=== PATIENT | male | born 1960 | race Caucasian/White ===

== ENCOUNTER 2020-05-12 14:57 | Outpatient (REF) | payer OTHER, SELFPAY ==
[2020-05-12 16:20] LABS: Alanine Aminotransferase 31 U/L (0-40); Albumin Level 4.4 g/dL (3.5-5.0); Alkaline Phosphatase 40 U/L (39-117); Aspartate Amino Transferase 26 U/L (5-37); Bilirubin Direct 0.3 mg/dL (0.0-0.5); Bilirubin Total 0.6 mg/dL (0.0-1.0); Total Protein 7.2 g/dL (6.5-8.0)
[2020-09-03 11:37] LABS: HCV Log PCR <1.18 NOT DETECTED; HepC Viral Load <15 NOT DETECTED
== END 2020-05-12 14:58 | disposition home or self-care (01) ==
LOC: HO.LAB 14:57
PROVIDERS: Absent Provider Internal Medicine; PCP Internal Medicine; Visit Provider Family Medicine
DX: B19.20 Unspecified viral hepatitis C without hepatic coma (principal); K74.00 Hepatic fibrosis, unspecified
CPT/HCPCS: 36415; 80076; 87522

== ENCOUNTER 2020-07-01 14:48 | Outpatient (REF) | payer OTHER, SELFPAY ==
--- NOTE | 2020-07-01 14:52 | US_ITS ---
EXAMINATION: US ABDOMEN COMPLETE CLINICAL INFORMATION: Hepatitis C. COMPARISON: Ultrasound abdomen complete 09/13/2019. TECHNIQUE: Real-time imaging of the abdominal viscera. FINDINGS: PANCREAS: Normal. ABDOMINAL AORTA: The proximal, mid, and distal segments are normal in caliber. INFERIOR VENA CAVA: Visualized portions are normal. LIVER: The liver is normal in size. The liver contour is normal. The liver is normal in echogenicity. No focal hepatic lesion. There is no intrahepatic biliary duct dilatation seen. GALLBLADDER: Normal. The gallbladder is physiologically distended without evidence of stones, sludge, polyps, wall thickening or pericholecystic fluid. COMMON BILE DUCT: Normal in caliber measuring 0.4 cm in diameter. RIGHT KIDNEY: There are multiple small stones, largest measuring 3 and 4 mm in the lower pole. No hydronephrosis or focal parenchymal lesions. The kidney measures 10.3 cm in maximum dimension. LEFT KIDNEY: There are multiple small stones, largest measuring 3 mm in the lower pole. No hydronephrosis or focal parenchymal lesions. The kidney measures 11.1 cm in maximum dimension. SPLEEN: Normal. The spleen measures 9.0 cm in maximum dimension. FREE FLUID: None. US/US abdomen complete IMPRESSION: Normal-appearing liver. Bilateral renal stones.
== END 2020-07-01 14:49 | disposition home or self-care (01) ==
LOC: HO.HMGCX 14:48
PROVIDERS: Visit Provider Family Medicine
DX: K74.00 Hepatic fibrosis, unspecified (principal); B19.20 Unspecified viral hepatitis C without hepatic coma
CPT/HCPCS: 76700

== ENCOUNTER → 2020-09-04 12:30 | Outpatient (BNVA) | payer OTHER, SELFPAY | PROVIDERS: PCP Internal Medicine; Visit Provider Physician Assistant | DX: Z12.11 Encounter for screening for malignant neoplasm of colon (principal) | CPT/HCPCS: Q3014 ==

== ENCOUNTER 2020-11-24 09:31 | Day surgery (SDC) | payer OTHER, SELFPAY ==
[2020-11-10 09:45] VITALS: BMI 23.2
--- NOTE | 2020-11-20 12:25 | P.CONAN_ITS ---
Documented by User: Carla Goodrich 11/20/20 12:25 HPI - Anesthesia Eval Consult details Narrative: 60yo M for Colonoscopy PMFSH Active Problems Active Problems: All Active Problems (Updated 11/10/20 @ 09:57 by Angelica Guajardo) Encounter for screening colonoscopy (Acute) COPD (chronic obstructive pulmonary disease) (Acute) Past Medical History Medical History (Updated 11/10/20 @ 09:57 by Angelica Guajardo) COPD (chronic obstructive pulmonary disease) Difficult intravenous access Hepatitis C History of chronic pain Peptic ulcer Family History Family History Mother Emphysema lung Cancer Surgical History Surgical History (Updated 11/07/20 @ 08:24 by Angelica Guajardo) History of esophagogastroduodenoscopy (EGD) Hx of colonoscopy Hx of hand surgery Social History Social History (Updated 11/10/20 @ 09:51 by Angelica Guajardo) Household Members Other:: room mate Are you a primary neonatal intensive care unit nurse to a significant other at home: No Do you presently have visiting nurse or other home services: No Alcohol intake: former Smoking Status: Current every day smoker Tobacco Type: Cigarette Cigarettes Per Day: 6 Years Smoked: 45 Use of substances other than those prescribed or required for medical reasons: No Substance Use Type Other:: clean since 2005 Have you been hit, kicked, punched, or otherwise hurt by someone within the past year? If so, by whom?: No Are you DNR?: No Advance Directives Information Provided: No Recently lost weight without trying: No Eating poorly because of decreased appetite: No Nutrition Risks: No Nutritional Risk Poor oral hygiene: No (upper full & lower partial denture) Meds Allergies Allergy/AdvReac Type Severity Reaction Status Date / Time No Known Allergies Allergy Verified 09/04/20 12:30 Home Medications Medication Instructions Recorded Confirmed Last Taken Type albuterol sulfate 90 mcg/actuation 2 puff PO Q4-6H PRN 09/04/20 11/10/20 Unknown History aerosol inhaler buprenorphine 4 mg-naloxone 1 mg 1 film SUBLINGUAL BID ea 09/04/20 11/10/20 Unknown History sublingual film tiotropium bromide 18 mcg capsule 1 cap INHALATION DAILY 09/04/20 11/10/20 Unknown History with inhalation device Exam Exam Date and Time: November 20, 2020 1225 Height,Weight and Vital Signs: Height 5 ft 10 in Weight 73.482 kg Assessment and Plan Assessment Anesthesia Assessment: Chart Reviewed Documented by User: Sarah Bose 11/24/20 09:57 [facility] Past Medical History Medical History (Updated 11/10/20 @ 09:57 by Angelica Guajardo) COPD (chronic obstructive pulmonary disease) Difficult intravenous access Hepatitis C History of chronic pain Peptic ulcer Family History Family History Mother Emphysema lung Cancer Surgical History Surgical History (Updated 11/07/20 @ 08:24 by Angelica Guajardo) History of esophagogastroduodenoscopy (EGD) Hx of colonoscopy Hx of hand surgery Social History Social History (Updated 11/10/20 @ 09:51 by Angelica Guajardo) Household Members Other:: room mate Are you a primary neonatal intensive care unit nurse to a significant other at home: No Do you presently have visiting nurse or other home services: No Alcohol intake: former Smoking Status: Current every day smoker Tobacco Type: Cigarette Cigarettes Per Day: 6 Years Smoked: 45 Use of substances other than those prescribed or required for medical reasons: No Substance Use Type Other:: clean since 2005 Have you been hit, kicked, punched, or otherwise hurt by someone within the past year? If so, by whom?: No Are you DNR?: No Advance Directives Information Provided: No Recently lost weight without trying: No Eating poorly because of decreased appetite: No Nutrition Risks: No Nutritional Risk Poor oral hygiene: No (upper full & lower partial denture) Meds Allergies Allergy/AdvReac Type Severity Reaction Status Date / Time No Known Allergies Allergy Verified 09/04/20 12:30 Home Medications Medication Instructions Recorded Confirmed Last Taken Type albuterol sulfate 90 mcg/actuation 2 puff PO Q4-6H PRN 09/04/20 11/10/20 Unknown History aerosol inhaler buprenorphine 4 mg-naloxone 1 mg 1 film SUBLINGUAL BID ea 09/04/20 11/10/20 Unknown History sublingual film tiotropium bromide 18 mcg capsule 1 cap INHALATION DAILY 09/04/20 11/10/20 Unknown History with inhalation device Exam Airway Mallampati Class: I (Only 3 teeth in mouth on the bottom nit loose) TM Dist: >3cm Neck ROM: Full Heart: RRr Lungs: CTA Assessment and Plan Assessment Anesthesia Assessment: Anesthesia Plan Discussed and Chart Reviewed Final Anesthetic Review NPO: Yes (Sip water with med) ASA Class: III Final Preanesthetic Review: No Changes in Pt Med Stat and Consent Obtained/Reviewed Patient Risk: Intermediate Procedure Risk: Intermediate Anesthetic Plan Anesthetic Plan: MAC: Disposition: Standard PACU
[2020-11-24 10:00] VITALS: BP 134/76; PULSE 58; RESP 18; TEMP 36.7; O2SAT 97
[2020-11-24] MEDS: Lactated Ringers 1,000 ML 100 ML IVCONT (10:23)
--- NOTE | 2020-11-24 10:30 | P.HPSUR_ITS ---
Pre-Procedural Eval Section B Chief Complaint: Screening Relevant Family History (Specify if Yes): No Relevant Social History: Tobacco Use Present Medications: see Short Stay Collaborative assessment Medical History: Significant History (COPD (chronic obstructive pulmonary disease) Difficult intravenous access Hepatitis C History of chronic pain Peptic ulcer) History of Previous Operations: Relevant previous surgery/procedure and date(s) (hand surgery, hx of EGD,colonoscopy ) Allergies: Allergies Allergy/AdvReac Type Severity Reaction Status Date / Time No Known Allergies Allergy Verified 09/04/20 12:30 Review of Systems Sugical H&P ROS: Negative: Constitution, Cardiovascular, Respiratory, Neurological, Psychiatric, Hem-Onc, Allergic/Immunologic, Gastrointestinal, Genitourinary, Musculoskeletal, Integumentary, Endocrine and Eyes/Ears/Nose/Throat Exam Surgical H&P Exam: Normal: HEENT, Normal: Heart, Normal: Lungs, Normal: Extre mities, Normal: Abdomen, Normal: Skin and Normal: Neurological Plan Diagnosis/Plan: Unchanged I have reviewed the history and physical and performed a pertinent physical examination on my patient. No changes have occurred unless specified.
--- NOTE | 2020-11-24 10:31 | P.OP_ITS ---
Operative Note Operative Note Date of Service: 11/24/20 Narrative: Operative Information Procedure Description: Colonoscopy COLONOSCOPY Instrument: Olympus variable stiffness pediatric scope 190L Colonoscopy Monitoring: Vital signs and clinical assessment, continuous EKG monitoring, Pulse oximetry, Carbon Dioxide monitoring and blood pressure monitoring were done throughout the procedure. Colon withdrawal time was 12 minutes. Procedure: The patient was placed in the left lateral decubitis position and pre-procedure medications were administered. After a digital rectal examination of the ano-rectum, the video colonoscope was inserted into the rectum and advanced through the colon to the cecum/TI. The colonoscope was slowly withdrawn in a retrograde panoramic fashion and the colon mucosa was carefully examined including a retroflexed view of the rectum. Findings and interventions are described below. Procedure Difficulty: easy Findings: Terminal Ileum-normal Cecum:normal Ascending Colon: normal Transverse Colon -normal Descending Colon:normal Sigmoid Colon: normal, tattoo from prior colonoscopy noted but no lesions seen Rectum: Retroflexion with small internal hemorrhoids, grade I, 11-12 mm sessile polyp removed with cold snare Anorectum - normal Colon preparation: [place] Bowel Preparation Scale Right colon; 1 Transverse colon: 1 Left colon; 2 (0 = Unprepared colon segment with mucosa not seen due to solid stool that cannot be cleared. 1 = Portion of mucosa of the colon segment seen, but other areas of the colon segment not well seen due to staining, residual stool and/or opaque liquid. 2 = Minor amount of residual staining, small fragments of stool and/or opaque liquid, but mucosa of colon segment seen well. 3 = Entire mucosa of colon segment seen well with no residual staining, small fragments of stool or opaque liquid) Impression and Post Procedure Diagnosis: polyp internal hemorrhoids Plan: High fiber diet leaflet Avoid straining at stool, epsom salts and sitz bath, anusol supps or cream as needed Repeat Colonoscopy in 2-3 years or earlier if clinically indicated Above findings were reviewed with the patient and relevant handouts were provided if indicated.
--- NOTE | 2020-11-24 10:31 | PM.OP ---
Brief Operative Note Date of Service: 11/24/20 Pre-op diagnosis: colon screen Post-op diagnosis: same Procedure: see op note Surgeon: Yelena Montalvo MD Anesthesia: MAC Was an Transitional Studies Instructor used for this Procedure?: No Estimated blood loss (mL): 0 Condition: stable Disposition: PACU
[2020-11-24 11:05] VITALS: BP 84/43; PULSE 50; RESP 16; TEMP 36.3; O2SAT 98
[2020-11-24 11:20] VITALS: BP 95/51; PULSE 53; RESP 16; TEMP 36.3; O2SAT 97
== END 2020-11-24 11:47 | disposition home or self-care (01) ==
PROVIDERS: PCP Internal Medicine; Visit Provider Internal Medicine Gastroenterology
PROC: 0DJD8ZZ Inspection of Lower Intestinal Tract, Via Natural or Artificial Opening Endoscopic (ICD-10-PCS; CPT 45378; principal; 2020-11-24 10:50)
DX: Z12.11 Encounter for screening for malignant neoplasm of colon (principal); D12.8 Benign neoplasm of rectum; K64.0 First degree hemorrhoids; Z87.11 Personal history of peptic ulcer disease; J44.9 Chronic obstructive pulmonary disease, unspecified; Z79.51 Long term (current) use of inhaled steroids; Z79.899 Other long term (current) drug therapy; Z86.19 Personal history of other infectious and parasitic diseases; Z87.898 Personal history of other specified conditions; F17.210 Nicotine dependence, cigarettes, uncomplicated
CPT/HCPCS: 45385; 88305

== ENCOUNTER → 2021-02-03 13:11 | Outpatient (BNVA) | payer OTHER, SELFPAY | PROVIDERS: PCP Internal Medicine; Visit Provider Surgery | DX: L72.0 Epidermal cyst (principal); D17.9 Benign lipomatous neoplasm, unspecified | CPT/HCPCS: 99202 ==

== ENCOUNTER 2021-07-13 15:02 | Outpatient (REF) | payer OTHER, SELFPAY ==
--- NOTE | ~2021-07-13 | XR_ITS ---
EXAMINATION: XR CERVICAL SPINE CLINICAL INFORMATION: Cervical radiculopathy COMPARISON: Previous cervical spine x-ray July 2019 TECHNIQUE: 5 views of the cervical spine were obtained. FINDINGS: There is mild 2 mm retrolisthesis of C5 with respect to C4 and C6. Bone alignment is otherwise normal. No fracture or dislocation is seen. There is degenerative spondylosis and degenerative disc disease at C3-C4, C5-C6 and C6-C7. There is degenerative spondylosis at C7-T1. There is right-sided neural foraminal narrowing from bony osteophyte at C3-C4, C5-C6 and C6-C7. There is multilevel left-sided neural foraminal narrowing from bony osteophyte, greatest at C3-C4 and C6-C7. Prevertebral soft tissues are normal. There is bilateral carotid calcification. XR/XR cervical spine 4V IMPRESSION: Multilevel degenerative changes.
== END 2021-07-13 15:03 | disposition home or self-care (01) ==
LOC: HO.XRAY 15:02
PROVIDERS: PCP Internal Medicine; Visit Provider Internal Medicine
DX: M54.12 Radiculopathy, cervical region (principal)
CPT/HCPCS: 72050

== ENCOUNTER 2021-09-04 15:16 | Outpatient (REF) | payer OTHER, SELFPAY ==
--- NOTE | ~2021-09-04 | CT_ITS ---
EXAMINATION: CT CHEST SCREENING CLINICAL INFORMATION: Smoking history COMPARISON: None. TECHNIQUE: Multidetector volumetric CT imaging of the chest is performed without contrast using low dose technique. Additional 2D coronal and sagittal reformatted images and axial 3D maximum intensity projection (MIP) images are generated on the CT workstation. This CT examination was performed using dose optimization techniques as appropriate, variously including the following: *Automated exposure control *Adjustment of mA and/or kV according to patient size (this includes techniques or standardized protocols for targeted exams where dose is matched to indication/reason for exam; i.e. extremities or head) *Use of iterative reconstruction technique DLP: 53 mGy-cm FINDINGS: LUNGS: There are several calcified pulmonary nodules. The largest measures 5 mm in the left lower lobe axial image 239 series 5. There is a 5 x 10 mm noncalcified right upper lobe peripheral or subpleural nodule adjacent to the minor fissure probably representing a subpleural lymph node axial image 279 series 5. There is evidence of paraseptal emphysema. No evidence of bronchiectasis or interstitial lung disease is seen. No endobronchial or endotracheal lesion is seen. MEDIASTINUM: There is coronary artery calcification. The mediastinum is otherwise normal. PLEURA: There is no pleural effusion. No pleural mass or thickening. AXILLA: There is slightly more prominent breast tissue seen on the right compared to the left. This is probably unchanged from previous breast ultrasound July 2019 There are no enlarged axillary lymph nodes. UPPER ABDOMEN: Unremarkable OSSEOUS STRUCTURES: There are degenerative changes of the spine. CT/CT lung screening IMPRESSION: Small calcified pulmonary nodules probably representing calcified granulomas. 5 x 10 mm noncalcified right upper lobe nodule probably representing a subpleural lymph node. Coronary artery calcification. ASSESSMENT: Lung-RADS category 2: Benign RECOMMENDATION: Annual low-dose chest CT follow-up recommended.
== END 2021-09-04 15:17 | disposition home or self-care (01) ==
LOC: HO.CT 15:16
PROVIDERS: PCP Internal Medicine; Visit Provider Physician Assistant Medical
DX: Z12.2 Encounter for screening for malignant neoplasm of respiratory organs (principal); F17.210 Nicotine dependence, cigarettes, uncomplicated
CPT/HCPCS: 71271; G0296

== ENCOUNTER → 2021-12-17 14:32 | Outpatient (BNVA) | payer OTHER, SELFPAY | PROVIDERS: PCP Internal Medicine; Referring Provider Internal Medicine; Visit Provider Surgery | DX: L72.0 Epidermal cyst (principal) | CPT/HCPCS: 99202 ==

== ENCOUNTER 2022-06-25 14:37 | Outpatient (REF) | payer OTHER, SELFPAY ==
--- NOTE | ~2022-06-25 | XR_ITS ---
EXAMINATION: XR CHEST CLINICAL INFORMATION: Pulmonary disease. Smoking history. COMPARISON: CT lung screening 09/04/2021 TECHNIQUE: 2 views of the chest were obtained. FINDINGS: There is no airspace consolidation or groundglass opacity or effusion. Heart size normal. The hilar and mediastinal contours are normal. The costophrenic sulci are clear. No acute bony abnormality. Mild loss of height midthoracic vertebral body stable. XR/XR chest 2V IMPRESSION: No acute intrathoracic disease.
== END 2022-06-25 14:38 | disposition home or self-care (01) ==
LOC: HO.XRAY 14:37
PROVIDERS: PCP Family Medicine; Visit Provider Family Medicine
DX: J44.9 Chronic obstructive pulmonary disease, unspecified (principal); R05.9 Cough, unspecified; R06.02 Shortness of breath
CPT/HCPCS: 71046

== ENCOUNTER 2022-10-01 15:19 | Outpatient (REF) | payer OTHER, SELFPAY ==
--- NOTE | ~2022-10-01 | CT_ITS ---
EXAMINATION: CT CHEST SCREENING CLINICAL INFORMATION: Current smoker. 43 pack-year history. COMPARISON: Previous chest CT September 2021 TECHNIQUE: Multidetector volumetric CT imaging of the chest is performed without contrast using low dose technique. Additional 2D coronal and sagittal reformatted images and axial 3D maximum intensity projection (MIP) images are generated on the CT workstation. This CT examination was performed using dose optimization techniques as appropriate, variously including the following: *Automated exposure control *Adjustment of mA and/or kV according to patient size (this includes techniques or standardized protocols for targeted exams where dose is matched to indication/reason for exam; i.e. extremities or head) *Use of iterative reconstruction technique DLP: 51 mGy-cm FINDINGS: LUNGS: Mild emphysema. Stable bilateral calcified pulmonary nodules representing calcified granulomas. Stable peripheral or subpleural 4 x 8 mm right upper lobe nodule adjacent to the minor fissure axial image 283 series 5 probably representing a subpleural lymph node. MEDIASTINUM: The mediastinum is normal. CORONARY ARTERY CALCIFICATION: Moderate. PLEURA: There is no pleural effusion. No pleural mass or thickening. AXILLA: No lymphadenopathy. UPPER ABDOMEN: Unremarkable OSSEOUS STRUCTURES: Degenerative changes of the spine. CT/CT lung screening IMPRESSION: Emphysema. Stable calcified and noncalcified pulmonary nodules. ASSESSMENT: Lung-RADS category 2: Benign RECOMMENDATION: Annual low-dose chest CT follow-up recommended.
== END 2022-10-01 15:20 | disposition home or self-care (01) ==
LOC: HO.CT 15:19
PROVIDERS: PCP Internal Medicine; Visit Provider Physician Assistant Medical
DX: Z12.2 Encounter for screening for malignant neoplasm of respiratory organs (principal); F17.210 Nicotine dependence, cigarettes, uncomplicated
CPT/HCPCS: 71271

== ENCOUNTER 2022-11-04 07:38 | Outpatient (REF) | payer OTHER, SELFPAY ==
--- NOTE | ~2022-11-04 | US_ITS ---
EXAMINATION: US ABDOMEN LIMITED CLINICAL INFORMATION: Chronic viral hepatitis C, treated. Screening for HCC. COMPARISON: Ultrasound abdomen complete 07/01/2020 and 09/13/2019. TECHNIQUE: Real-time imaging of the right upper quadrant abdominal viscera. FINDINGS: PANCREAS: The pancreas is homogeneous in echotexture without focal lesion. There is a small lymph node superior and medial to the head of the pancreas measuring 1.6 x 0.8 x 1.9 cm. LIVER: The liver is normal in size. The liver contour is normal. The liver is heterogeneous with increased echogenicity. No focal hepatic lesion. There is no intrahepatic biliary duct dilatation seen. GALLBLADDER: Normal. The gallbladder is physiologically distended without evidence of stones, sludge, polyps, wall thickening or pericholecystic fluid. COMMON BILE DUCT: Normal in caliber measuring 0.5 cm in diameter. RIGHT KIDNEY: Normal. No hydronephrosis. No renal calculi or focal parenchymal lesions. The kidney measures 10.3 cm in maximum dimension. FREE FLUID: None. US/US abdomen limited IMPRESSION: 1. Heterogeneous echogenic liver without focal lesion. 2. Small lymph node adjacent to the head of the pancreas. 3. Previous ultrasound visualized right kidney stones are not seen at this time.
== END 2022-11-04 07:39 | disposition home or self-care (01) ==
LOC: HO.US 07:38
PROVIDERS: PCP Internal Medicine; Visit Provider Internal Medicine
DX: B18.2 Chronic viral hepatitis C (principal)
CPT/HCPCS: 76705

== ENCOUNTER → 2022-12-21 10:18 | Outpatient (BNVA) | payer OTHER, SELFPAY | PROVIDERS: Visit Provider Physician Assistant | DX: E80.20 Unspecified porphyria (principal); R93.5 Abnormal findings on diagnostic imaging of other abdominal regions, including retroperitoneum; Z86.010 Personal history of colon polyps | CPT/HCPCS: 99202 ==

== ENCOUNTER 2022-12-29 15:17 | Outpatient (REF) | payer OTHER, SELFPAY ==
[2022-12-29 15:31] LABS: MANUAL DIFF FLAG NO
[2022-12-29 16:10] LABS: Basophils Percent Auto 0.4 % (0-2); Eosinophils Absolute Auto 0.4 X10*3/uL (0.0-0.4); Hematocrit 38.7 % (42.0-52.0); Hemoglobin 12.6 g/dl (14.0-18.0); Imm Gran Abs Auto 0.01 X10*3/uL (0.00-0.03); Imm Gran Pct Auto 0.1 % (0.0-0.4); Lymphocytes Absolute Auto 2.3 X10*3/uL (1.2-4.9); Lymphocytes Percent Auto 25.3 % (20-40); Mean Corpuscular HGB Conc 32.6 g/dl (31.0-36.0); Mean Corpuscular Hemoglobin 31.5 pg (27.0-33.0); Mean Corpuscular Volume 96.8 fL (80.0-98.0); Mean Platelet Volume 9.8 fL (9.4-12.4); Monocytes Absolute Auto 0.8 X10*3/uL (0.1-1.2); Monocytes Percent Auto 9.3 % (2-11); Neutrophils Absolute Auto 5.5 x10*3/uL (2.0-8.3); Neutrophils Percent Auto 60.9 % (45-73); Platelet Count 275 X10*3/uL (160-400); Red Cell Distribution Width 12.6 % (11.0-16.0); White Blood Count 9.1 X10*3/uL (4.8-10.8)
[2022-12-29 17:10] LABS: Alanine Aminotransferase 23 U/L (0-40); Albumin Level 4.2 g/dL (3.5-5.0); Alkaline Phosphatase 40 U/L (39-117); Anion Gap 14 (12-20); Aspartate Amino Transferase 18 U/L (5-37); Bilirubin Total 0.5 mg/dL (0.0-1.0); Blood Urea Nitrogen 19 mg/dL (9-16); Calcium 9.9 mg/dL (8.4-10.2); Carbon Dioxide 24 mmol/L (22-29); Chloride 107 mmol/L (96-108); Estimated Glomerular Filt Rate > 60; Glucose Random 90 mg/dL (60-115); Potassium 4.7 mmol/L (3.3-5.1); Sodium 140 mmol/L (135-145)
[2022-12-29 17:26] LABS: Thyroid Stimulating Hormone 1.26 uIU/mL (0.32-4.0)
[2023-01-05 14:29] LABS: Porphyrins, Total Plasma 2.9 mcg/L (1.0-5.6)
== END 2022-12-29 15:18 | disposition home or self-care (01) ==
LOC: HO.LAB 15:17
PROVIDERS: PCP Internal Medicine; Visit Provider Physician Assistant
DX: R19.8 Other specified symptoms and signs involving the digestive system and abdomen (principal); K52.9 Noninfective gastroenteritis and colitis, unspecified; E80.20 Unspecified porphyria; R93.5 Abnormal findings on diagnostic imaging of other abdominal regions, including retroperitoneum
CPT/HCPCS: 36415; 80053; 82542; 84443; 85025

== ENCOUNTER 2023-04-11 09:24 | Outpatient (REF) | payer OTHER, SELFPAY | END 2023-04-11 09:25 | disposition home or self-care (01) | LOC: HO.MRI 09:24 | PROVIDERS: PCP Internal Medicine; Visit Provider Physician Assistant | DX: R93.5 Abnormal findings on diagnostic imaging of other abdominal regions, including retroperitoneum (principal); E80.20 Unspecified porphyria | CPT/HCPCS: 74183; 84106; A9585 ==

== ENCOUNTER 2023-04-19 14:14 | Outpatient (AMB) | payer OTHER, SELFPAY ==
--- NOTE | 2023-04-19 14:18 | MHC.OFFVIS ---
Intake Vital Signs 04/19/23 14:21 Height 5 ft 10 in Weight 163 lb BMI 23.4 BP 136/79 Blood Pressure Location Lt brachial Position Sitting Pulse 61 Intake Visit Reasons: Follow up MRI results Intake Note: Patient follow up for lab and MRI results. Patient denies any GI issues. Manager Action Required: No Accompanied by: Self / Same As Patient Allergies No Known Allergies Allergy (Verified 04/19/23 14:17) Medication List - Last Reconciled 04/25/23 by Doris Quan PA-C albuterol sulfate 90 mcg/actuation 2 puffs PO Q4-6H PRN [Aleve ] bupropion HCl 150 mg PO QAM celecoxib 200 mg PO Q12H clonidine HCl 0.1 mg PO BID gabapentin 300 mg PO TID losartan 25 mg PO DAILY tiotropium bromide 1 cap inhalation DAILY HPI HPI Comments History of Present Illness Details A 63 y/o male initially referred for abnormal U/S- COPD smoker-a follows up after for further evaluation of the pancreas/lymph node We had reviewed previous labs back from 2019 noted urine porphorins- We had referred him for genetic testing as well as had a repeat random urine that is within normal range He tells me today he now recalls back when he was having issues in 2019 he had been drinking a timi water unknown take him for quite some time he had had many other symptoms he cannot quite recall however he does recall having very dark urine, not feeling well nausea as well as skin eruptions. Symptoms are completely resolved. He did get a call to schedule for genetic testing however prefers to hold off given his recall of his previous history His is present supports his a accounts. Appetite is good- he has discontinued Suboxone completely he is beginning to gain weight-he is doing very well he is happy about that He has however taking gabapentin Had some epigastric pain seems to have improved. 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-, complains of low back pain he will address with his PCP Reviewed MRI- Colonoscopy 2020 tubular adenoma, recommend 2-3 year repeat he wants to await until spring 2023 He has no nausea, vomiting, hematemesis, hematochezia, fever or chill PFSH Medical History COPD (chronic obstructive pulmonary disease) Difficult intravenous access Hepatitis C History of chronic pain History of peptic ulcer (~2001) Personal history of nicotine dependence Porphyrin disorder Tubular adenoma of colon (~2020) Surgical History History of hand surgery (~2020) History of colonoscopy (~2020) History of esophagogastroduodenoscopy (EGD) (~2001) Family History Mother Emphysema lung Cancer Social History Household Members Other:: room mate Are you a primary spiritual care coordinator to a significant other at home: No Do you presently have visiting nurse or other home services: No Alcohol intake: former Year quit: 2019 Patient Tobacco Use Status: Current everyday Tobacco user Tobacco use type: Cigarette Cigarettes Per Day: 10 Years Smoked: onset 20, 1/2ppd x 41yrs, 20pyh Substance Use Type: Amphetamines, Crack/Cocaine, Former Substance User, Hallucinogens, IV Drugs, Marijuana and Opiates Review of Systems Const All systems reviewed & are unremarkable except as noted in HPI and below Card Denies chest pain and Denies dyspnea Resp Denies dyspnea GI Denies abdominal pain, Denies hematochezia, Denies heartburn, Denies diarrhea, Denies nausea and Denies vomiting Reports no additional complaints Musc Reports back pain and Reports arthralgias Physical Exam Vital Signs: Last Vital Signs Pulse 61 04/19/23 14:21 BP 136/79 04/19/23 14:21 BMI result Body Mass Index 23.4 Results Reviewed Results Reviewed: MR/MR abdomen wo/w con IMPRESSION: No significant imaging findings within the abdomen. No evidence of abdominal mass or lymphadenopathy. US/US abdomen limited IMPRESSION: 1. Heterogeneous echogenic liver without focal lesion. 2. Small lymph node adjacent to the head of the pancreas. 3. Previous ultrasound visualized right kidney stones are not seen at this time. Assessment & Plan Assessment & Plan (1) Tubular adenoma of colon: Onset Date: ~2020 Comment: (TA rectal polyp - colonoscopy 11/24/20)- repeat 2-3 years-will discuss follow-up visit Code(s): D12.6 - Benign neoplasm of colon, unspecified (2) Porphyrin disorder: Comment: 2019-symptoms completely resolved Declined genetic test Reviewing labs normocytic anemia, history of HCV Code(s): E80.20 - Unspecified porphyria Plan: Reviewed recent random urine within normal range EGD and colonoscopy Plan EGD and Repeat colonoscopy with -spring 2023 MiraLax Gatorade split Orders: Orders Colonoscopy - GI Use Only 04/19/23 D12.6 - Benign neoplasm of colon, unspecified Patient Instructions: Very pleasant 63-year-old Gent history of HCV, porpyryn disorder follows up after recent MRI to follow-up on abnormal ultrasound- is present Repeat polyp surveillance colonoscopy-as well EGD- MiraLax Gatorade split prep literature given Encouraged to call with questions or concerns Appreciate the opportunity assist in the care this pleasant Coding Level of Care Code Est Pt Level 3 (81519) Diagnoses Tubular adenoma of colon D12.6 Porphyrin disorder E80.20 Time Spent (min) 30
[2023-04-19 14:21] VITALS: BP 136/79; PULSE 61; BMI 23.4
== END 2023-04-19 15:58 | disposition home or self-care (01) ==
PROVIDERS: PCP Internal Medicine; Visit Provider Physician Assistant
DX: D12.6 Benign neoplasm of colon, unspecified (principal); E80.20 Unspecified porphyria
CPT/HCPCS: 99213

== ENCOUNTER → 2023-04-19 14:14 | Outpatient (BNVA) | payer OTHER, SELFPAY | PROVIDERS: PCP Internal Medicine; Visit Provider Physician Assistant | DX: D12.6 Benign neoplasm of colon, unspecified (principal); E80.20 Unspecified porphyria; B19.20 Unspecified viral hepatitis C without hepatic coma | CPT/HCPCS: 99212 ==

== ENCOUNTER 2023-06-01 14:02 | Outpatient (AMB) | payer OTHER, SELFPAY ==
--- NOTE | 2023-06-01 14:09 | MHC.OFFVIS ---
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 Hx of right thumb O.A surgery. States he has CTS for the last 2 years and has worsen since. States he is currently taking Gabapentin which only helps for 4 hrs. States he doesnt have normal sensation in his finger. States his Right is worse. No EMG done. 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 He complains of numbness in the thumb, index, and middle fingers of his hands bilaterally. He describes this as constant. He says this has been present for 2 years now. He takes Gabapentin and denies any other treatment, as well as a NCS. He says Gabapentin gives him ~4 hours of relief from his numbness and pain, but then it returns. He says he tried to complete a NCS in the past but was not able to tolerate the study. He is willing to try again. 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 He says This happened several years ago at [facility]. He has a hx of thumb injections as well. 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 He also has a hx of Hep-C. He says this has all resolved. 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 [facility] Medical History COPD (chronic obstructive pulmonary disease) Difficult intravenous access Hepatitis C History of chronic pain History of peptic ulcer (~2001) Personal history of nicotine dependence Porphyrin disorder Tubular adenoma of colon (~2020) Surgical History History of hand surgery (~2020) History of colonoscopy (~2020) History of esophagogastroduodenoscopy (EGD) (~2001) Family History Mother Emphysema lung Cancer Social History (Updated 06/01/23 @ 14:18 by Nicolette Shore [facility]) Household Members Other:: room mate Are you a primary lawn care worker to a significant other at home: No Do you presently have visiting nurse or other home services: No Alcohol intake: former Year quit: 2019 Patient Tobacco Use Status: Current everyday Tobacco user Tobacco use type: Cigarette Cigarettes Per Day: 10 Years Smoked: onset 20, 1/2ppd x 41yrs, 20pyh Substance Use Type: Amphetamines, Crack/Cocaine, Former Substance User, Hallucinogens, IV Drugs, Marijuana and Opiates Current occupational status: employed 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 Review of Systems Const All systems reviewed & are unremarkable except as noted in HPI and below Physical Exam Vital Signs: BMI result Body Mass Index 23.4 Const General: cooperative, healthy appearing and no acute distress Orientation/consciousness: patient oriented x3 HEENT Head: Yes normocephalic and Yes atraumatic Eyes EOM: EOMs intact bilaterally Resp Effort & Inspection: normal respiratory effort and able to speak in complete sentences Cardio Jugular venous distension: no JVD Skin General skin exam: turgor normal Rashes: no rashes Neuro General: patient oriented x3 Extrem Other: Evaluation of Bilateral Upper Extremity: The patient is alert, oriented, and in no acute distress Neuro: Dense numbness in the median nerve distribution bilaterally. Normal sensation to the ulnar nerve distribution bilaterally No thenar or intrinsic wasting Good APB muscle belly firing and good finger cross Vascular: Cap refill brisk ROM: He can make a fist and extend all his digits No locking or catching Skin: No lacerations or abrasions. General: No Ecchymosis. No Erythema or evidence of infection. Dupuytrens nodules in the mid-palm bilaterally, in line with the ring & small fingers bilaterally Psych Appearance: grossly normal Affect: normal affect Attitude: cooperative Assessment & Plan Assessment & Plan (1) Bilateral hand numbness: Code(s): R20.0 - Anesthesia of skin (2) Dupuytren's disease of palm with nodules without contracture: Code(s): M72.0 - Palmar fascial fibromatosis [Dupuytren] Plan Assessment & Plan: 1. Bilateral hand numbness Dense numbness in the median nerve distribution I educated him about carpal & cubital tunnel syndrome I ordered a NCS to assess for peripheral nerve compression. He was not able to tolerate his previous NCS attempt at [facility] He will follow up when completed for review 2. Bilateral hand Dupuytren's nodules In the mid-palm, in line with the ring & small fingers Early contractures I educated him about this condition I directed him to the [email or web address] website for more information I recommend he work on maintaining his ROM He can follow up to discuss treatment options if this worsens Scribed for Daisha Littlejohn MD by Lico Restrepo, medical office administrator, on 06/01/23 at 2:25 PM, EST. Coding Level of Care Code Est Pt Level 3 (86537) Diagnoses Bilateral hand numbness R20.0 Dupuytren's disease of palm with nodules without contracture M72.0
[2023-06-01 14:10] VITALS: BMI 23.4
== END 2023-06-01 14:35 | disposition home or self-care (01) ==
PROVIDERS: PCP Internal Medicine; Visit Provider Orthopaedic Surgery
DX: R20.0 Anesthesia of skin (principal); M72.0 Palmar fascial fibromatosis [Dupuytren]
CPT/HCPCS: 99213

== ENCOUNTER → 2023-06-01 14:02 | Outpatient (BNVA) | payer OTHER, SELFPAY | PROVIDERS: PCP Internal Medicine; Visit Provider Orthopaedic Surgery | DX: R20.0 Anesthesia of skin (principal); M72.0 Palmar fascial fibromatosis [Dupuytren] | CPT/HCPCS: 99212 ==

== ENCOUNTER 2023-07-14 13:51 | Outpatient (REF) | payer OTHER, SELFPAY ==
--- NOTE | 2023-07-14 13:54 | EMG_ITS ---
Chief complaint: Chronic bilateral hand pain and numbness, right worse than left. Chronic neck pain. 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 Denies history of diabetes or thyroid. Per medical records, he has history of hepatitis C. Reason for referral: Evaluate for Carpal Tunnel Syndrome Referred by: Dr. Littlejohn Procedure done: Bilateral upper extremities NCS/EMG Precautions and/or limitations: None The limb temperature was monitored continuously and remained between 32-36 degrees C during the performance of the NCS. Ulnar motor NCS was performed with moderate elbow flexion between 70-90 degrees, with across-elbow distance of 10 cm. Nerve Conduction Studies Anti Sensory Summary Table ?Stim Site NR Onset (ms) Norm Onset (ms) Peak (ms) Norm Peak (ms) O-P Amp (?V) Norm O-P Amp Site1 Site2 Delta-0 (ms) Dist (cm) Osbaldo (m/s) Norm Osbaldo (m/s) Left Median Anti Sensory (2nd Digit) Wrist ? 2.8 3.5 <3.6 8.0 >10 Wrist 2nd Digit 2.8 14.0 50 Right Median Anti Sensory (2nd Digit) Wrist ? 2.8 3.9 <3.6 5.0 >10 Wrist 2nd Digit 2.8 14.0 50 Left Radial Anti Sensory (Thumb) Forearm ? 1.8 2.5 <3.1 17.4 Forearm Thumb 1.8 0.0 Left Ulnar Anti Sensory (5th Digit) Wrist ? 2.8 3.7 <3.7 8.0 >15.0 Wrist 5th Digit 2.8 14.0 50 2nd stim ? 2.9 3.5 7.3 Right Ulnar Anti Sensory (5th Digit) Wrist ? 3.0 3.8 <3.7 5.6 >15.0 Wrist 5th Digit 3.0 14.0 47 Motor Summary Table ?Stim Site NR Onset (ms) Norm Onset (ms) O-P Amp (mV) Norm O-P Amp iAmp (mV) Amp (1st) (%) Site1 Site2 Delta-0 (ms) Dist (cm) Osbaldo (m/s) Norm Osbaldo (m/s) Left Median Motor (Abd Poll Brev) Wrist ? 3.5 <3.9 6.1 >4.5 7.0 100.0 Elbow Wrist 4.5 25.0 56 >45 Elbow ? 8.0 5.8 6.8 95.1 Right Median Motor (Abd Poll Brev) Wrist ? 3.3 <3.9 6.9 >4.5 8.3 100.0 Elbow Wrist 4.4 24.0 55 >45 Elbow ? 7.7 5.8 6.9 84.1 Left Ulnar Motor (Abd Dig Minimi) Wrist ? 3.0 <3.0 6.5 >5 7.7 100.0 B Elbow Wrist 3.8 21.0 55 >45 B Elbow ? 6.8 6.6 8.1 101.5 A Elbow B Elbow 1.7 10.0 59 >45 A Elbow ? 8.5 5.8 7.1 89.2 Right Ulnar Motor (Abd Dig Minimi) Wrist ? 4.0 <3.0 6.9 >5 7.9 100.0 B Elbow Wrist 4.2 20.0 48 >45 B Elbow ? 8.2 7.3 8.4 105.8 A Elbow B Elbow 1.6 10.0 62 >45 A Elbow ? 9.8 6.7 7.8 97.1 Comparison Summary Table ?Stim Site NR Peak (ms) Norm Peak (ms) P-T Amp (?V) Site1 Site2 Delta-P (ms) Norm Delta (ms) Right Median/Radial Dig I Comparison (Digit 1 - 10cm) Median ? 3.3 <2.9 9.3 Median Radial 0.4 Radial ? 2.9 <2.8 3.6 EMG ?Side Muscle Nerve Root Ins Act Fibs Psw Amp Dur Poly Recrt Int Pat Comment Right 1stDorInt Ulnar C8-T1 Nml Nml Nml Nml Nml 0 Nml Complete Right Biceps Musculocut C5-6 Nml Nml Nml Nml Nml 0 Nml Complete Right Triceps Radial C6-7-8 Nml Nml Nml Incr Incr 0 Nml Complete Right Deltoid Axillary C5-6 Nml Nml Nml Incr Incr 1+ Nml Complete Right FlexCarpiUln Ulnar C8,T1 Nml Nml Nml Incr Incr 0 Nml Complete Left 1stDorInt Ulnar C8-T1 Nml Nml Nml Incr Incr 0 Nml Complete Left Biceps Musculocut C5-6 Incr 1+ 1+ Nml Nml 0 Nml Complete small PSWs Left Triceps Radial C6-7-8 Nml Nml Nml Incr Incr 0 Nml Complete Left Deltoid Axillary C5-6 Nml Nml Nml Nml Nml 0 Nml Complete Left FlexCarpiUln Ulnar C8,T1 Nml Nml Nml Nml Nml 0 Nml Complete Paraspinal EMG ?Side Muscle Nerve Root Ins Act Fibs Psw Comment Right Cervical Upper Rami Nml Nml Nml Right Cervical Mid Rami Nml Nml Nml Right Cervical Lower Rami Nml Nml Nml Left Cervical Upper Rami Nml Nml Nml Left Cervical Mid Rami Nml Nml Nml Left Cervical Lower Rami Nml Nml Nml FINDINGS: Right ulnar motor nerve showed prolonged distal latency, normal amplitude and normal conduction velocity. Right ulnar sensory nerve showed prolonged peak latency and small amplitude. Right median sensory nerve showed prolonged peak latency and small amplitude. Comparison study on right median versus radial sensory nerves, digit 1, showed interlatency difference of 0.4. Left ulnar sensory nerve showed normal peak latency but small amplitude. Left median sensory nerve showed normal peak latency but small amplitude. All other nerves tested including bilateral median motor nerves, bilateral radial sensory nerves, left ulnar motor nerve, were within normal. Concentric needle EMG was performed in selected muscles of the bilateral upper extremities and cervical paraspinals. Study revealed signs of electric abnormalities as shown in the table below. Right deltoid showed increased insertional amplitude and duration, and increased polyphasia. Right triceps showed increased amplitude and duration. Right FCU and FDI showed increased amplitude and duration. Left triceps showed increased amplitude and duration. Left biceps showed small PSWs, increased insertional activity. IMPRESSION: 1. This is an abnormal study. 2. There is electrodiagnostic evidence for bilateral mild median neuropathy at the wrist. 3. There is electrodiagnostic evidence for chronic right ulnar neuropathy at the elbow. 4. To a lesser degree, there are electrodiagnostic findings suggestive of a left ulnar neuropathy, chronic. 5. Chronic reinnervation changes seen on muscles innervated by cervical nerve roots C5, C6, C7, bilateral. These findings sometimes suggest chronic radiculopathy. CLINICAL COMMENT: Further clinical correlation recommended. Thank you for your kind referral. Eliane Gomez MD, LILLY Board Certified, [place] Board of Physical Medicine and Rehabilitation (ABPMR) Board Certified, [place] Board of Electrodiagnostic Medicine (ABEM) CODIN [id number] x 2 MTDD
== END 2023-07-14 13:52 | disposition home or self-care (01) ==
LOC: HO.NEURO 13:51
PROVIDERS: PCP Internal Medicine; Visit Provider Orthopaedic Surgery
DX: R20.2 Paresthesia of skin (principal); R20.0 Anesthesia of skin
CPT/HCPCS: 95886; 95911

== ENCOUNTER → 2023-07-14 13:54 | Outpatient (BNV) | payer OTHER, SELFPAY | PROVIDERS: PCP Internal Medicine; Visit Provider Physical Medicine & Rehabilitation | DX: G56.13 Other lesions of median nerve, bilateral upper limbs (principal); G56.21 Lesion of ulnar nerve, right upper limb; M54.12 Radiculopathy, cervical region | CPT/HCPCS: 95886; 95911 ==

== ENCOUNTER 2023-07-28 19:59 | Outpatient (REF) | payer OTHER, SELFPAY ==
--- NOTE | ~2023-07-28 | MR_ITS ---
EXAMINATION: MR LUMBAR SPINE WITHOUT CONTRAST CLINICAL INFORMATION: Low back pain. Right lower extremity pain, numbness, and weakness. COMPARISON: No relevant prior imaging. TECHNIQUE: MRI of the lumbar spine was obtained using routine sequences without contrast. FINDINGS: There is slight grade 1 retrolisthesis of L1 on L2, L2 on L3, and L3 on L4. Vertebral body heights are grossly maintained. There mixed degenerative endplate changes at multiple levels within the lumbar spine. There is loss of intervertebral disc height and T2 signal intensity at multiple levels related to disc degeneration. The tip of the conus medullaris is located at L1. No mass effect on the conus. Visualized distal cord signal intensity is normal. At L1-L2 there is a bulging disc. No canal stenosis. No mass effect on the traversing or foraminal nerve roots. At L2-L3 there is a bulging disc. Bilateral facet degenerative change. No canal stenosis. No mass effect mild mass effect on the extraforaminal segment of the left L2 nerve root. At L3-L4 there is a diffusely bulging disc. Advanced bilateral facet degenerative change.. Moderate to severe canal stenosis. Subarticular zone narrowing causes displacement and possible compression of the right traversing L4 nerve roots. Moderate compression of the right L3 foraminal nerve root. At L4-L5 there is a broad central extrusion with 0.8 cm caudal subligamentous extension of extruded disc material. Bilateral facet degenerative change. Severe canal stenosis. Moderate compression of both L4 foraminal nerve roots. At L5-S1 there is a bulging disc. Advanced bilateral facet degenerative change. No canal stenosis. Severe compression of the left L5 foraminal nerve root and mild mass effect on the right L5 foraminal nerve root. Limited visualization of the retroperitoneal anatomy reveals no abnormal finding. Psoas and paraspinal muscle groups are symmetric. MR/MR lumbar spine wo con IMPRESSION: There is multilevel degenerative spondylosis of the lumbar spine. Severe canal stenosis at L4-L5. Moderate to severe canal stenosis at L3-L4. There are varying degrees of mass effect on the traversing and foraminal segments of the nerve roots as described above. For instance there is severe compression of the left L5 foraminal nerve root related to degenerative changes at L5-S1.
== END 2023-07-28 20:00 | disposition home or self-care (01) ==
LOC: HO.MRI 19:59
PROVIDERS: PCP Internal Medicine; Visit Provider Student in an Organized Health Care Education/Training Program
DX: M54.16 Radiculopathy, lumbar region (principal)
CPT/HCPCS: 72148

== ENCOUNTER 2023-09-21 09:49 | Outpatient (AMB) | payer OTHER, SELFPAY ==
--- NOTE | 2023-09-21 09:53 | MHC.OFFVIS ---
Intake Vital Signs 09/21/23 10:01 Height 5 ft 10 in Weight 163 lb BMI 23.4 Intake Visit Reasons: New Prob- Lower back pain Intake Note: Nehal is a 63 year old male who presents today for a evaluation for his lower back/ right leg pain. Patient reports off and on. Hx of injection in his lower back at [facility]. He states that the injections is helping him, however his right leg gets numbness when he is driving. His pain sometimes start at his groin area and moves down his right leg. Allergies No Known Allergies Allergy (Verified 09/21/23 10:00) Medication List - Last Reconciled 09/21/23 by Eliane Gomez MD albuterol sulfate 90 mcg/actuation 2 puffs PO Q4-6H PRN [Aleve ] celecoxib 200 mg PO Q12H gabapentin 300 mg PO TID losartan 25 mg PO DAILY tiotropium bromide 1 cap inhalation DAILY HPI HPI Comments History of Present Illness Details New onset right-sided back pain, radiating to right leg, starting after significant fall 9 months ago. Landed on concrete floor. Has been going to [facility], had lumbar injections bilateral L3-4 and L4-5, 1 month ago at the office. Just starting to help, 1-2 weeks. Does not have the night time pain anymore. At least 50%. However the more he moves around or walk or drive, the right leg goes numb, medial thigh, groin, right foot. Worst with stairs. Right knee feels might give out. No falls. Has noted a few episodes of bowel incontinence related to bending/squatting and back pain. Treatment done so far: gabapentin lumbar injection [facility] Medical History (Updated 09/21/23 @ 13:38 by Eliane Gomez MD) Lumbar spinal stenosis Right lumbar radiculopathy Porphyrin disorder Tubular adenoma of colon (~2020) History of peptic ulcer (~2001) Personal history of nicotine dependence Difficult intravenous access History of chronic pain COPD (chronic obstructive pulmonary disease) Hepatitis C Surgical History History of hand surgery (~2020) History of colonoscopy (~2020) History of esophagogastroduodenoscopy (EGD) (~2001) Family History Mother Emphysema lung Cancer Social History Household Members Other:: room mate Are you a primary healthcare corporate account director to a significant other at home: No Do you presently have visiting nurse or other home services: No Alcohol intake: former Year quit: 2019 Patient Tobacco Use Status: Current everyday Tobacco user Tobacco use type: Cigarette Cigarettes Per Day: 10 Years Smoked: onset 20, 1/2ppd x 41yrs, 20pyh Substance Use Type: Amphetamines, Crack/Cocaine, Former Substance User, Hallucinogens, IV Drugs, Marijuana and Opiates Current occupational status: employed 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 Patient was appropriately conversant and oriented. Good historian. MSK: No specific abnormalities found on inspection of the spine and all extremities. No pain with palpation over the lumbar area. No SI or GT tenderness. Lumbar ROM was full. Bilateral hip, knee and ankle ROM WNL. No ligamentous laxity or crepitance. No increased effusion. Straight-leg raising test positive right. FABERE test positive groin and hip pain on right. Strength is 5/5 in all muscle groups tested. No increased tone noted. Neurological: Right hip flexion weakness 4/5. Rest of strength testing 5/5. Slightly depressed right patellar reflex as compared to left. Groves?s negative bilaterally. Babinski was down going bilaterally. Clonus was negative. Gait is antalgic without loss of balance. Results Reviewed Results Reviewed: I independently reviewed the results of the following: Lumbar MRI shows moderate spinal stenosis L3-4 and L4-5. I reviewed records from the following: Obtaining injection notes/records from [facility] Assessment & Plan Assessment & Plan (1) Right lumbar radiculopathy: Code(s): M54.16 - Radiculopathy, lumbar region (2) Lumbar spinal stenosis: Code(s): M48.061 - Spinal stenosis, lumbar region without neurogenic claudication Qualifiers: Neurogenic claudication status: with neurogenic claudication Qualified Code(s): M48.062 - Spinal stenosis, lumbar region with neurogenic claudication (3) Right knee pain: Code(s): M25.561 - Pain in right knee Qualifiers: Chronicity: acute Qualified Code(s): M25.561 - Pain in right knee (4) Right hip pain: Code(s): M25.551 - Pain in right hip Plan We reviewed MRI images. He understands he has lumbar spinal stenosis. Concern is for signs of lumbar radiculopathy, with episodes of mild bowel incontinence and slightly depressed right patellar reflex. We discussed options including continued lumbar injections (either returning to [facility] or going to our Pain Management department) vs getting referred to our Neurospine Dr. Berry. We opted for the latter to see what his surgical options are. For completion, since he has hip and knee pain, with history of OA, would send him for knee and hip xray today. If there is DJD, we could consider local injections to hip and/or knee. Assessment and plan discussed with patient, and patient was agreeable. All questions were answered thoroughly. Eliane Gomez MD, LILLY Board Certified, [place] Board of Physical Medicine and Rehabilitation (ABPMR) Board Certified, [place] Board of Electrodiagnostic Medicine (ABEM) Orders: Orders XR hip RT min 2V Today M25.551 - Pain in right hip, M25.561 - Pain in right knee, M48.061 - Spinal stenosis, lumbar region without neurogenic claudication, M54.16 - Radiculopathy, lumbar region XR knee RT 3V Today M25.551 - Pain in right hip, M25.561 - Pain in right knee, M48.061 - Spinal stenosis, lumbar region without neurogenic claudication, M54.16 - Radiculopathy, lumbar region Referrals Neurosurgery Referral M48.061 - Spinal stenosis, lumbar region without neurogenic claudication, M54.16 - Radiculopathy, lumbar region Coding Level of Care Code Est Pt Level 4 (46497) Diagnoses Right lumbar radiculopathy M54.16 Spinal stenosis of lumbar region with neurogenic claudication M48.062 Neurogenic claudication status: with neurogenic claudication Acute pain of right knee M25.561 Chronicity: acute Right hip pain M25.551
[2023-09-21 10:01] VITALS: BMI 23.4
== END 2023-09-21 11:43 | disposition home or self-care (01) ==
PROVIDERS: PCP Internal Medicine; Visit Provider Physical Medicine & Rehabilitation
DX: M54.16 Radiculopathy, lumbar region (principal); M48.062 Spinal stenosis, lumbar region with neurogenic claudication; M25.561 Pain in right knee; M25.551 Pain in right hip
CPT/HCPCS: 99214

== ENCOUNTER 2023-09-21 09:49 | Outpatient (REF) | payer OTHER, SELFPAY ==
--- NOTE | ~2023-09-21 | XR_ITS ---
EXAMINATION: XR KNEE, RIGHT CLINICAL INFORMATION: Pain in right knee. Evaluate DJD. COMPARISON: None available. TECHNIQUE: Three views of the right knee. FINDINGS: Moderate suprapatellar effusion. Mild narrowing of the medial compartment. A few calcifications in the posterior soft tissues are indeterminate, possibly vascular. XR/XR knee RT 3V IMPRESSION: Moderate suprapatellar effusion. Mild narrowing of the medial compartment.
--- NOTE | ~2023-09-21 | XR_ITS ---
EXAMINATION: XR HIP, RIGHT CLINICAL INFORMATION: Pain in right hip. COMPARISON: None available. TECHNIQUE: Two views of the right hip. FINDINGS: Advanced degenerative changes in the imaged lower lumbar spine. Degenerative changes on limited views of the right sacroiliac joint. Mild degenerative changes in the right hip with joint space narrowing and hypertrophic change. Alignment preserved. XR/XR hip RT min 2V IMPRESSION: 1. Mild degenerative changes in the right hip. 2. Advanced degenerative changes in the lower lumbar spine. 3. Degenerative changes on limited views of the right sacroiliac joint.
== END 2023-09-21 09:50 | disposition home or self-care (01) ==
LOC: HO.HOSX 09:49
PROVIDERS: PCP Internal Medicine; Visit Provider Physical Medicine & Rehabilitation
DX: M25.561 Pain in right knee (principal); M25.551 Pain in right hip; M54.16 Radiculopathy, lumbar region; M48.062 Spinal stenosis, lumbar region with neurogenic claudication
CPT/HCPCS: 73502; 73562; 99212

== ENCOUNTER 2023-09-30 13:26 | Outpatient (REF) | payer OTHER, SELFPAY ==
[2023-09-30 15:10] LABS: Influenza A PCR NEGATIVE (Negative); Influenza B PCR NEGATIVE (Negative); Resp Syncy Virus RNA Qual PCR NEGATIVE (Negative); SARS COV2 PCR INHOUSE NEGATIVE (Negative)
== END 2023-09-30 13:27 | disposition home or self-care (01) ==
LOC: HO.CHCLNP 13:26
PROVIDERS: Visit Provider Family Medicine
DX: J06.9 Acute upper respiratory infection, unspecified (principal); M48.062 Spinal stenosis, lumbar region with neurogenic claudication; G95.9 Disease of spinal cord, unspecified
CPT/HCPCS: 0241U; 99202

== ENCOUNTER 2023-09-30 13:54 | Outpatient (AMB) | payer OTHER, SELFPAY ==
--- NOTE | 2023-09-30 14:03 | A.SPINEOV_ITS ---
Intake Intake Visit Reasons: Lumbar radiculopathy Intake Note: Mr. Veloz is here today c/o right sided leg pain that shoots down. Ophthalmology Surgical Technician Required: No Allergies No Known Allergies Allergy (Verified 09/30/23 14:04) Assessment & Plan Assessment & Plan (1) Cervical myelopathy: Code(s): G95.9 - Disease of spinal cord, unspecified (2) Lumbar spinal stenosis: Code(s): M48.061 - Spinal stenosis, lumbar region without neurogenic claudication Qualifiers: Neurogenic claudication status: with neurogenic claudication Qualified Code(s): M48.062 - Spinal stenosis, lumbar region with neurogenic claudication Plan Dear Dr Gareth Gallegos Thank you for referring Mr Veloz to our office today. He is a 63-year-old gentleman presents to the office today for evaluation of right leg pain which starts in his medial thigh and goes down into his knee, extending further down into his medial ankle. The symptoms started last February but have progressively gotten worse. When he stands and walks he feels severe pain going down the leg. If he sits down, he can make the severe pain go away but there is still a feeling of squeezing and a numbness that goes down his right leg. He underwent injections at [facility], right L3 and right L4 TF E and he has had a significant reduction in the pain since that time. He takes Aleve, Tylenol but these things do not really give him significant relief. He underwent physical therapy as well without any effect. He comes in today to see us with an MRI showing severe stenosis at L4-5 and L3-4. He denies any bowel or bladder incontinence. He does have difficulty starting a stream sometimes but does not report any loss of sensation or loss of bladder or bowel control. PMH: He is a lifelong smoker, he has a remote history of porphyria which apparently was a cutaneous manifestation but has not had a flare-up with that in a long time. History of kidney stones, COPD, tubular adenoma of the colon, right thumb surgery. 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 He used to smoke crystal meth back in the 90s, use marijuana etc. but currently is no longer actively involved in any recreational drug use. He does drink 1-2 nips of alcohol a day. Medications: He does not take any regular medications he tells me other than the gabapentin and Aleve Allergies: None Physical exam: Awake alert oriented, he is able to stand up out of a chair ambulate down the hallway he does have some ataxia with tandem gait testing. He has noticeable atrophy of his hands and his triceps. He has 4-5 weakness of his hands bilaterally as well as triceps I would also rate as 4-5. Proximally in the deltoids and biceps 5/5. He has weakness of his iliopsoas on the right. This is a 4-5 as well. The rest of his distal lower extremity strength is full. He is diffusely hyperreflexic with clonus in both ankles. Imaging review: He has a lumbar MRI done at [place] [facility] showing severe stenosis and disc degeneration at L3-4 and L4-5 as well as bilateral L5 foraminal stenosis with disc collapse at this level as well. Impression: 63-year-old male presents for evaluation of severe claudicating right leg pain in the setting of severe stenosis at L3-4 and L4-5. He did respond to an L3 and L4 TFE, but does continue to have the pain. He has failed conservative management and I think ultimately he would likely be a good candidate for decompression, but in light of his physical exam showing signs of myelopathy and reporting that he does have feelings of subject weakness and numbness of his hands I think we need to get a cervical MRI to exclude myelopathy. I will defer any definitive decision on his low back until we can clear up the situation with his neck. Thank you for allowing us to care for your patient. The total time spent with this visit with this patient was 45 minutes reviewing history, physical exam, lumbar imaging review, and implementation of treatment plan or further diagnostic testing Garry Berry MD,PhD [facility] Orders: Orders MR cervical spine wo con Today G95.9 - Disease of spinal cord, unspecified Coding Level of Care Code New Pt Level 4 (58507) Diagnoses Cervical myelopathy G95.9 Spinal stenosis of lumbar region with neurogenic claudication M48.062 Neurogenic claudication status: with neurogenic claudication
== END 2023-09-30 15:29 | disposition home or self-care (01) ==
PROVIDERS: PCP Internal Medicine; Referring Provider Physical Medicine & Rehabilitation; Visit Provider Physician Assistant
DX: G95.9 Disease of spinal cord, unspecified (principal); M48.062 Spinal stenosis, lumbar region with neurogenic claudication
CPT/HCPCS: 99204

== ENCOUNTER 2023-10-06 15:18 | Outpatient (REF) | payer OTHER, SELFPAY | END 2023-10-06 15:19 | disposition home or self-care (01) | LOC: HO.HOSX 15:18 | PROVIDERS: Visit Provider Physician Assistant | DX: Z13.89 Encounter for screening for other disorder (principal) ==

== ENCOUNTER 2023-10-12 06:59 | Day surgery (SDC) | payer OTHER, SELFPAY ==
[2023-10-10 11:33] VITALS: BMI 23.4
[2023-10-12 07:06] VITALS: BMI 23.1
--- NOTE | 2023-10-12 07:08 | HO.ANESPROP2 ---
[facility] Active Problems Active Problems: All Active Problems Cervical myelopathy (Acute) Lumbar spinal stenosis (Acute) Right lumbar radiculopathy (Acute) Right knee pain (Acute) Right hip pain (Acute) Dupuytren's disease of palm with nodules without contracture (Acute) Bilateral hand numbness (Acute) Poor historian (Acute) Abnormal abdominal ultrasound (Acute) Porphyria (Acute) Porphyrin disorder (Acute) Bilateral renal stones (Acute) Tubular adenoma of colon (Acute ~2020) Personal history of nicotine dependence (Acute) Lipoma (Acute) Epidermal inclusion cyst (Acute) COPD (chronic obstructive pulmonary disease) (Acute) Past Medical History Medical History (Updated 09/30/23 @ 14:27 by LUCY Gayle) Lumbar spinal stenosis Right lumbar radiculopathy Porphyrin disorder Tubular adenoma of colon (~2020) History of peptic ulcer (~2001) Personal history of nicotine dependence Difficult intravenous access History of chronic pain COPD (chronic obstructive pulmonary disease) Hepatitis C Family History Family History Mother Emphysema lung Cancer Family history of problems with anesthesia: No Surgical History Surgical History History of hand surgery (~2020) History of colonoscopy (~2020) History of esophagogastroduodenoscopy (EGD) (~2001) History of Problems with Anesthesia: No Social History Social History (Updated 10/10/23 @ 11:32 by Angelica Guajardo RN) Household Members Other:: room mate Are you a primary patient care associate to a significant other at home: No Do you presently have visiting nurse or other home services: No Alcohol intake: former Year quit: 2019 Patient Tobacco Use Status: Current everyday Tobacco user Tobacco use type: Cigarette Cigarettes Per Day: 10 Years Smoked: onset 20, 1/2ppd x 41yrs, 20pyh Substance Use Type: Amphetamines, Crack/Cocaine, Former Substance User, Hallucinogens, IV Drugs, Marijuana and Opiates Advance Directives: No Advance Directives Information Provided: Yes Current occupational status: employed 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 Meds Allergies Allergy/AdvReac Type Severity Reaction Status Date / Time No Known Allergies Allergy Verified 09/30/23 14:04 Home Medications ?Medication ?Instructions ?Recorded ?Confirmed ?Last Taken ?Type albuterol sulfate 90 mcg/actuation 2 puff PO Q4-6H PRN Shortness Of 09/04/20 10/10/23 Unknown History aerosol inhaler Breath tiotropium bromide 18 mcg capsule 1 cap inhalation DAILY 09/04/20 10/10/23 Unknown History with inhalation device celecoxib 200 mg capsule 200 mg PO Q12H 12/21/22 10/10/23 Unknown History losartan 25 mg tablet 25 mg PO DAILY 12/21/22 10/10/23 Unknown History gabapentin 300 mg capsule 300 mg PO TID 04/19/23 10/10/23 Unknown History bupropion HCl 150 mg 24 hr tablet, 150 mg PO QAM 10/10/23 10/10/23 Unknown History extended release clonidine HCl 0.1 mg tablet 0.1 mg PO BID 10/10/23 10/10/23 Unknown History naproxen sodium 220 mg tablet 220 mg PO BID PRN Pain 10/10/23 10/10/23 Unknown History (Suraj) Exam Height,Weight and Vital Signs: Height 5 ft 10 in Weight 73.936 kg Airway Mallampati Class: II TM Dist: >3cm Neck ROM: Full Denture: Upper and Lower Heart: rrr Lungs: cta b/l Assessment and Plan Final Anesthetic Review Family History of Problems with Anesthesia: No History of Problems with Anesthesia: No ASA Class: III Final Preanesthetic Review: No Changes in Pt Med Stat, Meds/Allgs Chart Reviewed, Consent Obtained/Reviewed and Anes Risks/Benef Reviewed Patient Risk: Intermediate Procedure Risk: Intermediate Anesthetic Plan Anesthetic Plan: MAC: Disposition: Standard PACU
[2023-10-12 07:16] VITALS: BP 126/76; PULSE 57; RESP 16; TEMP 36.6; O2SAT 98
[2023-10-12] MEDS: Lactated Ringers 1,000 ML 80 ML IVCONT (07:28)
--- NOTE | 2023-10-12 08:36 | MHC.SHP ---
Pre-Procedural Eval Section A - 24 Hr Update-Section A only Date of Service: 10/12/23 Section B - Complete if H&P > 30 days Chief Complaint: Unspecified porphyria,anemia,benign neoplasm of co Details of Present Illness: COPD (chronic obstructive pulmonary disease) Difficult intravenous access Hepatitis C History of chronic pain History of peptic ulcer (~2001) Personal history of nicotine dependence Porphyrin disorder Tubular adenoma of colon (~2020) Surgical History History of hand surgery (~2020) History of colonoscopy (~2020) History of esophagogastroduodenoscopy (EGD) (~2001) Allergies: Allergies Allergy/AdvReac Type Severity Reaction Status Date / Time No Known Allergies Allergy Verified 09/30/23 14:04 Review of Systems Review of Systems Comment: 10 point ROS negative Exam Surgical H&P Exam: Normal: HEENT, Normal: Heart, Normal: Lungs, Normal: Extremities, Normal: Abdomen, Normal: Skin and Normal: Neurological Plan Diagnosis/Plan: Unchanged I have reviewed the history and physical and performed a pertinent physical examination on my patient. No changes have occurred unless specified. Time Spent With Patient Time: Total time managing care of this patient today ____ minutes.
--- NOTE | 2023-10-12 08:39 | P.OP_ITS ---
Operative Note Operative Note Date of Service: 10/12/23 Narrative: Procedure: Upper endoscopy and colonoscopy Indication: Anemia, personal hx of polyps Endoscopist: Olivia Luna MD Anesthesia Provider: Karina Edmond CRNA Anesthesia type: MAC Instrument: [id number]-H190 and [id number]-[id number] EGD Procedure:?? The procedure, indications, preparation and potential complications were reviewed with the patient, who indicated understanding and gave written informed consent to proceed. Physical exam was performed. The endoscope was introduced through the mouth, and advanced to the second part of duodenum. The mucosa was carefully examined on slow withdrawal of the endoscope. The patient tolerated the procedure well. There were no immediate complications.? EGD Findings:? * Esophagus:? Normal esophageal mucosa was noted. The Z-line was at 41 and irregular up to 39 cm. Cold forceps biopsies were taken to rule out Reza's esophagus. If dysplasia confirmed, these will also be sent out for tissue cypher. * Stomach:?Erythema and small erosions in the gastric fundus and antrum were noted. Retroflexion was performed in the cardia. Random cold forceps biopsies were taken to rule out H pylori. * Duodenum:? Edema, erythema and erosions were noted in the duodenal bulb. Cold forceps biopsies were taken from the duodenal bulb and 2nd portion of duodenum to rule out celiac sprue. Colonoscopy Procedure:? The patient was then turned for the colonoscopy. A digital rectal exam was performed which was normal.? A distal attachment cap was affixed to the tip of the scope and the colonoscope was then inserted through the anus and advanced through the colon and advanced to the cecum at 70 cm and terminal ileum.? Appendiceal orifice and ileocecal valve were identified.? Mucosa was carefully examined under high definition white light as the instrument was slowly withdrawn in a retrograde panoramic fashion. Retroflexion was performed in rectum. The procedure was not difficult. There were no immediate obvious complications. The quality of the prep was BBPS: 2+2+2 = adequate Withdrawal time 9 minutes. Limitations: No limitations Findings: Mucosa: Liquid stool was noted throughout the colon which was flushed and mcleod ctioned. Normal colon and terminal ileum mucosa. Evidence of previous tattoo at 30 cm from the anus, no residual or new polyp was noted. Protruding lesions: * Small internal hemorrhoids without stigmata of recent bleeding. Impression: 1. Irregular Z line (biopsy, tissue cypher) 2. Gastritis (biopsy) 3. Duodenitis (biopsy) 5. Normal colon and terminal ileum mucosa 6. Previous tattoo at 30 cm 7. Internal hemorrhoids Recommendations:?? * Follow-up path results * Start PPI therapy and continue for at least 8 weeks * Avoid NSAID. Smoking cessation * If H pylori positive, will need treatment for eradication * Repeat colonoscopy in 5 years * Consider checking iron, B12 and folate studies for further evaluation of the anemia
[2023-10-12 09:18] VITALS: BP 95/54; PULSE 57; RESP 18; TEMP 36.5; O2SAT 98
[2023-10-12 09:33] VITALS: BP 101/62; PULSE 61; RESP 16; O2SAT 98
[2023-10-12 09:43] VITALS: BP 105/65; PULSE 51; RESP 16; TEMP 36.4; O2SAT 99
== END 2023-10-12 10:00 | disposition home or self-care (01) ==
PROVIDERS: PCP Internal Medicine; Visit Provider Internal Medicine
PROC: (CPT 45378; principal; 2023-10-12 08:30)
DX: D64.9 Anemia, unspecified (principal); Z86.010 Personal history of colon polyps; K64.8 Other hemorrhoids; E80.20 Unspecified porphyria; K29.50 Unspecified chronic gastritis without bleeding; K29.80 Duodenitis without bleeding; K22.89 Other specified disease of esophagus; Z87.11 Personal history of peptic ulcer disease; J44.9 Chronic obstructive pulmonary disease, unspecified; B19.20 Unspecified viral hepatitis C without hepatic coma; Z98.890 Other specified postprocedural states; Z79.899 Other long term (current) drug therapy; Z87.891 Personal history of nicotine dependence
CPT/HCPCS: 45378; 43239; 88305; 88313; 88342; J1596; J2704

== ENCOUNTER → 2023-10-12 06:59 | Outpatient (BNV) | payer OTHER, SELFPAY | PROVIDERS: PCP Internal Medicine; Visit Provider Internal Medicine | DX: K22.89 Other specified disease of esophagus (principal); K29.90 Gastroduodenitis, unspecified, without bleeding; K64.8 Other hemorrhoids | CPT/HCPCS: 43239; 45378 ==

== ENCOUNTER 2023-10-24 07:19 | Outpatient (AMB) | payer OTHER, SELFPAY ==
--- NOTE | 2023-10-24 07:24 | A.OFFVIS_ITS ---
Vital Signs 10/24/23 07:30 Height 5 ft 9 in Weight 158 lb BMI 23.3 BP 125/76 Blood Pressure Location Lt brachial Position Sitting Pulse 63 Intake Visit Reasons: s/p DBL Intake Note: Patient follow up for Colonoscopy /EGD results. Patient denies any GI issues. Sugar Coating Hand Required: No Accompanied by: Self / Same As Patient Allergies No Known Allergies Allergy (Verified 09/30/23 14:04) Medication List - Last Reconciled 10/24/23 by Doris Quan PA-C albuterol sulfate 90 mcg/actuation 2 puffs PO Q4-6H PRN bupropion HCl XL 150 mg PO QAM celecoxib 200 mg PO Q12H clonidine HCl 0.1 mg PO BID gabapentin 300 mg PO TID tiotropium bromide 1 cap inhalation DAILY HPI Comments Details: Pleasant 63-year-old male history of Reza's follows up after recent EGD colonoscopy He tolerated procedures well He has no GI or general complaints Appetite is good bowels are He has no nausea, vomiting, hematemesis, hematochezia fever or chills Reviewed procedure report, pathology and recommendation [facility] Medical History (Updated 10/24/23 @ 14:12 by Doris Quan PA-C) Lumbar spinal stenosis Right lumbar radiculopathy Porphyrin disorder Tubular adenoma of colon (~2020) History of peptic ulcer (~2001) Personal history of nicotine dependence Difficult intravenous access History of chronic pain COPD (chronic obstructive pulmonary disease) Hepatitis C Surgical History (Updated 10/24/23 @ 07:26 by Fatou Nelson) History of hand surgery (~2020) History of colonoscopy (~2020) History of esophagogastroduodenoscopy (EGD) (~2001) Family History Mother Emphysema lung Cancer Social History Household Members Other:: room mate Are you a primary child day care provider to a significant other at home: No Do you presently have visiting nurse or other home services: No Alcohol intake: former Year quit: 2019 Patient Tobacco Use Status: Current everyday Tobacco user Tobacco use type: Cigarette Cigarettes Per Day: 6 Years Smoked: onset 20, 1/2ppd x 41yrs, 20pyh Substance Use Type: Amphetamines, Crack/Cocaine, Former Substance User, Hallucinogens, IV Drugs, Marijuana and Opiates Current occupational status: employed 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 Review of Systems Const All systems reviewed & are unremarkable except as noted in HPI and below Physical Exam Vital Signs: Last Vital Signs Pulse 63 10/24/23 07:30 BP 125/76 10/24/23 07:30 BMI result Body Mass Index 23.3 Const General: cooperative, healthy appearing, comfortable and no acute distress Orientation/consciousness: patient oriented x3 Limitations: no limitations Resp Effort & Inspection: normal respiratory effort and able to speak in complete sentences Neuro General: patient oriented x3 Extrem General: Yes full ROM Psych Mental Status: mental status grossly normal Speech and movement: Clear speech present Affect: normal affect Attitude: cooperative Thought process: Normal thought process present Insight: Good insight present (Psych) Judgement: Good judgement present (Psych) Results Reviewed Results Reviewed: Findings: Mucosa: Liquid stool was noted throughout the colon which was flushed and suctioned. Normal colon and terminal ileum mucosa. Evidence of previous tattoo at 30 cm from the anus, no residual or new polyp was noted. Protruding lesions: * Small internal hemorrhoids without stigmata of recent bleeding. Impression: 1. Irregular Z line (biopsy, tissue cypher) 2. Gastritis (biopsy) 3. Duodenitis (biopsy) 5. Normal colon and terminal ileum mucosa 6. Previous tattoo at 30 cm 7. Internal hemorrhoids Recommendations:?? * Follow-up path results * Start PPI therapy and continue for at least 8 weeks * Avoid NSAID. Smoking cessation * If H pylori positive, will need treatment for eradication * Repeat colonoscopy in 5 years * Consider checking iron, B12 and folate studies for further evaluation of the anemia Name: Nehal Veloz Age/Sex: 63/M Attending: Olivia Luna MD : 1960 Submitted by: Olivia Luna MD Copies to: Mike Arora MD MR #: [id number] Status: [facility] Collected: 10/12/23 Location: [facility] Received: 10/12/23 Diagnosis A. Duodenum, biopsy: Duodenal mucosa with predominantly preserved villi and focal features of chronic/non-specific duodenitis. B. Stomach, random, biopsy: Gastric antral mucosa with focal intestinal metaplasia and gastric body mucosa with congestion, both with focal minimal chronic inactive inflammation; negative for H pylori, intestinal metaplasia and dysplasia. C. Esophagogastric junction, biopsy: Squamocolumnar mucosa with mild chronic active inflammation, focal intestinal metaplasia, and hyperplastic changes; negative for dysplasia (see comment). Comment: (C): These findings are consistent with Reza's esophagus if the biopsies were taken from above the anatomic gastroesophageal junction. Clinical and endoscopic correlation is advised. 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 Code(s): K22.70 - Reza's esophagus without dysplasia Category: Medical Plan: Discussed with T, (2) History of adenomatous polyp of colon: Code(s): Z86.010 - Personal history of colonic polyps Category: Medical Plan: repeat polyp surveillance 5 year-2028 Plan pantoprazole 40 mg QD avoid NSAIDS-tob, etoh EGD/ colon- 5 years B12/ folate- Orders: Orders Vitamin B12 and Folate 10/24/23 D64.9 - Anemia, unspecified Medications: New pantoprazole 40 mg PO DAILY 30 tabs 5RF 30 days Patient Instructions: 5 year EGD/ colon- place reminder REEnforced- plan - avoid NSAIDS, tob, etoh Reflux precautions Get a B12 folate Encouraged to call questions or concerns Coding Level of Care Code Est Pt Level 3 (86873) Diagnoses Reza's esophagus determined by endoscopy K22.70 History of adenomatous polyp of colon Z86.010 Time Spent (min) 30
[2023-10-24 07:30] VITALS: BP 125/76; PULSE 63; BMI 23.3
== END 2023-10-24 08:07 | disposition home or self-care (01) ==
PROVIDERS: PCP Internal Medicine; Visit Provider Physician Assistant
DX: K22.70 Barrett's esophagus without dysplasia (principal); Z86.010 Personal history of colon polyps
CPT/HCPCS: 99213

== ENCOUNTER → 2023-10-24 07:19 | Outpatient (BNVA) | payer OTHER, SELFPAY | PROVIDERS: PCP Internal Medicine; Visit Provider Physician Assistant | DX: K22.70 Barrett's esophagus without dysplasia (principal); Z86.010 Personal history of colon polyps | CPT/HCPCS: 99212 ==

== ENCOUNTER 2023-10-25 15:21 | Outpatient (AMB) | payer OTHER, SELFPAY ==
--- NOTE | 2023-10-25 15:47 | HO.SPINEOV ---
Intake Visit Reasons: MRI f/u discuss sx Intake Note: Mr. Veloz is here today to F/u on MRI and discuss surgery. 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 Required: No Allergies No Known Allergies Allergy (Verified 09/30/23 14:04) Assessment & Plan Assessment & Plan (1) Lumbar spinal stenosis: Code(s): M48.061 - Spinal stenosis, lumbar region without neurogenic claudication Category: Medical Qualifiers: Neurogenic claudication status: with neurogenic claudication Qualified Code(s): M48.062 - Spinal stenosis, lumbar region with neurogenic claudication (2) Cervical myelopathy: Code(s): G95.9 - Disease of spinal cord, unspecified Category: Medical Plan Dear colleague, On 10/25/2023, I saw for follow-up Nehal Veloz after obtaining an MRI of the cervical spine. We originally saw him for right lumbar radiculopathy due to lumbar spinal stenosis. Received an injection 2 months ago which alleviated his pain. He denies any radiating pain down his leg today. In fact, he says he has no other symptoms. 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 His states that he is losing muscles in his arms, which he denies. On further questioning, he has mild numbness in his fingertips. He denies balance problems and intermittently drops objects. On exam, there is full strength. There are no pathological reflexes. Sensory exam is grossly intact. I do suspect dexterity loss based on the finger movements observed. The MRI of the cervical spine shows moderate spinal stenosis at C4-5 and C5-C6 and to a lesser degree at C6-7. There may be myelomalacia but it is not mentioned in the radiology report. I decided to reassess the patient neurologically in 3 months. I instructed him to return earlier if he develops neurological symptoms in the form of weakness or dexterity loss. I advised him to undergo a lumbar decompression if the pain returns in his right leg. I spent 30 minutes in his consult to review imaging and discussing plan of care. Lui Berry MD, PhD Spine Fellowship Trained Neurosurgeon Director, [facility] Coding Level of Care Code Est Pt Level 4 (12844) Diagnoses Spinal stenosis of lumbar region with neurogenic claudication M48.062 Neurogenic claudication status: with neurogenic claudication Cervical myelopathy G95.9
== END 2023-10-25 16:12 | disposition home or self-care (01) ==
PROVIDERS: PCP Internal Medicine; Visit Provider Neurological Surgery
DX: M48.062 Spinal stenosis, lumbar region with neurogenic claudication (principal); G95.9 Disease of spinal cord, unspecified
CPT/HCPCS: 99214

== ENCOUNTER → 2023-10-25 15:21 | Outpatient (BNVA) | payer OTHER, SELFPAY | PROVIDERS: PCP Internal Medicine; Visit Provider Neurological Surgery | DX: M48.062 Spinal stenosis, lumbar region with neurogenic claudication (principal); G95.9 Disease of spinal cord, unspecified | CPT/HCPCS: 99212 ==

== ENCOUNTER 2023-11-02 08:16 | Outpatient (AMB) | payer OTHER, SELFPAY ==
--- NOTE | 2023-11-02 08:20 | A.OFFVIS_ITS ---
Intake Visit Reasons: OV - Bilateral Knee OA - Injections Intake Note: Nehal is a 63 year old male who presents today for a follow up of his bilateral knee OA. He reports that the right is more painful than the left. He is hoping to have an injection done in the right knee. no history of injections. Allergies No Known Allergies Allergy (Verified 09/30/23 14:04) [facility] Medical History Lumbar spinal stenosis Right lumbar radiculopathy Porphyrin disorder Tubular adenoma of colon (~2020) History of peptic ulcer (~2001) Personal history of nicotine dependence Difficult intravenous access History of chronic pain COPD (chronic obstructive pulmonary disease) Hepatitis C Surgical History History of hand surgery (~2020) History of colonoscopy (~2020) History of esophagogastroduodenoscopy (EGD) (~2001) Family History Mother Emphysema lung Cancer Social History Household Members Other:: room mate Are you a primary geriatric care manager to a significant other at home: No Do you presently have visiting nurse or other home services: No Alcohol intake: former Year quit: 2019 Patient Tobacco Use Status: Current everyday Tobacco user Tobacco use type: Cigarette Cigarettes Per Day: 6 Years Smoked: onset 20, 1/2ppd x 41yrs, 20pyh Substance Use Type: Amphetamines, Crack/Cocaine, Former Substance User, Hallucinogens, IV Drugs, Marijuana and Opiates Current occupational status: employed 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 Patient sits with right knee flexed. Medial edge of patella is identified and marked. Area is cleansed with betadine solution. A 27 gauge needle is injected at an angle laterally and slightly upwards under the patella. Solution containing 40 mg Kenalog and 3m of 1% Lidocaine is instilled. Patient tolerated procedure well without complications. Post-injection instructions given. Primary Site: right knee Injected: 40 mg of, Kenalog, with 3 mL of and 1% plain lidocaine Procedure: The patient tolerated the procedure well Coding - Large joint Procedure code (CPT) selection complete Assessment & Plan Assessment & Plan (1) Right knee pain: Code(s): M25.561 - Pain in right knee Category: Medical Qualifiers: Chronicity: acute Qualified Code(s): M25.561 - Pain in right knee (2) Right knee DJD: Code(s): M17.11 - Unilateral primary osteoarthritis, right knee Category: Medical Qualifiers: Osteoarthritis type: primary Qualified Code(s): M17.11 - Unilateral primary osteoarthritis, right knee Plan Patient seen for knee injection only. Patient tolerated procedure well. Post- injection instructions given. Patient to avoid repetitive activities or heavy physical labor today. Assessment and plan discussed with patient, and patient was agreeable. All questions were answered thoroughly. Eliane Gomez MD, LILLY Board Certified, [place] [employer] and Rehabilitation (ABPMR) Board Certified, [place] [employer] Electrodiagn[employer] (ABEM) Orders: Orders AMB Joint Injection/Aspiration Today M17.11 - Unilateral primary osteoarthritis, right knee, M25.561 - Pain in right knee Coding Level of Care Code Procedure Only Diagnoses Acute pain of right knee M25.561 Chronicity: acute Primary osteoarthritis of right knee M17.11 Osteoarthritis type: primary CPT Codes Coding - Large joint: 08381 - Large joint ([id number])
== END 2023-11-02 08:55 | disposition home or self-care (01) ==
PROVIDERS: PCP Internal Medicine; Visit Provider Physical Medicine & Rehabilitation
DX: M25.561 Pain in right knee (principal); M17.11 Unilateral primary osteoarthritis, right knee
CPT/HCPCS: 20610

== ENCOUNTER → 2023-11-02 08:16 | Outpatient (BNVA) | payer OTHER, SELFPAY | PROVIDERS: PCP Internal Medicine; Visit Provider Physical Medicine & Rehabilitation | DX: M17.11 Unilateral primary osteoarthritis, right knee (principal); M25.561 Pain in right knee | CPT/HCPCS: 20610; J3301 ==

== ENCOUNTER 2024-02-01 14:52 | Outpatient (AMB) | payer OTHER, SELFPAY ==
--- NOTE | 2024-02-01 14:59 | A.SPINEOV_ITS ---
Intake Visit Reasons: 3 months f/up Intake Note: Mr. Veloz is here for a 3 months F/u. 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 We originally saw him for right lumbar radiculopathy due to spinal stenosis. He complained of mild numbness in his finger tips then MRI of the cervical spine showed [id number] spinal stenosis with possible myelomalacia. His neurological exam was benign and therefore we decided to repeat his neurological exam. Today, he states that his clinical symptoms are status quo. He has mild numbness of his right hand. 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 His main complaint is pain in his right leg. He states that he is not ready to undergo surgery to address the right lumbar radiculopathy. On exam, he has no dexterity loss. His hypoesthesia of his left index finger and mild paresthesias of his right fingertips. No pathological reflexes. Normal strength. Gait is undisturbed. In my clinical opinion, there is currently no hard indication to offer him a cervical fusion surgery. I would like to see him in 6 months to assess him again clinically. He will return to my clinic earlier if he wants to address the right leg pain. I spent 30 minutes in his consult for review of imaging, clinical exam and discussing plan of care. Thank you for allowing me take care of your patient. Do not hesitate to call me with any questions or concerns. Lui Berry MD, PhD Spine Fellowship Trained Neurosurgeon Director, [facility] Coding Level of Care Code Est Pt Level 4 (27030) Diagnoses Spinal stenosis of lumbar region with neurogenic claudication M48.062 Neurogenic claudication status: with neurogenic claudication Cervical myelopathy G95.9
== END 2024-02-01 15:47 | disposition home or self-care (01) ==
PROVIDERS: PCP Internal Medicine; Visit Provider Neurological Surgery
DX: M48.062 Spinal stenosis, lumbar region with neurogenic claudication (principal); G95.9 Disease of spinal cord, unspecified
CPT/HCPCS: 99214

== ENCOUNTER → 2024-02-01 14:52 | Outpatient (BNVA) | payer OTHER, SELFPAY | PROVIDERS: PCP Internal Medicine; Visit Provider Neurological Surgery | DX: M48.062 Spinal stenosis, lumbar region with neurogenic claudication (principal); G95.9 Disease of spinal cord, unspecified | CPT/HCPCS: 99212 ==

== ENCOUNTER 2024-02-24 13:40 | Outpatient (AMB) | payer OTHER, SELFPAY ==
--- NOTE | 2024-02-24 13:45 | A.SPINEOV_ITS ---
Intake Visit Reasons: low back pain Intake Note: Mr. Veloz is here today c/o low back pain. 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 He is well known to our office from the issues with his neck in his lumbar spine. He has never had surgery with us however. The pain shoots down all the way into his foot but at times when he is standing at work just goes into the front of his knee in his thigh. I reviewed his MRI done here at [place] again, he has a scoliotic curvature, lateral recess stenosis at L3-4, L4-5 as well as foraminal stenosis at L3 and L4 on the right as well. It has probably a combination of things aggravating this, not the least of which is the physical nature of his job. He has not ready for surgery yet but would like injections. He is known to the [place] [facility] where he had an injection done I believe last year. I told him to give them a call this should be able to help him out and repeat the injections. Total amount of time spent in this visit was 20 minutes in discussion of symptoms, lumbar imaging results and subsequent plan of care Garry Berry MD,PhD [facility] Coding Level of Care Code Est Pt Level 3 (26177) Diagnoses Right lumbar radiculopathy M54.16
== END 2024-02-24 14:26 | disposition home or self-care (01) ==
PROVIDERS: PCP Internal Medicine; Visit Provider Physician Assistant
DX: M54.16 Radiculopathy, lumbar region (principal)
CPT/HCPCS: 99213

== ENCOUNTER → 2024-02-24 13:40 | Outpatient (BNVA) | payer OTHER, SELFPAY | PROVIDERS: PCP Internal Medicine; Visit Provider Physician Assistant | DX: M54.16 Radiculopathy, lumbar region (principal) | CPT/HCPCS: 99212 ==

== ENCOUNTER 2024-03-15 13:49 | Outpatient (AMB) | payer OTHER, SELFPAY ==
--- NOTE | 2024-03-15 14:05 | A.OFFVIS_ITS ---
Intake Visit Reasons: OV- RT knee pain, inj req Intake Note: Nehal is a 63 year old male who presents today for a follow up of his right knee OA, last injection on 11/02/23. Patient reports injection provided him with relief until recently. His pain returned a couple of weeks ago and he is requesting to repeat injection. Allergies No Known Allergies Allergy (Verified 03/15/24 14:09) HPI Comments Details: Here for repeat right knee injection. Last injection provided 100% relief up until 3 weeks ago. Without any complications. [facility] Medical History (Updated 11/02/23 @ 09:29 by Eliane Gomez MD) Right knee DJD Lumbar spinal stenosis Right lumbar radiculopathy Porphyrin disorder Tubular adenoma of colon (~2020) History of peptic ulcer (~2001) Personal history of nicotine dependence Difficult intravenous access History of chronic pain COPD (chronic obstructive pulmonary disease) Hepatitis C Surgical History History of hand surgery (~2020) History of colonoscopy (~2020) History of esophagogastroduodenoscopy (EGD) (~2001) Family History Mother Emphysema lung Cancer Social History Household Members Other:: room mate Are you a primary personal carer to a significant other at home: No Do you presently have visiting nurse or other home services: No Alcohol intake: former Year quit: 2019 Patient Tobacco Use Status: Current everyday Tobacco user Tobacco use type: Cigarette Cigarettes Per Day: 6 Years Smoked: onset 20, 1/2ppd x 41yrs, 20pyh Substance Use Type: Amphetamines, Crack/Cocaine, Former Substance User, Hallucinogens, IV Drugs, Marijuana and Opiates Current occupational status: employed 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 Patient sits with right knee flexed. Medial edge of patella is identified and marked. Area is cleansed with betadine solution. A 27 gauge needle is injected at an angle laterally and slightly upwards under the patella. Solution containing 40 mg Kenalog and 3m of 2% Lidocaine is instilled. Patient tolerated procedure well without complications. Post-injection instructions given. Primary Site: right knee Injected: 40 mg of, Kenalog and with 3 mL of (2% lidocaine) Procedure: The patient tolerated the procedure well Coding - Large joint Procedure code (CPT) selection complete Assessment & Plan Assessment & Plan (1) Right knee DJD: Code(s): M17.11 - Unilateral primary osteoarthritis, right knee Category: Medical Qualifiers: Osteoarthritis type: primary Qualified Code(s): M17.11 - Unilateral primary osteoarthritis, right knee Plan Tolerated procedure well. Assessment and plan discussed with patient, and patient was agreeable. All questions were answered thoroughly. Follow up 3 months. Eliane Gomez MD, LILLY Board Certified, [place] [employer] and Rehabilitation (ABPMR) Board Certified, [employer] Board [employer] Electrodiagnostic Medicine (ABEM) Orders: Orders AMB Joint Injection/Aspiration Today M17.11 - Unilateral primary osteoarthritis, right knee Coding Level of Care Code Procedure Only Diagnoses Primary osteoarthritis of right knee M17.11 Osteoarthritis type: primary CPT Codes Coding - Large joint: 29085 - Large joint ([id number])
== END 2024-03-15 14:28 | disposition home or self-care (01) ==
PROVIDERS: PCP Internal Medicine; Visit Provider Physical Medicine & Rehabilitation
DX: M17.11 Unilateral primary osteoarthritis, right knee (principal)
CPT/HCPCS: 20610

== ENCOUNTER → 2024-03-15 13:49 | Outpatient (BNVA) | payer OTHER, SELFPAY | PROVIDERS: PCP Internal Medicine; Visit Provider Physical Medicine & Rehabilitation | DX: M17.11 Unilateral primary osteoarthritis, right knee (principal) | CPT/HCPCS: 20610; J3301 ==

== ENCOUNTER 2024-03-19 08:15 | Outpatient (REF) | payer OTHER, SELFPAY ==
[2024-03-19 14:28] LABS: MANUAL DIFF FLAG NO
[2024-03-19 14:40] LABS: Basophils Absolute Auto 0.1 X10*3/uL (0.0-0.2); Basophils Percent Auto 0.5 % (0-2); Eosinophils Absolute Auto 0.6 X10*3/uL (0.0-0.4); Eosinophils Percent Auto 5.5 % (0-4); Hematocrit 40.3 % (42.0-52.0); Hemoglobin 13.7 g/dl (14.0-18.0); Imm Gran Abs Auto 0.04 X10*3/uL (0.00-0.03); Imm Gran Pct Auto 0.4 % (0.0-0.4); Lymphocytes Absolute Auto 2.6 X10*3/uL (1.2-4.9); Lymphocytes Percent Auto 22.7 % (20-40); Mean Corpuscular Hemoglobin 34.3 pg (27.0-33.0); Mean Corpuscular Volume 100.8 fL (80.0-98.0); Mean Platelet Volume 9.8 fL (9.4-12.4); Monocytes Absolute Auto 1.1 X10*3/uL (0.1-1.2); Monocytes Percent Auto 10.1 % (2-11); Neutrophils Absolute Auto 6.9 x10*3/uL (2.0-8.3); Neutrophils Percent Auto 60.8 % (45-73); Platelet Count 362 X10*3/uL (160-400); Red Cell Distribution Width 12.4 % (11.0-16.0); White Blood Count 11.3 X10*3/uL (4.8-10.8)
[2024-03-19 15:08] LABS: Alanine Aminotransferase 14 U/L (0-40); Albumin Level 4.2 g/dL (3.5-5.0); Alkaline Phosphatase 49 U/L (39-117); Anion Gap 14 (12-20); Aspartate Amino Transferase 17 U/L (5-37); Bilirubin Total 0.8 mg/dL (0.0-1.0); Blood Urea Nitrogen 21 mg/dL (9-16); Calcium 9.8 mg/dL (8.4-10.2); Carbon Dioxide 23 mmol/L (22-29); Chloride 105 mmol/L (96-108); Cholesterol 144 mg/dL (<200); Estimated Glomerular Filt Rate > 60; Glucose Random 126 mg/dL (60-115); HDL Cholesterol 61 mg/dL (>40); LDL Cholesterol Calculated 65 mg/dL (<100); Potassium 4.2 mmol/L (3.3-5.1); Sodium 138 mmol/L (135-145); Total Protein 7.6 g/dL (6.5-8.0); Triglycerides 94 mg/dL (<150)
[2024-03-19 15:13] LABS: PSA,Total (Free>4and<10) 0.43 ng/mL (0.00-4.00)
[2024-03-19 15:14] LABS: TSH reflex Free T4 1.29 uIU/mL (0.32-4.0)
== END 2024-03-19 08:16 | disposition home or self-care (01) ==
LOC: HO.CHCLDS 08:15
PROVIDERS: Visit Provider Internal Medicine
DX: I10 Essential (primary) hypertension (principal); Z23 Encounter for immunization
CPT/HCPCS: 36415; 80053; 80061; 84153; 84443; 85025

== ENCOUNTER 2024-03-30 14:17 | Outpatient (AMB) | payer OTHER, SELFPAY ==
--- NOTE | 2024-03-30 14:24 | A.OFFVIS_ITS ---
Vital Signs 03/30/24 14:25 Height 5 ft 9 in Weight 164 lb BMI 24.2 BP 137/87 Blood Pressure Location Rt brachial Position Sitting Pulse 81 Pulse Source Pulse Oximeter Pulse Oximetry (%) 96 Oxygen Delivery Method Room Air Intake Visit Reasons: Low back pain/spinal disorder Allergies No Known Allergies Allergy (Verified 03/30/24 14:25) Medication List - Last Reconciled 03/30/24 by Lilly Shook albuterol sulfate 90 mcg/actuation 2 puffs PO Q4-6H PRN bupropion HCl XL 150 mg PO QAM celecoxib 200 mg PO Q12H clonidine HCl 0.1 mg PO BID gabapentin 300 mg PO TID pantoprazole 40 mg PO DAILY 30 days tiotropium bromide 1 cap inhalation DAILY HPI Comments Details: Nehal is a very pleasant 64-year-old male who presents to the office today for evaluation management of his chronic lower back pain. Recent MRI reviewed, results as per below Recent neuro spine visit note reviewed Patient has been suffering with this pain for greater than 1 year. Denies inciting injury, trauma, fall. 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 Has weakness of the right lower extremity with shooting electrical pains down the right leg to the foot Also endorses shooting pains down the left leg to the calf Denies red flag symptoms including loss of bowel, bladder or saddle anesthesia Pain today is rated as 7/10, constant and worse throughout the day Pain is exacerbated by movements and his job Improves with rest and heat He completed physical therapy several times, most recent was a couple months ago without improvement Has been taking Motrin for almost 1 year without improvement of his symptoms. Avoids Tylenol due to history of liver disease. Prescribed gabapentin which helps some with the neuropathy but pain persists He previously underwent epidural steroid injection at [facility], has tried to return therefore a repeat injection but can not facilitate an appointment with their office therefore he is transitioning to our office for treatment In terms of muscle damage condition is described as spasming, shooting, numb, tingling, pins and needles Pain is negatively impacting patient's enjoyment of life, general activity, work, recreational activities, walking [facility] Medical History (Updated 03/27/24 @ 09:02 by Abi Faustin PA-C) Nicotine dependence, cigarettes, uncomplicated Right knee DJD Lumbar spinal stenosis Right lumbar radiculopathy Porphyrin disorder Tubular adenoma of colon (~2020) History of peptic ulcer (~2001) Difficult intravenous access History of chronic pain COPD (chronic obstructive pulmonary disease) Hepatitis C Surgical History History of hand surgery (~2020) History of colonoscopy (~2020) History of esophagogastroduodenoscopy (EGD) (~2001) Family History Mother Emphysema lung Cancer Social History Household Members Other:: room mate Are you a primary direct care worker to a significant other at home: No Do you presently have visiting nurse or other home services: No Alcohol intake: former Year quit: 2019 Patient Tobacco Use Status: Current everyday Tobacco user Tobacco use type: Cigarette Cigarettes Per Day: 6 Years Smoked: onset 20, 1/2ppd x 41yrs, 20pyh Substance Use Type: Amphetamines, Crack/Cocaine, Former Substance User, Hallucinogens, IV Drugs, Marijuana and Opiates Current occupational status: employed 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 Answers questions appropriately. Fully engaged in examination. Skin: warm, dry, intact HEENT: Normocephalic. Hearing intact. Cardiac: External chest normal in appearance. Respiratory: No cough, audible wheezing or stridor. Abdomen: without gross distension. MS: No obvious swelling or deformities. Able to transition from sit to stand unassisted. Ambulates with bilaterally normal heel strike and toe off Right lower extremity strength 4/5, left lower extremity strength 5/5 Negative footdrop, negative clonus SLR positive on the right Tenderness to palpation midline lumbar vertebrae and lumbar paraspinal muscles Nontender over bilateral PSIS Decreased range of motion, pain with flexion and extension Valsalva negative Neurological: Oriented to person, place, time and situation. Thought process intact. No gait abnormalities appreciated. Psychiatric: Appropriate mood and affect. Good judgment and insight. Results Reviewed Results Reviewed: 07/28/23 MR/MR lumbar spine wo con FINDINGS: There is slight grade 1 retrolisthesis of L1 on L2, L2 on L3, and L3 on L4. Vertebral body heights are grossly maintained. There mixed degenerative endplate changes at multiple levels within the lumbar spine. There is loss of intervertebral disc height and T2 signal intensity at multiple levels related to disc degeneration. The tip of the conus medullaris is located at L1. No mass effect on the conus. Visualized distal cord signal intensity is normal. At L1-L2 there is a bulging disc. No canal stenosis. No mass effect on the traversing or foraminal nerve roots. At L2-L3 there is a bulging disc. Bilateral facet degenerative change. No canal stenosis. No mass effect mild mass effect on the extraforaminal segment of the left L2 nerve root. At L3-L4 there is a diffusely bulging disc. Advanced bilateral facet degenerative change.. Moderate to severe canal stenosis. Subarticular zone narrowing causes displacement and possible compression of the right traversing L4 nerve roots. Moderate compression of the right L3 foraminal nerve root. At L4-L5 there is a broad central extrusion with 0.8 cm caudal subligamentous extension of extruded disc material. Bilateral facet degenerative change. Severe canal stenosis. Moderate compression of both L4 foraminal nerve roots. At L5-S1 there is a bulging disc. Advanced bilateral facet degenerative change. No canal stenosis. Severe compression of the left L5 foraminal nerve root and mild mass effect on the right L5 foraminal nerve root. Limited visualization of the retroperitoneal anatomy reveals no abnormal finding. Psoas and paraspinal muscle groups are symmetric. IMPRESSION: There is multilevel degenerative spondylosis of the lumbar spine. Severe canal stenosis at L4-L5. Moderate to severe canal stenosis at L3-L4. There are varying degrees of mass effect on the traversing and foraminal segments of the nerve roots as described above. For instance there is severe compression of the left L5 foraminal nerve root related to degenerative changes at L5-S1. Assessment & Plan Assessment & Plan (1) Lumbar spinal stenosis: Code(s): M48.061 - Spinal stenosis, lumbar region without neurogenic claudication Category: Medical Qualifiers: Neurogenic claudication status: with neurogenic claudication Qualified Code(s): M48.062 - Spinal stenosis, lumbar region with neurogenic claudication (2) Right lumbar radiculopathy: Code(s): M54.16 - Radiculopathy, lumbar region Category: Medical Plan Nehal presents the office today for evaluation management of his chronic lower back pain History, physical exam and provocative testing consistent with lumbar radicul opathy and spinal stenosis Patient has exhausted greater than 6 months conservative therapy including physical therapy, home exercise program, nonsteroidal anti-inflammatory medications, prescription medications, heat, topical medications all without improvement of his symptoms Discussed options for treatment including diagnostic interventional testing, epidural steroid injections, peripheral nerve stimulation with Sprint, RFA and more permanent neuromodulation. Will schedule for fluoroscopy guided bilateral L4-5 transforaminal epidural steroid injection with local anesthetic. Short course of prednisone was prescribed to assist patient with pain while awaiting insurance approval and date for steroid injection. All questions and concerns have been answered and patient agrees with the plan. Follow up after injections and sooner if needed. Medications: New prednisone 40 mg (2 x 20 mg) PO DAILY 10 tabs 0RF Coding Level of Care Code New Pt Level 4 (08997) Complex EM visit Add On G2211 Diagnoses Spinal stenosis of lumbar region with neurogenic claudication M48.062 Neurogenic claudication status: with neurogenic claudication Right lumbar radiculopathy M54.16
[2024-03-30 14:25] VITALS: BP 137/87; PULSE 81; O2SAT 96; BMI 24.2
== END 2024-03-30 14:40 | disposition home or self-care (01) ==
PROVIDERS: PCP Internal Medicine; Visit Provider Registered Nurse Emergency
DX: M48.062 Spinal stenosis, lumbar region with neurogenic claudication (principal); M54.16 Radiculopathy, lumbar region
CPT/HCPCS: 99204; G2211

== ENCOUNTER → 2024-03-30 14:17 | Outpatient (BNVA) | payer OTHER, SELFPAY | PROVIDERS: PCP Internal Medicine; Visit Provider Registered Nurse Emergency | DX: M48.062 Spinal stenosis, lumbar region with neurogenic claudication (principal); M54.16 Radiculopathy, lumbar region | CPT/HCPCS: 99202 ==

== ENCOUNTER 2024-05-03 14:16 | Outpatient (AMB) | payer OTHER, SELFPAY ==
--- NOTE | 2024-05-03 14:47 | A.SPINEOV_ITS ---
Intake Visit Reasons: Discuss sx Intake Note: Mr. Veloz is here today to Discuss Surgery. 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 Veloz is back in follow-up. We have been following him not only for cervical stenosis but for his lumbar degenerative disc disease. Last time I saw him he developed a severe radiculopathy going down his leg. It is described as starting in the right side of his low back going down his right buttock, into his right groin, going down into his lateral thigh, to some degree also into his anterior thigh, down into his knee calf and into his ankle. It seems to overlap a few different dermatomes. He has been unable to work for the last month, has been hobbling around the house. He is very concerned that he is continuing to lose his ability to walk because it is too painful. Sleeping at night is also painful. He takes Celebrex and gabapentin but they are not helping. On exam he appears very uncomfortable, a lot of difficulties sitting up, standing he is constantly changing positions, has a little bit of weakness in his right foot in the dorsiflexion which I would rate as 4-5. His lumbar MRI done at [place] shows advanced degenerative changes at multiple areas, moderate stenosis at L3-4 with right L3 foraminal stenosis and L4-5 has moderate to severe stenosis with right L4 foraminal stenosis. He was going to consider an injection but at this point he just wants to have it fixed. I explained to him that usually this is something Dr. Berry would do a decompression, where he goes in removed bone and ligament. He does not have any major back pain to complain of, and he would like to avoid a fusion surgery if possible as it would involve an extended recovery. I will review everything with Dr. Berry, we did briefly discuss what a lumbar decompression would entail. I also explained to him that because of his cervical stenosis he would need to be prone on a table and there may be some extension of his neck into a position where we would be unable to know if he is having symptomatic issues during anesthesia that could result in some degree of neurological impairment. Although it is rare, the risk for this is not 0. He understands this and would like to proceed anyway if Dr. Berry thinks he is a good candidate for surgery. I will call and update him once I have a chance to review everything. Total amount of time spent in this visit was 20 minutes in discussion of symptoms, lumbar imaging results and subsequent plan of care Garry Berry MD,PhD [facility] Coding Level of Care Code Est Pt Level 3 (71261) Diagnoses Spinal stenosis of lumbar region with neurogenic claudication M48.062 Neurogenic claudication status: with neurogenic claudication
== END 2024-05-03 15:21 | disposition home or self-care (01) ==
LOC: HO.HNS 14:16
PROVIDERS: PCP Internal Medicine; Visit Provider Physician Assistant
DX: M48.062 Spinal stenosis, lumbar region with neurogenic claudication (principal)
CPT/HCPCS: 99213

== ENCOUNTER → 2024-05-03 14:16 | Outpatient (BNVA) | payer OTHER, SELFPAY | PROVIDERS: PCP Internal Medicine; Visit Provider Physician Assistant | DX: M48.062 Spinal stenosis, lumbar region with neurogenic claudication (principal) | CPT/HCPCS: 99212 ==

== ENCOUNTER → 2024-05-11 12:40 | Outpatient (BNV) | payer OTHER, SELFPAY | PROVIDERS: PCP Internal Medicine; Visit Provider Internal Medicine Cardiovascular Disease | DX: Z01.810 Encounter for preprocedural cardiovascular examination (principal); M48.061 Spinal stenosis, lumbar region without neurogenic claudication | CPT/HCPCS: 93010 ==

== ENCOUNTER 2024-05-15 15:12 | Outpatient (REF) | payer OTHER, SELFPAY | END 2024-05-15 15:13 | disposition home or self-care (01) | LOC: HO.CT 15:12 | PROVIDERS: PCP Internal Medicine; Visit Provider Physician Assistant Medical | DX: Z12.2 Encounter for screening for malignant neoplasm of respiratory organs (principal); F17.210 Nicotine dependence, cigarettes, uncomplicated | CPT/HCPCS: 71271 ==

== ENCOUNTER 2024-05-16 06:02 | Day surgery (SDC) | payer OTHER, SELFPAY ==
--- NOTE | 2024-05-11 | ECG_ITS ---
Test Reason : PREOP Blood Pressure : / mmHG Vent. Rate : 088 BPM Atrial Rate : 088 BPM P-R Int : 134 ms QRS Dur : 086 ms QT Int : 358 ms P-R-T Axes : 083 072 066 degrees QTc Int : 433 ms Normal sinus rhythm Normal ECG No previous ECGs available Referred By: Carla Goodrich Electronically Signed By:BETTY BOB MD
[2024-05-11 12:05] VITALS: BP 135/99; PULSE 87; RESP 18; O2SAT 96; BMI 24.5
--- NOTE | 2024-05-11 12:17 | HO.ANESPROP2 ---
Documented by User: Carla Goodrich NP 05/15/24 09:48 HPI - Anesthesia Eval Consult details Narrative: 64yo M for L3-4 Lumbar Decompression,Right foraminotomy and L4-5 Decompression,Right L4 Foraminotomy No recent illness No CP./SOB with very minimal actvity for x 1 month d/t pain. Prior to, >4 mets. Occassional STOCK d/t COPD Hx polysub: Clean x 25 years Smoker/COPD: Scheduled inhalers controls. 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 Now normalized. 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 (Acute) Cervical myelopathy (Acute) Right knee pain (Acute) Right hip pain (Acute) Dupuytren's disease of palm with nodules without contracture (Acute) Bilateral hand numbness (Acute) Poor historian (Acute) Abnormal abdominal ultrasound (Acute) Porphyria (Acute) Bilateral renal stones (Acute) Lipoma (Acute) Epidermal inclusion cyst (Acute) Nicotine dependence, cigarettes, uncomplicated (Acute) Right knee DJD (Acute) Lumbar spinal stenosis (Acute) Right lumbar radiculopathy (Acute) Porphyrin disorder (Acute) Tubular adenoma of colon (Acute ~2020) COPD (chronic obstructive pulmonary disease) (Acute) Past Medical History Medical History (Updated 05/11/24 @ 12:01 by Angelica Guajardo RN) Back pain Arthritis Nicotine dependence, cigarettes, uncomplicated Right knee DJD Lumbar spinal stenosis Right lumbar radiculopathy Porphyrin disorder Tubular adenoma of colon (~2020) History of peptic ulcer (~2001) Difficult intravenous access History of chronic pain COPD (chronic obstructive pulmonary disease) Hepatitis C Family History Family History Mother Emphysema lung Cancer Family history of problems with anesthesia: No Surgical History Surgical History History of hand surgery (~2020) History of colonoscopy (~2020) History of esophagogastroduodenoscopy (EGD) (~2001) History of Problems with Anesthesia: No Social History Social History Household Members Other:: room mate Are you a primary foster care case manager to a significant other at home: No Do you presently have visiting nurse or other home services: No Alcohol intake: former Year quit: 2019 Patient Tobacco Use Status: Current everyday Tobacco user Tobacco use type: Cigarette Cigarettes Per Day: 7 Years Smoked: 55 Substance Use Type: Amphetamines, Crack/Cocaine, Former Substance User, Hallucinogens, IV Drugs, Marijuana and Opiates Substance Use Type Other:: clean 25 years-multiple substances- acid, ectasy, crack, etc. Have you been hit, kicked, punched, or otherwise hurt by someone within the past year? 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 Meds Allergies Allergy/AdvReac Type Severity Reaction Status Date / Time No Known Allergies Allergy Verified 05/16/24 06:35 Home Medications ?Medication ?Instructions ?Recorded ?Confirmed ?Last Taken ?Type albuterol sulfate 90 mcg/actuation 2 puff PO Q4-6H PRN Shortness Of 09/04/20 05/16/24 Unknown History aerosol inhaler Breath tiotropium bromide 18 mcg capsule 1 cap inhalation DAILY 09/04/20 05/16/24 05/16/24 History with inhalation device gabapentin 300 mg capsule 300 mg PO TID 04/19/23 05/16/24 Unknown History fluticasone 250 mcg-salmeterol 50 1 ea inhalation QAM 05/11/24 05/16/24 05/16/24 History mcg/dose blistr powdr for inhalation (Johnie Ha) meloxicam 15 mg tablet 15 mg PO DAILY 05/11/24 05/16/24 05/09/24 History tramadol 50 mg tablet 50 mg PO Q6H PRN severe pain 05/11/24 05/16/24 05/16/24 05:30 History Exam Height,Weight and Vital Signs: Height 5 ft 9 in Weight 75.296 kg Last Vital Signs Pulse 87 05/11/24 12:05 Resp 18 05/11/24 12:05 BP 135/99 H 05/11/24 12:05 Pulse Ox 96 05/11/24 12:05 O2 Del Method Room Air 05/11/24 12:05 Pertinent Lab Results Pertinent Lab Results: Laboratory Tests 03/19/24 08:16 WBC 11.3 H Hgb 13.7 L Hct 40.3 L Plt Count 362 D Sodium 138 Potassium 4.2 Chloride 105 Carbon Dioxide 23 BUN 21 H Creatinine 0.83 Narrative Narrative: EKG 05/2024 Vent. Rate : 088 BPM Atrial Rate : 088 BPM P-R Int : 134 ms QRS Dur : 086 ms QT Int : 358 ms P-R-T Axes : 083 072 066 degrees QTc Int : 433 ms Normal sinus rhythm Normal ECG No previous ECGs available Airway Mallampati Class: II TM Dist: >3cm Denture: Upper and Lower Heart: RRR Lungs: CTAB Assessment and Plan Assessment Anesthesia Assessment: Anesthesia Plan Discussed, Smoking Cess. Discussed and PAT Visit Final Anesthetic Review Family History of Problems with Anesthesia: No History of Problems with Anesthesia: No Documented by User: Sarah Bose MD 05/16/24 07:00 [facility] Past Medical History Medical History (Updated 05/11/24 @ 12:01 by Angelica Guajardo RN) Back pain Arthritis Nicotine dependence, cigarettes, uncomplicated Right knee DJD Lumbar spinal stenosis Right lumbar radiculopathy Porphyrin disorder Tubular adenoma of colon (~2020) History of peptic ulcer (~2001) Difficult intravenous access History of chronic pain COPD (chronic obstructive pulmonary disease) Hepatitis C Family History Family History Mother Emphysema lung Cancer Surgical History Surgical History History of hand surgery (~2020) History of colonoscopy (~2020) History of esophagogastroduodenoscopy (EGD) (~2001) Social History Social History Household Members Other:: room mate Are you a primary foster care case manager to a significant other at home: No Do you presently have visiting nurse or other home services: No Alcohol intake: former Year quit: 2019 Patient Tobacco Use Status: Current everyday Tobacco user Tobacco use type: Cigarette Cigarettes Per Day: 7 Years Smoked: 55 Substance Use Type: Amphetamines, Crack/Cocaine, Former Substance User, Hallucinogens, IV Drugs, Marijuana and Opiates Substance Use Type Other:: clean 25 years-multiple substances- acid, ectasy, crack, etc. Have you been hit, kicked, punched, or otherwise hurt by someone within the past year? 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 Meds Allergies Allergy/AdvReac Type Severity Reaction Status Date / Time No Known Allergies Allergy Verified 05/16/24 06:35 Home Medications ?Medication ?Instructions ?Recorded ?Confirmed ?Last Taken ?Type albuterol sulfate 90 mcg/actuation 2 puff PO Q4-6H PRN Shortness Of 09/04/20 05/16/24 Unknown History aerosol inhaler Breath tiotropium bromide 18 mcg capsule 1 cap inhalation DAILY 09/04/20 05/16/24 05/16/24 History with inhalation device gabapentin 300 mg capsule 300 mg PO TID 04/19/23 05/16/24 Unknown History fluticasone 250 mcg-salmeterol 50 1 ea inhalation QAM 05/11/24 05/16/24 05/16/24 History mcg/dose blistr powdr for inhalation (Johnie Inhmohinder) meloxicam 15 mg tablet 15 mg PO DAILY 05/11/24 05/16/24 05/09/24 History tramadol 50 mg tablet 50 mg PO Q6H PRN severe pain 05/11/24 05/16/24 05/16/24 05:30 History Exam Airway Neck ROM: Full Assessment and Plan Final Anesthetic Review NPO: Yes ASA Class: III Final Preanesthetic Review: No Changes in Pt Med Stat, Meds/Allgs Chart Reviewed and Consent Obtained/Reviewed Patient Risk: Intermediate Procedure Risk: Intermediate Anesthetic Plan Anesthetic Plan: GA Disposition: Standard PACU
[2024-05-16 06:26] VITALS: BMI 24.1
[2024-05-16 06:38] VITALS: BP 138/88; PULSE 66; RESP 16; TEMP 36.9; O2SAT 95
[2024-05-16] MEDS: Gabapentin 300 MG CAPSULE PO (06:46)
[2024-05-16] MEDS: methocarbamoL 750 MG TABLET PO (06:46)
[2024-05-16] MEDS: Lactated Ringers 1,000 ML 100 ML IVCONT (06:52)
--- NOTE | 2024-05-16 07:04 | MHC.SHP ---
Pre-Procedural Eval Section A - 24 Hr Update-Section A only Date of Service: 05/16/24 Section B - Complete if H&P > 30 days Chief Complaint: Spinal stenosis, lumbar region without neurogenic Allergies: Allergies Allergy/AdvReac Type Severity Reaction Status Date / Time No Known Allergies Allergy Verified 05/16/24 06:35 Review of Systems Sugical H&P ROS: Negative: Constitution, Cardiovascular, Respiratory, Neurological, Psychiatric, Hem-Onc, Allergic/Immunologic, Gastrointestinal, Genitourinary, Musculoskeletal, Integumentary, Endocrine and Eyes/Ears/Nose/Throat Exam Surgical H&P Exam: Not Evaluated: HEENT, Not Evaluated: Heart, Not Evaluated: Lungs, Not Evaluated: Extremities, Not Evaluated: Abdomen, Not Evaluated: Skin and Not Evaluated: Neurological Exam Comment: The patient is awake, alert, no acute distress. Proposed surgical incision site is clean with no sign of recent surgery. Plan Diagnosis/Plan: Unchanged I have reviewed the history and physical and performed a pertinent physical examination on my patient. No changes have occurred unless specified. Plan remains the same, right-sided L3-4, L4-5 lumbar decompression. Time Spent With Patient Time: Total time managing care of this patient today _10___ minutes.
--- NOTE | 2024-05-16 08:57 | W.PM.OPN ---
Operative Note Operative Note Date of Service: 05/16/24 Narrative: Preoperative Diagnosis: L3-4 and L4-5 spinal stenosis/lateral recess stenosis/neural foraminal stenosis Operation: Right L3, L4 hemilaminectomy, partial L5 Laminotomy, Partial L3-4 and L4-5 facetectomy and L3 and L4 foraminotomy with use of microscope Consent Informed Consent was obtained for this operation. I have explained the nature, purpose and benefits of the operation. I have discussed the risks and benefit of the operation including possible complications or adverse events with patient/family. Alternative(s) were discussed with the patient with their relative benefits and risks as well as the consequences of not accepting the operation were included in obtaining consent. Surgeon: CHRISTA SIMPSON MD, PHD Procedure Assisted By: Garry Dai Description of Procedure This patient is suffering from severe right lumbar radiculopathy. MRI shows severe L3-4 and L4-5 foraminal stenosis and L3-4 L4-5 central stenosis and lateral recess stenosis compressing the L3, L4 and L5 nerve roots. The patient was offered a decompression. The procedure complications were explained. The patient was consented. The patient was brought to the operating room and endotracheally intubated. The patient was turned in prone position on the Dylan frame. Prep and drape was done followed by timeout. The Physician volunteer services assistant provided access. A mid lumbar incision was made followed by release of the paravertebral muscle on the right side to expose the L3, L4 and L5 laminae and facet joints. An intraoperative x-ray was obtained to confirm the correct level. The microscope was brought in. I took over the procedure. The high-speed drill was used to do a L3 laminotomy until flavum ligament was reached. A #2 Kerrison was used to expand the laminotomy near flush to the pedicles and to include a partial facetectomy. I identified the origin of the L3 nerve root and followed into the foramen. A L3 foraminotomy was done with a foraminotomy Kerrison. Then the L3 laminotomy was extended to a laminectomy to decompress the L3-4 segment on the right side. Then the proximal part of the L4 lamina was drilled away and the origin of the L4 nerve root was identified. An L4-5 partial facetectomy was done after which the L4 nerve root was decompressed in the foramen with a foraminotomy Kerrison. Significant foraminal stenosis was present and relieved. Then the L4 laminotomy was expanded to an L4 laminectomy. The origin of the L5 nerve root was not identified and followed into the lateral recess where it was decompressed. No foraminal stenosis was present. In the anterior good decompression of the L3, L4 and L5 nerve root was obtained as well as the thecal sac.. Hemostasis was done. The physician volunteer services assistant close the Incision in 2 layers. Steri-Strips were used to approximate incision. An OpSite with Tegaderm was used to cover the incision. All sponge needle counts were correct. Patient was extubated and transported in stable is to recovery room. Anesthesia: General Estimated Blood Loss (ml): 40 mL Complications: None Duration of Surgery: 75 minutes Postoperative Plan: Discharge to home
--- NOTE | 2024-05-16 09:09 | P.DS_ITS ---
DS: Providers Provider Date of Service: 05/16/24 Primary care physician: Mike Gaffney MD DS: Summary Time Attestation Discharge Coordination Time (in mins): 15 Quality: Safe Use of Opioids Does Pt have an Active Cancer Diagnosis on the Problem List?: No Quality: Stroke Does the patient have a stroke diagnosis?: No Physical Exam Vital Signs: Vital Signs: Last Vital Signs Temp 98.5 F 05/16/24 06:38 Pulse 66 05/16/24 06:38 Resp 16 05/16/24 06:38 BP 138/88 05/16/24 06:38 Pulse Ox 95 05/16/24 06:38 O2 Del Method Room Air 05/16/24 06:38 BMI result Body Mass Index 24.1 Discharge Plan Discharge Patient Disposition: Home, Self-Care Referrals: Mike Arora MD [Primary Care Provider] - 1 Week Discharge Medications: New oxycodone 5 mg tablet 5 mg PO Q6H PRN (Reason: pain) Qty: 24 0RF Rx Instructions: Partial Fill upon patient request. Continued pantoprazole 40 mg tablet,delayed release (DR/EC) 40 mg PO DAILY Qty: 90 1RF fluticasone propion-salmeterol [Wixela Inhub] 250-50 mcg/dose blister with device 1 ea inhalation QAM tiotropium bromide 18 mcg capsule, w/inhalation device 1 cap inhalation DAILY albuterol sulfate 90 mcg/actuation HFA aerosol inhaler 2 puff PO Q4-6H PRN (Reason: Shortness Of Breath) gabapentin 300 mg capsule 300 mg PO TID Held meloxicam 15 mg tablet 15 mg PO DAILY Hold Instructions: Resume on 05/17/24. tramadol 50 mg tablet 50 mg PO Q6H PRN (Reason: severe pain) Hold Instructions: Resume on 06/15/24. Resume when oxycodone Rx is complete Discharge Orders: Discharge Order (Routine); Ordered 05/16/24 Ordered By: Oscar Cai Diet: Advance to usual diet Activity on Discharge: As tolerated Activity Restrictions/Additional Instructions: After your spinal surgery we ask you to observe the following restrictions/guidelines: Activity: It is normal to feel some discomfort as you increase your activity, but that will improve with time. We ask you avoid heavy lifting or acitivities that cause pain. As a general rule, 8lbs is a safe limit for lifting right after surgery. Walk as much as you feel comfortable but not to exhaustion. You will feel extra tired the first few days after surgery. Stay well hydrated. It is OK to walk up and down stairs You may return to driving when you are off narcotics (such as vicodin, oxycodone, dilaudid, etc), and you are back to normal functional capacity. If you have any concerns please check with office before driving. Return to work is specific to each patient and each surgery, so please speak with your doctor/PA at first follow up. Please bring paperwork such as FMLA at that time if you need it filled out. Medications: We recommend you take 1,000mg Tylenol every 8 hours for the first few weeks after surgery, if you do not have any liver issues and can tolerate this medication. Do not exceed 4,000mg daily. We will give you a short supply of narcotics after surgery (usually one weeks worth). If you need more please call the office but do not use more than prescribed. You will need to give our office 48 hours notice if you need narcotics refilled and we do not fill narcotics on weekends or evenings. If you are on a narcotic, it is a good idea to take a stool softener such as colace or senna to avoid constipation If you take blood thinner such as aspirin, Plavix, Coumadin, Effient, Eliquis etc for conditions such as Afib, DVT, Pulmonary embolus, coronary disease, stents etc please speak with your surgeon about specific details as to when you can resume these medications. You can resume NSAIDs on post op day 1 (eg: Motrin, Naproxen, etc). Follow up: Please call the office, , after surgery to arrange a 3 week follow up for wound check. Wound Care: You may remove your dressing on the first day after surgery. ?You may ?leave open to air. Please do not remove the steri strips underneath. they will fall off on their own in one week. IT IS NORMAL FOR THE WOUND TO OOZE OR BE BLOODY FOR A FEW DAYS AFTER SURGERY. ?IF THIS HAPPENS JUST PLACE NEW DRESSING OVER IT TO AVOID STAINING CLOTHES. You may shower on post op day # 1 We ask that you do not let the water soak the wound. If it does get wet, just towel dry lightly. Please do not scrub your incision or place any type of chemical/ointment on the wound. No tub baths, pools or jacuzzis for one month. If you have any leaking or redness from your wound, or fevers, please call the office. Print Language: Armenian
[2024-05-16 09:19] VITALS: BP 135/108; PULSE 80; RESP 16; TEMP 36.3; O2SAT 98
[2024-05-16 09:24] VITALS: BP 143/85; PULSE 81; RESP 16; O2SAT 98
[2024-05-16 09:29] VITALS: BP 136/80; PULSE 79; RESP 18; O2SAT 96
[2024-05-16 09:34] VITALS: BP 116/86; PULSE 77; RESP 18; TEMP 36.4; O2SAT 96
== END 2024-05-16 10:22 | disposition home or self-care (01) ==
PROVIDERS: PCP Internal Medicine; Visit Provider Neurological Surgery
PROC: (CPT 63047; principal; 2024-05-16 07:30)
DX: M48.062 Spinal stenosis, lumbar region with neurogenic claudication (principal); J44.9 Chronic obstructive pulmonary disease, unspecified; Z86.19 Personal history of other infectious and parasitic diseases; Z79.51 Long term (current) use of inhaled steroids; Z79.899 Other long term (current) drug therapy; F17.210 Nicotine dependence, cigarettes, uncomplicated; Z98.890 Other specified postprocedural states; F19.11 Other psychoactive substance abuse, in remission
CPT/HCPCS: 63047; 63048; 93005; J0131; J0690; J1100; J1885; J2003; J2405; J2704; J3010

== ENCOUNTER → 2024-05-16 06:02 | Outpatient (BNV) | payer OTHER, SELFPAY | PROVIDERS: PCP Internal Medicine; Visit Provider Neurological Surgery | DX: M48.062 Spinal stenosis, lumbar region with neurogenic claudication (principal) | CPT/HCPCS: 63047; 63048; 99499 ==

== ENCOUNTER 2024-06-06 13:31 | Outpatient (AMB) | payer OTHER, SELFPAY ==
--- NOTE | 2024-06-06 13:33 | HO.SPINEOV ---
Intake Visit Reasons: 1st post op Intake Note: Mr. Veloz is here today for his 1st post op visit. Employee Training Specialist Required: No Allergies No Known Allergies Allergy (Verified 06/06/24 13:33) Assessment & Plan Assessment & Plan (1) Status post lumbar spine surgery for decompression of spinal cord: Code(s): Z98.890 - Other specified postprocedural states Category: Medical Plan Procedure: Right L3, L4 hemilaminectomy, partial L5 Laminotomy, Partial L3-4 and L4-5 facetectomy and L3 and L4 foraminotomy Nehal comes in today for his 1st postoperative visit. He reports he is very satisfied with the surgery and feels much better than he did pre-operatively. The patient reports he is up, walking around and completing the majority of his ADLs without issue. He reports that he no longer suffers from his right-sided shooting radiculopathy, and feels he generally has no pain. He asked several questions regarding the postoperative healing course as he has essentially been back to regular activity already. I answered these questions to the best of my ability. No new neurological deficits. Patient is able to ambulate well, rises from a seated position without difficulty. Incision site is closed, well healing, with no signs of drainage. We will follow-up with the patient in 6 weeks for their 2nd postoperative visit. Oscar Berry MD,PhD [facility] Coding Level of Care Code Global (28124) Diagnoses Status post lumbar spine surgery for decompression of spinal cord Z98.890
== END 2024-06-06 13:55 | disposition home or self-care (01) ==
PROVIDERS: PCP Internal Medicine; Visit Provider Physician Assistant
DX: Z98.890 Other specified postprocedural states (principal)
CPT/HCPCS: 99024

== ENCOUNTER → 2024-06-06 13:31 | Outpatient (BNVA) | payer OTHER, SELFPAY | PROVIDERS: PCP Internal Medicine; Visit Provider Physician Assistant | DX: Z98.890 Other specified postprocedural states (principal) | CPT/HCPCS: 99212 ==

== ENCOUNTER 2024-07-19 11:31 | Outpatient (AMB) | payer OTHER, SELFPAY ==
--- NOTE | 2024-07-19 11:34 | A.SPINEOV_ITS ---
Intake Visit Reasons: 2nd post op Intake Note: Mr. Veloz is here today for his 2nd post op Ophthalmic Technician Required: No Allergies No Known Allergies Allergy (Verified 06/06/24 13:33) Assessment & Plan Assessment & Plan (1) Status post lumbar spine surgery for decompression of spinal cord: Code(s): Z98.890 - Other specified postprocedural states Category: Medical Plan Operation: Right L3, L4 hemilaminectomy, partial L5 Laminotomy, Partial L3-4 and L4-5 facetectomy and L3 and L4 foraminotomy Darinel comes in today for a subsequent follow-up after having a right-sided L3 -5 lumbar decomp[address] completed by Dr. Berry. Overall, he reports that he has been doing well in regards to his shooting raidculopathy since his surgery. Unfortunately he was attempted to return back to work in his right hip and right knee have been significantly bothering him. He states that after about 4-5 hours of working he will experience severe pain in his right hip which is bad enough to make him stop working. He states this has been an ongoing issue. He has previously been seen by our Orthopedics Department for knee injections. I encouraged him to continue following up with our colleagues in Orthopedics to address his right hip. When describing his pain he points directly to the posterior aspect of the greater trochanter. I do not believe this to be related to his low back issues. No new neurological deficits. The patient ambulates well and rises from a seated position without much difficulty. There is no need for continued routine follow-up with Darinel. He will need to follow up with orthopedics department. If for some reason they are unable to address his current issues we may see him again. Oscar Berry MD,PhD [facility] Coding Level of Care Code Global (24804) Diagnoses Status post lumbar spine surgery for decompression of spinal cord Z98.890 Oswestry Questionnaire Oswestry Pain Questionnaire Pain Intensity: Pain killers give very little relief from pain Personal Care (e.g. washing, dressing): It is painful to look after myself and I am slow and careful Lifting: I can lift very light weights Walking: Pain prevents me walking more than a quarter mile Sitting: Pain prevents me from sitting more than half hour Standing: Pain prevents me from standing for more than 10 minutes Sleeping: Pain does not prevent me from sleeping well Social Life: Pain has some effect on my social life more energetic activities Traveling: Pain is bad but I manage journeys over two hours Employment/Homemaking: Pain prevents me from doing anything but light duties Current Pain Level: 6
== END 2024-07-19 12:57 | disposition home or self-care (01) ==
PROVIDERS: PCP Internal Medicine; Visit Provider Physician Assistant
DX: Z98.890 Other specified postprocedural states (principal)
CPT/HCPCS: 99024

== ENCOUNTER → 2024-07-19 11:31 | Outpatient (BNVA) | payer OTHER, SELFPAY | PROVIDERS: PCP Internal Medicine; Visit Provider Physician Assistant | DX: Z48.89 Encounter for other specified surgical aftercare (principal); Z98.890 Other specified postprocedural states | CPT/HCPCS: 99212 ==

== ENCOUNTER 2024-08-21 07:44 | Outpatient (REF) | payer OTHER, SELFPAY ==
--- NOTE | ~2024-08-21 | XR_ITS ---
EXAMINATION: XR PELVIS CLINICAL INFORMATION: M25.559 - Pain in unspecified hip COMPARISON: Correlated to right hip x-ray dated September 21, 2023. TECHNIQUE: AP view of the pelvis. FINDINGS: Bony pelvis is intact. No acute cortical disruption. There is sclerosis and the articular surface of the right and left acetabulum. Multilevel marginal osteophyte formation and syndesmophyte formation at L3-4 L4-5 and L5-S1 level. No lytic or blastic lesions. XR/XR pelvis 1-2V IMPRESSION: No acute fracture, bony pelvis. Mild osteoarthrosis both hips. Multilevel lower lumbar spondylosis. Electronically signed by: Tal Lee MD 08/22/2024 11:29 AM MARGARITA
--- OUTSIDE RECORDS SUMMARY | 2024-08-21 07:46 | XMS_ITS | Encounter Summary ---
Author Organization [employer] Address [address] [facility] 7t [place] [address] Care Team Providers Care Staff Midwife/Apprenticeship Director Name Role Phone Mike Arora MD Primary Care Prov ider Encounter Details Date Type Department Care Team ([facility] st Contact Info) Description 08/10/2022 Orders Only [facility] [address] [place] [address] Mike Arora MD [address] [place], [place] [phone] Prostate cancer screening (Primary Dx); Simple chronic bronchitis (CMS/HCC) Social History Tobacco Use Types Packs/Day Years Used Date Smoking Tobacco: Every Day Cigarettes Passive Smoke Exposure: Never Smokeless Tobacco: Never Alcohol Use Standard Drinks/Week Comments Never 0 (1 standard drink = 0.6 oz pur e alcohol) Sex and Gender Information Value Date Recorded Sex Assigned at Male 05/03/2022 10:36 AM EDT Legal Sex Male 10:36 AM EDT Gender Identity Male 05/03/2022 10:36 AM EDT Sexual Orientation Straight 05/03/2022 10 :36 AM EDT documented as of this encounter Plan of Treatment Scheduled Orders Name Type Priority Associated Diagnoses Orde r Schedule Electrolyte Panel Lab Routine Simple chronic bronchitis (CMS/HCC) Expected: 08/10/2022 (Approximate), Expires: 08/10/2023 documented as of this encounter Procedures Procedure Name Priority Date/Time Associated Diagnosis Comments HCV RNA, QUANTITATIVE REAL TIME PCR POSITIVE Routine 08/10/2022 10:30 AM EST TSH W/REFLEX TO FT4 Routine 08/10/2022 1 0:30 AM EST Simple chronic bronchitis (CMS/HCC) HIV 1 RNA, QN PCR W/RFL LI (RTI,PI,INTEGRASE) Routine 08/10/2022 10:30 AM EST Simple chronic bronchitis (CMS/HCC) HEMOGLOBIN A1C WITH MPG Routine 08/10/2022 10:30 AM EST Simple chronic bronchitis (CMS/HCC) CBC WITH AUTO DIFFERENTIAL Routine 08/10/2022 10:30 AM EST Simple chronic bronchitis (CMS/HCC) HEPATITIS C AB W/REFL TO HCV RNA, QN, PCR Routine 08/10/2022 10:30 AM EST Simple chronic bronchitis (CMS/HCC) PSA, TOTAL Routine 08/10/2022 10:30 AM EST Prostate cancer screening HEPATIC FUNCTION PANEL Routine 08/10/2022 10:30 AM EST Simple chronic bronchitis (CMS/HCC) LIPID PANEL, STANDARD Routine 08/10/2022 10:30 AM EST Simple chronic bronchitis (CMS/HCC) BASIC METABOLIC PANEL Routine 08/10/2022 10:30 AM EST Simple chronic bronchitis (CMS/HCC) documented in this encounter Results * HCV RNA, QUANTITATIVE REAL TIME PCR POSITIVE (08/10/2022 10:30 AM EST) Pathologist [facility] HCV RNA, QN Real Time PCR <15 NOT DETECTED NOT DETECTED IU/mL [facility] HCV RNA QN Real Time PCR <1.18 NOT DETECTED NOT DETECTED Log IU/mL [facility] Comment: HCV RNA is not detected. ??There is no laboratory evidence of a current active HCV infection. This pattern of results (undetectable HCV RNA combined with reactive HCV antibody) could be consistent with a resolved past infection if the clinical history is compatible with previous HCV exposure. ??However, if no previous exposure is suspected, the reactive HCV antibody could be a biological false positive result. (Always Message) [facility] Comment: This test was performed using Real-Time Polymerase Chain Reaction. Reportable Range: 15 IU/mL to 100,000,000 IU/mL (1.18 Log IU/mL to 8.00 Log IU/mL). The analytical performance characteristics of this assay have been determined by [facility]. The modifications have not been cleared or approved by the FDA. This assay has been validated pursuant to the CLIA regulations and is used for clinical purposes. ? For more information on this test, go to: http://education.Lalina/faq/GAN22n3 (This link is being provided for informational/ educational purposes only.) This assay is intended for use as an aid in the diagnosis of HCV infection and the management of HCV infected patients undergoing anti-viral therapy. 08/10/2022 10:3 0 AM EST 08/10/2022 10:31 AM EST Narrative [facility] - 08/13/2022 11:15 PM EST FASTING:NO FASTING: NO us Mike Gaffney MD LAB BLOOD ORDERABL ES Final Result [facility] [address], [place] [address] [facility] [address] [facility], ([address]) [place] [address] * PSA,Total (08/10/2022 10:30 AM EST) PSA, Total 0.35 < OR = 4.00 ng/mL [facility] Comment: The total PSA value from this assay system is standardized against the WHO standard. The test result will be approximately 20% lower when compared to the equimolar-standardized total PSA (Naty Kingston). Comparison of serial PSA results should be interpreted with this fact in mind. This test was performed using the Siemens chemiluminescent method. Values obtained from different assay methods cannot be used interchangeably. PSA levels, regardless of value, should not be interpreted as absolute evidence of the presence or absence of disease. Blood Venous blood specimen / Unknown 08/10/2022 10:30 AM EST 08/10/2022 10:31 AM EST Narrative [facility] - 08/13/2022 11:15 PM EST FASTING:NO FASTING: NO Mike Gaffney MD LAB BLOOD ORDERABL ES Final Result Performing Organization Address [facility] Co de Phone Number [address], [place] [address] [facility] [address] [place] [address], ([address]) [place] [address] * (ABNORMAL) Hemoglobin A1c with Calculated Mean Plasma Glucose (MPG) (08/10/2022 10:30 AM EST) Hemoglobin A1c 5.8(H) <5.7 % of total Hgb [facility] Comment: For someone without known diabetes, a hemoglobin A1c value between 5.7% and 6.4% is consistent with prediabetes and should be confirmed with a follow-up test. For someone with known diabetes, a value <7% indicates that their diabetes is well controlled. A1c targets should be individualized based on duration of diabetes, age, comorbid conditions, and other considerations. This assay result is consistent with an increased risk of diabetes. Currently, no consensus exists regarding use of hemoglobin A1c for diagnosis of diabetes for children. Mean Plasma Glucose 129 mg/dL (calc) [facility] 08/10/2022 10:3 0 AM EST 08/10/2022 10:31 AM EST Narrative [facility] - 08/13/2022 11:15 PM EST FASTING:NO FASTING: NO Mike Gaffney MD LAB BLOOD ORDERABL ES Final Result Performing Organization Address City/[facility]/ZIP Co de Phone Number [address], [place] [address] [facility] [employer] [address] [place] [address], ([address]) [place] [address] * TSH W/Reflex to FT4 (08/10/2022 10:30 AM EST) TSH w/Reflex to FT4 2.75 0.40 - 4.50 mIU/L [facility] 08/10/2022 10:3 0 AM EST 08/10/2022 10:31 AM EST Narrative [facility] - 08/13/2022 11:15 PM EST FASTING:NO FASTING: NO Mike Gaffney MD LAB BLOOD ORDERABL ES Final Result [facility] [address] [facility] [place] [address] [facility] 200 [facility], ([address]) [place] [address] * Lipid Panel, Standard (08/10/2022 10:30 AM EST) Cholesterol, Total 145 <200 mg/dL [facility] HDL Cholesterol 58 > OR = 40 mg/dL [facility] Triglycerides 50 <150 mg/dL [facility] LDL Cholesterol 75 mg/dL (calc) [facility] Comment: Reference range: <100 Desirable range <100 mg/dL for primary prevention; ?? <70 mg/dL for patients with CHD or diabetic patients with > or = 2 CHD risk factors. LDL-C is now calculated using the Darrel-Matt calculation, which is a validated novel method providing better accuracy than the Friedewald equation in the estimation of LDL-C. Darrel SS et al. DYLAN. 2013;310(19): 8520-8571 (http://education.GüvenRehberi/faq/LYZ807) Chol/HDLC Ratio 2.5 <5.0 (calc) [facility] Non-HDL Cholesterol 87 <130 mg/dL (calc) [facility] Comment: For patients with diabetes plus 1 major ASCVD risk factor, treating to a non-HDL-C goal of <100 mg/dL (LDL-C of <70 mg/dL) is considered a therapeutic option. Blood Venous blood specimen / Unknown 08/10/2022 10:30 AM EST 08/10/2022 10:31 AM EST Narrative [facility] - 08/13/2022 11:15 PM EST FASTING:NO FASTING: NO Mike Gaffney MD LAB BLOOD ORDERABL ES Final Result Performing Organization Address [facility]/ZIP Co de Phone Number [facility] [address], [place] [address] [facility] [address] [facility], ([address]) [place] [address] * HIV-1 RNA, Quantitative, Real-Time PCR with Reflex to Genotype (RTI, PI, Integrase) (08/10/2022 10:30 AM EST) Pathologist [facility] HIV 1 RNA, QN PCR NOT DETECTED copies/mL [facility], HIV 1 RNA, QN PCR NOT DETECTED Log copies/mL [facility], Comment: REFERENCE RANGE: NOT DETECTED copies/mL ?NOT DETECTED ??Log copies/mL This test was performed using Real-Time Polymerase Chain Reaction. Reportable range is 20 to 10,000,000 copies/mL (1.30-7.00 Log copies/mL). 08/10/2022 10:3 0 AM EST 08/10/2022 10:31 AM EST Narrative [facility] - 08/13/2022 11:15 PM EST FASTING:NO FASTING: NO Mike Gaffney MD LAB BLOOD ORDERABL ES Final Result Performing Organization Address [facility]/ZIP Co de Phone Number [facility] [address], [place] [address] [facility], [address] [place] [address] * (ABNORMAL) Hepatitis C Antibody with Reflex to HCV, RNA, Quantitative, Real- Time PCR (08/10/2022 10:30 AM EST) Pathologist [facility] Hepatitis C Antibody REACTIVE( A) NON-REACT BIANCA [facility] Index >11.00(H) <1.00 [facility] Comment: Based on this result, the sample will be tested for HCV RNA by a Nucleic Acid Amplification Test (NAAT) to determine if the patient has a current active infection. Blood Venous blood specimen / Unknown 08/10/2022 10:30 AM EST 08/10/2022 10:31 AM EST Narrative [facility] - 08/13/2022 11:15 PM EST FASTING:NO FASTING: NO us Mike Gaffney MD LAB BLOOD ORDERABL ES Final Result [address], [place] [address] [facility] [address] [facility], ([address]) [place] [address] * Hepatic Function Panel (08/10/2022 10:30 AM EST) Protein, Total 7.1 6.1 - 8.1 g/dL [facility] Albumin 4.7 3.6 - 5.1 g/dL [facility] Globulin 2.4 1.9 - 3.7 g/dL (calc) [facility] Albumin/Globulin Ratio 2.0 1.0 - 2.5 (calc) [facility] Bilirubin, Total 0.7 0.2 - 1.2 mg/dL [facility] Bilirubin, Direct 0.2 < OR = 0.2 mg/dL [facility] Bilirubin, Indirect 0.5 0.2 - 1.2 mg/dL (calc) [facility] Alkaline Phosphatase 35 35 - 144 U/L [facility] AST 17 10 - 35 U/L [facility] ALT 16 9 - 46 U/L [facility] Blood Venous blood specimen / Unknown 08/10/2022 10:30 AM EST 08/10/2022 10:31 AM EST Narrative [facility] - 08/13/2022 11:15 PM EST FASTING:NO FASTING: NO Mike Gaffney MD LAB BLOOD ORDERABL ES Final Result Performing Organization Address City/[facility]/ZIP Co de Phone Number [facility] [address], [place] [address] [facility] [address] [facility], ([address]) [place] [address] * Basic Metabolic Panel (08/10/2022 10:30 AM EST) [facility] Glucose 90 65 - 139 mg/dL [facility] Comment: ? Non-fasting reference interval Urea Nitrogen (BUN) 25 7 - 25 mg/dL [facility] Creatinine, Serum 0.71 0.70 - 1.35 mg/dL [facility] eGFR 105 > OR = 60 mL/min/1 .73m2 [facility] Comment: The eGFR is based on the CKD-EPI 2020 equation. To calculate the new eGFR from a previous Creatinine or Cystatin C result, go to https://www.kidney.org/professionals/ kdoqi/gfr%5Fcalculator BUN/Creatinine Ratio NOT APPLICABLE 6 - 22 (calc) [facility] Sodium 136 135 - 146 mmol/L [facility] Potassium 4.4 3.5 - 5.3 mmol/L [facility] Chloride 101 98 - 110 mmol/L [facility] Carbon Dioxide 26 20 - 32 mmol/L [facility] Calcium 9.6 8.6 - 10.3 mg/dL [facility] Blood Venous blood specimen / Unknown 08/10/2022 10:30 AM EST 08/10/2022 10:31 AM EST Narrative [facility] - 08/13/2022 11:15 PM EST FASTING:NO FASTING: NO Mike Gaffney MD LAB BLOOD ORDERABL ES Final Result Performing Organization Address City/[facility]/ZIP Co de Phone Number [facility] [address], [place] [address] [facility] [address] [facility], ([address]) [place] [address] * CBC auto differential (08/10/2022 10:30 AM EST) White Blood Cell Count 7.2 3.8 - 10.8 Thousand/ uL [facility] Red Blood Cell Count 4.22 4.20 - 5.80 Million/u L [facility] Hemoglobin 13.4 13.2 - 17.1 g/dL [facility] Hematocrit 39.8 38.5 - 50.0 % [facility] MCV 94.3 80.0 - 100.0 fL [facility] MCH 31.8 27.0 - 33.0 pg [facility] MCHC 33.7 32.0 - 36.0 g/dL [facility] RDW 12.5 11.0 - 15.0 % [facility] Platelet Count 270 140 - 400 Thousand/ uL [facility] MPV 9.9 7.5 - 12.5 fL [facility] Absolute Neutrophils 3,679 1,500 - 7,800 cells/uL [facility] Absolute Lymphocytes 2,498 850 - 3,900 cells/uL [facility] Absolute Monocytes 612 200 - 950 cells/uL [facility] Absolute Eosinophils 360 15 - 500 cells/uL [facility] Absolute Basophils 50 0 - 200 cells/uL [facility] Neutrophils 51.1 % [facility] [place] [facility] Lymphocytes 34.7 % [facility] Monocytes 8.5 % [facility] Eosinophils 5.0 % [facility] Basophils 0.7 % [facility] Blood Venous blood specimen / Unknown 08/10/2022 10:30 AM EST 08/10/2022 10:31 AM EST Narrative [facility] - 08/13/2022 11:15 PM EST FASTING:NO FASTING: NO us Mike Gaffney MD LAB BLOOD ORDERABL ES Final Result [facility] [address] [facility], [facility], [place] [address] [facility] [address] [facility], ([address]) [place] [address] documented in this encounter Visit Diagnoses Diagnosis Prostate cancer screening- Primary Special screening for malignant neoplasm of prostate Simple chronic bronchitis (CMS/HCC) Simple chronic bronchitis documented in this encounter Care Teams Staff Midwife/Apprenticeship Director Relationship Specialty Start Date End Date Mike Arora MD [address] [place] [id number] PCP - General Internal Medicine 07/09/19 documented as of this encounter
--- OUTSIDE RECORDS SUMMARY | 2024-08-21 07:46 | XMS_ITS | Clinical Summary ---
Author Organization [employer] Address [address] [place] [address] Care Team Providers Care Reo Asset Manager Name Role Phone Cheryl Fournier MD Primary Care Provider [phone] Social History Tobacco Use Types Packs/Day Years Used Date Smoking Tobacco: Never Assessed Sex and Gender Information Value Date Recorded Sex Assigned at Not on file Legal Sex Male 10:07 AM EST Gender Identity Not on file Sexual Orientation Not on file Plan of Treatment Health Maintenance Due Date Last Done Comments DTaP,Tdap,and Td Vaccines (1 - Tdap) 1981 Pneumococcal Vaccine: 50+ Ye ars (1 of 1 - PCV) 01/05/2012 Zoster Vaccines (1 of 2) 01/05/2012 COVID-19 Vaccine ( - 2023-2 5 season) 2024 Influenza Vaccine (#1) 2024 RSV Immunization Patients 60 + Years Old (1 - 1-dose 75+ series) 2037 HIB Vaccines Aged Out No longer eligi ble based on patient's age to complete this topic HPV Vaccines Aged Out No longer eligi ble based on patient's age to complete this topic Hepatitis A Vaccines Aged Out No long er eligible based on patient's age to complete this topic Hepatitis B Vaccines Aged Out No long er eligible based on patient's age to complete this topic IPV Vaccines Aged Out No longer eligi ble based on patient's age to complete this topic MMR Vaccines Aged Out No longer eligi ble based on patient's age to complete this topic Meningococcal ACWY Vaccine Aged Out N o longer eligible based on patient's age to complete this topic Meningococcal B Vacine Aged Out No lo nger eligible based on patient's age to complete this topic Pneumococcal Vaccine: Pediat rics (0 to 5 Years) and At-Risk Patients (6 to 64 Years) Aged Out No longer eligible b ased on patient's age to complete this topic RSV Immunization Patients Un swati 20 months Aged Out No longer eligible b ased on patient's age to complete this topic Varicella Vaccines Aged Out No longer eligible based on patient's age to complete this topic Care Teams Reo Asset Manager Relationship Specialty Start Date End Date Cheryl Fournier MD PCP - General Internal Medicine 09/09/16
--- OUTSIDE RECORDS SUMMARY | 2024-08-21 07:46 | XMS_ITS | Encounter Summary ---
Author Organization [employer] Address [address] [facility] [address] [place] [address] Care Team Providers Care Designer Writer Name Role Phone Mike Arora MD Primary Care Prov ider Reason for Visit * Reason Comments Med Refill Encounter Details Date Type Department Care Team ([facility] Contact Info) Description 08/10/2024 Refill [facility] [address] [place], [place] [phone] Mike Arora MD [address] [place] [address] Social History Tobacco Use Types Packs/Day Years Used Date Smoking Tobacco: Every Day Cigarettes Passive Smoke Exposure: Never Smokeless Tobacco: Never Alcohol Use Standard Drinks/Week Comments Never 0 (1 standard drink = 0.6 oz pur e alcohol) Depression Answer Date Recorded Patient Health Questionnaire-9 Score 0 10/14/2022 Housing Stability Answer Date Recorded What is your housing situation today? I have suzie seth 01/30/[address] you li ve. Do you have problems with any of the following? None of the above 01/30/2024 Food Insecurity Answer Date Recorded Within the past 12 months, y ou worried that your food would run out before you got money to buy more: Never True 01/30/2024 Within the past 12 months,th e food you bought just didn't last and you didn't have enough money to get more: Never True Transportation Answer Date Recorded In the past 12 months, has l ack of transportation kept you from medical appts, meetings, work or from getting things needed for daily living? No 01/30/2024 Utilities Answer Date Recorded In the past 12 months, has t he electric, gas, oil or water company threatened to shut off services in your home? No 01/30/2024 Depression Answer Date Recorded Patient Health Questionnaire-2 Score 0 10/14/2022 Internet Access Answer Date Recorded Internet Access Q1 Yes 03/02/2024 Internet Access Q2 Not on file 03/02/2024 Sex and Gender Information Value Date Recorded Sex Assigned at Male 05/03/2022 10:36 AM EDT Legal Sex Male 10:36 AM EDT Gender Identity Male 05/03/2022 10:36 AM EDT Sexual Orientation Straight 05/03/2022 10 :36 AM EDT documented as of this encounter Plan of Treatment Not on file documented as of this encounter Visit Diagnoses Not on filedocumented in this encounter Additional Health Concerns Assessment Noted Time PHQ-9 Depression Total Score: 0 10/15/19 23 10:23 AM EDT documented as of this encounter Care Teams Designer Writer Relationship Specialty Start Date End Date Mike Arora MD [address] [place] [id number] PCP - General Internal Medicine 07/09/19 documented as of this encounter
--- OUTSIDE RECORDS SUMMARY | 2024-08-21 07:46 | XMS_ITS | Encounter Summary ---
Author Organization [employer] Address [address] [facility] [address] [place] [address] Care Team Providers Care Rn Transition Name Role Phone Mike Arora MD Primary Care Prov ider Reason for Visit * Reason Onset Date Comments call back 10/20/2022 Encounter Details Date Type Department Care Team ([facility] st Contact Info) Description 10/20/2022 Telephone [facility] MEDICINE [address] [place] [address] Mike Arora MD [address] [place] [address] call back Social History Tobacco Use Types Packs/Day Years Used Date Smoking Tobacco: Every Day Cigarettes Passive Smoke Exposure: Never Smokeless Tobacco: Never Alcohol Use Standard Drinks/Week Comments Never 0 (1 standard drink = 0.6 oz pur e alcohol) Depression Answer Date Recorded Patient Health Questionnaire-9 Score 0 10/14/2022 Depression Answer Date Recorded Patient Health Questionnaire-2 Score 0 10/14/2022 Sex and Gender Information Value Date Recorded Sex Assigned at Male 05/03/2022 10:36 AM EDT Legal Sex Male 10:36 AM EDT Gender Identity Male 05/03/2022 10:36 AM EDT Sexual Orientation Straight 05/03/2022 10 :36 AM EDT COVID-19 Exposure Response Date Recorded In the last 10 days, have yo u been in contact with someone who was confirmed or suspected to have Coronavirus/COVID-19? 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 Pt is also requesting the status of CT done. Per pt, he had it done at [facility]. No result found. Will f/u with [facility] diagnostic specialist to find out where pt had the CT done. * Telephone Encounter - Chantal Stuatr RN - 10/20/2022 3:08 PM EDT Tc from pt requesting a call back regarding why pt has to do a US Abdomen. Please contact pt at [phone] Please clarify above message. Thanks * Telephone Encounter - Jose Howard - 10/20/2022 10:00 AM EDT Tc from pt requesting a call back regarding why pt has to do a US Abdomen. Please contact pt at [phone] documented in this encounter Plan of Treatment Not on file documented as of this encounter Visit Diagnoses Not on filedocumented in this encounter Additional Health Concerns Assessment Noted Time PHQ-9 Depression Total Score: 0 10/15/19 23 10:23 AM EDT documented as of this encounter Care Teams Rn Transition Relationship Specialty Start Date End Date Mike Arora MD [address] [place] [phone] PCP - General Internal Medicine 07/09/19 documented as of this encounter
--- OUTSIDE RECORDS SUMMARY | 2024-08-21 07:46 | XMS_ITS | Encounter Summary ---
Author Organization [employer] Address [address] [facility] 7[address] [place] [address] Care Team Providers Care Director Of Security Name Role Phone Mike Arora MD Primary Care Prov ider Reason for Visit * Reason Comments Med Refill Encounter Details Date Type Department Care Team ([facility] Contact Info) Description 05/09/2024 Refill [facility] CHC MED & PEDS [address] [place] [address] Mike Arora MD [address] [place] [address] Low back pain associated with a spinal disorder other than radiculopathy or spinal stenosis Social History Tobacco Use Types Packs/Day Years [...] documented as of this encounter Visit Diagnoses Diagnosis Low back pain associated with a spinal disorder other than radiculopathy or spinal stenosis documented in this encounter Additional Health Concerns Assessment Noted Time PHQ-9 Depression Total Score: 0 10/15/19 23 10:23 AM EDT documented as of this encounter Care Teams Director Of Security Relationship Specialty Start Date End Date Mike Arora MD [address] [place] [phone] PCP - General Internal Medicine 07/09/19 documented as of this encounter
--- OUTSIDE RECORDS SUMMARY | 2024-08-21 07:46 | XMS_ITS | Clinical Summary ---
Author Organization [employer] Address [address] [facility] 7t [place] [address] Care Team Providers Care Security Solutions Engineer Name Role Phone Mike Arora MD Primary Care Prov ider Allergies No known active allergies Medications Emollient (CeraVe Moisturizing) cream apply to dry skin BID 08/11/19 21 Active ledipasvir-sofosb uvir (Harvoni) 90-400 MG tablet tablet take 1 tablet by oral route every day for 4 more weeks 12/26/19 20 Active nicotine (Nicoderm, Step 3) 7 MG/24HR patch Place 1 patch on the skin at bed time. 08/06/19 22 Active nicotine (Nicoderm, Step 2) 14 MG/24HR patch Place 1 patch on the skin at bed time. 08/06/19 22 Active albuterol (ProAir HFA) 108 (90 Base) MCG/ACT inhalerIndication s:Chronic obstructive pulmonary disease, unspecified COPD type (CMS/HCC) Inhale 2 puffs every 4 (four) hours. 18 g 3 12/07/19 23 Active tiotropium (Spiriva HandiHaler) [address] 1 capsule (18 mcg) into inhaler and inhale in the morning. 30 capsule 11 09/30/19 24 Active sildenafil (Viagra) 50 MG tablet Take 1 tablet (50 mg) by mouth if needed each day for erectile dysfunction. 30 tablet 3 11/16/19 24 Active Wixela Inhub 250-50 MCG/ACT aerosol powderIndications :Chronic obstructive pulmonary disease, unspecified COPD type (CMS/HCC) INHALE 1 PUFF INTO THE LUNGS IN THE MORNING 60 each 3 11/22/20 24 Active traMADol (Ultram) 50 MG tabletIndications :Low back pain associated with a spinal disorder other than radiculopathy or spinal stenosis Take 1 tablet (50 mg) by mouth every 6 (six) hours if needed for severe pain. 30 tablet 06/11/20 24 Active traMADol (Ultram) 50 MG tabletIndications :Low back pain associated with a spinal disorder other than radiculopathy or spinal stenosis Take 1 tablet (50 mg) by mouth every 6 (six) hours if needed for severe pain. 30 tablet 06/11/20 24 Active gabapentin (Neurontin) 600 MG tablet TAKE 1 TABLET BY MOUTH 3 TIMES DAILY. 90 tablet 5 08/14/19 25 Active meloxicam (Mobic) 15 MG tabletIndications :Low back pain associated with a spinal disorder other than radiculopathy or spinal stenosis TAKE 1 TABLET BY MOUTH EVERY DAY 30 tablet 2 08/14/19 25 Active gabapentin (Neurontin) 600 MG tablet TAKE 1 TABLET BY MOUTH 3 TIMES DAILY. 90 tablet 5 03/03/20 24 025 Discontinued meloxicam (Mobic) 15 MG tabletIndications :Low back pain associated with a spinal disorder other than radiculopathy or spinal stenosis Take 1 tablet (15 mg) by mouth Once per day. 30 tablet 2 05/04/20 24 025 Discontinued Active Problems Problem Noted Date Diagnosed Date Cervical pain (neck) 11/16/2023 Assessment & Plan (11/16/2023 2:43 PM EDT): Followed by neurosurgery, he is undergoing steroid injection, may need surgery in the future due to stenosis and symptoms as told by specialist Low back pain associated wit h a spinal disorder other than radiculopathy or spinal stenosis 06/02/2023 Assessment & Plan (05/04/2024 2:57 PM EDT): Will send rx for prednisone and tramadol for 10 days, resume nsaids after prednisone finished, followed by back specialist, refers possibly he will undergo procedure on may Assessment & Plan (03/16/2024 10:00 AM EDT): Will place referral to pain management in [place], patient has tried Pt previously without improvement of symptoms Assessment & Plan (03/07/2024 9:58 PM EDT): Followed by pain management, will prescribe meloxican to be used as needed, continue gabapentin and tylenol PRN Assessment & Plan (11/16/2023 2:42 PM EDT): Followed by pain management, he is undergoing steroid injections Assessment & Plan (08/08/2023 8:25 PM EST): Patient has a appointment in 2 weeks with ortho and next week with pain management for steroid injection, follow up reccomenations Assessment & Plan (06/02/2023 1:27 PM EST): Patient will start physical therapy, told to call back if not improving, could consider pain management/ortho referral eventually Bilateral carpal tunnel syndrome 04/05/2023 Assessment & Plan (04/05/2023 8:12 PM EDT): Bilateral hand tingling/numbness, will prescribe gabapentin and will refer to hand surgery Primary hypertension 12/17/2022 Assessment & Plan (03/16/2024 9:58 AM EDT): Controlled with diet, no changes will be made, continue bp monitoring Assessment & Plan (03/07/2024 9:57 PM EDT): Patient refers has maintained controlled, below 140/90, continue low sodium diet and exercise as tolerated, keep bp log, follow up in 6 months Assessment & Plan (11/16/2023 2:25 PM EDT): Has remained stable without treatment, continue low sodium diet and monitoring, bp target <140/90 Assessment & Plan (08/08/2023 8:24 PM EST): Controlled, patient refers not taking losartan , refers maintains below 140/90, told to continue bp monitor/diet. Assessment & Plan (06/02/2023 1:25 PM EST): Patient not monitoring his blood pressure, discussed importance of daily monitoring, reinforced low sodium diet and exercise as tolerated, bp target <140/90 Assessment & Plan (02/18/2023 10:28 AM EDT): Patient refers he took losartan for 2 weeks, refers stopped it, has been adressing his diet, currently not interested in taking medication, risk vs benefits discussed, monitor bp daily target <140/90 Assessment & Plan (12/17/2022 3:05 PM EDT): Readig above 140/90, will start on losartan, reivewed lifestyle modifications, will follow up In 1 month, told to keep bp log Prostate cancer screening 09/16/2022 Screening for lung cancer 09/16/2022 Assessment & Plan (09/16/2022 2:36 PM EDT): Will order LDCT scan for lung cancer screening Papule of skin 09/01/2022 Assessment & Plan (09/01/2022 4:34 PM EST): Patient with skin patch in his left cheek, 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 At this moment will refer to [facility]. Chronic obstructive pulmonary disease 06/21/2022 Overview (06/21/2022): Prophylactic chest xray ordered due to COPD exacerbation. Fluticasone/salmeterol ordered for COPD management Assessment & Plan (03/16/2024 9:58 AM EDT): Followed by pneumologist on wixela/spririva/albuterol Assessment & Plan (11/16/2023 2:26 PM EDT): Recent exacerbation, he continues to smoke, continue with inhaler as prescribed Assessment & Plan (10/01/2023 3:36 AM EDT): - The patient's symptoms and history suggest a COPD exacerbation. Plan to administer steroids and a respiratory treatment to help alleviate symptoms. The patient was prescribed azithromycin (Z-Valentino) and instructed on dosage. - The patient continues smoking despite COPD. Suggests a need for further intervention and support in smoking cessation efforts Assessment & Plan (10/14/2022 1:26 PM EDT): Controlled on current therapy, he is trying to cut down cigarrettes, currently smoking about 8 a day, no recent exacerbation, using rescue inhaler about 2-3 times a week. Assessment & Plan (09/16/2022 2:34 PM EDT): No recent exacerbation, continue current therapy, reinforced smoking cessation Assessment & Plan (06/30/2022 9:48 AM EST): Chest xray ordered to check for pneumonia. Clinic will contact patient if positive results. Encounter for smoking cessation counseling 06/21 Overview (06/21/2022): Discuss bupropion efficacy for smoking cessation. Patient at 150 mg every day. Possibly increase to 300 mg BID. Chronic hepatitis C 08/27/2019 Assessment & Plan (10/14/2022 1:28 PM EDT): Will order ultrasound and afp, he was succesfully treated for hep c, Hepatic fibrosis 08/27/2019 Encounters Date Type Department Care Team Description 08/12/2024 Refill [facility] CHC MED & PEDS [address] [place] [address] Mike Arora MD Low back pain associated with a spinal disorder other than radiculopathy or spinal stenosis 08/10/2024 Refill [facility] CHC MED & PEDS [address] [place] [address] Mike Arora MD 06/11/2024 Refill [facility] MEDICINE [address] [place] [address] Mike Arora MD Low back pain associated with a spinal disorder other than radiculopathy or spinal stenosis 06/10/2024 Refill [facility] CHC MED & PEDS [address] [place] [address] Mike Arora MD Low back pain associated with a spinal disorder other than radiculopathy or spinal stenosis 06/08/2024 Refill [facility] MEDICINE [address] [place] [address] Mike Arora MD Low back pain associated with a spinal disorder other than radiculopathy or spinal stenosis 05/25/2024 Refill [facility] MED & PEDS [address] [place] [address] Mike Arora MD Chronic obstructive pulmonary disease, unspecified COPD type (CMS/HCC) 05/22/2024 Telephone [facility] MEDICINE [address] [place] [address] Mike Arora MD callback requested 05/21/2024 Telephone [facility] MEDICINE [address] [place] [address] Mike Arora MD Med Refill 05/21/2024 Refill [facility] MED & PEDS [address] [place] [address] Mike Arora MD Low back pain associated with a spinal disorder other than radiculopathy or spinal stenosis from Last 3 Months Immunizations Name Administration Dates Next Due Influenza injectable quadrivalent preservative f ree 05/18/2022 Pneumococcal Conjugate PCV 20 05/02/2023 Tdap 03/16/2024 Social History Tobacco Use Types Packs/Day Years Used Date Smoking Tobacco: Every Day Cigarettes Passive Smoke Exposure: Never Smokeless Tobacco: Never Tobacco Cessation:Ready to Q uit: Not Asked; Counseling Given: Not Answered Alcohol Use Standard Drinks/Week Comments Never 0 [...] Orientation Straight 05/03/2022 10 :36 AM EDT Last Filed Vital Signs Vital Sign Reading Time Taken Comments Blood Pressure 134/76 03/16/2024 9:30 AM EDT Pulse 100 03/16/2024 9:30 AM EDT Temperature 37.1 ??C (98.7 ??F) 03/16/2024 9:30 AM ED T Respiratory Rate 20 03/16/2024 9:30 AM EDT Oxygen Saturation 98% 09/30/2023 10:55 AM EDT Inhaled Oxygen Concentration - - Weight 70.8 kg (156 lb) 03/16/2024 9:30 AM EDT Height 175.3 cm (5' 9 ) 03/16/2024 9:30 AM EDT Body Mass Index 23.04 03/16/2024 9:30 AM EDT Plan of Treatment Health Maintenance Due Date Last Done Comments CT Colonography 1962 FIT DNA/Cologuard 1962 FIT 1962 FOBT 1962 Sigmoidoscopy 1962 Alcohol/Substance Use Screening 1974 Hepatitis A Vaccines (1 of 2 - Risk 2-dose series) 1981 Zoster Vaccines (1 of 2) 01/05/2012 Hepatitis B Vaccines (1 of 3 - Risk 3-dose series) 2022 RSV Patients and Patients Aged 60 years or older (1 - Risk 60-74 years 1-dose series) 2022 Depression Screening 10/15/2023 10/14/2022, 10/14/2022 COVID-19 Vaccine (2 - 2023-2 5 season) 2024 05/18/2022 Influenza Vaccine (#1) 2024 05/18/2022 SDOH Screening 01/29/2025 01/30/2024 Tobacco Screening 03/16/2025 03/16/2024 Colonoscopy 10/11/2028 11/04/2020 Colorectal Cancer Screening 10/11/2028 Lipid Panel 03/19/2029 03/19/2024, 08/10/2022 DTaP/Tdap/Td Vaccines (2 - T d or Tdap) 03/16/2034 03/16/2024 HIV Screening Completed 08/10/2022, 07/09/2019 Pneumococcal Vaccine: 50+ Years Completed 05/02/2023 HIB Vaccines Aged Out No longer eligi ble based on patient's age to complete this topic HPV Vaccines Aged Out No longer eligi ble based on patient's age to complete this topic IPV Vaccines Aged Out No longer eligi ble based on patient's age to complete this topic Meningococcal Vaccine Aged Out No nanci yuval eligible based on patient's age to complete this topic RSV under 20 months Aged Out No longe r eligible based on patient's age to complete this topic Rotavirus Vaccines Aged Out No longer eligible based on patient's age to complete this topic Procedures Procedure Name Priority Date/Time Associated Diagnosis Comments LIPID PANEL, STANDARD Routine 03/19/2024 8:16 AM EDT Primary hypertension HIV 1 RNA, QN PCR W/RFL LI (RTI,PI,INTEGRASE) Routine 08/10/2022 10:30 AM EST Simple chronic bronchitis (CMS/HCC) HM COLONOSCOPY Routine 11/04/2020 from Last 3 Months or Most Recently Relevant to Health Maintenance Results * Lipid Panel, Standard (03/19/2024 8:16 AM EDT) Triglycerides 94 <150 mg/dL [facility] Comment:Desirable Triglyceri de: less than 150 mg/dLBorderline High Triglyceride 150-199 mg/dLHigh Triglyceride: 200-499 mg/dLVery High Triglyceride: greater than or equal to 5OO mg/dL Cholesterol 144 <200 mg/dL [facility] Comment:Desirable Cholestero l: less than 200 mg/dLBorderline High Cholesterol: 200-239 mg/dLHigh Cholesterol: greater than 239 mg/dL LDL Cholesterol Calculated 65 <100 mg/dL [facility] Comment:Desirable LDL: less than 100 mg/dLNear Optimal/Above Optimal LDL: 110- 129 mg/dLBorderline High LDL: 130-159 mg/dLHigh LDL: 160-189 mg/dLVery High LDL: greater than or equal to 190 mg/dL HDL Cholesterol 61 >40 mg/dL [facility] Comment:Desirable HDL: great er than 40 mg/dL Note: This HDL assay may give artificially low results in patients with liver disease. Blood Venous blood specimen / Unknown 03/19/2024 8:16 AM EDT 03/19/2024 2:23 PM EDT Mike Gaffney MD LAB BLOOD ORDERABL ES Final Result [facility] [address] [place] [phone] * HIV-1 RNA, Quantitative, Real-Time PCR with Reflex to Genotype (RTI, PI, Integrase) (08/10/2022 10:30 AM EST) HIV 1 RNA, QN PCR NOT DETECTED copies/mL [facility] [employer] [facility], HIV 1 RNA, QN PCR NOT DETECTED Log copies/mL [facility], Comment: REFERENCE RANGE: NOT DETECTED copies/mL ?NOT DETECTED ??Log copies/mL This test was performed using Real-Time Polymerase Chain Reaction. Reportable range is 20 to 10,000,000 copies/mL (1.30-7.00 Log copies/mL). 08/10/2022 10:3 0 AM EST 08/10/2022 10:31 AM EST Narrative [facility] - 08/13/2022 11:15 PM EST FASTING:NO FASTING: NO Mike Gaffney MD LAB BLOOD ORDERABL ES Final Result [facility] [address], [place] [address] [facility] [facility], [address] [place] [address] * Colonoscopy (11/04/2020) Pathologist [facility] Colonoscopy PERFORMED Historical Provider HEALTH MAINTENANCE Edited Result - Final from Last 3 Months or Most Recently Relevant to Health Maintenance Insurance [facility] [place]ALTA [id number] Care Teams Security Solutions Engineer Relationship Specialty Start Date End Date LealMike Gonzalez MD [address] [place] [address] KATINA Anthony [address] PCP - General Internal Medicine 07/09/19
--- OUTSIDE RECORDS SUMMARY | 2024-08-21 07:46 | XMS_ITS | Encounter Summary ---
Author Organization [employer] Address [address] [facility] 7t [place] [address] Care Team Providers Care Insulation Sprayer Name Role Phone Mike Arora MD Primary Care Prov ider Reason for Visit * Reason Onset Date Comments Medication Question 07/13/2023 Encounter Details Date Type Department Care Team ([facility] Contact Info) Description 07/13/2023 Telephone [facility] CHC MED & PEDS [address] [place], [place] [phone] Mike Arora MD [address] [place] [address] Medication Question Social History Tobacco Use Types Packs/Day Years Used Date Smoking Tobacco: Every Day Cigarettes Passive Smoke Exposure: Never Smokeless Tobacco: Never Alcohol Use Standard Drinks/Week Comments Never 0 (1 standard drink = 0.6 oz pur e alcohol) Depression Answer Date Recorded Patient Health Questionnaire-9 Score 0 10/14/2022 Housing Stability Answer Date Recorded What is your housing situation today? I have suzie seth 04/18/[address] you li ve. Do you have problems with any of the following? None of the above 04/18/2023 Food Insecurity Answer Date Recorded Within the past 12 months, y ou worried that your food would run out before you got money to buy more: Never True 04/18/2023 Within the past 12 months,th e food you bought just didn't last and you didn't have enough money to get more: Never True Transportation Answer Date Recorded In the past 12 months, has l ack of transportation kept you from medical appts, meetings, work or from getting things needed for daily living? No 04/18/2023 Utilities Answer Date Recorded In the past 12 months, has t he electric, gas, oil or water company threatened to shut off services in your home? No 04/18/2023 Depression Answer Date Recorded Patient Health Questionnaire-2 Score 0 10/14/2022 Sex and Gender Information Value Date Recorded Sex Assigned at Male 05/03/2022 10:36 AM EDT Legal Sex Male 10:36 AM EDT Gender Identity Male 05/03/2022 10:36 AM EDT Sexual Orientation Straight 05/03/2022 10 :36 AM EDT documented as of this encounter Miscellaneous Notes * Telephone Encounter - Shazia Murphy RN - 07/27/2023 10:11 AM EST Returned call to pt regarding message below. Pt informed of increased dose sent to pt pharmacy and advised that this is the max dose for this med. Pt agrees with plan and states having appt for MRI of his hip tomorrow and starts PT next week. * Telephone Encounter - Elvia Garzon - 07/13/2023 3:47 PM EST Tc from pt requesting an increase on his gabapentin (Neurontin) 300 MG capsule due to the severe pain his experiencing wit his back and Hip and awaiting results from PT. Please contact Pt @ [phone] documented in this encounter Plan of Treatment Not on file documented as of this encounter Visit Diagnoses Not on filedocumented in this encounter Additional Health Concerns Assessment Noted Time PHQ-9 Depression Total Score: 0 10/15/19 23 10:23 AM EDT documented as of this encounter Care Teams Insulation Sprayer Relationship Specialty Start Date End Date Mike Arora MD [address] [place] [address] PCP - General Internal Medicine 07/09/19 documented as of this encounter
--- OUTSIDE RECORDS SUMMARY | 2024-08-21 07:46 | XMS_ITS | Encounter Summary ---
Author Organization [employer] Address [address] [facility] 7t [place] [address] Care Team Providers Care Purchasing Manager Name Role Phone Mike Arora MD Primary Care Prov ider Reason for Visit * Reason Onset Date Comments Med Refill 05/21/2024 Encounter Details Date Type Department Care Team (Late st Contact Info) Description 05/21/2024 Telephone [facility] MEDICINE [address] [place] [address] Mike Arora MD [address] [place] [address] Med Refill Social History Tobacco Use Types Packs/Day Years [...] encounter Miscellaneous Notes * Telephone Encounter - Surinder Zuniga - 05/21/2024 1:12 PM EST TC from pt requesting medication refill. Medications needing refill : traMADol (Ultram) 50 MG tablet To be sent to: [facility]/pharmacy #[id number] - [place] - [address] [place] [address] documented in this encounter Plan of Treatment Not on file documented as of this encounter Visit Diagnoses Not on filedocumented in this encounter Additional Health Concerns Assessment Noted Time PHQ-9 Depression Total Score: 0 10/15/19 23 10:23 AM EDT documented as of this encounter Care Teams Purchasing Manager Relationship Specialty Start Date End Date Mike Arora MD [address] [place] [address] PCP - General Internal Medicine 07/09/19 documented as of this encounter
--- OUTSIDE RECORDS SUMMARY | 2024-08-21 07:46 | XMS_ITS | Encounter Summary ---
Author Organization [employer] Address [address] [facility] 7t [place] [address] Care Team Providers Care Dental Lab Technician Name Role Phone Mike Arora MD Primary Care Prov ider Reason for Visit * Reason Comments Med Refill Encounter Details Date Type Department Care Team ([facility] Contact Info) Description 08/12/2024 Refill [facility] CHC MED & PEDS [address] [place] [address] Mike Arora MD [address] [place] [address] Low back pain associated with a spinal [...] documented as of this encounter Care Teams Dental Lab Technician Relationship Specialty Start Date End Date Mike Arora MD [address] [place] [id number] PCP - General Internal Medicine 07/09/19 documented as of this encounter
--- OUTSIDE RECORDS SUMMARY | 2024-08-21 07:46 | XMS_ITS | Encounter Summary ---
Author Organization [employer] Address [address] [facility] 7t [place] [address] Care Team Providers Care Process Safety Specialist Name Role Phone Mike Arora MD Primary Care Prov ider Reason for Visit * Reason Comments Med Refill Encounter Details Date Type Department Care Team ([facility] Contact Info) Description 06/10/2024 Refill [facility] CHC MED & PEDS [address] [place] [address] Mike Arora MD [address] [place] [address] Low back pain associated with a spinal [...] documented as of this encounter Care Teams Process Safety Specialist Relationship Specialty Start Date End Date Mike Arora MD [address] [place] [phone] PCP - General Internal Medicine 07/09/19 documented as of this encounter
== END 2024-08-21 07:45 | disposition home or self-care (01) ==
LOC: HO.HOSX 07:44
PROVIDERS: Visit Provider Physician Assistant
DX: M25.559 Pain in unspecified hip (principal); M16.11 Unilateral primary osteoarthritis, right hip; M70.61 Trochanteric bursitis, right hip
CPT/HCPCS: 20610; 72170; 99212; J1010; J2003

== ENCOUNTER 2024-08-21 14:39 | Outpatient (AMB) | payer OTHER, SELFPAY ==
--- NOTE | 2024-08-21 14:54 | MHC.OFFVIS ---
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 Patient reports his pain has been present for about a year located at the lateral aspect and travels to his groin with activity. States his pain increases with activity such as walking, bending or twisting. His pain becomes intolerable about 2 hours into his shift at work. No previous tx. Hx of back surgery in April. 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 Patient reports his pain has been present for about a year located at the lateral aspect and travels to his groin with activity. States his pain increases with activity such as walking, bending or twisting. The patient states that this pain is both on the lateral part of the hip over the greater trochanter as well as in the groin. His pain becomes intolerable about 2 hours into his shift at work. No previous tx. Hx of back surgery in April. [facility] Medical History (Updated 08/21/24 @ 17:59 by LUCY Lunsford) Back pain Arthritis Nicotine dependence, cigarettes, uncomplicated Right knee DJD Lumbar spinal stenosis Right lumbar radiculopathy Porphyrin disorder Tubular adenoma of colon (~2020) History of peptic ulcer (~2001) Difficult intravenous access History of chronic pain COPD (chronic obstructive pulmonary disease) Hepatitis C Surgical History History of hand surgery (~2020) History of colonoscopy (~2020) History of esophagogastroduodenoscopy (EGD) (~2001) Family History Mother Emphysema lung Cancer Social History Household Members Other:: room mate Are you a primary care manager to a significant other at home: No Do you presently have visiting nurse or other home services: No Alcohol intake: former Year quit: 2019 Patient Tobacco Use Status: Current everyday Tobacco user Tobacco use type: Cigarette Cigarettes Per Day: 7 Years Smoked: 55 Substance Use Type: Amphetamines, Crack/Cocaine, Former Substance User, Hallucinogens, IV Drugs, Marijuana and Opiates Current occupational status: employed 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 Review of Systems Const All systems reviewed & are unremarkable except as noted in HPI and below Physical Exam Extrem Other: Patient's right hip normal to inspection No erythema, ecchymosis, edema noted No lacerations, abrasions, open areas No evidence of infection Patient reports tenderness to palpation of the greater trochanter of the right hip No pain with passive internal or external rotation of the right hip Patient does report pain with active flexion of the right hip Patient is able to straight leg raise to approximately 40 degrees past neutral, reports pain after this point Distal sensation intact Capillary refill brisk Office Procedures Joint Inj/Aspir; Non-Pain Clin Joint Injection/Drain Prep: site was prepped using aseptic technique and injection warnings given Procedure: The patient tolerated the procedure well and there was some relief with the local anesthesia Shoulders, Hips, Knees, Details: Right greater trochanteric bursa injection Hip Injection Large Joint : Right Hip Coding Procedure code (CPT) selection complete Results Reviewed Results Reviewed: X-rays obtained in the office today and independently reviewed by me, Nathan Sweeney PA-C, demonstrate [id number] degenerative changes of the right hip consistent with osteoarthritis. Assessment & Plan Assessment & Plan (1) Arthritis of right hip: Code(s): M16.11 - Unilateral primary osteoarthritis, right hip Category: Medical (2) Greater trochanteric bursitis of right hip: Code(s): M70.61 - Trochanteric bursitis, right hip Category: Medical Plan 1. Osteoarthritis of right hip Patient states he is not interested in any sort of hip replacement at this time, it was also uninterested in therapy Therefore, patient was referred to pain management for discussion of intra-articular right hip injection Patient was amenable to this plan 2. Greater trochanteric bursitis of right hip Patient is educated about this condition Patient was educated about the treatment options available Patient would like to proceed with steroid injection The risks and benefits of a steroid injection including but not limited to risk of damage to blood vessels, nerves, tendons, infection, skin bleaching, failure to improve symptoms, increased pain, and possible need for further injections or other intervention were discussed with the patient and the patient wishes to proceed with the steroid injection. Once consent was obtained, I aseptically prepped the area over the greater trochanter of the right hip. I then injected the area over the lateral epicondyle with a combination of 80 mg of dexamethasone and 8 mL of 1% lidocaine. The patient tolerated the procedure well with no complications. If the patient continues to experience symptoms over the following few weeks or months, they can make an appointment to return and discuss alternative treatment measures, such as physical therapy. Follow-up prn Orders: Orders XR pelvis 1-2V Today Zulay Young PA-C M25.559 - Pain in unspecified hip Referrals Pain Management Referral LUCY Lunsford M16.11 - Unilateral primary osteoarthritis, right hip Coding Level of Care Code Est Pt Level 3 (37549) Diagnoses Arthritis of right hip M16.11 Greater trochanteric bursitis of right hip M70.61 CPT Codes Shoulders, Hips, Knees, - Hip Injection Large Joint 11175: Right Hip ([id number])
--- OUTSIDE RECORDS SUMMARY | 2024-08-21 15:41 | XMS_ITS | Encounter Summary ---
Author Organization [employer] Address [address] [facility] 7t [place] [address] Care Team Providers Care Sales Program Coordinator Name Role Phone Mike Arora MD Primary Care Prov ider Reason for Visit * Reason Comments Med Refill Encounter Details Date Type Department Care Team ([facility] Contact Info) Description 08/12/2024 Refill [facility] CHC MED & PEDS [address] [place] [address] Mkie Arora MD [address] [place] [address] Low back pain associated with a spinal [...] documented as of this encounter Care Teams Sales Program Coordinator Relationship Specialty Start Date End Date Mike Arora MD [address] [place] [address] PCP - General Internal Medicine 07/09/19 documented as of this encounter
--- OUTSIDE RECORDS SUMMARY | 2024-08-21 15:41 | XMS_ITS | Encounter Summary ---
Author Organization [employer] Address [address] [facility] [address] [place] [address] Care Team Providers Care Punch Box Tender Name Role Phone Mike Arora MD Primary Care Prov ider Reason for Visit * Reason Onset Date Comments call back 10/20/2022 Encounter Details Date Type Department Care Team ([facility] st Contact Info) Description 10/20/2022 Telephone [facility] MEDICINE [address] [place] [address] Mike Arora MD [address] [place] [address] call back Social History Tobacco Use Types [...] Per pt, he had it done at [facility]. No result found. Will f/u with [facility] diagnostic specialist to find out where pt had the CT done. * Telephone Encounter - Chantal Stuart RN - 10/20/2022 3:08 PM EDT Tc from pt requesting a call back regarding why pt has to do a US Abdomen. Please contact pt at [phone] Please clarify above message. Thanks * Telephone Encounter - Jose Howard - 10/20/2022 10:00 AM EDT Tc from pt requesting a call back regarding why pt has to do a US Abdomen. Please contact pt at [phone] documented in this encounter Plan of Treatment Not on file documented as of this encounter Visit Diagnoses Not on filedocumented in this encounter Additional Health Concerns Assessment Noted Time PHQ-9 Depression Total Score: 0 10/15/19 23 10:23 AM EDT documented as of this encounter Care Teams Punch Box Tender Relationship Specialty Start Date End Date Mike Arora MD [address] [place] [phone] PCP - General Internal Medicine 07/09/19 documented as of this encounter
--- OUTSIDE RECORDS SUMMARY | 2024-08-21 15:41 | XMS_ITS | Encounter Summary ---
Author Organization [employer] Address [address] [facility] 7t [place] [address] Care Team Providers Care Supervisor Harvesting Name Role Phone Mike Arora MD Primary Care Prov ider Reason for Visit * Reason Onset Date Comments Medication Question 07/13/2023 Encounter Details Date Type Department Care Team ([facility] Contact Info) Description 07/13/2023 Telephone [facility] CHC MED & PEDS [address] [place], [place] [phone] Mike Arora MD [address] [place] [address] Medication Question Social History Tobacco Use Types [...] results from PT. Please contact Pt @ [phone] documented in this encounter Plan of Treatment Not on file documented as of this encounter Visit Diagnoses Not on filedocumented in this encounter Additional Health Concerns Assessment Noted Time PHQ-9 Depression Total Score: 0 10/15/19 23 10:23 AM EDT documented as of this encounter Care Teams Supervisor Harvesting Relationship Specialty Start Date End Date Mike Arora MD [address] [place] [address] PCP - General Internal Medicine 07/09/19 documented as of this encounter
--- OUTSIDE RECORDS SUMMARY | 2024-08-21 15:41 | XMS_ITS | Encounter Summary ---
Author Organization [employer] Address [address] [facility] 7t [place] [address] Care Team Providers Care Drill Sharpener Operator Name Role Phone Mike Arora MD Primary Care Prov ider Encounter Details Date Type Department Care Team ([facility] st Contact Info) Description 08/10/2022 Orders Only [facility] MEDICINE [address] [place] [address] Mike Arora MD [address] [place], [place] [phone] Prostate cancer screening (Primary Dx); Simple chronic [...] PCR POSITIVE (08/10/2022 10:30 AM EST) Pathologist [facility] HCV RNA, QN Real Time PCR <15 NOT DETECTED NOT DETECTED IU/mL [facility] HCV RNA QN Real Time PCR <1.18 NOT DETECTED NOT DETECTED Log IU/mL [facility] Comment: HCV RNA is not detected. ??There [...] a biological false positive result. (Always Message) Formerly [facility] Comment: This test was performed using Real-Time Polymerase Chain Reaction. Reportable Range: 15 IU/mL to 100,000,000 IU/mL (1.18 Log IU/mL to 8.00 Log IU/mL). The analytical performance characteristics of this assay have been determined by [facility]. The modifications have not been cleared or approved by the FDA. This assay has been validated pursuant to the CLIA regulations and is used for clinical purposes. ? For more information on this test, go to: http://education.Daoxila.com/faq/BBF55c3 (This link is being provided for informational/ [...] MD LAB BLOOD ORDERABL ES Final Result [facility] [address], [place] [address] [facility] [address] [facility], (Nl2) [place] [address] * PSA,Total (08/10/2022 10:30 AM EST) PSA, Total 0.35 < OR = 4.00 ng/mL [facility] Comment: The total PSA value from this assay system is standardized against the WHO standard. The test result will be approximately 20% lower when compared to the equimolar-standardized total PSA ([place]). Comparison of serial PSA results should be [...] ORDERABL ES Final Result Performing Organization Address [facility] Co de Phone Number [address], [place] [address] [facility] [address] [place] [address], (Nl2) [place] [address] * (ABNORMAL) Hemoglobin A1c with Calculated Mean Plasma Glucose (MPG) (08/10/2022 10:30 AM EST) Hemoglobin A1c 5.8(H) <5.7 % of total Hgb [facility] Comment: For someone without known diabetes, a [...] children. Mean Plasma Glucose 129 mg/dL (calc) [facility] 08/10/2022 10:3 0 AM EST 08/10/2022 10:31 AM EST Narrative [facility] - 08/13/2022 11:15 PM EST FASTING:NO FASTING: NO Mike Gaffney MD LAB BLOOD ORDERABL ES Final Result Performing Organization Address City/[facility]/ZIP Co de Phone Number [address], [place] [address] [facility] [address] [place] [address], (Nl2) [place] [address] * TSH W/Reflex to FT4 (08/10/2022 10:30 AM EST) TSH w/Reflex to FT4 2.75 0.40 - 4.50 mIU/L [facility] 08/10/2022 10:3 0 AM EST 08/10/2022 10:31 AM EST Narrative [facility] - 08/13/2022 11:15 PM EST FASTING:NO FASTING: NO Mike Gaffney MD LAB BLOOD ORDERABL ES Final Result [facility] [address] [facility], [address], [place] [address] [facility] [address] [facility], (Nl2) [place] [address] * Lipid Panel, Standard (08/10/2022 10:30 AM EST) Cholesterol, Total 145 <200 mg/dL [facility] HDL Cholesterol 58 > OR = 40 mg/dL [facility] Triglycerides 50 <150 mg/dL [facility] LDL Cholesterol 75 mg/dL (calc) [facility] Comment: Reference range: <100 Desirable range <100 mg/dL for primary prevention; ?? <70 mg/dL for patients with CHD or diabetic patients with > or = 2 CHD risk factors. LDL-C is now calculated using the Darrel-Matt calculation, which is a validated novel method providing better accuracy than the Friedewald equation in the estimation of LDL-C. Darrel SS et al. DYLAN. 2013;310(19): 5086-2564 (http://education.MediKeeper/faq/LBE787) Chol/HDLC Ratio 2.5 <5.0 (calc) [facility] Non-HDL Cholesterol 87 <130 mg/dL (calc) [facility] Comment: For patients with diabetes plus 1 [...] ORDERABL ES Final Result Performing Organization Address [facility]/ZIP Co de Phone Number [facility] [address], [place] [address] [facility] 200 [facility], (Nl2) [place] [address] * HIV-1 RNA, Quantitative, Real-Time PCR with Reflex to Genotype (RTI, PI, Integrase) (08/10/2022 10:30 AM EST) Pathologist [facility] HIV 1 RNA, QN PCR NOT DETECTED copies/mL [facility], HIV 1 RNA, QN PCR NOT DETECTED Log copies/mL [facility], Comment: REFERENCE RANGE: NOT DETECTED copies/mL ?NOT DETECTED ??Log copies/mL This test was performed using Real-Time Polymerase Chain Reaction. Reportable range is 20 to 10,000,000 copies/mL (1.30-7.00 Log copies/mL). 08/10/2022 10:3 0 AM EST 08/10/2022 10:31 AM EST Narrative [facility] - 08/13/2022 11:15 PM EST FASTING:NO FASTING: NO Mike Gaffney MD LAB BLOOD ORDERABL ES Final Result Performing Organization Address [facility]/ZIP Co de Phone Number [facility] [address], [place] [address] [facility], [address] [place] [address] * (ABNORMAL) Hepatitis C Antibody with Reflex to HCV, RNA, Quantitative, Real- Time PCR (08/10/2022 10:30 AM EST) Pathologist [facility] Hepatitis C Antibody REACTIVE( A) NON-REACT BIANCA [facility] Index >11.00(H) <1.00 [facility] Comment: Based on this result, the [...] MD LAB BLOOD ORDERABL ES Final Result [address], [place] [address] [facility] 200 [facility], (Nl2) [place] [address] * Hepatic Function Panel (08/10/2022 10:30 AM EST) Protein, Total 7.1 6.1 - 8.1 g/dL [facility] Albumin 4.7 3.6 - 5.1 g/dL [facility] Globulin 2.4 1.9 - 3.7 g/dL (calc) [facility] Albumin/Globulin Ratio 2.0 1.0 - 2.5 (calc) [facility] Bilirubin, Total 0.7 0.2 - 1.2 mg/dL [facility] Bilirubin, Direct 0.2 < OR = 0.2 mg/dL [facility] Bilirubin, Indirect 0.5 0.2 - 1.2 mg/dL (calc) [facility] Alkaline Phosphatase 35 35 - 144 U/L [facility] AST 17 10 - 35 U/L [facility] ALT 16 9 - 46 U/L [facility] Blood Venous blood specimen / Unknown 08/10/2022 10:30 AM EST 08/10/2022 10:31 AM EST Narrative [facility] - 08/13/2022 11:15 PM EST FASTING:NO FASTING: NO Mike Gaffney MD LAB BLOOD ORDERABL ES Final Result Performing Organization Address City/[facility]/ZIP Co de Phone Number [facility] [address], [place] [address] [facility] [address] [facility], (Nl2) [place] [address] * Basic Metabolic Panel (08/10/2022 10:30 AM EST) [facility] Glucose 90 65 - 139 mg/dL [facility] Comment: ? Non-fasting reference interval Urea Nitrogen (BUN) 25 7 - 25 mg/dL [facility] Creatinine, Serum 0.71 0.70 - 1.35 mg/dL [facility] eGFR 105 > OR = 60 mL/min/1 .73m2 [facility] Comment: The eGFR is based on the CKD-EPI 2020 equation. To calculate the new eGFR from a previous Creatinine or Cystatin C result, go to https://www.kidney.org/professionals/ kdoqi/gfr%5Fcalculator BUN/Creatinine Ratio NOT APPLICABLE 6 - 22 (calc) [facility] Sodium 136 135 - 146 mmol/L [facility] Potassium 4.4 3.5 - 5.3 mmol/L [facility] Chloride 101 98 - 110 mmol/L [facility] Carbon Dioxide 26 20 - 32 mmol/L [facility] Calcium 9.6 8.6 - 10.3 mg/dL [facility] Blood Venous blood specimen / Unknown 08/10/2022 10:30 AM EST 08/10/2022 10:31 AM EST Narrative [facility] - 08/13/2022 11:15 PM EST FASTING:NO FASTING: NO Mike Gaffney MD LAB BLOOD ORDERABL ES Final Result Performing Organization Address City/[facility]/ZIP Co de Phone Number [facility] [address], [place] [address] [facility] [address] [facility], (Nl2) [place] [address] * CBC auto differential (08/10/2022 10:30 AM EST) White Blood Cell Count 7.2 3.8 - 10.8 Thousand/ uL [facility] Red Blood Cell Count 4.22 4.20 - 5.80 Million/u L [facility] Hemoglobin 13.4 13.2 - 17.1 g/dL [facility] Hematocrit 39.8 38.5 - 50.0 % [facility] MCV 94.3 80.0 - 100.0 fL [facility] MCH 31.8 27.0 - 33.0 pg [facility] MCHC 33.7 32.0 - 36.0 g/dL [facility] RDW 12.5 11.0 - 15.0 % [facility] Platelet Count 270 140 - 400 Thousand/ uL [facility] MPV 9.9 7.5 - 12.5 fL [facility] Absolute Neutrophils 3,679 1,500 - 7,800 cells/uL [facility] Absolute Lymphocytes 2,498 850 - 3,900 cells/uL [facility] Absolute Monocytes 612 200 - 950 cells/uL [facility] Absolute Eosinophils 360 15 - 500 cells/uL [facility] Absolute Basophils 50 0 - 200 cells/uL [facility] Neutrophils 51.1 % [facility] [place] [facility] Lymphocytes 34.7 % [facility] [place] [facility] Monocytes 8.5 % [facility] [place] [facility] Eosinophils 5.0 % [facility] [place] [facility] Basophils 0.7 % [facility] [place] [facility] Blood Venous blood specimen / Unknown 08/10/2022 10:30 AM EST 08/10/2022 10:31 AM EST Narrative [facility] - 08/13/2022 11:15 PM EST FASTING:NO FASTING: NO us Mike Gaffney MD LAB BLOOD ORDERABL ES Final Result [facility] 200 [facility], [facility], [place] [address] [facility] [address] [facility], (Nl2) [place] [address] documented in this encounter Visit Diagnoses Diagnosis Prostate cancer screening- Primary Special screening for malignant neoplasm of prostate Simple chronic bronchitis (CMS/HCC) Simple chronic bronchitis documented in this encounter Care Teams Drill Sharpener Operator Relationship Specialty Start Date End Date Mike Arora MD [address] [place] [address] PCP - General Internal Medicine 07/09/19 documented as of this encounter
--- OUTSIDE RECORDS SUMMARY | 2024-08-21 15:41 | XMS_ITS | Encounter Summary ---
Author Organization [employer] Address [address] [facility] 7t [place] [address] Care Team Providers Care Geopolitics Teacher Name Role Phone Mike Arora MD Primary Care Prov ider Reason for Visit * Reason Comments Med Refill Encounter Details Date Type Department Care Team ([facility] Contact Info) Description 05/09/2024 Refill [facility] CHC MED & PEDS [address] [place] [address] Mike Arora MD [address] [place] [address] Low back pain associated with a spinal [...] documented as of this encounter Care Teams Geopolitics Teacher Relationship Specialty Start Date End Date Mike Arora MD [address] [place] [address] PCP - General Internal Medicine 07/09/19 documented as of this encounter
--- OUTSIDE RECORDS SUMMARY | 2024-08-21 15:41 | XMS_ITS | Encounter Summary ---
Author Organization [employer] Address 75 [facility] 7t [place] [address] Care Team Providers Care Parker Name Role Phone Mike Arora MD Primary Care Prov ider Reason for Visit * Reason Comments Med Refill Encounter Details Date Type Department Care Team ([facility] Contact Info) Description 08/10/2024 Refill [facility] CHC MED & PEDS [address] [place], [place] [phone] Mike Arora MD 505 [place] [address] Social History Tobacco Use Types Packs/Day Years [...] documented as of this encounter Care Teams Parker Relationship Specialty Start Date End Date Mike Arora MD [address] [place] [id number] PCP - General Internal Medicine 07/09/19 documented as of this encounter
--- OUTSIDE RECORDS SUMMARY | 2024-08-21 15:41 | XMS_ITS | Clinical Summary ---
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 At this moment will refer to [facility] Derm clinic. Chronic obstructive pulmonary disease 06/21/2022 [...] Type Department Care Team Description 08/12/2024 Refill [facility] CHC MED & PEDS [address] [place] [address] Mike Arora MD Low back pain associated with a spinal disorder other than radiculopathy or spinal stenosis 08/10/2024 Refill [facility] CHC MED & PEDS [address] [place] [address] Mike Arora MD 06/11/2024 Refill [facility] MEDICINE [address] [place] [address] Mike Arora MD Low back pain associated with a spinal disorder other than radiculopathy or spinal stenosis 06/10/2024 Refill [facility] CHC MED & PEDS 505 [place] [address] Mike Arora MD Low back pain associated with a spinal disorder other than radiculopathy or spinal stenosis 06/08/2024 Refill [facility] MEDICINE [address] [place] [address] Mike Arora MD Low back pain associated with a spinal disorder other than radiculopathy or spinal stenosis 05/25/2024 Refill [facility] MED & PEDS [address] [place] [address] Mike Arora MD Chronic obstructive pulmonary disease, unspecified COPD type (CMS/HCC) 05/22/2024 Telephone [facility] MEDICINE [address] [place] [address] Mike Arora MD callback requested 05/21/2024 Telephone [facility] MEDICINE [address] [place] [address] Mike Arora MD Med Refill 05/21/2024 Refill [facility] MED & PEDS [address] [place] [address] Mike Arora MD Low back pain associated [...] 8:16 AM EDT) Triglycerides 94 <150 mg/dL [facility] Comment:Desirable Triglyceri de: less than 150 mg/dLBorderline High Triglyceride 150-199 mg/dLHigh Triglyceride: 200-499 mg/dLVery High Triglyceride: greater than or equal to 5OO mg/dL Cholesterol 144 <200 mg/dL [facility] Comment:Desirable Cholestero l: less than 200 mg/dLBorderline High Cholesterol: 200-239 mg/dLHigh Cholesterol: greater than 239 mg/dL LDL Cholesterol Calculated 65 <100 mg/dL [facility] Comment:Desirable LDL: less than 100 mg/dLNear Optimal/Above Optimal LDL: 110- 129 mg/dLBorderline High LDL: 130-159 mg/dLHigh LDL: 160-189 mg/dLVery High LDL: greater than or equal to 190 mg/dL HDL Cholesterol 61 >40 mg/dL [facility] Comment:Desirable HDL: great er than 40 mg/dL Note: This HDL assay may give artificially low results in patients with liver disease. Blood Venous blood specimen / Unknown 03/19/2024 8:16 AM EDT 03/19/2024 2:23 PM EDT Mike Gaffney MD LAB BLOOD ORDERABL ES Final Result [facility] [address] [place] [phone] * HIV-1 RNA, Quantitative, Real-Time PCR with Reflex to Genotype (RTI, PI, Integrase) (08/10/2022 10:30 AM EST) HIV 1 RNA, QN PCR NOT DETECTED copies/mL [facility] [employer] [facility], HIV 1 RNA, QN PCR NOT DETECTED Log copies/mL [facility], Comment: REFERENCE RANGE: NOT DETECTED copies/mL ?NOT DETECTED ??Log copies/mL This test was performed using Real-Time Polymerase Chain Reaction. Reportable range is 20 to 10,000,000 copies/mL (1.30-7.00 Log copies/mL). 08/10/2022 10:3 0 AM EST 08/10/2022 10:31 AM EST Narrative [facility] - 08/13/2022 11:15 PM EST FASTING:NO FASTING: NO Mike Gaffney MD LAB BLOOD ORDERABL ES Final Result [facility] [address], [place] [address] [facility] [facility], [address] [place] [address] * Colonoscopy (11/04/2020) Pathologist [facility] Colonoscopy PERFORMED Historical Provider HEALTH MAINTENANCE Edited Result - Final from Last 3 Months or Most Recently Relevant to Health Maintenance Insurance [facility] [place] PERALTA [id number] Care Teams Labeling Strategist Relationship Specialty Start Date End Date LealMike Gonzalez MD [address] [place] [address] KATINA Anthony [address] PCP - General Internal Medicine 07/09/19
--- OUTSIDE RECORDS SUMMARY | 2024-08-21 15:41 | XMS_ITS | Encounter Summary ---
Author Organization [email or web address] Address 75 [facility] 7t [place] [address] Care Team Providers Care Retail Grocer Name Role Phone Mike Arora MD Primary Care Prov ider Reason for Visit * Reason Comments Med Refill Encounter Details Date Type Department Care Team ([facility] Contact Info) Description 06/10/2024 Refill [facility] CHC MED & PEDS [address] [place] [address] Mike Arora MD 505 [place] [address] Low back pain associated with a spinal [...] documented as of this encounter Care Teams Retail Grocer Relationship Specialty Start Date End Date Mike Arora MD [address] [place] [id number] PCP - General Internal Medicine 07/09/19 documented as of this encounter
--- OUTSIDE RECORDS SUMMARY | 2024-08-21 15:41 | XMS_ITS | Clinical Summary ---
Author Organization [facility] Address [address] [place] [address] Care Team Providers Care Mechanic Senior Name Role Phone Cheryl Fournier MD Primary Care Provider Social History Tobacco Use Types Packs/Day Years [...] age to complete this topic Care Teams Mechanic Senior Relationship Specialty Start Date End Date Cheryl Fournier MD PCP - General Internal Medicine 09/09/16
--- OUTSIDE RECORDS SUMMARY | 2024-08-21 15:41 | XMS_ITS | Encounter Summary ---
Author Organization [employer] Address 75 [facility] 7t [place] [address] Care Team Providers Care Site Superintendent Name Role Phone Mike Arora MD Primary Care Prov ider Reason for Visit * Reason Onset Date Comments Med Refill 05/21/2024 Encounter Details Date Type Department Care Team (Late st Contact Info) Description 05/21/2024 Telephone [facility] MEDICINE [address] [place] [address] Mike Arora MD 505 [place] [address] Med Refill Social History Tobacco Use Types [...] 50 MG tablet To be sent to: [facility]/pharmacy #[id number] - [place] - [address] [place] [address] documented in this encounter Plan of Treatment Not on file documented as of this encounter Visit Diagnoses Not on filedocumented in this encounter Additional Health Concerns Assessment Noted Time PHQ-9 Depression Total Score: 0 10/15/19 23 10:23 AM EDT documented as of this encounter Care Teams Site Superintendent Relationship Specialty Start Date End Date Mike Arora MD [address] [place] [id number] PCP - General Internal Medicine 07/09/19 documented as of this encounter
== END 2024-08-21 15:31 | disposition home or self-care (01) ==
PROVIDERS: PCP Internal Medicine
DX: M16.11 Unilateral primary osteoarthritis, right hip (principal); M70.61 Trochanteric bursitis, right hip
CPT/HCPCS: 20610; 99213

== ENCOUNTER → 2024-08-21 14:41 | Outpatient (BNV) | payer OTHER, SELFPAY | PROVIDERS: Visit Provider Radiology Diagnostic Radiology | DX: M25.559 Pain in unspecified hip (principal) | CPT/HCPCS: 72170 ==

== ENCOUNTER 2024-09-07 08:59 | Outpatient (AMB) | payer OTHER, SELFPAY ==
--- NOTE | 2024-09-07 09:00 | A.OFFVIS_ITS ---
Vital Signs 09/07/24 09:03 Height 5 ft 9 in Weight 177 lb 2 oz BMI 26.2 BP 131/90 H Blood Pressure Location Lt brachial Position Sitting Pulse 82 Pulse Source Pulse Oximeter Pulse Oximetry (%) 98 Oxygen Delivery Method Room Air Intake Visit Reasons: Unilat primary osteoarthritis, right hip/hip inj Intake Note: Pain today 8/10 Interventional Cardiologist Required: No Accompanied by: Spouse Allergies No Known Allergies Allergy (Verified 09/07/24 09:04) HPI Comments Details: Patient is a 64 years old male with history of back, hip and right knee degenerative arthritis, lumbar spinal stenosis and right lumbar radiculopathy s/p right-sided L3-L5 lumbar decompression by Dr. Berry on 05/16/24, presents today for initial evaluation for right hip pain. Right knee and hip pain has been ongoing issue for him. 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 Patient reports right radiculopathy pain has resolved after recent back surgery but hip and knee have been significantly bothering him. He received right GTB steroid injection on 08/21/24 and plans to undergo right knee injction on 09/27/24 at [facility] office. Patient reports right GTB injection provided him ~70% pain relief and increased tolerance to sleep on right side part of the night. Today his pain is consistent with significant right sacroiliac joint pain and right hip pain with mild to moderate groin pain with provocative testing. Reports his right hip at times has clicking and popping sensations. Imaging is noted below and correlate with alayna abraham's exam and symptoms. Denies previous hip or knee surgery. Pain affects his daily activities and functioning, mood, sleep, work and social interactions. Pain is rated at 8/10 with walking and least severe with resting or sitting. He has been treating his pain with OTC topicals, NSAIDs, gabapentin, activity modifications and taking time off work. Denies any fever or chills, infection, rash, weakness, bladder or bowel dysfunction or saddle anesthesia. PRIOR 03/30/24 Samara Valdez MEDICAL SUPPORT ASSISTANT: Nehal is a very pleasant 64-year-old male who presents to the office today for evaluation management of his chronic lower back pain. Recent MRI reviewed, results as per below Recent neuro spine visit note reviewed Patient has been suffering with this pain for greater than 1 year. Denies inciting injury, trauma, fall. 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 Has weakness of the right lower extremity with shooting electrical pains down the right leg to the foot Also endorses shooting pains down the left leg to the calf Denies red flag symptoms including loss of bowel, bladder or saddle anesthesia Pain today is rated as 7/10, constant and worse throughout the day Pain is exacerbated by movements and his job Improves with rest and heat He completed physical therapy several times, most recent was a couple months ago without improvement Has been taking Motrin for almost 1 year without improvement of his symptoms. Avoids Tylenol due to history of liver disease. Prescribed gabapentin which helps some with the neuropathy but pain persists He previously underwent epidural steroid injection at [facility], has tried to return therefore a repeat injection but can not facilitate an appointment with their office therefore he is transitioning to our office for treatment In terms of muscle damage condition is described as spasming, shooting, numb, tingling, pins and needles Pain is negatively impacting patient's enjoyment of life, general activity, work, recreational activities, walking. [facility] Medical History Back pain Arthritis Nicotine dependence, cigarettes, uncomplicated Right knee DJD Lumbar spinal stenosis Right lumbar radiculopathy Porphyrin disorder Tubular adenoma of colon (~2020) History of peptic ulcer (~2001) Difficult intravenous access History of chronic pain COPD (chronic obstructive pulmonary disease) Hepatitis C Surgical History History of hand surgery (~2020) History of colonoscopy (~2020) History of esophagogastroduodenoscopy (EGD) (~2001) Family History Mother Emphysema lung Cancer Social History Household Members Other:: room mate Are you a primary pediatric critical care nurse to a significant other at home: No Do you presently have visiting nurse or other home services: No Alcohol intake: former Year quit: 2019 Patient Tobacco Use Status: Current everyday Tobacco user Tobacco use type: Cigarette Cigarettes Per Day: 7 Years Smoked: 55 Substance Use Type: Amphetamines, Crack/Cocaine, Former Substance User, Hallu cinogens, IV Drugs, Marijuana and Opiates Current occupational status: employed 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 Alert and oriented. Mood and affect appropriate. Follows and participates in conversation appropriately. Respiratory effort is unlabored. No cough. No nasal discharge. Able to transition from sit to stand unassisted. Ambulates with bilaterally normal heel strike and toe off. Back/Spine/Pelvis Other: Patient is able to walk and stand on heels and tip toes with no difficulties demonstrating good motor tone. Mild limping due to right hip and right knee pain. Can flex forward to 75-80 degrees and extend to 5-10 degrees without significant back pain. Well healed midline lumbar scar. Demonstrates 5/5 left and 4/5 right strength of quadriceps bilaterally as well as 5/5 flexion/dorsiflexion of bilateral feet against resistance. 2+ pedal pulses bilaterally. Facet loading reproduces mild pain bilaterally, right>left. Hebert sign, Nahum?s, Gaenslen, Pelvic compression and Stinchfield tests are positive on the right. Mild to moderate groin pain with I/E hip rotations on the right. No TTP to right GTB. Cervical Spine: cervical ROM normal and No Cervical spine tenderness Thoracic/Lumbar Spine: thoracic and lumbar spine normal to inspection, Thoracic/lumbar spine scar(s), thoraco-lumbar ROM normal, Lasegue's sign negative, straight leg raise negative bilaterally, No thoracic spinal tenderness and No lumbar spinal tenderness Pelvis: buttock tenderness on the right and no sciatic notch tenderness Sacroiliac joints: on the right tender to palpation and on the left nontender Results Reviewed Results Reviewed: XR PELVIS 08/21/24 CLINICAL INFORMATION: M25.559 - Pain in unspecified hip COMPARISON: Correlated to right hip x-ray dated September 21, 2023. TECHNIQUE: AP view of the pelvis. FINDINGS: Bony pelvis is intact. No acute cortical disruption. There is sclerosis and the articular surface of the right and left acetabulum. Multilevel marginal osteophyte formation and syndesmophyte formation at L3-4 L4-5 and L5-S1 level. No lytic or blastic lesions. IMPRESSION: No acute fracture, bony pelvis. Mild osteoarthrosis both hips. Multilevel lower lumbar spondylosis. XR HIP, RIGHT 09/21/23 CLINICAL INFORMATION: Pain in right hip. COMPARISON: None available. TECHNIQUE: Two views of the right hip. FINDINGS: Advanced degenerative changes in the imaged lower lumbar spine. Degenerative changes on limited views of the right sacroiliac joint. Mild degenerative changes in the right hip with joint space narrowing and hypertrophic change. Alignment preserved. IMPRESSION: 1. Mild degenerative changes in the right hip. 2. Advanced degenerative changes in the lower lumbar spine. 3. Degenerative changes on limited views of the right sacroiliac joint. Assessment & Plan Assessment & Plan (1) Right hip pain: Code(s): M25.551 - Pain in right hip Category: Medical (2) Osteoarthritis of right hip: Code(s): M16.11 - Unilateral primary osteoarthritis, right hip Category: Medical (3) Pain of right sacroiliac joint: Code(s): M53.3 - Sacrococcygeal disorders, not elsewhere classified Category: Medical (4) Sacroiliitis: Code(s): M46.1 - Sacroiliitis, not elsewhere classified Category: Medical Plan Discussed interventional treatments for right hip and SI joint pain, including diagnostic vs therapeutic injections, neuromodulation and ablation procedures. Schedule Right intra-articular hip steroid injection with local and fluoroscopy. Expectations, risks and benefits were reviewed. Patient is aware he will be contacted to schedule this procedure. Will consider diagnostic right SI joint injection if partial improvement with hip injection. All questions were answered and the patient is in agreement of plan. Follow-up after injections and sooner as needed. Coding Level of Care Code New Pt Level 4 (45934) Complex EM visit Add On G2211 Diagnoses Right hip pain M25.551 Osteoarthritis of right hip M16.11 Pain of right sacroiliac joint M53.3 Sacroiliitis M46.1
[2024-09-07 09:03] VITALS: BP 131/90; PULSE 82; O2SAT 98; BMI 26.2
--- OUTSIDE RECORDS SUMMARY | 2024-09-07 09:43 | XMS_ITS | Encounter Summary ---
Author Organization [employer] Address 75 [facility] 7t [place] [address] Care Team Providers Care Food And Beverage Intern Name Role Phone Mike Arora MD Primary Care Prov ider Reason for Visit * Reason Onset Date Comments Med Refill 05/21/2024 Encounter Details Date Type Department Care Team (Late st Contact Info) Description 05/21/2024 Telephone [facility] MEDICINE [address] [place] [address] Mike Arora MD 505 [place] [address] Med Refill Social History Tobacco Use Types [...] 50 MG tablet To be sent to: [facility]/pharmacy #[id number] - [place] - [address] [place] [address] documented in this encounter Plan of Treatment Not on file documented as of this encounter Visit Diagnoses Not on filedocumented in this encounter Additional Health Concerns Assessment Noted Time PHQ-9 Depression Total Score: 0 10/15/19 23 10:23 AM EDT documented as of this encounter Care Teams Food And Beverage Intern Relationship Specialty Start Date End Date Mike Arora MD [address] [place] [id number] PCP - General Internal Medicine 07/09/19 documented as of this encounter
--- OUTSIDE RECORDS SUMMARY | 2024-09-07 09:43 | XMS_ITS | Encounter Summary ---
Author Organization [employer] Address [address] [facility] 7t [place] [address] Care Team Providers Care Hooker Up Name Role Phone Mike Arora MD Primary Care Prov ider Reason for Visit * Reason Comments Med Refill Encounter Details Date Type Department Care Team ([facility] Contact Info) Description 08/12/2024 Refill [facility] CHC MED & PEDS [address] [place] [address] Mike Arora MD [address] [place] [address] Low back pain associated with a spinal [...] documented as of this encounter Care Teams Hooker Up Relationship Specialty Start Date End Date Mike Arora MD [address] [place] [id number] PCP - General Internal Medicine 07/09/19 documented as of this encounter
--- OUTSIDE RECORDS SUMMARY | 2024-09-07 09:43 | XMS_ITS | Encounter Summary ---
Author Organization [employer] Address 75 [facility] [address] [place] [address] Care Team Providers Care Media Center Specialist Name Role Phone Mike Arora MD Primary Care Prov ider Reason for Visit * Reason Onset Date Comments call back 10/20/2022 Encounter Details Date Type Department Care Team ([facility] st Contact Info) Description 10/20/2022 Telephone [facility] MEDICINE [address] [place] [address] Mike Arora MD [address] [place] [address] call back Social History Tobacco Use Types [...] Per pt, he had it done at [facility]. No result found. Will f/u with [facility] diagnostic specialist to find out where pt had the CT done. * Telephone Encounter - Chantal Stuart RN - 10/20/2022 3:08 PM EDT Tc from pt requesting a call back regarding why pt has to do a US Abdomen. Please contact pt at [phone] Please clarify above message. Thanks * Telephone Encounter - Jose Howard - 10/20/2022 10:00 AM EDT Tc from pt requesting a call back regarding why pt has to do a US Abdomen. Please contact pt at [phone] documented in this encounter Plan of Treatment Not on file documented as of this encounter Visit Diagnoses Not on filedocumented in this encounter Additional Health Concerns Assessment Noted Time PHQ-9 Depression Total Score: 0 10/15/19 23 10:23 AM EDT documented as of this encounter Care Teams Media Center Specialist Relationship Specialty Start Date End Date Mike Arora MD [address] [place] [phone] PCP - General Internal Medicine 07/09/19 documented as of this encounter
--- OUTSIDE RECORDS SUMMARY | 2024-09-07 09:43 | XMS_ITS | Clinical Summary ---
Author Organization [facility] Address [address] [place] [address] Care Team Providers Care Windlasser Name Role Phone Cheryl Fournier MD Primary [...] age to complete this topic Care Teams Windlasser Relationship Specialty Start Date End Date Cheryl Fournier MD PCP - General Internal Medicine 09/09/16
--- OUTSIDE RECORDS SUMMARY | 2024-09-07 09:43 | XMS_ITS | Encounter Summary ---
Author Organization [employer] Address 75 [facility] 7t [place] [address] Care Team Providers Care Natural Sciences Manager Name Role Phone Mike Arora MD Primary Care Prov ider Reason for Visit * Reason Comments Med Refill Encounter Details Date Type Department Care Team ([facility] Contact Info) Description 05/09/2024 Refill [facility] CHC MED & PEDS [address] [place] [address] Mike Arora MD 505 [place] [address] Low back pain associated with a spinal [...] documented as of this encounter Care Teams Natural Sciences Manager Relationship Specialty Start Date End Date Mike Arora MD [address] [place] [phone] PCP - General Internal Medicine 07/09/19 documented as of this encounter
--- OUTSIDE RECORDS SUMMARY | 2024-09-07 09:43 | XMS_ITS | Encounter Summary ---
Author Organization [employer] Address 75 [facility] 7t [place] [address] Care Team Providers Care Bottom Precipitator Operator Name Role Phone Mike Arora MD Primary Care Prov ider Reason for Visit * Reason Comments Med Refill Encounter Details Date Type Department Care Team ([facility] Contact Info) Description 06/10/2024 Refill [facility] CHC MED & PEDS [address] [place] [address] Mike Arora MD 505 [place] [address] Low back pain associated with a spinal [...] documented as of this encounter Care Teams Bottom Precipitator Operator Relationship Specialty Start Date End Date Mike Arora MD [address] [place] [id number] PCP - General Internal Medicine 07/09/19 documented as of this encounter
--- OUTSIDE RECORDS SUMMARY | 2024-09-07 09:43 | XMS_ITS | Clinical Summary ---
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 At this moment will refer to [facility] Derm clinic. Chronic obstructive pulmonary disease [...] Type Department Care Team Description 08/12/2024 Refill [facility] CHC MED & PEDS [address] [place] [address] Mike Arora MD Low back pain associated with a spinal disorder other than radiculopathy or spinal stenosis 08/10/2024 Refill [facility] CHC MED & PEDS [address] [place] [address] Mike Arora MD 06/11/2024 Refill [facility] MEDICINE [address] [place] [address] Mike Arora MD Low back pain associated with a spinal disorder other than radiculopathy or spinal stenosis 06/10/2024 Refill [facility] CHC MED & PEDS [address] [place] [address] Mike Arora MD Low back pain associated [...] your housing situation today? I have suzie rolo 01/30/[address] you li [...] 8:16 AM EDT) Triglycerides 94 <150 mg/dL [facility] Comment:Desirable Triglyceri de: less than 150 mg/dLBorderline High Triglyceride 150-199 mg/dLHigh Triglyceride: 200-499 mg/dLVery High Triglyceride: greater than or equal to 5OO mg/dL Cholesterol 144 <200 mg/dL [facility] Comment:Desirable Cholestero l: less than 200 mg/dLBorderline High Cholesterol: 200-239 mg/dLHigh Cholesterol: greater than 239 mg/dL LDL Cholesterol Calculated 65 <100 mg/dL [facility] Comment:Desirable LDL: less than 100 mg/dLNear Optimal/Above Optimal LDL: 110- 129 mg/dLBorderline High LDL: 130-159 mg/dLHigh LDL: 160-189 mg/dLVery High LDL: greater than or equal to 190 mg/dL HDL Cholesterol 61 >40 mg/dL [facility] Comment:Desirable HDL: great er than 40 mg/dL Note: This HDL assay may give artificially low results in patients with liver disease. Blood Venous blood specimen / Unknown 03/19/2024 8:16 AM EDT 03/19/2024 2:23 PM EDT Mike Gaffney MD LAB BLOOD ORDERABL ES Final Result Performing Organization Address City/[facility]/ZIP Co de Phone Number [facility] [address] [place] [phone] * HIV-1 RNA, Quantitative, Real-Time PCR with Reflex to Genotype (RTI, PI, Integrase) (08/10/2022 10:30 AM EST) Pathologist [facility] HIV 1 RNA, QN PCR NOT DETECTED copies/mL [facility], HIV 1 RNA, QN PCR NOT DETECTED Log copies/mL [facility], Comment: REFERENCE RANGE: NOT DETECTED copies/mL ?NOT [...] Organization Address City/[facility] Co de Phone Number [facility] [address], [place] [address] [facility], [address] [place] [address] * Colonoscopy (11/04/2020) Pathologist [facility] Colonoscopy PERFORMED Historical Provider HEALTH MAINTENANCE Edited Result - Final from Last 3 Months or Most Recently Relevant to Health Maintenance Insurance [facility] KATHRYN KATINA [id number] Care Teams Aviation Electronic Warfare Operator Relationship Specialty Start Date End Date Mike Arora MD [address] [place] [address] KATINA Anthony [address] PCP - General Internal Medicine 07/09/19
--- OUTSIDE RECORDS SUMMARY | 2024-09-07 09:43 | XMS_ITS | Encounter Summary ---
Author Organization [employer] Address [address] [facility] 7t [place] [address] Care Team Providers Care Exchange Underwriting Consultant Name Role Phone Mike Arora MD Primary Care Prov ider Reason for Visit * Reason Comments Med Refill Encounter Details Date Type Department Care Team ([facility] Contact Info) Description 08/10/2024 Refill [facility] CHC MED & PEDS [address] [place], [place] [phone] Mike Arora MD [address] [place] [address] Social History Tobacco Use Types Packs/Day Years [...] documented as of this encounter Care Teams Exchange Underwriting Consultant Relationship Specialty Start Date End Date Mike Arora MD [address] [place] [id number] PCP - General Internal Medicine 07/09/19 documented as of this encounter
--- OUTSIDE RECORDS SUMMARY | 2024-09-07 09:44 | XMS_ITS | Encounter Summary ---
Author Organization [employer] Address [address] [facility] [address] [place] [address] Care Team Providers Care Derrick Follower Name Role Phone Mike Arora MD Primary Care Prov ider Encounter Details Date Type Department Care Team (Late st Contact Info) Description 08/10/2022 Orders Only [facility] MEDICINE [address] [place] [address] Mike Arora MD [address] [place], [place] [phone] Prostate cancer screening (Primary Dx); Simple chronic [...] PCR POSITIVE (08/10/2022 10:30 AM EST) Pathologist [facility] HCV RNA, QN Real Time PCR <15 NOT DETECTED NOT DETECTED IU/mL [facility] HCV RNA QN Real Time PCR <1.18 NOT DETECTED NOT DETECTED Log IU/mL [facility] Comment: HCV RNA is not detected. ??There [...] a biological false positive result. (Always Message) [facility] Comment: This test was performed using Real-Time Polymerase Chain Reaction. Reportable Range: 15 IU/mL to 100,000,000 IU/mL (1.18 Log IU/mL to 8.00 Log IU/mL). The analytical performance characteristics of this assay have been determined by [facility]. The modifications have not been cleared or approved by the FDA. This assay has been validated pursuant to the CLIA regulations and is used for clinical purposes. ? For more information on this test, go to: http://education.Gamar/faq/WCP75r8 (This link is being provided for informational/ [...] MD LAB BLOOD ORDERABL ES Final Result [facility] [address], [place] [address] [facility] 200 [facility], (Nl2) [place] [address] * PSA,Total (08/10/2022 10:30 AM EST) PSA, Total 0.35 < OR = 4.00 ng/mL [facility] [facility] Comment: The total PSA value from this assay system is standardized against the WHO standard. The test result will be approximately 20% lower when compared to the equimolar-standardized total PSA (Naty April). Comparison of serial PSA results should be [...] ORDERABL ES Final Result Performing Organization Address [facility] Co de Phone Number [address], [place] [address] [facility] [address] [place] [address], (Nl2) [place] [address] * (ABNORMAL) Hemoglobin A1c with Calculated Mean Plasma Glucose (MPG) (08/10/2022 10:30 AM EST) Hemoglobin A1c 5.8(H) <5.7 % of total Hgb [facility] Comment: For someone without known diabetes, a [...] children. Mean Plasma Glucose 129 mg/dL (calc) [facility] 08/10/2022 10:3 0 AM EST 08/10/2022 10:31 AM EST Narrative [facility] - 08/13/2022 11:15 PM EST FASTING:NO FASTING: NO Mike Gaffney MD LAB BLOOD ORDERABL ES Final Result Performing Organization Address City/[facility]/ZIP Co de Phone Number [address], [place] [address] [facility] [address] [place] [address], (Nl2) [place] [address] * TSH W/Reflex to FT4 (08/10/2022 10:30 AM EST) TSH w/Reflex to FT4 2.75 0.40 - 4.50 mIU/L [facility] [employer] [facility] 08/10/2022 10:3 0 AM EST 08/10/2022 10:31 AM EST Narrative [facility] - 08/13/2022 11:15 PM EST FASTING:NO FASTING: NO Mike Gaffney MD LAB BLOOD ORDERABL ES Final Result [facility] [address] [facility], [address], [place] [address] [facility] [employer] [facility] [facility] 200 [facility], ([address]) [place] [address] * Lipid Panel, Standard (08/10/2022 10:30 AM EST) Cholesterol, Total 145 <200 mg/dL [facility] HDL Cholesterol 58 > OR = 40 mg/dL [facility] [facility] Triglycerides 50 <150 mg/dL [facility] [employer] LDL Cholesterol 75 mg/dL (calc) [facility] Comment: Reference range: <100 Desirable range <100 mg/dL for primary prevention; ?? <70 mg/dL for patients with CHD or diabetic patients with > or = 2 CHD risk factors. LDL-C is now calculated using the Darrel-Matt calculation, which is a validated novel method providing better accuracy than the Friedewald equation in the estimation of LDL-C. Darrel SS et al. DYLAN. 2013;310(19): 2909-8155 (http://education.[employer]ume [employer]/faq/GZW770) Chol/HDLC Ratio 2.5 <5.0 (calc) [facility] Non-HDL Cholesterol 87 <130 mg/dL (calc) [facility] Comment: For patients with diabetes plus 1 [...] ORDERABL ES Final Result Performing Organization Address [facility]/ZIP Co de Phone Number [facility] [address], [place] [address] [facility] 200 [facility], (Nl2) [place] [address] * HIV-1 RNA, Quantitative, Real-Time PCR with Reflex to Genotype (RTI, PI, Integrase) (08/10/2022 10:30 AM EST) Pathologist [facility] HIV 1 RNA, QN PCR NOT DETECTED copies/mL [facility], HIV 1 RNA, QN PCR NOT DETECTED Log copies/mL [facility], Comment: REFERENCE RANGE: NOT DETECTED copies/mL ?NOT DETECTED ??Log copies/mL This test was performed using Real-Time Polymerase Chain Reaction. Reportable range is 20 to 10,000,000 copies/mL (1.30-7.00 Log copies/mL). 08/10/2022 10:3 0 AM EST 08/10/2022 10:31 AM EST Narrative [facility] - 08/13/2022 11:15 PM EST FASTING:NO FASTING: NO Mike Gaffney MD LAB BLOOD ORDERABL ES Final Result Performing Organization Address [facility]/ZIP Co de Phone Number [facility] [address], [place] [address] [facility], [address] [place] [address] * (ABNORMAL) Hepatitis C Antibody with Reflex to HCV, RNA, Quantitative, Real- Time PCR (08/10/2022 10:30 AM EST) Pathologist [facility] Hepatitis C Antibody REACTIVE( A) NON-REACT BIANCA [facility] Index >11.00(H) <1.00 [facility] Comment: Based on this result, the [...] MD LAB BLOOD ORDERABL ES Final Result [address], [place] [address] [facility] 200 [facility], (Nl2) [place] [address] * Hepatic Function Panel (08/10/2022 10:30 AM EST) Protein, Total 7.1 6.1 - 8.1 g/dL [facility] Albumin 4.7 3.6 - 5.1 g/dL [facility] Globulin 2.4 1.9 - 3.7 g/dL (calc) [facility] Albumin/Globulin Ratio 2.0 1.0 - 2.5 (calc) [facility] Bilirubin, Total 0.7 0.2 - 1.2 mg/dL [facility] Bilirubin, Direct 0.2 < OR = 0.2 mg/dL [facility] Bilirubin, Indirect 0.5 0.2 - 1.2 mg/dL (calc) [facility] Alkaline Phosphatase 35 35 - 144 U/L [facility] AST 17 10 - 35 U/L [facility] ALT 16 9 - 46 U/L [facility] Blood Venous blood specimen / Unknown 08/10/2022 10:30 AM EST 08/10/2022 10:31 AM EST Narrative [facility] - 08/13/2022 11:15 PM EST FASTING:NO FASTING: NO Mike Gaffney MD LAB BLOOD ORDERABL ES Final Result Performing Organization Address City/[facility]/ZIP Co de Phone Number [facility] [address], [place] [address] [facility] [address] [facility], ([address]) [place] [address] * Basic Metabolic Panel (08/10/2022 10:30 AM EST) [facility] Glucose 90 65 - 139 mg/dL [facility] [employer] [facility] Comment: ? Non-fasting reference interval Urea Nitrogen (BUN) 25 7 - 25 mg/dL [facility] Creatinine, Serum 0.71 0.70 - 1.35 mg/dL [facility] eGFR 105 > OR = 60 mL/min/1 .73m2 [facility] Comment: The eGFR is based on the CKD-EPI 2020 equation. To calculate the new eGFR from a previous Creatinine or Cystatin C result, go to https://www.kidney.org/professionals/ kdoqi/gfr%5Fcalculator BUN/Creatinine Ratio NOT APPLICABLE 6 - 22 (calc) [facility] Sodium 136 135 - 146 mmol/L [facility] Potassium 4.4 3.5 - 5.3 mmol/L [facility] Chloride 101 98 - 110 mmol/L [facility] Carbon Dioxide 26 20 - 32 mmol/L [facility] Calcium 9.6 8.6 - 10.3 mg/dL [facility] Blood Venous blood specimen / Unknown 08/10/2022 10:30 AM EST 08/10/2022 10:31 AM EST Narrative [facility] - 08/13/2022 11:15 PM EST FASTING:NO FASTING: NO Mike Gaffney MD LAB BLOOD ORDERABL ES Final Result Performing Organization Address City/[facility]/ZIP Co de Phone Number [facility] [address], [place] [address] [facility] [address] [facility], (Nl2) [place] [address] * CBC auto differential (08/10/2022 10:30 AM EST) White Blood Cell Count 7.2 3.8 - 10.8 Thousand/ uL [facility] Red Blood Cell Count 4.22 4.20 - 5.80 Million/u L [facility] Hemoglobin 13.4 13.2 - 17.1 g/dL [facility] Hematocrit 39.8 38.5 - 50.0 % [facility] MCV 94.3 80.0 - 100.0 fL [facility] MCH 31.8 27.0 - 33.0 pg [facility] MCHC 33.7 32.0 - 36.0 g/dL [facility] RDW 12.5 11.0 - 15.0 % [facility] Platelet Count 270 140 - 400 Thousand/ uL [facility] MPV 9.9 7.5 - 12.5 fL [facility] Absolute Neutrophils 3,679 1,500 - 7,800 cells/uL [facility] Absolute Lymphocytes 2,498 850 - 3,900 cells/uL [facility] Absolute Monocytes 612 200 - 950 cells/uL [facility] Absolute Eosinophils 360 15 - 500 cells/uL [facility] Absolute Basophils 50 0 - 200 cells/uL [facility] Neutrophils 51.1 % [facility] Lymphocytes 34.7 % [facility] Monocytes 8.5 % [facility] Eosinophils 5.0 % [facility] Basophils 0.7 % [facility] Blood Venous blood specimen / Unknown 08/10/2022 10:30 AM EST 08/10/2022 10:31 AM EST Narrative [facility] - 08/13/2022 11:15 PM EST FASTING:NO FASTING: NO us Mike Gaffney MD LAB BLOOD ORDERABL ES Final Result [facility] [address] [facility], [facility], [place] [address] [facility] [address] [facility], ([address]) [place] [address] documented in this encounter Visit Diagnoses Diagnosis Prostate cancer screening- Primary Special screening for malignant neoplasm of prostate Simple chronic bronchitis (CMS/HCC) Simple chronic bronchitis documented in this encounter Care Teams Derrick Follower Relationship Specialty Start Date End Date Mike Arora MD [address] [place] [address] PCP - General Internal Medicine 07/09/19 documented as of this encounter
--- OUTSIDE RECORDS SUMMARY | 2024-09-07 09:44 | XMS_ITS | Encounter Summary ---
Author Organization [employer] Address [address] [facility] 7t [place] [address] Care Team Providers Care Tool Chaser Name Role Phone Mike Arora MD Primary Care Prov ider Reason for Visit * Reason Onset Date Comments Medication Question 07/13/2023 Encounter Details Date Type Department Care Team ([facility] Contact Info) Description 07/13/2023 Telephone [facility] CHC MED & PEDS [address] [place], [place] [phone] Mike Arora MD [address] [place] [address] Medication Question Social History Tobacco Use Types [...] results from PT. Please contact Pt @ [phone] documented in this encounter Plan of Treatment Not on file documented as of this encounter Visit Diagnoses Not on filedocumented in this encounter Additional Health Concerns Assessment Noted Time PHQ-9 Depression Total Score: 0 10/15/19 23 10:23 AM EDT documented as of this encounter Care Teams Tool Chaser Relationship Specialty Start Date End Date Mike Arora MD [address] [place] [address] PCP - General Internal Medicine 07/09/19 documented as of this encounter
== END 2024-09-07 09:23 | disposition home or self-care (01) ==
PROVIDERS: Visit Provider Nurse Practitioner Family
DX: M25.551 Pain in right hip (principal); M16.11 Unilateral primary osteoarthritis, right hip; M53.3 Sacrococcygeal disorders, not elsewhere classified; M46.1 Sacroiliitis, not elsewhere classified
CPT/HCPCS: 99204; G2211

== ENCOUNTER → 2024-09-07 08:59 | Outpatient (BNVA) | payer OTHER, SELFPAY | PROVIDERS: Visit Provider Nurse Practitioner Family | DX: M16.11 Unilateral primary osteoarthritis, right hip (principal); M17.11 Unilateral primary osteoarthritis, right knee; M53.3 Sacrococcygeal disorders, not elsewhere classified; M46.1 Sacroiliitis, not elsewhere classified | CPT/HCPCS: 99202 ==

== ENCOUNTER 2024-09-27 09:16 | Outpatient (REF) | payer OTHER, SELFPAY ==
--- NOTE | ~2024-09-27 | XR_ITS ---
EXAMINATION: XR KNEE, RIGHT CLINICAL INFORMATION: M17.11 - Unilateral primary osteoarthritis, right knee COMPARISON: 09/21/2023. TECHNIQUE: Three views of the right knee. FINDINGS: No fracture, dislocation, or suspicious bone lesion. Normal bone mineralization. Normal alignment. There is minimal medial compartment joint space narrowing. Lateral and patellofemoral compartments appear normal. Extremely subtle chondrocalcinosis, suggesting CPPD. No significant joint effusion. Soft tissues appear normal. XR/XR knee RT 3V IMPRESSION: 1. Minimal medial compartment joint space narrowing. Extremely subtle chondrocalcinosis present, medial and lateral compartments. 2. Otherwise normal exam. Electronically signed by: Anastacio Ayala MD 09/27/2024 12:48 PM EDT
== END 2024-09-27 09:17 | disposition home or self-care (01) ==
LOC: HO.HOSX 09:16
PROVIDERS: Visit Provider Physical Medicine & Rehabilitation
DX: M76.51 Patellar tendinitis, right knee (principal); M17.11 Unilateral primary osteoarthritis, right knee
CPT/HCPCS: 20610; 73562; 99212; J2003; J3301

== ENCOUNTER 2024-09-27 09:58 | Outpatient (AMB) | payer OTHER, SELFPAY ==
--- NOTE | 2024-09-27 10:02 | MHC.OFFVIS ---
Intake Visit Reasons: Right knee OA - last inj 03/15/24 Intake Note: Nehal is a 64 year old male who presents today for a follow up of his Right Knee OA. He was last seen on 03/15/25 where he received a right knee steroid injection. Patient reports that this injection was helpful and he would like to repeat injection today. He is taking meloxicam and gabapentin as ordered for the pain. Bookmobile Clerk Required: No Allergies No Known Allergies Allergy (Verified 09/27/24 10:20) Medication List - Last Reconciled 09/27/24 by Nickie Wright RN albuterol sulfate 90 mcg/actuation 2 puffs PO Q4-6H PRN fluticasone propion-salmeterol 250-50 mcg/dose (Wixela Inhub) 1 ea inhalation QAM gabapentin mg PO 3XD meloxicam 15 mg PO DAILY pantoprazole 40 mg PO DAILY sildenafil mg PO tiotropium bromide 1 cap inhalation DAILY HPI Comments Details: Last seen 03/15/2024 for right knee injection. He also follows with pain management for lower back pain and knee pain. X-ray repeated today, minimal joint space narrowing, no significant change from previous. No fracture seen. [facility] Medical History Back pain Arthritis Nicotine dependence, cigarettes, uncomplicated Right knee DJD Lumbar spinal stenosis Right lumbar radiculopathy Porphyrin disorder Tubular adenoma of colon (~2020) History of peptic ulcer (~2001) Difficult intravenous access History of chronic pain COPD (chronic obstructive pulmonary disease) Hepatitis C Surgical History History of hand surgery (~2020) History of colonoscopy (~2020) History of esophagogastroduodenoscopy (EGD) (~2001) Family History Mother Emphysema lung Cancer Social History Household Members Other:: room mate Are you a primary physician assistant primary care to a significant other at home: No Do you presently have visiting nurse or other home services: No Alcohol intake: former Year quit: 2019 Patient Tobacco Use Status: Current everyday Tobacco user Tobacco use type: Cigarette Cigarettes Per Day: 7 Years Smoked: 55 Substance Use Type: Amphetamines, Crack/Cocaine, Former Substance User, Hallucinogens, IV Drugs, Marijuana and Opiates Current occupational status: employed 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 No palpable effusion. There is some tenderness over patellar tendon. Negative pain with varus or valgus stress. Negative Oziel's sign. Negative anterior-posterior stress test. Office Procedures AMB Joint Injection/Aspiration Joint Injection/Aspiration Details: Consent obtained. Patient sits with right knee flexed. Medial edge of patella is identified and marked. Area is cleansed with betadine solution. A 27 gauge needle is injected at an angle laterally and slightly upwards under the patella. Solution containing 40 mg Kenalog and 3m of 2% Lidocaine is instilled. Patient tolerated procedure well without complications. Post-injection instructions given. Primary Site: right knee Injected: 40 mg of, Kenalog and with 3 mL of (2% lidocaine) Procedure: The patient tolerated the procedure well Coding 59926 - Large joint Procedure code (CPT) selection complete Results Reviewed Results Reviewed: Date of Service: 09/21/23 Procedure(s): XR knee RT 3V Accession Number(s): [id number] cc: Mike Arora MD; Eliane Mcpherson EXAMINATION: XR KNEE, RIGHT CLINICAL INFORMATION: Pain in right knee. Evaluate DJD. COMPARISON: None available. TECHNIQUE: Three views of the right knee. FINDINGS: Moderate suprapatellar effusion. Mild narrowing of the medial compartment. A few calcifications in the posterior soft tissues are indeterminate, possibly vascular. XR/XR knee RT 3V IMPRESSION: Moderate suprapatellar effusion. Mild narrowing of the medial compartment. Assessment & Plan Assessment & Plan (1) Patellar tendinitis of right knee: Code(s): M76.51 - Patellar tendinitis, right knee Category: Medical (2) Right knee DJD: Code(s): M17.11 - Unilateral primary osteoarthritis, right knee Category: Medical Qualifiers: Osteoarthritis type: primary Qualified Code(s): M17.11 - Unilateral primary osteoarthritis, right knee Plan Patient does not show any acute signs of inflammation. He does say that going up the stairs, he feels some clicking on both knees. He has some tenderness over patellar tendon today. He wanted to repeat steroid injection today. Previous injections 03/23/2024 provided at least 5 months of relief. Reviewed x-ray images done today. Await official reading. Patient tolerated procedure well. Assessment and plan discussed with patient, and patient was agreeable. All questions were answered thoroughly. Patient will call if injections does not help or last. Otherwise I will see him in 6 months. Eliane Gomez MD, LILLY Board Certified, [place] Board of Physical Medicine and Rehabilitation (ABPMR) Board Certified, [place] Board of Electrodiagnostic Medicine (ABEM) Orders: Orders XR knee RT 3V Today M17.11 - Unilateral primary osteoarthritis, right knee AMB Joint Injection/Aspiration Today M17.11 - Unilateral primary osteoarthritis, right knee Coding Level of Care Code Est Pt Level 3 (39866) Diagnoses Patellar tendinitis of right knee M76.51 Primary osteoarthritis of right knee M17.11 Osteoarthritis type: primary CPT Codes Coding - 43547 Large joint: 38036 - Large joint ([id number])
== END 2024-09-27 11:10 | disposition home or self-care (01) ==
LOC: HO.HOS 09:59
PROVIDERS: PCP Internal Medicine; Visit Provider Physical Medicine & Rehabilitation
DX: M76.51 Patellar tendinitis, right knee (principal); M17.11 Unilateral primary osteoarthritis, right knee
CPT/HCPCS: 20610; 99213

== ENCOUNTER → 2024-09-27 10:06 | Outpatient (BNV) | payer OTHER, SELFPAY | PROVIDERS: Visit Provider Radiology Diagnostic Radiology | DX: M25.561 Pain in right knee (principal) | CPT/HCPCS: 73562 ==

== ENCOUNTER 2024-10-30 06:03 | Outpatient (REF) | payer OTHER, SELFPAY ==
--- NOTE | ~2024-10-30 | FL_ITS ---
EXAMINATION: XR FLUOROSCOPY WITH IMAGES CLINICAL INFORMATION: Pain management injection right hip, primary osteoarthritis. COMPARISON: Pelvic radiographs 08/21/2024. TECHNIQUE: Fluoroscopy provided to: Dr. Brown Fluoroscopy time: 0.1 minutes DAP: 0.0465 mGycm2 Images: 2 FINDINGS: 2 spot images obtained during right hip pain management injection. Please refer to the full procedural report for details. FL/FL guidance in treatment room IMPRESSION: Fluoroscopic guidance. Electronically signed by: Anastacio Ayala MD 11/01/2024 09:45 AM EDT
--- OUTSIDE RECORDS SUMMARY | 2024-10-30 06:06 | XMS_ITS | Clinical Summary ---
Author Organization [facility] ity Address [address] [place] [address] Care Team Providers Care Shipping Services Sales Representative Name Role Phone Cheryl Fournier MD Primary [...] - 2023-2 5 season) 2024 Influenza Vaccine (Season Ended) 2025 RSV Immunization Adult Patie nts (1 - 1-dose 75+ series) 2037 HIB [...] age to complete this topic Meningococcal B Vaccine Aged Out No l onger eligible based on patient's age to complete [...] age to complete this topic Care Teams Shipping Services Sales Representative Relationship Specialty Start Date End Date Cheryl Fournier MD PCP - General Internal Medicine 09/09/16
--- OUTSIDE RECORDS SUMMARY | 2024-10-30 06:06 | XMS_ITS | Encounter Summary ---
Author Organization [employer] Address [address] [facility] 7t [place] [address] Care Team Providers Care Crystal Slicer Name Role Phone Mike Arora MD Primary Care Prov ider Encounter Details Date Type Department Care Team (Late Contact Info) Description 08/10/2022 Orders Only [facility] MEDICINE [address] [place], [place] [phone] Mike Arora MD [address] [place], [place] [phone] Prostate cancer screening (Primary Dx); Simple chronic [...] as of this encounter Plan of Treatment Upcoming Encounters Date Type Department Care Team (Late Contact Info) Description 12/25/2024 9:30 AM EDT Telemedicine [facility] CHC MED & PEDS [address] [place], [place] [phone] Mike Arora MD [address] [place], [place] [phone] Scheduled Orders Name Type Priority Associated Diagnoses [...] TIME PCR POSITIVE (08/10/2022 10:30 AM EST) HCV RNA, QN Real Time PCR <15 NOT DETECTED NOT DETECTED IU/mL [facility] HCV RNA QN Real Time PCR <1.18 NOT DETECTED NOT DETECTED Log IU/mL [facility] [place] [employer] Comment: HCV RNA is not detected. ??There [...] a biological false positive result. (Always Message) [facility] [place] [employer] Comment: This test was performed using Real-Time Polymerase Chain Reaction. Reportable Range: 15 IU/mL to 100,000,000 IU/mL (1.18 Log IU/mL to 8.00 Log IU/mL). The analytical performance characteristics of this assay have been determined by [facility]. The modifications have not been cleared or approved by the FDA. This assay has been validated pursuant to the CLIA regulations and is used for clinical purposes. ? For more information on this test, go to: http://education.Starfish 360/faq/XMV70x5 (This link is being provided for informational/ [...] BLOOD ORDERABL ES Final Result [facility] [address] [facility], [place] [address] [facility] [place] [employer] [facility] [employer] [address] [facility], (Nl2) [place] [address] * PSA,Total (08/10/2022 10:30 AM EST) PSA, Total 0.35 < OR = 4.00 ng/mL [facility] [place] [employer] [facility] [employer] Comment: The total PSA value from this assay system is standardized against the WHO standard. The test result will be approximately 20% lower when compared to the equimolar-standardized total PSA (Naty Kimbolton). Comparison of serial PSA results should be [...] ORDERABL ES Final Result Performing Organization Address City/[facility] de Phone Number [facility] [address] [facility], [place] [address] [facility] [place] [facility] [employer] [address] [facility], ([address]2) [place] [address] * (ABNORMAL) Hemoglobin A1c with Calculated Mean Plasma Glucose (MPG) (08/10/2022 10:30 AM EST) Hemoglobin A1c 5.8(H) <5.7 % of total Hgb [email or web address] Comment: For someone without known diabetes, a [...] children. Mean Plasma Glucose 129 mg/dL (calc) [email or web address] 08/10/2022 10:3 0 AM EST 08/10/2022 10:31 AM EST Narrative [facility] - 08/13/2022 11:15 PM EST FASTING:NO FASTING: NO Mike Gaffney MD LAB BLOOD ORDERABL ES Final Result Performing Organization Address City/[facility]/ZIP Co de Phone Number [address], [place] [address] [facility] [place] [facility] [address] [place] [address], (Nl2) [place] [address] * TSH W/Reflex to FT4 (08/10/2022 10:30 AM EST) TSH w/Reflex to FT4 2.75 0.40 - 4.50 mIU/L [facility] [place] [employer] [facility] [employer] 08/10/2022 10:3 0 AM EST 08/10/2022 10:31 AM EST Narrative [facility] - 08/13/2022 11:15 PM EST FASTING:NO FASTING: NO Mike Gaffney MD LAB BLOOD ORDERABL ES Final Result Performing Organization Address [facility] de Phone Number [address], [place] [address] [facility] [place] [employer] [address] [place] [address], (Nl2) [place] [address] * Lipid Panel, Standard (08/10/2022 10:30 AM EST) Cholesterol, Total 145 <200 mg/dL [facility] [place] [facility] [employer] HDL Cholesterol 58 > OR = 40 mg/dL [facility] [place] [facility] [employer] [facility] Triglycerides 50 <150 mg/dL [facility] [place] [facility] [employer] [facility] LDL Cholesterol 75 mg/dL (calc) [facility] [place] [employer] Comment: Reference range: <100 Desirable range <100 mg/dL for primary prevention; ?? <70 mg/dL for patients with CHD or diabetic patients with > or = 2 CHD risk factors. LDL-C is now calculated using the Morales calculation, which is a validated novel method providing better accuracy than the Friedewald equation in the estimation of LDL-C. Darrel MONDRAGON et al. DYLAN. 2013;310(19): 3564-7669 (http://education.[employer]W Corporation/faq/VGJ235) Chol/HDLC Ratio 2.5 <5.0 (calc) [facility] [place] [facility] Non-HDL Cholesterol 87 <130 mg/dL (calc) [facility] [place] [facility] [employer] Comment: For patients with diabetes plus 1 [...] ORDERABL ES Final Result Performing Organization Address [facility]/ZIP Co de Phone Number [address], [place] [address] [facility] [place] [facility] [employer] [facility] [address] [place] [address], (Nl2) [place] [address] * HIV-1 RNA, Quantitative, Real-Time PCR with Reflex to Genotype (RTI, PI, Integrase) (08/10/2022 10:30 AM EST) Pathologist [facility] HIV 1 RNA, QN PCR NOT DETECTED copies/mL [facility], HIV 1 RNA, QN PCR NOT DETECTED Log copies/mL [facility] [employer] [facility], Comment: REFERENCE RANGE: NOT DETECTED copies/mL ?NOT DETECTED ??Log copies/mL This test was performed using Real-Time Polymerase Chain Reaction. Reportable range is 20 to 10,000,000 copies/mL (1.30-7.00 Log copies/mL). 08/10/2022 10:3 0 AM EST 08/10/2022 10:31 AM EST Narrative [facility] - 08/13/2022 11:15 PM EST FASTING:NO FASTING: NO Mike Gaffney MD LAB BLOOD ORDERABL ES Final Result Performing Organization Address [facility] Co de Phone Number [address], [place] [address] [facility], [address] [place] [address] * (ABNORMAL) Hepatitis C Antibody with Reflex to HCV, RNA, Quantitative, Real- Time PCR (08/10/2022 10:30 AM EST) Pathologist [facility] Hepatitis C Antibody REACTIVE( A) NON-REACT BIANCA [facility] Index >11.00(H) <1.00 [facility] Comment: Based on this result, the [...] MD LAB BLOOD ORDERABL ES Final Result [address], [place] [address] [facility] [place] [facility] [employer] [facility] [address] [facility], (Nl2) [place] [address] * Hepatic Function Panel (08/10/2022 10:30 AM EST) [facility] Protein, Total 7.1 6.1 - 8.1 g/dL [facility] Albumin 4.7 3.6 - 5.1 g/dL [facility] Globulin 2.4 1.9 - 3.7 g/dL (calc) [facility] [place] [facility] Albumin/Globulin Ratio 2.0 1.0 - 2.5 (calc) [facility] [place] [facility] Bilirubin, Total 0.7 0.2 - 1.2 mg/dL [facility] [place] [facility] Bilirubin, Direct 0.2 < OR = 0.2 mg/dL [facility] [place] [facility] Bilirubin, Indirect 0.5 0.2 - 1.2 mg/dL (calc) [facility] [place] [facility] Alkaline Phosphatase 35 35 - 144 U/L [facility] [place] [facility] AST 17 10 - 35 U/L [facility] [place] [facility] ALT 16 9 - 46 U/L [facility] [place] [facility] Blood Venous blood specimen / Unknown 08/10/2022 10:30 AM EST 08/10/2022 10:31 AM EST Narrative [facility] - 08/13/2022 11:15 PM EST FASTING:NO FASTING: NO Mike Gaffney MD LAB BLOOD ORDERABL ES Final Result [facility] [address], [place] [address] [facility] [place] [facility] [address] [facility], (Nl2) [place] [address] * Basic Metabolic Panel (08/10/2022 10:30 AM EST) Glucose 90 65 - 139 mg/dL [facility] [place] [facility] Comment: ? Non-fasting reference interval Urea Nitrogen (BUN) 25 7 - 25 mg/dL [facility] [place] [facility] Creatinine, Serum 0.71 0.70 - 1.35 mg/dL [facility] [place] [facility] eGFR 105 > OR = 60 mL/min/1 .73m2 [facility] [place] [facility] Comment: The eGFR is based on the CKD-EPI 2020 equation. To calculate the new eGFR from a previous Creatinine or Cystatin C result, go to https://www.kidney.org/professionals/ kdoqi/gfr%5Fcalculator BUN/Creatinine Ratio NOT APPLICABLE 6 - 22 (calc) [facility] [place] [facility] Sodium 136 135 - 146 mmol/L [facility] [place] [facility] Potassium 4.4 3.5 - 5.3 mmol/L [facility] [place] [facility] Chloride 101 98 - 110 mmol/L [facility] [place] [facility] Carbon Dioxide 26 20 - 32 mmol/L [facility] Calcium 9.6 8.6 - 10.3 mg/dL [facility] [place] [facility] Blood Venous blood specimen / Unknown 08/10/2022 10:30 AM EST 08/10/2022 10:31 AM EST Narrative [facility] - 08/13/2022 11:15 PM EST FASTING:NO FASTING: NO Mike Gaffney MD LAB BLOOD ORDERABL ES Final Result [facility] [address] [facility], [place] [address] [facility] [place] [facility] [address] [facility], (Nl2) [place] [address] * CBC auto differential (08/10/2022 10:30 AM EST) White Blood Cell Count 7.2 3.8 - 10.8 Thousand/ uL [facility] [place] [facility] Red Blood Cell Count 4.22 4.20 - 5.80 Million/u L [facility] [place] [facility] Hemoglobin 13.4 13.2 - 17.1 g/dL [facility] [place] [facility] Hematocrit 39.8 38.5 - 50.0 % [facility] [place] [facility] MCV 94.3 80.0 - 100.0 fL [facility] [place] [facility] MCH 31.8 27.0 - 33.0 pg [facility] [place] [facility] MCHC 33.7 32.0 - 36.0 g/dL [facility] [place] [facility] RDW 12.5 11.0 - 15.0 % [facility] [place] [facility] Platelet Count 270 140 - 400 Thousand/ uL [facility] [place] [facility] MPV 9.9 7.5 - 12.5 fL [facility] [place] [facility] Absolute Neutrophils 3,679 1,500 - 7,800 cells/uL [facility] [place] [facility] Absolute Lymphocytes 2,498 850 - 3,900 cells/uL [facility] [place] [facility] Absolute Monocytes 612 200 - 950 cells/uL [facility] [place] [facility] Absolute Eosinophils 360 15 - 500 cells/uL [facility] [place] [facility] Absolute Basophils 50 0 - 200 cells/uL [facility] [place] [facility] Neutrophils 51.1 % [facility] [place] [facility] Lymphocytes 34.7 % [facility] [place] [facility] Monocytes 8.5 % [facility] [place] [facility] Eosinophils 5.0 % [facility] [place] [facility] Basophils 0.7 % [facility] [place] [facility] Blood Venous blood specimen / Unknown 08/10/2022 10:30 AM EST 08/10/2022 10:31 AM EST Narrative [facility] - 08/13/2022 11:15 PM EST FASTING:NO FASTING: NO us Mike Gaffney MD LAB BLOOD ORDERABL ES Final Result [employer] [facility] [address], [place] [address] [facility] [place] [facility] [address] [facility], (Nl2) [place] [address] documented in this encounter Visit Diagnoses Diagnosis Prostate cancer screening- Primary Special screening for malignant neoplasm of prostate Simple chronic bronchitis (CMS/HCC) Simple chronic bronchitis documented in this encounter Care Teams Crystal Slicer Relationship Specialty Start Date End Date Mike Arora MD [address] [place] [address] PCP - General Internal Medicine 07/09/19 documented as of this encounter
--- OUTSIDE RECORDS SUMMARY | 2024-10-30 06:06 | XMS_ITS | Encounter Summary ---
Author Organization [employer] Address [address] [facility] 7t [place] [address] Care Team Providers Care Cemetery Keeper Name Role Phone Mike Arora MD Primary Care Prov ider Reason for Visit * Reason Onset Date Comments Medication Question 07/13/2023 Encounter Details Date Type Department Care Team ([facility] Contact Info) Description 07/13/2023 Telephone [facility] CHC MED & PEDS [address] [place], [place] [phone] Mike Arora MD [address] [place] [address] Medication Question Social History Tobacco Use Types [...] results from PT. Please contact Pt @ [phone] documented in this encounter Plan of Treatment Upcoming Encounters Date Type Department Care Team (Late st Contact Info) Description 12/25/2024 9:30 AM EDT Telemedicine [facility] CHC MED & PEDS [address] [place] [address] Mike Arora MD [address] [place] [address] documented as of this encounter Visit Diagnoses Not on filedocumented in this encounter Additional Health Concerns Assessment Noted Time PHQ-9 Depression Total Score: 0 10/15/19 23 10:23 AM EDT documented as of this encounter Care Teams Cemetery Keeper Relationship Specialty Start Date End Date Mike Arora MD [address] [place] [address] PCP - General Internal Medicine 07/09/19 documented as of this encounter
--- OUTSIDE RECORDS SUMMARY | 2024-10-30 06:06 | XMS_ITS | Encounter Summary ---
Author Organization [employer] Address [address] [facility] 7t [place] [address] Care Team Providers Care Hand Button Splitter Name Role Phone Mike Arora MD Primary Care Prov ider Reason for Visit * Reason Onset Date Comments Med Refill 05/21/2024 Encounter Details Date Type Department Care Team (Late st Contact Info) Description 05/21/[address] [facility] MEDICINE [address] [place] [address] Mike Arora MD [address] [place] [address] Med Refill Social History Tobacco Use Types [...] 50 MG tablet To be sent to: [facility]/pharmacy #[id number] - [place] - [address] [place] [address] documented in this encounter Plan of Treatment Upcoming Encounters Date Type Department Care Team (Late st Contact Info) Description 12/25/2024 9:30 AM EDT Telemedicine [facility] MED & PEDS [address] [place] [address] Mike Arora MD [address] [place] [address] documented as of this encounter Visit Diagnoses Not on filedocumented in this encounter Additional Health Concerns Assessment Noted Time PHQ-9 Depression Total Score: 0 10/15/19 23 10:23 AM EDT documented as of this encounter Care Teams Hand Button Splitter Relationship Specialty Start Date End Date Mike Arora MD [address] [place] [address] PCP - General Internal Medicine 07/09/19 documented as of this encounter
--- OUTSIDE RECORDS SUMMARY | 2024-10-30 06:06 | XMS_ITS | Encounter Summary ---
Author Organization [employer] Address [address] [facility] 7t [place] [address] Care Team Providers Care Sales Donor Recruitment Representative Name Role Phone Mike Arora MD Primary Care Prov ider Reason for Visit * Reason Comments Med Refill Encounter Details Date Type Department Care Team ([facility] Contact Info) Description 06/10/2024 Refill [facility] CHC MED & PEDS [address] [place] [address] Mike Arora MD [address] [place] [address] Low back pain associated with a spinal [...] Info) Description 12/25/2024 9:30 AM EDT Telemedicine [facility] MED & PEDS [address] [place] [address] Mike Arora MD [address] [place] [address] documented as of this encounter Visit Diagnoses Diagnosis Low back pain associated with a spinal disorder other than radiculopathy or spinal stenosis documented in this encounter Additional Health Concerns Assessment Noted Time PHQ-9 Depression Total Score: 0 10/15/19 23 10:23 AM EDT documented as of this encounter Care Teams Sales Donor Recruitment Representative Relationship Specialty Start Date End Date Mike Arora MD [address] [place] [address] PCP - General Internal Medicine 07/09/19 documented as of this encounter
--- OUTSIDE RECORDS SUMMARY | 2024-10-30 06:06 | XMS_ITS | Encounter Summary ---
Author Organization [employer] Address [address] [facility] 7[place] [address] Care Team Providers Care Pick Remover Name Role Phone Mike Arora MD Primary Care Prov ider Reason for Visit * Reason Onset Date Comments call back 10/20/2022 Encounter Details Date Type Department Care Team ([facility] st Contact Info) Description 10/20/2022 Telephone [facility] MEDICINE [address] [place] [address] Mike Arora MD [address] [place] [address] call back Social History Tobacco Use Types [...] Per pt, he had it done at [facility]. No result found. Will f/u with [facility] diagnostic specialist to find out where pt had the CT done. * Telephone Encounter - Chantal Stuart RN - 10/20/2022 3:08 PM EDT Tc from pt requesting a call back regarding why pt has to do a US Abdomen. Please contact pt at [phone] Please clarify above message. Thanks * Telephone Encounter - Jose Howard - 10/20/2022 10:00 AM EDT Tc from pt requesting a call back regarding why pt has to do a US Abdomen. Please contact pt at [phone] documented in this encounter Plan of Treatment Upcoming Encounters Date Type Department Care Team (Late st Contact Info) Description 12/25/2024 9:30 AM EDT Telemedicine [facility] MED & PEDS [address] [place] [address] Mike Arora MD [address] [place] [address] documented as of this encounter Visit Diagnoses Not on filedocumented in this encounter Additional Health Concerns Assessment Noted Time PHQ-9 Depression Total Score: 0 10/15/19 23 10:23 AM EDT documented as of this encounter Care Teams Pick Remover Relationship Specialty Start Date End Date Mike Arora MD [address] [place] [address] PCP - General Internal Medicine 07/09/19 documented as of this encounter
--- OUTSIDE RECORDS SUMMARY | 2024-10-30 06:06 | XMS_ITS | Encounter Summary ---
Author Organization [employer] Address [address] [facility] 7t [place] [address] Care Team Providers Care Call Center Representative Name Role Phone Mike Arora MD Primary Care Prov ider Reason for Visit * Reason Comments Med Refill Encounter Details Date Type Department Care Team ([facility] Contact Info) Description 05/09/[address] [facility] CHC MED & PEDS [address] [place] [address] Mike Arora MD [address] [place] [address] Low back pain associated with a spinal [...] Info) Description 12/25/2024 9:30 AM EDT Telemedicine [facility] MED & PEDS [address] [place] [address] Mike Arora MD [address] [place] [address] documented as of this encounter Visit Diagnoses Diagnosis Low back pain associated with a spinal disorder other than radiculopathy or spinal stenosis documented in this encounter Additional Health Concerns Assessment Noted Time PHQ-9 Depression Total Score: 0 10/15/19 23 10:23 AM EDT documented as of this encounter Care Teams Call Center Representative Relationship Specialty Start Date End Date Mike Arora MD [address] [place] [address] PCP - General Internal Medicine 07/09/19 documented as of this encounter
== END 2024-10-30 06:04 | disposition home or self-care (01) ==
LOC: CF 06:03
PROVIDERS: Visit Provider Anesthesiology
DX: M16.11 Unilateral primary osteoarthritis, right hip (principal); M25.551 Pain in right hip; M53.3 Sacrococcygeal disorders, not elsewhere classified; M46.1 Sacroiliitis, not elsewhere classified
CPT/HCPCS: 20610; J2003; J2795; J3301; Q9967

== ENCOUNTER 2024-10-30 07:11 | Outpatient (AMB) | payer OTHER, SELFPAY ==
--- OUTSIDE RECORDS SUMMARY | 2024-10-30 07:12 | XMS_ITS | Encounter Summary ---
Author Organization [employer] Address [address] [facility] 7t [place] [address] Care Team Providers Care Cap Jewel Plate Assembler Name Role Phone Mike Arora MD Primary Care Prov ider Reason for Visit * Reason Onset Date Comments Med Refill 05/21/2024 Encounter Details Date Type Department Care Team (Late st Contact Info) Description 05/21/2024 Telephone [facility] MEDICINE [address] [place] [address] Mike Arora MD [address] [place] [address] Med Refill Social History Tobacco Use Types [...] 50 MG tablet To be sent to: [facility]/pharmacy #[id number] - [place] - [address] [place] [address] documented in this encounter Plan of Treatment Upcoming Encounters Date Type Department Care Team (Late st Contact Info) Description 12/25/2024 9:30 AM EDT Telemedicine [facility] MED & PEDS [address] [place] [address] Mike Arora MD [address] [place] [address] documented as of this encounter Visit Diagnoses Not on filedocumented in this encounter Additional Health Concerns Assessment Noted Time PHQ-9 Depression Total Score: 0 10/15/19 23 10:23 AM EDT documented as of this encounter Care Teams Cap Jewel Plate Assembler Relationship Specialty Start Date End Date Mike Arora MD [address] [place] [address] PCP - General Internal Medicine 07/09/19 documented as of this encounter
--- OUTSIDE RECORDS SUMMARY | 2024-10-30 07:12 | XMS_ITS | Encounter Summary ---
Author Organization [employer] Address [address] [facility] 7t [place] [address] Care Team Providers Care Clip Loading Machine Feeder Name Role Phone Mike Arora MD Primary Care Prov ider Reason for Visit * Reason Onset Date Comments Medication Question 07/13/2023 Encounter Details Date Type Department Care Team ([facility] Contact Info) Description 07/13/2023 Telephone [facility] CHC MED & PEDS [address] [place], [place] [phone] Mike Arora MD [address] [place] [address] Medication Question Social History Tobacco Use Types [...] results from PT. Please contact Pt @ [phone] documented in this encounter Plan of Treatment Upcoming Encounters Date Type Department Care Team (Late st Contact Info) Description 12/25/2024 9:30 AM EDT Telemedicine [facility] CHC MED & PEDS [address] [place] [address] Mike Arora MD [address] [place] [address] documented as of this encounter Visit Diagnoses Not on filedocumented in this encounter Additional Health Concerns Assessment Noted Time PHQ-9 Depression Total Score: 0 10/15/19 23 10:23 AM EDT documented as of this encounter Care Teams Clip Loading Machine Feeder Relationship Specialty Start Date End Date Mike Arora MD [address] [place] [address] PCP - General Internal Medicine 07/09/19 documented as of this encounter
--- OUTSIDE RECORDS SUMMARY | 2024-10-30 07:12 | XMS_ITS | Clinical Summary ---
Author Organization [facility] ity Address [address] [place] [address] Care Team Providers Care Vessel Slag Worker Name Role Phone Cheryl Fournier MD Primary [...] age to complete this topic Care Teams Vessel Slag Worker Relationship Specialty Start Date End Date Cheryl Fournier MD PCP - General Internal Medicine 09/09/16
--- OUTSIDE RECORDS SUMMARY | 2024-10-30 07:12 | XMS_ITS | Encounter Summary ---
Author Organization [employer] Address [address] [facility] 7[address] [place] [address] Care Team Providers Care Stroke Coordinator Name Role Phone Mike Arora MD Primary Care Prov ider Reason for Visit * Reason Comments Med Refill Encounter Details Date Type Department Care Team ([facility] Contact Info) Description 06/10/2024 Refill [facility] MED & PEDS [address] [place] [address] Mike Arora MD [address] [place] [address] Low back pain associated with a spinal [...] Info) Description 12/25/2024 9:30 AM EDT Telemedicine [facility] MED & PEDS [address] [place] [address] Mike Arora MD [address] [place] [address] documented as of this encounter Visit Diagnoses Diagnosis Low back pain associated with a spinal disorder other than radiculopathy or spinal stenosis documented in this encounter Additional Health Concerns Assessment Noted Time PHQ-9 Depression Total Score: 0 10/15/19 23 10:23 AM EDT documented as of this encounter Care Teams Stroke Coordinator Relationship Specialty Start Date End Date Mike Arora MD [address] [place] [address] PCP - General Internal Medicine 07/09/19 documented as of this encounter
--- OUTSIDE RECORDS SUMMARY | 2024-10-30 07:12 | XMS_ITS | Encounter Summary ---
Author Organization [employer] Address [address] [facility] 7[address] [place] [address] Care Team Providers Care Gaming Worker Name Role Phone Mike Arora MD Primary Care Prov ider Encounter Details Date Type Department Care Team (Late Contact Info) Description 08/10/2022 Orders Only [facility] MEDICINE [address] [place], [place] [phone] Mike rAora MD [address] [place], [place] [phone] Prostate cancer screening (Primary Dx); Simple chronic [...] Info) Description 12/25/2024 9:30 AM EDT Telemedicine [facility] CHC MED & PEDS [address] [place], [place] [phone] Mike Arora MD [address] [place], [place] [phone] Scheduled Orders Name Type Priority Associated Diagnoses [...] PCR <15 NOT DETECTED NOT DETECTED IU/mL [employer] [facility] HCV RNA QN Real Time PCR <1.18 NOT DETECTED NOT DETECTED Log IU/mL [employer] [facility] Comment: HCV RNA is not detected. ??There [...] a biological false positive result. (Always Message) [facility] Comment: This test was performed using Real-Time Polymerase Chain Reaction. Reportable Range: 15 IU/mL to 100,000,000 IU/mL (1.18 Log IU/mL to 8.00 Log IU/mL). The analytical performance characteristics of this assay have been determined by [employer]. The modifications have not been cleared or approved by the FDA. This assay has been validated pursuant to the CLIA regulations and is used for clinical purposes. ? For more information on this test, go to: http://education.BlackBridge/faq/CDO67z5 (This link is being provided for informational/ [...] Result [facility] [address] [facility], [facility], [place] [address] [employer] [facility] [address] [facility], ([address]) [place] [address] * PSA,Total (08/10/2022 10:30 AM EST) PSA, Total 0.35 < OR = 4.00 ng/mL [employer] [facility] Comment: The total PSA value from this assay system is standardized against the WHO standard. The test result will be approximately 20% lower when compared to the equimolar-standardized total PSA (Naty [place]). Comparison of serial PSA results should be [...] ORDERABL ES Final Result Performing Organization Address City/[facility] de Phone Number [facility] [address] [facility] [place] [address] [employer] [facility] [address] [facility], ([address]) [place] [address] * (ABNORMAL) Hemoglobin A1c with Calculated Mean Plasma Glucose (MPG) (08/10/2022 10:30 AM EST) Hemoglobin A1c 5.8(H) <5.7 % of total Hgb [employer] Comment: For someone without known diabetes, a [...] children. Mean Plasma Glucose 129 mg/dL (calc) [facility] 08/10/2022 10:3 0 AM EST 08/10/2022 10:31 AM EST Narrative [facility] - 08/13/2022 11:15 PM EST FASTING:NO FASTING: NO Mike Gaffney MD LAB BLOOD ORDERABL ES Final Result Performing Organization Address City/[facility]/ZIP Co de Phone Number [address], [place] [address] [employer] [place] [facility] [address] [place] [address], ([address]) [place] [address] * TSH W/Reflex to FT4 (08/10/2022 10:30 AM EST) TSH w/Reflex to FT4 2.75 0.40 - 4.50 mIU/L [employer] [facility] 08/10/2022 10:3 0 AM EST 08/10/2022 10:31 AM EST Narrative [facility] - 08/13/2022 11:15 PM EST FASTING:NO FASTING: NO Mike Gaffney MD LAB BLOOD ORDERABL ES Final Result Performing Organization Address [facility] de Phone Number [address], [place] [address] [employer] [place] [facility] [address] [place] [address], ([address]) [place] [address] * Lipid Panel, Standard (08/10/2022 10:30 AM EST) Cholesterol, Total 145 <200 mg/dL [employer] [facility] HDL Cholesterol 58 > OR = 40 mg/dL [employer] [facility] Triglycerides 50 <150 mg/dL [employer] [facility] LDL Cholesterol 75 mg/dL (calc) [employer] [facility] Comment: Reference range: <100 Desirable range <100 mg/dL for primary prevention; ?? <70 mg/dL for patients with CHD or diabetic patients with > or = 2 CHD risk factors. LDL-C is now calculated using the Morales calculation, which is a validated novel method providing better accuracy than the Friedewald equation in the estimation of LDL-C. Darrel MONDRAGON et al. DYLAN. 2013;310(19): 9663-0108 (http://education.Tuizzi/faq/GEA867) Chol/HDLC Ratio 2.5 <5.0 (calc) [employer] Non-HDL Cholesterol 87 <130 mg/dL (calc) [facility] Comment: For patients with diabetes plus 1 [...] ORDERABL ES Final Result Performing Organization Address [facility]/ZIP Co de Phone Number [address], [place] [address] [employer] [facility] [address] [place] [address], ([address]) [place] [address] * HIV-1 RNA, Quantitative, Real-Time PCR with Reflex to Genotype (RTI, PI, Integrase) (08/10/2022 10:30 AM EST) Pathologist [facility] HIV 1 RNA, QN PCR NOT DETECTED copies/mL [employer], HIV 1 RNA, QN PCR NOT DETECTED Log copies/mL [facility], Comment: REFERENCE RANGE: NOT DETECTED copies/mL ?NOT DETECTED ??Log copies/mL This test was performed using Real-Time Polymerase Chain Reaction. Reportable range is 20 to 10,000,000 copies/mL (1.30-7.00 Log copies/mL). 08/10/2022 10:3 0 AM EST 08/10/2022 10:31 AM EST Narrative [facility] - 08/13/2022 11:15 PM EST FASTING:NO FASTING: NO Mike Gaffney MD LAB BLOOD ORDERABL ES Final Result Performing Organization Address [facility] Co de Phone Number [address], [place] [address] [employer]/[facility], [address] [place] [address] * (ABNORMAL) Hepatitis C Antibody with Reflex to HCV, RNA, Quantitative, Real- Time PCR (08/10/2022 10:30 AM EST) Pathologist [facility] Hepatitis C Antibody REACTIVE( A) NON-REACT BIANCA [employer] [facility] Index >11.00(H) <1.00 [employer] [facility] Comment: Based on this result, the [...] MD LAB BLOOD ORDERABL ES Final Result [address], [place] [address] [employer] [facility] [address] [facility], ([address]l2) [place] [address] * Hepatic Function Panel (08/10/2022 10:30 AM EST) [facility] Protein, Total 7.1 6.1 - 8.1 g/dL [employer] [facility] Albumin 4.7 3.6 - 5.1 g/dL [employer] [facility] Globulin 2.4 1.9 - 3.7 g/dL (calc) [employer] [facility] Albumin/Globulin Ratio 2.0 1.0 - 2.5 (calc) [employer] [place] [facility] Bilirubin, Total 0.7 0.2 - 1.2 mg/dL [employer] [facility] [place] [facility] Bilirubin, Direct 0.2 < OR = 0.2 mg/dL [employer] [place] [facility] Bilirubin, Indirect 0.5 0.2 - 1.2 mg/dL (calc) [employer] [facility] Alkaline Phosphatase 35 35 - 144 U/L [facility] AST 17 10 - 35 U/L [facility] ALT 16 9 - 46 U/L [employer] [facility] Blood Venous blood specimen / Unknown 08/10/2022 10:30 AM EST 08/10/2022 10:31 AM EST Narrative [facility] - 08/13/2022 11:15 PM EST FASTING:NO FASTING: NO Mike Gaffney MD LAB BLOOD ORDERABL ES Final Result [facility] [address] [place] [address] [employer] [place] [facility] [address] [facility], ([address]) [place] [address] * Basic Metabolic Panel (08/10/2022 10:30 AM EST) Glucose 90 65 - 139 mg/dL [employer] [place] [facility] Comment: ? Non-fasting reference interval Urea Nitrogen (BUN) 25 7 - 25 mg/dL [employer] [facility] [place] [facility] Creatinine, Serum 0.71 0.70 - 1.35 mg/dL [employer] [place] [facility] eGFR 105 > OR = 60 mL/min/1 .73m2 [employer] [facility] Comment: The eGFR is based on the CKD-EPI 2020 equation. To calculate the new eGFR from a previous Creatinine or Cystatin C result, go to https://www.kidney.org/professionals/ kdoqi/gfr%5Fcalculator BUN/Creatinine Ratio NOT APPLICABLE 6 - 22 (calc) [employer] [facility] Sodium 136 135 - 146 mmol/L [employer] [facility] Potassium 4.4 3.5 - 5.3 mmol/L [facility] Chloride 101 98 - 110 mmol/L [employer] [facility] Carbon Dioxide 26 20 - 32 mmol/L [employer] [facility] Calcium 9.6 8.6 - 10.3 mg/dL [employer] [place] [facility] Blood Venous blood specimen / Unknown 08/10/2022 10:30 AM EST 08/10/2022 10:31 AM EST Narrative [facility] - 08/13/2022 11:15 PM EST FASTING:NO FASTING: NO Mike Gaffney MD LAB BLOOD ORDERABL ES Final Result [facility] [address] [facility] [place] [address] [employer] [facility] [address] [facility], ([address]) [place] [address] * CBC auto differential (08/10/2022 10:30 AM EST) White Blood Cell Count 7.2 3.8 - 10.8 Thousand/ uL [facility] Red Blood Cell Count 4.22 4.20 - 5.80 Million/u L [facility] Hemoglobin 13.4 13.2 - 17.1 g/dL [facility] Hematocrit 39.8 38.5 - 50.0 % [facility] MCV 94.3 80.0 - 100.0 fL [facility] MCH 31.8 27.0 - 33.0 pg [facility] MCHC 33.7 32.0 - 36.0 g/dL [facility] RDW 12.5 11.0 - 15.0 % [facility] Platelet Count 270 140 - 400 Thousand/ uL [facility] MPV 9.9 7.5 - 12.5 fL [facility] Absolute Neutrophils 3,679 1,500 - 7,800 cells/uL [facility] Absolute Lymphocytes 2,498 850 - 3,900 cells/uL [facility] Absolute Monocytes 612 200 - 950 cells/uL [facility] Absolute Eosinophils 360 15 - 500 cells/uL [facility] Absolute Basophils 50 0 - 200 cells/uL [facility] Neutrophils 51.1 % [facility] Lymphocytes 34.7 % [facility] Monocytes 8.5 % [facility] Eosinophils 5.0 % [facility] Basophils 0.7 % [facility] Blood Venous blood specimen / Unknown 08/10/2022 10:30 AM EST 08/10/2022 10:31 AM EST Narrative [facility] - 08/13/2022 11:15 PM EST FASTING:NO FASTING: NO us Mike Gaffney MD LAB BLOOD ORDERABL ES Final Result [employer] [address], [place] [address] [employer] [facility] [address] [facility], ([address]) [place] [address] documented in this encounter Visit Diagnoses Diagnosis Prostate cancer screening- Primary Special screening for malignant neoplasm of prostate Simple chronic bronchitis (CMS/HCC) Simple chronic bronchitis documented in this encounter Care Teams Gaming Worker Relationship Specialty Start Date End Date Mike Arora MD [address] [place] [address] PCP - General Internal Medicine 07/09/19 documented as of this encounter
--- OUTSIDE RECORDS SUMMARY | 2024-10-30 07:12 | XMS_ITS | Encounter Summary ---
Author Organization [employer] Address [address] [facility] 7t [place] [address] Care Team Providers Care Normalizer Name Role Phone Mike Arora MD Primary Care Prov ider Reason for Visit * Reason Comments Med Refill Encounter Details Date Type Department Care Team ([facility] Contact Info) Description 05/09/2024 Refill [facility] CH[facility] MED & PEDS [address] [place] [address] Mike Arora MD [address] [place] [address] Low back pain associated with a spinal [...] Info) Description 12/25/2024 9:30 AM EDT Telemedicine [facility] MED & PEDS [address] [place] [address] Mike Arora MD [address] [place] [address] documented as of this encounter Visit Diagnoses Diagnosis Low back pain associated with a spinal disorder other than radiculopathy or spinal stenosis documented in this encounter Additional Health Concerns Assessment Noted Time PHQ-9 Depression Total Score: 0 10/15/19 23 10:23 AM EDT documented as of this encounter Care Teams Normalizer Relationship Specialty Start Date End Date Mike Arora MD [address] [place] [address] PCP - General Internal Medicine 07/09/19 documented as of this encounter
--- OUTSIDE RECORDS SUMMARY | 2024-10-30 07:12 | XMS_ITS | Encounter Summary ---
Author Organization [employer] Address [address] [facility] [address] [place] [address] Care Team Providers Care Automatic Typewriter Inspector Name Role Phone Mike Arora MD Primary Care Prov ider Reason for Visit * Reason Onset Date Comments call back 10/20/2022 Encounter Details Date Type Department Care Team ([facility] st Contact Info) Description 10/20/[address] [facility] MEDICINE [address] [place] [address] Mike Arora MD [address] [place] [address] call back Social History Tobacco Use Types [...] Per pt, he had it done at [facility]. No result found. Will f/u with [facility] diagnostic specialist to find out where pt had the CT done. * Telephone Encounter - Chantal Stuart RN - 10/20/2022 3:08 PM EDT Tc from pt requesting a call back regarding why pt has to do a US Abdomen. Please contact pt at [phone] Please clarify above message. Thanks * Telephone Encounter - Jose Howard - 10/20/2022 10:00 AM EDT Tc from pt requesting a call back regarding why pt has to do a US Abdomen. Please contact pt at [phone] documented in this encounter Plan of Treatment Upcoming Encounters Date Type Department Care Team (Late st Contact Info) Description 12/25/2024 9:30 AM EDT Telemedicine [facility] MED & PEDS [address] [place] [address] Mike Arora MD [address] [place] [address] documented as of this encounter Visit Diagnoses Not on filedocumented in this encounter Additional Health Concerns Assessment Noted Time PHQ-9 Depression Total Score: 0 10/15/19 23 10:23 AM EDT documented as of this encounter Care Teams Automatic Typewriter Inspector Relationship Specialty Start Date End Date Mike Arora MD [address] [place] [address] PCP - General Internal Medicine 07/09/19 documented as of this encounter
[2024-10-30 07:19] VITALS: BP 128/68; PULSE 75; RESP 16; O2SAT 95
--- NOTE | 2024-10-30 07:19 | MHC.OFFVIS ---
Vital Signs 10/30/24 07:19 10/30/24 07:44 BP 128/68 130/72 Blood Pressure Location Lt brachial Lt brachial Position Sitting Sitting Respiration 16 16 Pulse 75 72 Pulse Source Pulse Oximeter Pulse Oximeter Pulse Oximetry (%) 95 95 Oxygen Delivery Method Room Air Room Air Intake Visit Reasons: RT INTRA-ARTICULAR HIP INJECTION/ATIVAN REQUESTED Floor Sander Required: No Allergies No Known Allergies Allergy (Verified 10/30/24 07:19) Medication List - Last Reconciled 10/30/24 by Jesica Donato LPN albuterol sulfate 90 mcg/actuation 2 puffs PO Q4-6H PRN fluticasone propion-salmeterol 250-50 mcg/dose (Wixela Inhub) 1 ea inhalation QAM gabapentin mg PO 3XD lorazepam (Ativan) 1 mg PO ONCE meloxicam 15 mg PO DAILY pantoprazole 40 mg PO DAILY sildenafil mg PO tiotropium bromide 1 cap inhalation DAILY PFSH Medical History Back pain Arthritis Nicotine dependence, cigarettes, uncomplicated Right knee DJD Lumbar spinal stenosis Right lumbar radiculopathy Porphyrin disorder Tubular adenoma of colon (~2020) History of peptic ulcer (~2001) Difficult intravenous access History of chronic pain COPD (chronic obstructive pulmonary disease) Hepatitis C Surgical History History of hand surgery (~2020) History of colonoscopy (~2020) History of esophagogastroduodenoscopy (EGD) (~2001) Family History Mother Emphysema lung Cancer Social History Household Members Other:: room mate Are you a primary healthcare applications analyst to a significant other at home: No Do you presently have visiting nurse or other home services: No Alcohol intake: former Year quit: 2019 Patient Tobacco Use Status: Current everyday Tobacco user Tobacco use type: Cigarette Cigarettes Per Day: 7 Years Smoked: 55 Substance Use Type: Amphetamines, Crack/Cocaine, Former Substance User, Hallucinogens, IV Drugs, Marijuana and Opiates Current occupational status: employed 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 Physical Exam Vital Signs: Last Vital Signs Pulse 72 10/30/24 07:44 Resp 16 10/30/24 07:44 BP 130/72 10/30/24 07:44 Pulse Ox 95 10/30/24 07:44 Oxygen Delivery Method Room Air 10/30/24 07:44 Assessment & Plan Assessment & Plan (1) Right hip pain: Code(s): M25.551 - Pain in right hip Category: Medical (2) Osteoarthritis of right hip: Code(s): M16.11 - Unilateral primary osteoarthritis, right hip Category: Medical (3) Pain of right sacroiliac joint: Code(s): M53.3 - Sacrococcygeal disorders, not elsewhere classified Category: Medical (4) Sacroiliitis: Code(s): M46.1 - Sacroiliitis, not elsewhere classified Category: Medical Plan Right intra-articular hip steroid injection. Patient came to the operating room after informed consent was thoroughly explained to the patient. He was positioned on the left lateral decubitus position on the operating table with the right hip area exposed. Time-out was performed delineating name and date of of the patient, nature of the procedure side and site of the procedure. The patient is nondependent right hip was prepped with ChloraPrep and draped with sterile utility towels. C-arm was brought over the operating field and picture of the right hip joint was demonstrated on the screen. In the projection of the right trochanter 5 mm above the most superior point of right trochanter projection to the skin injection of the local anesthetic mixture of lidocaine 2% and ropivacaine 0.5% was performed forming a skin wheal. After that 22 gauge 5 in needle was inserted through the skin wheal and advanced toward the joint under the anterior posterior and lateral views intermittently. When the tip of the needle entered the silhouette of the joint injection of the contrast was performed demonstrating arthrogram. After that 4 cc of ropivacaine 0.5% mixed with Kenalog 40 mg was performed into the joint. The needle was removed sterile Band-Aid was applied. Patient tolerated procedure well. Orders: Orders FL guidance in treatment room Today M16.11 - Unilateral primary osteoarthritis, right hip Medications: New lorazepam (Ativan) Take 30 minutes prior to arrival to procedure 1 mg PO ONCE 1 tab 0RF anxiety Coding Level of Care Code Procedure Only Diagnoses Right hip pain M25.551 Osteoarthritis of right hip M16.11 Pain of right sacroiliac joint M53.3 Sacroiliitis M46.1
[2024-10-30 07:44] VITALS: BP 130/72; PULSE 72; RESP 16; O2SAT 95
== END 2024-10-30 07:44 | disposition home or self-care (01) ==
LOC: HO.PMCPRC 07:11
PROVIDERS: PCP Internal Medicine; Visit Provider Anesthesiology
DX: M25.551 Pain in right hip (principal); M16.11 Unilateral primary osteoarthritis, right hip; M53.3 Sacrococcygeal disorders, not elsewhere classified; M46.1 Sacroiliitis, not elsewhere classified
CPT/HCPCS: 20610; 77002

== ENCOUNTER 2024-11-21 08:51 | Outpatient (AMB) | payer MEDICAID, SELFPAY ==
--- NOTE | 2024-11-21 08:55 | MHC.OFFVIS ---
Vital Signs 11/21/24 08:56 Weight 181 lb 8 oz BP 160/92 H Blood Pressure Location Lt brachial Position Sitting Pulse 68 Pulse Oximetry (%) 97 Intake Visit Reasons: RIGHT INTRA-ARTICULAR HIP INJECTION Allergies No Known Allergies Allergy (Verified 10/30/24 07:19) Medication List - Last Reconciled 11/21/24 by Jesica Donato LPN albuterol sulfate 90 mcg/actuation 2 puffs PO Q4-6H PRN fluticasone propion-salmeterol 250-50 mcg/dose (Wixela Inhub) 1 ea inhalation QAM gabapentin mg PO 3XD meloxicam 15 mg PO DAILY pantoprazole 40 mg PO DAILY sildenafil mg PO tiotropium bromide 1 cap inhalation DAILY HPI Comments Details: The patient is a 64-year-old male presenting for follow-up 3 weeks status post right intra-articular hip injection. Reports he received 70% pain relief for only a few days after the procedure. He reports a history of chronic low back pain which has been significantly affecting his daily activities. The pain has been exacerbated by prolonged walking and standing, often required during work, with discomfort particularly noticeable after extended work periods.The current pain is focused around the lower back, centering on the right sacroiliac joint, and is painful during extended periods of standing and walking. He also reports difficulty climbing stairs, which further aggravates the pain. Previous interventions have included surgery, follow-ups, and injections, providing only temporary relief. Since surgery, he reports the leg numbness has improved, and no longer experiences radicular symptoms. Current medications include meloxicam and gabapentin, with gabapentin administered at 600 mg, three times a day. He feels that these medications, in addition to past therapeutic injections, have not sufficiently managed his pain. The patient noted that his condition improved temporarily with steroid injections and post-surgical interventions, but the positive effects were transient. - Onset and Timing: Persistent, worsened with prolonged walking and standing. - Quality and Character: Persistent low back pain, aggravated by walking and standing. - Primary Location: Lower back and sacroiliac joint. - Areas of Radiation: No longer radiates to the legs; prior leg numbness resolved post-surgery. - Exacerbating Factors: Prolonged walking, standing, stairs. - Relieving Factors: Rest, laying back in a reclined position seems to provide some temporary relief. - Functional Interference: Difficulty walking at the end of the day; walking and standing at work significantly exacerbate the pain. - Onset and Timing: Persistent, worsened with prolonged walking and standing. - Quality and Character: Persistent low back pain, aggravated by walking and standing. - Primary Location: Lower back and sacroiliac joint. - Areas of Radiation: No longer radiates to the legs; prior leg numbness resolved post-surgery. - Exacerbating Factors: Prolonged walking, standing, stairs. - Relieving Factors: Rest, laying back in a reclined position seems to provide some temporary relief. - Functional Interference: Difficulty walking at the end of the day; walking and standing at work significantly exacerbate the pain. [facility] Medical History Back pain Arthritis Nicotine dependence, cigarettes, uncomplicated Right knee DJD Lumbar spinal stenosis Right lumbar radiculopathy Porphyrin disorder Tubular adenoma of colon (~2020) History of peptic ulcer (~2001) Difficult intravenous access History of chronic pain COPD (chronic obstructive pulmonary disease) Hepatitis C Surgical History History of hand surgery (~2020) History of colonoscopy (~2020) History of esophagogastroduodenoscopy (EGD) (~2001) Family History Mother Emphysema lung Cancer Social History Household Members Other:: room mate Are you a primary dog day care attendant to a significant other at home: No Do you presently have visiting nurse or other home services: No Alcohol intake: former Year quit: 2019 Patient Tobacco Use Status: Current everyday Tobacco user Tobacco use type: Cigarette Cigarettes Per Day: 7 Years Smoked: 55 Substance Use Type: Amphetamines, Crack/Cocaine, Former Substance User, Hallucinogens, IV Drugs, Marijuana and Opiates Current occupational status: employed 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 - Neurological: Denies current radicular symptoms; reports resolved leg numbness post-surgery. - General: Reports significant impact on mobility and work-related activities. Physical Exam Vital Signs: Last Vital Signs Pulse 68 11/21/24 08:56 BP 160/92 H 11/21/24 08:56 Pulse Ox 97 11/21/24 08:56 General: awake, alert, oriented. Answers questions appropriately. Fully engaged in examination. Skin: warm, dry, intact HEENT: Normocephalic. Hearing intact. Cardiac: External chest normal in appearance. Respiratory: No cough, audible wheezing or stridor. Abdomen: without gross distension. MS: No obvious swelling or deformities. Able to transition from sit to stand unassisted. Ambulates with bilaterally normal heel strike and toe off Negative footdrop, negative clonus SLR negative bilaterally Right PSIS: Tenderness to palpation. [place], thigh thrust, SI compression positive Decreased lumbar range of motion Tenderness over midline lumbar vertebrae and lumbar paraspinal muscles No pain with internal/external rotation of the right hip Neurological: Oriented to person, place, time and situation. Thought process intact. No gait abnormalities appreciated. Psychiatric: Appropriate mood and affect. Good judgment and insight. Results Reviewed Results Reviewed: XR PELVIS 08/21/24 CLINICAL INFORMATION: M25.559 - Pain in unspecified hip COMPARISON: Correlated to right hip x-ray dated September 21, 2023. TECHNIQUE: AP view of the pelvis. FINDINGS: Bony pelvis is intact. No acute cortical disruption. There is sclerosis and the articular surface of the right and left acetabulum. Multilevel marginal osteophyte formation and syndesmophyte formation at L3-4 L4-5 and L5-S1 level. No lytic or blastic lesions. IMPRESSION: No acute fracture, bony pelvis. Mild osteoarthrosis both hips. Multilevel lower lumbar spondylosis. XR HIP, RIGHT 09/21/23 CLINICAL INFORMATION: Pain in right hip. COMPARISON: None available. TECHNIQUE: Two views of the right hip. FINDINGS: Advanced degenerative changes in the imaged lower lumbar spine. Degenerative changes on limited views of the right sacroiliac joint. Mild degenerative changes in the right hip with joint space narrowing and hypertrophic change. Alignment preserved. IMPRESSION: 1. Mild degenerative changes in the right hip. 2. Advanced degenerative changes in the lower lumbar spine. 3. Degenerative changes on limited views of the right sacroiliac joint. Assessment & Plan Assessment & Plan (1) Right hip pain: Code(s): M25.551 - Pain in right hip Category: Medical (2) Osteoarthritis of right hip: Code(s): M16.11 - Unilateral primary osteoarthritis, right hip Category: Medical (3) Pain of right sacroiliac joint: Code(s): M53.3 - Sacrococcygeal disorders, not elsewhere classified Category: Medical (4) Sacroiliitis: Code(s): M46.1 - Sacroiliitis, not elsewhere classified Category: Medical Plan To address the chronic low back pain with suspected sacroiliac joint dysfunction, I have proposed a management plan that includes the introduction of a muscle relaxant to alleviate muscle soreness and tension. Diagnostic sacroiliac joint injection has been recommended to evaluate its effectiveness in offering pain relief. Based on the outcome, further interventions such as therapeutic injection might be considered if the injections confirm the joint as a significant pain source. Current medications, meloxicam and gabapentin, will continue to be utilized despite their inadequate results. This comprehensive strategy aims to alleviate pain while considering the demand of the patient?s work activities. I have explained to the patient that, based on his description of symptoms and past relief with injections, the sacroiliac joint is the likely pain generator. We discussed the value of diagnostic injections to confirm this and assess for potential procedures that could provide relief, such as therapeutic injection if diagnostic relief is noted. I explained the potential benefits of muscle relaxants for reducing muscle tension and potential soreness contributing to his pain. I informed the patient that muscle relaxants may cause sedation and advised caution if taken during work hours. Options for pain control and a continued course of current medications were reviewed, focusing on optimizing analgesic management without compromising his daily functioning or work capability. Future diagnostics and intervention plans were contingent upon current management outcomes. Will schedule for fluoroscopy guided diagnostic right sacroiliac joint injection with local anesthetic Patient was informed and verbally consented to the use of an ambient scribe for clinic note documentation during this visit. Medications: New tizanidine No driving while taking this medication. May cause drowsiness. Do not take with alcohol or other [employer]ORAT[employer] VETERIN[employer]IAN Depressants. 2 mg PO TID PRN 90 tabs 1RF muscle spasticity Patient Instructions: - Continue taking meloxicam and gabapentin as prescribed. - Start muscle relaxant at bedtime to assess for any sedation effects. - Record pain levels and functional ability in a pain diary. - Avoid alcohol when taking muscle relaxants. - Follow up for sacroiliac diagnostic injection approval and scheduling. - If pain becomes intolerable or presents with new symptoms, contact the office promptly. Coding Level of Care Code Est Pt Level 3 (08373) Complex EM visit Add On G2211 Diagnoses Right hip pain M25.551 Osteoarthritis of right hip M16.11 Pain of right sacroiliac joint M53.3 Sacroiliitis M46.1
[2024-11-21 08:56] VITALS: BP 160/92; PULSE 68; O2SAT 97
--- OUTSIDE RECORDS SUMMARY | 2024-11-21 10:07 | XMS_ITS | Encounter Summary ---
Author Organization [employer] Address [address] [place] [address] Care Team Providers Care Medication Technician Name Role Phone Mike Arora MD Primary Care Prov ider Reason for Visit * Reason Comments Med Refill Encounter Details Date Type Department Care Team ([facility] Contact Info) Description 11/15/[address] [facility] MED & PEDS [address] [place] [address] Mike Arora MD [address] [place] [address] Low back pain associated with a spinal [...] 12/25/2024 9:30 AM EDT Telemedicine [facility] MED & PEDS [address] [place] [address] Mike Arora MD [address] [place] [address] documented as of this encounter Visit Diagnoses Diagnosis Low back pain associated with a spinal disorder other than radiculopathy or spinal stenosis documented in this encounter Additional Health Concerns Assessment Noted Time PHQ-9 Depression Total Score: 0 10/15/19 23 10:23 AM EDT documented as of this encounter Care Teams Medication Technician Relationship Specialty Start Date End Date Mike Arora MD [address] [place] [address] PCP - General Internal Medicine 07/09/19 documented as of this encounter
--- OUTSIDE RECORDS SUMMARY | 2024-11-21 10:07 | XMS_ITS | Clinical Summary ---
Author Organization [employer] Address [address] [place] [address] Care Team Providers Care Applications Sales Consultant Name Role Phone Mike Arora MD Primary Care Prov ider Allergies No known active allergies Medications Emollient (CeraVe Moisturizing) cream apply to dry skin BID 08/11/19 21 Active ledipasvir-sofos buvir (Harvoni) 90-400 MG tablet tablet take 1 [...] albuterol (ProAir HFA) 108 (90 Base) MCG/ACT inhalerIndicatio ns:Chronic obstructive pulmonary disease, unspecified COPD type (CMS/HCC) Inhale 2 puffs every 4 (four) hours. 18 g 3 12/07/19 23 Active Wixela Inhub 250-50 MCG/ACT aerosol powderIndication s:Chronic obstructive pulmonary disease, unspecified COPD type (CMS/HCC) INHALE 1 PUFF INTO THE LUNGS IN THE MORNING 60 each 3 05/25/20 24 Active traMADol (Ultram) 50 MG tabletIndication s:Low back pain associated with a spinal disorder other than radiculopathy or spinal stenosis Take 1 tablet (50 mg) by mouth every 6 (six) hours if needed for severe pain. 30 tablet 06/11/20 24 Active traMADol (Ultram) 50 MG tabletIndication s:Low back pain associated with a spinal disorder other than radiculopathy or spinal stenosis Take 1 tablet (50 mg) by mouth every 6 (six) hours if needed for severe pain. 30 tablet 06/11/20 24 Active gabapentin (Neurontin) 600 MG tablet TAKE 1 TABLET BY MOUTH 3 TIMES DAILY. 90 tablet 5 08/14/19 25 Active Spiriva HandiHaler 18 MCG inhalation capsule INHALE 1 CAPSULE VIA HANDIHALER ONCE DAILY AT THE SAME TIME EVERY DAY IN THE MORNING 30 capsule 11 10/25/19 25 Active meloxicam (Mobic) 15 MG tabletIndication s:Low back pain associated with a spinal disorder other than radiculopathy or spinal stenosis TAKE 1 TABLET BY MOUTH EVERY DAY 30 tablet 2 11/17/19 25 Active sildenafil (Viagra) 50 MG tablet TAKE 1 TABLET (50 MG) BY MOUTH DAILY NEEDED FOR ERECTILE DYSFUNCTION 30 tablet 2 11/20/19 25 Active tiotropium (Spiriva HandiHaler) [address] 1 capsule (18 mcg) into inhaler and inhale in the morning. 30 capsule 11 09/30/19 24 2024 Discontinued sildenafil (Viagra) 50 MG tablet Take 1 tablet (50 mg) by mouth if needed each day for erectile dysfunction. 30 tablet 3 11/16/19 24 2024 Discontinued meloxicam (Mobic) 15 MG tabletIndication s:Low back pain associated with a spinal disorder other than radiculopathy or spinal stenosis TAKE 1 TABLET BY MOUTH EVERY DAY 30 tablet 2 08/14/19 25 2024 Discontinued Active Problems Problem Noted Date Diagnosed Date Right hip pain 09/24/2024 Assessment & Plan (09/24/2024 10:20 AM EDT): Followed by ortho, he received a steroid injection 1 month ago, has reevaluation in 1 month, will follow up reccomendations Cervical pain (neck) 11/16/2023 Assessment & Plan (11/16/2023 2:43 PM EDT): Followed by neurosurgery, he is undergoing steroid injection, may need surgery in the future due to stenosis and symptoms as told by specialist Low back pain associated wit h a spinal disorder other than radiculopathy or spinal stenosis 06/02/2023 Assessment & Plan (09/24/2024 10:14 AM EDT): Patient underwent surgery on June 2024, symptoms improved, no neurological deficit reported, follow up as needed Assessment & Plan (05/04/2024 2:57 PM EDT): Will send rx for prednisone and tramadol for 10 days, resume nsaids after prednisone finished, followed by back specialist, refers possibly he will undergo procedure on may Assessment & Plan (03/16/2024 10:00 AM EDT): Will place referral to pain management in [place], patient has tried Pt previously without improvement [...] in his left cheek, 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 At this moment will refer to [facility] Derm clinic. Chronic obstructive pulmonary disease 06/21/2022 Overview (06/21/2022): Prophylactic chest xray ordered due to COPD exacerbation. Fluticasone/salmeterol ordered for COPD management Assessment & Plan (09/24/2024 10:14 AM EDT): Stable, no recent er visit due to exacerbation, continue current treatment Assessment & Plan (03/16/2024 9:58 AM EDT): [...] Encounters Date Type Department Care Team Description 11/16/2024 Refill [facility] MED & PEDS [address] [place] [address] Mike Arora MD 11/15/2024 Refill [facility] MED & PEDS [address] [place] [address] Mike Arora MD Low back pain associated with a spinal disorder other than radiculopathy or spinal stenosis 10/22/2024 Refill [facility] MED & PEDS [address] [place] [address] Leeanna Reyes MD 09/24/2024 8:30 AM EDT Telemedicine [facility] MED & PEDS [address] [place] [address] Mike Arora MD Panlobular emphysema (CMS/HCC) (Primary Dx); Low back pain associated with a spinal disorder other than radiculopathy or spinal stenosis; Right hip pain 09/21/2024 Telephone [facility] MED & PEDS [address] [place] [address] Mike Arora MD Chart Prep from Last 3 Months Immunizations Immunization Administration Dates Next Due Influenza injectable quadrivalent [...] 03/16/2024 9:30 AM EDT Plan of Treatment Upcoming Encounters Date Type Department Care Team (Late st Contact Info) Description 12/25/2024 9:[address] [facility] CHC MED & PEDS [address] [place] [address] Mike Arora MD [address] [place] [address] Health Maintenance Due Date Last Done Comments CT Colonography 1962 FIT DNA/Cologuard 1962 FIT 1962 FOBT 1962 Sigmoidoscopy 1962 Disability Screening 1962 Alcohol/Substance Use Screening 1974 Hepatitis A [...] 8:16 AM EDT) Triglycerides 94 <150 mg/dL [facility] Comment:Desirable Triglyceri de: less than 150 mg/dLBorderline High Triglyceride 150-199 mg/dLHigh Triglyceride: 200-499 mg/dLVery High Triglyceride: greater than or equal to 5OO mg/dL Cholesterol 144 <200 mg/dL [facility] Comment:Desirable Cholestero l: less than 200 mg/dLBorderline High Cholesterol: 200-239 mg/dLHigh Cholesterol: greater than 239 mg/dL LDL Cholesterol Calculated 65 <100 mg/dL [facility] Comment:Desirable LDL: less than 100 mg/dLNear Optimal/Above Optimal LDL: 110- 129 mg/dLBorderline High LDL: 130-159 mg/dLHigh LDL: 160-189 mg/dLVery High LDL: greater than or equal to 190 mg/dL HDL Cholesterol 61 >40 mg/dL [facility] Comment:Desirable HDL: great er than 40 mg/dL Note: This HDL assay may give artificially low results in patients with liver disease. Blood Venous blood specimen / Unknown 03/19/2024 8:16 AM EDT 03/19/2024 2:23 PM EDT us Mike Gaffney MD LAB BLOOD ORDERABL ES Final Result [facility] [address] [place] [address] [phone] * HIV-1 RNA, Quantitative, Real-Time PCR with Reflex to Genotype (RTI, PI, Integrase) (08/10/2022 10:30 AM EST) HIV 1 RNA, QN PCR NOT DETECTED copies/mL [facility], HIV 1 RNA, QN PCR NOT DETECTED Log copies/mL [facility], Comment: REFERENCE RANGE: NOT DETECTED copies/mL ?NOT DETECTED ??Log copies/mL This test was performed using Real-Time Polymerase Chain Reaction. Reportable range is 20 to 10,000,000 copies/mL (1.30-7.00 Log copies/mL). 08/10/2022 10:3 0 AM EST 08/10/2022 10:31 AM EST Narrative [facility] - 08/13/2022 11:15 PM EST FASTING:NO FASTING: NO Mike Gaffney MD LAB BLOOD ORDERABL ES Final Result [facility] [address], [place] [address] [facility], [address] [place] [address] * Colonoscopy (11/04/2020) Pathologist [facility] Colonoscopy PERFORMED Historical Provider HEALTH MAINTENANCE Edited Result - Final from Last 3 Months or Most Recently Relevant to Health Maintenance Insurance [facility] Care Teams Applications Sales Consultant Relationship Specialty Start Date End Date LealMike Gonzalez MD [address] [place] [address] [place] [address] PCP - General Internal Medicine 07/09/19
--- OUTSIDE RECORDS SUMMARY | 2024-11-21 10:07 | XMS_ITS | Encounter Summary ---
Author Organization [employer] Address [address] [facility] [place] [address] Care Team Providers Care Dry Cell Sealer Name Role Phone Mike Arora MD Primary Care Prov ider Reason for Visit * Reason Comments Med Refill Encounter Details Date Type Department Care Team ([facility] Contact Info) Description 06/10/2024 Refill [facility] CH[facility] MED & PEDS [address] [place] [address] Mike Arora MD [address] [place] [address] Low back pain associated with a spinal [...] Info) Description 12/25/2024 9:30 AM EDT Telemedicine [facility] MED & PEDS [address] [place] [address] Mike Arora MD [address] [place] [address] documented as of this encounter Visit Diagnoses Diagnosis Low back pain associated with a spinal disorder other than radiculopathy or spinal stenosis documented in this encounter Additional Health Concerns Assessment Noted Time PHQ-9 Depression Total Score: 0 10/15/19 23 10:23 AM EDT documented as of this encounter Care Teams Dry Cell Sealer Relationship Specialty Start Date End Date Mike Arora MD [address] [place] [address] PCP - General Internal Medicine 07/09/19 documented as of this encounter
--- OUTSIDE RECORDS SUMMARY | 2024-11-21 10:07 | XMS_ITS | Encounter Summary ---
Author Organization [employer] Address [address] [facility] [address] [place] [address] Care Team Providers Care Recording Clerk Name Role Phone Mike Arora MD Primary Care Prov ider Reason for Visit * Reason Comments Med Refill Encounter Details Date Type Department Care Team ([facility] Contact Info) Description 05/09/2024 Refill [facility] CHC MED & PEDS [address] [place] [address] Mike Arora MD [address] [place] [address] Low back pain associated with a spinal [...] Info) Description 12/25/2024 9:30 AM EDT Telemedicine [facility] MED & PEDS [address] [place] [address] Mike Arora MD [address] [place] [address] documented as of this encounter Visit Diagnoses Diagnosis Low back pain associated with a spinal disorder other than radiculopathy or spinal stenosis documented in this encounter Additional Health Concerns Assessment Noted Time PHQ-9 Depression Total Score: 0 10/15/19 23 10:23 AM EDT documented as of this encounter Care Teams Recording Clerk Relationship Specialty Start Date End Date Mike Arora MD [address] [place] [address] PCP - General Internal Medicine 07/09/19 documented as of this encounter
--- OUTSIDE RECORDS SUMMARY | 2024-11-21 10:07 | XMS_ITS | Encounter Summary ---
Author Organization [employer] Address [address] [facility] [address] [place] [address] Care Team Providers Care Automatic Packer Operator Name Role Phone Mike Arora MD Primary Care Prov ider Reason for Visit * Reason Onset Date Comments Med Refill 05/21/2024 Encounter Details Date Type Department Care Team (Late st Contact Info) Description 05/21/2024 Telephone [facility] [address] [place] [address] Mike Arora MD [address] [place] [address] Med Refill Social History Tobacco Use Types [...] 50 MG tablet To be sent to: [facility]/pharmacy #[id number] - [place] - [address] [place] [address] documented in this encounter Plan of Treatment Upcoming Encounters Date Type Department Care Team (Late st Contact Info) Description 12/25/2024 9:30 AM EDT Telemedicine [facility] MED & PEDS [address] [place] [address] Mike Arora MD [address] [place] [address] documented as of this encounter Visit Diagnoses Not on filedocumented in this encounter Additional Health Concerns Assessment Noted Time PHQ-9 Depression Total Score: 0 10/15/19 23 10:23 AM EDT documented as of this encounter Care Teams Automatic Packer Operator Relationship Specialty Start Date End Date Mike Arora MD [address] [place] [address] PCP - General Internal Medicine 07/09/19 documented as of this encounter
--- OUTSIDE RECORDS SUMMARY | 2024-11-21 10:07 | XMS_ITS | Clinical Summary ---
Author Organization [facility] Address [address] [place] [address] Care Team Providers Care Child Caregiver Name Role Phone Cheryl Fournier MD Primary [...] age to complete this topic Care Teams Child Caregiver Relationship Specialty Start Date End Date Cheryl Fournier MD PCP - General Internal Medicine 09/09/16
--- OUTSIDE RECORDS SUMMARY | 2024-11-21 10:07 | XMS_ITS | Encounter Summary ---
Author Organization [employer] Address [address] [facility] 7t [place] [address] Care Team Providers Care Senior Net Application Developer Name Role Phone Mike Arora MD Primary Care Prov ider Reason for Visit * Reason Comments Med Refill Encounter Details Date Type Department Care Team ([facility] Contact Info) Description 11/16/2024 Refill [facility] MED & PEDS [address] [place] [address] Mike Arora MD [address] [place] [address] Social History Tobacco Use Types Packs/Day Years [...] Upcoming Encounters Date Type Department Care Team ([facility] st Contact Info) Description 12/25/2024 9:30 AM EDT Telemedicine [facility] MED & PEDS [address] [place] [address] Mike Arora MD [address] [place] [address] documented as of this encounter Visit Diagnoses Not on filedocumented in this encounter Additional Health Concerns Assessment Noted Time PHQ-9 Depression Total Score: 0 10/15/19 23 10:23 AM EDT documented as of this encounter Care Teams Senior Net Application Developer Relationship Specialty Start Date End Date Mike Arora MD [address] [place] [address] PCP - General Internal Medicine 07/09/19 documented as of this encounter
--- OUTSIDE RECORDS SUMMARY | 2024-11-21 10:08 | XMS_ITS | Encounter Summary ---
Author Organization [employer] Address [address] [facility] [address] [place] [address] Care Team Providers Care Band Nailer Name Role Phone Mike Arora MD Primary Care Prov ider Reason for Visit * Reason Onset Date Comments call back 10/20/2022 Encounter Details Date Type Department Care Team ([facility] st Contact Info) Description 10/20/[address] 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 Pt is also requesting the status of CT done. Per pt, he had it done at [facility]. No result found. Will f/u with [facility] diagnostic specialist to find out where pt had the CT done. * Telephone Encounter - Chantal Stuart RN - 10/20/2022 3:08 PM EDT Tc from pt requesting a call back regarding why pt has to do a US Abdomen. Please contact pt at [phone] Please clarify above message. Thanks * Telephone Encounter - Jose Howard - 10/20/2022 10:00 AM EDT Tc from pt requesting a call back regarding why pt has to do a US Abdomen. Please contact pt at [phone] documented in this encounter Plan of Treatment Upcoming Encounters Date Type Department Care Team (Late st Contact Info) Description 12/25/2024 9:30 AM EDT Telemedicine [facility] MED & PEDS [address] [place] [address] Mike Arora MD [address] [place] [address] documented as of this encounter Visit Diagnoses Not on filedocumented in this encounter Additional Health Concerns Assessment Noted Time PHQ-9 Depression Total Score: 0 10/15/19 23 10:23 AM EDT documented as of this encounter Care Teams Band Nailer Relationship Specialty Start Date End Date Mike Arora MD [address] [place] [address] PCP - General Internal Medicine 07/09/19 documented as of this encounter
--- OUTSIDE RECORDS SUMMARY | 2024-11-21 10:08 | XMS_ITS | Encounter Summary ---
Author Organization [employer] Address 75 [facility] 7t [place] [address] Care Team Providers Care It Network Administrator Name Role Phone Mike Arora MD Primary Care Prov ider Reason for Visit * Reason Onset Date Comments Medication Question 07/13/2023 Encounter Details Date Type Department Care Team ([facility] Contact Info) Description 07/13/2023 Telephone [facility] MED & PEDS [address] [place] [address] Mike Arora MD [address] [place] [address] Medication Question Social History Tobacco Use Types [...] results from PT. Please contact Pt @ [phone] documented in this encounter Plan of Treatment Upcoming Encounters Date Type Department Care Team (Late st Contact Info) Description 12/25/2024 9:30 AM EDT Telemedicine [facility] MED & PEDS [address] [place] [address] Mike Arora MD [address] [place] [address] documented as of this encounter Visit Diagnoses Not on filedocumented in this encounter Additional Health Concerns Assessment Noted Time PHQ-9 Depression Total Score: 0 10/15/19 23 10:23 AM EDT documented as of this encounter Care Teams It Network Administrator Relationship Specialty Start Date End Date Mike Arora MD [address] [place] [address] PCP - General Internal Medicine 07/09/19 documented as of this encounter
--- OUTSIDE RECORDS SUMMARY | 2024-11-21 10:08 | XMS_ITS | Encounter Summary ---
Author Organization [employer] Address [address] [facility] 7[address] [place] [address] Care Team Providers Care Technical Support Engineer Name Role Phone Mike Arora MD Primary Care Prov ider Encounter Details Date Type Department Care Team (Late Contact Info) Description 08/10/2022 Orders Only [facility] MEDICINE [address] [place], [place] [phone] Mike Arora MD [address] [place], [place] [phone] Prostate cancer screening (Primary Dx); Simple chronic [...] Info) Description 12/25/2024 9:30 AM EDT Telemedicine [facility] MED & PEDS [address] [place], [place] [phone] Mike Arora MD [address] [place], [place] [phone] Scheduled Orders Name Type Priority Associated Diagnoses [...] PCR <15 NOT DETECTED NOT DETECTED IU/mL [facility] HCV RNA QN Real Time PCR <1.18 NOT DETECTED NOT DETECTED Log IU/mL [facility] [employer] Comment: HCV RNA is not detected. ??There [...] a biological false positive result. (Always Message) [facility] [place] [employer] Comment: This test was performed using Real-Time Polymerase Chain Reaction. Reportable Range: 15 IU/mL to 100,000,000 IU/mL (1.18 Log IU/mL to 8.00 Log IU/mL). The analytical performance characteristics of this assay have been determined by [facility]. The modifications have not been cleared or approved by the FDA. This assay has been validated pursuant to the CLIA regulations and is used for clinical purposes. ? For more information on this test, go to: http://education.[employer]/faq/LZJ28k6 (This link is being provided for informational/ [...] BLOOD ORDERABL ES Final Result [facility] [address] [facility], [place] [address] [facility] [place] [employer] [address] [facility], (Nl2) [place] [address] * PSA,Total (08/10/2022 10:30 AM EST) PSA, Total 0.35 < OR = 4.00 ng/mL [facility] [place] [employer] Comment: The total PSA value from this [...] ORDERABL ES Final Result Performing Organization Address City/[facility] de Phone Number [facility] [address] [facility], [address], [place] [address] [facility] [place] [employer] [address] [facility], (Nl2) [place] [address] * (ABNORMAL) Hemoglobin A1c with Calculated Mean Plasma Glucose (MPG) (08/10/2022 10:30 AM EST) Hemoglobin A1c 5.8(H) <5.7 % of total Hgb [facility] Comment: For someone without known diabetes, a [...] children. Mean Plasma Glucose 129 mg/dL (calc) [facility] 08/10/2022 10:3 0 AM EST 08/10/2022 10:31 AM EST Narrative [facility] - 08/13/2022 11:15 PM EST FASTING:NO FASTING: NO Mike Gaffney MD LAB BLOOD ORDERABL ES Final Result Performing Organization Address City/[facility]/ZIP Co de Phone Number [address], [place] [address] [facility] ([facility]: [place])t [address] [place] [address], (Nl2) [place] [address] * TSH W/Reflex to FT4 (08/10/2022 10:30 AM EST) TSH w/Reflex to FT4 2.75 0.40 - 4.50 mIU/L [facility] [employer] 08/10/2022 10:3 0 AM EST 08/10/2022 10:31 AM EST Narrative [facility] - 08/13/2022 11:15 PM EST FASTING:NO FASTING: NO Mike Gaffney MD LAB BLOOD ORDERABL ES Final Result Performing Organization Address [facility] de Phone Number [address], [place] [address] [facility] ([facility]: [place])t [address] [place] [address], (Nl2) [place] [address] * Lipid Panel, Standard (08/10/2022 10:30 AM EST) Cholesterol, Total 145 <200 mg/dL [facility] [employer] HDL Cholesterol 58 > OR = 40 mg/dL [facility] [employer] Triglycerides 50 <150 mg/dL [facility] [employer] LDL Cholesterol 75 mg/dL (calc) [facility] [place] [employer] Comment: Reference range: <100 Desirable range <100 mg/dL for primary prevention; ?? <70 mg/dL for patients with CHD or diabetic patients with > or = 2 CHD risk factors. LDL-C is now calculated using the Morales calculation, which is a validated novel method providing better accuracy than the Friedewald equation in the estimation of LDL-C. Darrel MONDRAGON et al. DYLAN. 2013;310(19): 6906-4659 (http://education.[employer]/faq/FCF899) Chol/HDLC Ratio 2.5 <5.0 (calc) [facility] Non-HDL Cholesterol 87 <130 mg/dL (calc) [facility] [place] [employer] Comment: For patients with diabetes plus 1 [...] ORDERABL ES Final Result Performing Organization Address [facility]/ZIP Co de Phone Number [address], [place] [address] [facility] [place] [employer] [address] [place] [address], (Nl2) [place] [address] * HIV-1 RNA, Quantitative, Real-Time PCR with Reflex to Genotype (RTI, PI, Integrase) (08/10/2022 10:30 AM EST) Pathologist [facility] HIV 1 RNA, QN PCR NOT DETECTED copies/mL [facility]/N [facility], HIV 1 RNA, QN PCR NOT DETECTED Log copies/mL [facility]/N [facility], Comment: REFERENCE RANGE: NOT DETECTED copies/mL ?NOT DETECTED ??Log copies/mL This test was performed using Real-Time Polymerase Chain Reaction. Reportable range is 20 to 10,000,000 copies/mL (1.30-7.00 Log copies/mL). 08/10/2022 10:3 0 AM EST 08/10/2022 10:31 AM EST Narrative [facility] - 08/13/2022 11:15 PM EST FASTING:NO FASTING: NO Mike Gaffney MD LAB BLOOD ORDERABL ES Final Result Performing Organization Address [facility] Co de Phone Number [address], [place] [address] [facility], [address] [place] [address] * (ABNORMAL) Hepatitis C Antibody with Reflex to HCV, RNA, Quantitative, Real- Time PCR (08/10/2022 10:30 AM EST) Pathologist [facility] Hepatitis C Antibody REACTIVE( A) NON-REACT BIANCA [facility] Index >11.00(H) <1.00 [facility] Comment: Based on this result, the [...] MD LAB BLOOD ORDERABL ES Final Result [address], [place] [address] [facility] [place] [employer] [address] [facility], (Nl2) [place] [address] * Hepatic Function Panel (08/10/2022 10:30 AM EST) [facility] Protein, Total 7.1 6.1 - 8.1 g/dL [facility] Albumin 4.7 3.6 - 5.1 g/dL [facility] Globulin 2.4 1.9 - 3.7 g/dL (calc) [facility] ([facility] [place]t Albumin/Globulin Ratio 2.0 1.0 - 2.5 (calc) [facility] ([facility] [place]t Bilirubin, Total 0.7 0.2 - 1.2 mg/dL [facility] ([facility] [place]t Bilirubin, Direct 0.2 < OR = 0.2 mg/dL [facility] ([facility] [place]t Bilirubin, Indirect 0.5 0.2 - 1.2 mg/dL (calc) [facility] Alkaline Phosphatase 35 35 - 144 U/L [facility] [employer] AST 17 10 - 35 U/L [facility] ALT 16 9 - 46 U/L [facility] [place] [facility] Blood Venous blood specimen / Unknown 08/10/2022 10:30 AM EST 08/10/2022 10:31 AM EST Narrative [facility] - 08/13/2022 11:15 PM EST FASTING:NO FASTING: NO Mike Gaffney MD LAB BLOOD ORDERABL ES Final Result [facility] [address], [place] [address] [facility] ([facility] [place]t [address] [facility], (Nl2) [place] [address] * Basic Metabolic Panel (08/10/2022 10:30 AM EST) Glucose 90 65 - 139 mg/dL [facility] ([facility] [place] Comment: ? Non-fasting reference interval Urea Nitrogen (BUN) 25 7 - 25 mg/dL [facility] ([facility] [place]t Creatinine, Serum 0.71 0.70 - 1.35 mg/dL [facility] ([facility] [place]t eGFR 105 > OR = 60 mL/min/1 .73m2 [facility] Comment: The eGFR is based on the CKD-EPI 2020 equation. To calculate the new eGFR from a previous Creatinine or Cystatin C result, go to https://www.kidney.org/professionals/ kdoqi/gfr%5Fcalculator BUN/Creatinine Ratio NOT APPLICABLE 6 - 22 (calc) [facility] [place] [facility] Sodium 136 135 - 146 mmol/L [facility] [place] [facility] Potassium 4.4 3.5 - 5.3 mmol/L [facility] Chloride 101 98 - 110 mmol/L [facility] [place] [facility] Carbon Dioxide 26 20 - 32 mmol/L [facility] Calcium 9.6 8.6 - 10.3 mg/dL [facility] ([facility] [place]t Blood Venous blood specimen / Unknown 08/10/2022 10:30 AM EST 08/10/2022 10:31 AM EST Narrative [facility] - 08/13/2022 11:15 PM EST FASTING:NO FASTING: NO Mike Gaffney MD LAB BLOOD ORDERABL ES Final Result [facility] [address] [facility], [address], [place] [address] [facility] [address] [facility], (Nl2) [place] [address] * CBC auto differential (08/10/2022 10:30 AM EST) White Blood Cell Count 7.2 3.8 - 10.8 Thousand/ uL [facility] [place] [employer] [facility] [employer] [facility] Red Blood Cell Count 4.22 4.20 - 5.80 Million/u L [facility] Hemoglobin 13.4 13.2 - 17.1 g/dL [facility] Hematocrit 39.8 38.5 - 50.0 % [facility] MCV 94.3 80.0 - 100.0 fL [facility] MCH 31.8 27.0 - 33.0 pg [facility] MCHC 33.7 32.0 - 36.0 g/dL [facility] RDW 12.5 11.0 - 15.0 % [facility] Platelet Count 270 140 - 400 Thousand/ uL [facility] MPV 9.9 7.5 - 12.5 fL [facility] Absolute Neutrophils 3,679 1,500 - 7,800 cells/uL [facility] Absolute Lymphocytes 2,498 850 - 3,900 cells/uL [facility] Absolute Monocytes 612 200 - 950 cells/uL [facility] [place] [employer] Absolute Eosinophils 360 15 - 500 cells/uL [facility] [place] [facility] Absolute Basophils 50 0 - 200 cells/uL [facility] [place] [employer] [facility] Neutrophils 51.1 % [facility] [place] [employer] [facility] Lymphocytes 34.7 % [facility] Monocytes 8.5 % [facility] Eosinophils 5.0 % [facility] Basophils 0.7 % [facility] Blood Venous blood specimen / Unknown 08/10/2022 10:30 AM EST 08/10/2022 10:31 AM EST Narrative [facility] - 08/13/2022 11:15 PM EST FASTING:NO FASTING: NO us Mike Gaffney MD LAB BLOOD ORDERABL ES Final Result [facility] [address], [place] [address] [facility] [place] [employer] [facility] [address] [facility], (Nl2) [place] [address] documented in this encounter Visit Diagnoses Diagnosis Prostate cancer screening- Primary Special screening for malignant neoplasm of prostate Simple chronic bronchitis (CMS/HCC) Simple chronic bronchitis documented in this encounter Care Teams Technical Support Engineer Relationship Specialty Start Date End Date Mike Arora MD [address] [place] [id number] PCP - General Internal Medicine 07/09/19 documented as of this encounter
== END 2024-11-21 09:34 | disposition home or self-care (01) ==
LOC: HO.PMC 08:52
PROVIDERS: PCP Internal Medicine; Visit Provider Registered Nurse Emergency
DX: M25.551 Pain in right hip (principal); M16.11 Unilateral primary osteoarthritis, right hip; M53.3 Sacrococcygeal disorders, not elsewhere classified; M46.1 Sacroiliitis, not elsewhere classified
CPT/HCPCS: 99213

== ENCOUNTER → 2024-11-21 08:51 | Outpatient (BNVA) | payer MEDICAID, SELFPAY | PROVIDERS: PCP Internal Medicine; Visit Provider Registered Nurse Emergency | DX: M16.11 Unilateral primary osteoarthritis, right hip (principal); M53.3 Sacrococcygeal disorders, not elsewhere classified; M46.1 Sacroiliitis, not elsewhere classified | CPT/HCPCS: 99212 ==

== ENCOUNTER 2024-12-17 12:36 | Outpatient (REF) | payer MEDICAID, SELFPAY | END 2024-12-17 12:37 | disposition home or self-care (01) | LOC: HO.HOSX 12:36 | PROVIDERS: PCP Internal Medicine; Visit Provider Physician Assistant | DX: Z98.890 Other specified postprocedural states (principal) | CPT/HCPCS: 99212 ==

== ENCOUNTER 2024-12-17 12:36 | Outpatient (AMB) | payer MEDICAID, SELFPAY ==
--- NOTE | 2024-12-17 12:52 | HO.SPINEOV ---
Vital Signs 12/17/24 12:55 Height 5 ft 9 in Weight 177 lb BMI 26.1 Intake Visit Reasons: neck pain Intake Note: Mr. Veloz is here today c/o neck and back pain. injections did not work. [employer] Former Required: No Allergies No Known Allergies Allergy (Verified 12/17/24 12:54) Physical Exam Vital Signs: BMI result Body Mass Index 26.1 Assessment & Plan Assessment & Plan (1) Status post lumbar spine surgery for decompression of spinal cord: Code(s): Z98.890 - Other specified postprocedural states Category: Medical Plan Mr Veloz is back in follow up, he was doing well until about 4-6 weeks ago he had a severe increase in the amount of pain he is at in his midline low back radiating out to the right side. He does not have anymore of the pain radiating down to the right leg into the distal part of the leg anymore. But it is becoming incapacitating with the back pain. 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 He has been seen at the pain management Center and they want to do an SI joint injection. He has been taking Advil, probably more than he should. He takes gabapentin as well. He is very frustrated because he was doing well and active and making money but now he is limited in how much he can participate. He really would like to just get back to work and move on with things but this pain is limiting him so much. On exam he is very uncomfortable, has a hard time just standing up from a chair. He is constantly changing positions. His strength is full in the lower extremities. I think at this point we would be best to order an MRI of his lumbar spine and evaluate for potential source of his sudden increase in back pain. We will see him back once the MRI and x-rays are completed. Total amount of time spent in this visit was 20 minutes in discussion of symptoms, ordering lumbar MRI imaging and subsequent plan of care Garry Berry MD,PhD [facility] Orders: Orders XR lumbar spine 4V min Today Z98.890 - Other specified postprocedural states MR lumbar spine wo/w con Today Z98.890 - Other specified postprocedural states Coding Level of Care Code Est Pt Level 3 (14684) Diagnoses Status post lumbar spine surgery for decompression of spinal cord Z98.890
[2024-12-17 12:55] VITALS: BMI 26.1
--- OUTSIDE RECORDS SUMMARY | 2024-12-17 13:59 | XMS_ITS | Clinical Summary ---
Author Organization [employer] Address [address] [facility] 7t [place] [address] Care Team Providers Care Senior Policy Advisor Name Role Phone Mike Arora MD Primary [...] DYSFUNCTION 30 tablet 2 11/20/19 25 Active sildenafil (Viagra) 50 MG tablet Take 1 tablet (50 mg) by mouth if needed each day for erectile dysfunction. 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 At this moment will refer to [facility] Derm clinic. Chronic obstructive pulmonary [...] Type Department Care Team Description 11/16/2024 Refill [facility] MED & PEDS [address] [place] [address] Mike Arora MD 11/15/2024 Refill [facility] MED & PEDS [address] [place] [address] Mike Arora MD Low back pain associated with a spinal disorder other than radiculopathy or spinal stenosis 10/22/2024 Refill [facility] MED & PEDS [address] [place] [address] Leeanna Reyes MD 09/24/2024 8:30 AM EDT Telemedicine [facility] MED & PEDS [address] [place] [address] Mike Arora MD Panlobular emphysema (CMS/HCC) (Primary Dx); Low back pain associated with a spinal disorder other than radiculopathy or spinal stenosis; Right hip pain 09/21/2024 Telephone [facility] MED & PEDS [address] [place] [address] Mike Arora MD Chart Prep from Last [...] t he electric, gas, oil or water [employer] threatened to shut off services in your [...] Info) Description 12/25/2024 9:30 AM EDT Telemedicine [facility] MED & PEDS [address] [place] [address] Mike Arora MD [address] [place] [address] Health Maintenance Due Date Last Done Comments [...] (2 - 2023-2 5 season) 2024 05/18/2022 SDOH Screening 01/29/2025 01/30/2024 Influenza Vaccine (Season Ended) 2025 05/18/2022 Tobacco Screening 03/16/2025 03/16/2024 Colonoscopy 10/11/2028 11/04/2020 [...] 8:16 AM EDT) Triglycerides 94 <150 mg/dL [facility] Comment:Desirable Triglyceri de: less than 150 mg/dLBorderline High Triglyceride 150-199 mg/dLHigh Triglyceride: 200-499 mg/dLVery High Triglyceride: greater than or equal to 5OO mg/dL Cholesterol 144 <200 mg/dL [facility] Comment:Desirable Cholestero l: less than 200 mg/dLBorderline High Cholesterol: 200-239 mg/dLHigh Cholesterol: greater than 239 mg/dL LDL Cholesterol Calculated 65 <100 mg/dL [facility] Comment:Desirable LDL: less than 100 mg/dLNear Optimal/Above Optimal LDL: 110- 129 mg/dLBorderline High LDL: 130-159 mg/dLHigh LDL: 160-189 mg/dLVery High LDL: greater than or equal to 190 mg/dL HDL Cholesterol 61 >40 mg/dL [facility] Comment:Desirable HDL: great er than 40 mg/dL Note: This HDL assay may give artificially low results in patients with liver disease. Blood Venous blood specimen / Unknown 03/19/2024 8:16 AM EDT 03/19/2024 2:23 PM EDT Mike Gaffney MD LAB BLOOD ORDERABL ES Final Result [facility] [address] [place] [phone] * HIV-1 RNA, Quantitative, Real-Time PCR with Reflex to Genotype (RTI, PI, Integrase) (08/10/2022 10:30 AM EST) HIV 1 RNA, QN PCR NOT DETECTED copies/mL [facility] [employer] [facility], HIV 1 RNA, QN PCR NOT DETECTED Log copies/mL [facility] [employer] [facility], Comment: REFERENCE RANGE: NOT DETECTED copies/mL ?NOT DETECTED ??Log copies/mL This test was performed using Real-Time Polymerase Chain Reaction. Reportable range is 20 to 10,000,000 copies/mL (1.30-7.00 Log copies/mL). 08/10/2022 10:3 0 AM EST 08/10/2022 10:31 AM EST Narrative [facility] - 08/13/2022 11:15 PM EST FASTING:NO FASTING: NO Mike Gaffney MD LAB BLOOD ORDERABL ES Final Result [facility] [address], [place] [address] [facility], [address] [place] [address] * Colonoscopy (11/04/2020) Colonoscopy PERFORMED Historical Provider HEALTH MAINTENANCE Edited Result - Final from Last 3 Months or Most Recently Relevant to Health Maintenance Insurance [facility] [place] [id number] Care Teams Senior Policy Advisor Relationship Specialty Start Date End Date Mike Arora MD [address] [place] [address] [place] [id number] PCP - General Internal Medicine 07/09/19
== END 2024-12-17 13:39 | disposition home or self-care (01) ==
LOC: HO.HNS 12:37
PROVIDERS: PCP Internal Medicine; Visit Provider Physician Assistant
DX: Z98.890 Other specified postprocedural states (principal)
CPT/HCPCS: 99213

== ENCOUNTER 2024-12-17 13:30 | Outpatient (REF) | payer MEDICAID, SELFPAY ==
--- NOTE | ~2024-12-17 | XR_ITS ---
Exam: 5 view L-spine x-rays Technique: AP, lateral spot, and lateral: Flexion, neutral, and extension view x-rays of the lumbar spine. Indication: Z98.890 No prior x-ray. FINDINGS: There is convex left curvature of the lumbar spine. There are 5 nonrib-bearing lumbar segments. Multilevel degenerative changes are evident with disc space height, endplate sclerosis, endplate osteophytes, facet sclerosis, facet osteophytes, and facet joint space narrowing. L3-4 demonstrates grade 1 retrolisthesis. With flexion and extension, there is no instability. There is mild wedging of T12. XR/XR lumbar spine 4V min IMPRESSION: Multilevel degenerative disc disease and facet arthropathy is evident throughout the lumbar spine. There is mild nonspecific wedging of T12 vertebral body. This is probably chronic, correlate for focal tenderness. Electronically signed by: Bello Mack MD 12/17/2024 03:31 PM EDT
== END 2024-12-17 13:31 | disposition home or self-care (01) ==
LOC: HO.XRAY 13:30
PROVIDERS: PCP Internal Medicine; Visit Provider Physician Assistant
DX: Z98.890 Other specified postprocedural states (principal)
CPT/HCPCS: 72110

== ENCOUNTER → 2024-12-17 13:31 | Outpatient (BNV) | payer MEDICAID, SELFPAY | PROVIDERS: PCP Internal Medicine; Visit Provider Radiology Diagnostic Radiology | DX: M51.369 Other intervertebral disc degeneration, lumbar region without mention of lumbar back pain or lower extremity pain (principal); M47.816 Spondylosis without myelopathy or radiculopathy, lumbar region | CPT/HCPCS: 72110 ==

== ENCOUNTER 2025-01-15 10:10 | Outpatient (REF) | payer MEDICAID, SELFPAY ==
--- NOTE | ~2025-01-15 | FL_ITS ---
EXAMINATION: FL GUIDANCE ONLY HISTORY: M46.1 - Sacroiliitis, not elsewhere classified COMPARISON: None available. TECHNIQUE: Fluoroscopy time: 0.1 minutes. Cumulative Dose: 1.67 mGy. DAP: 0.0181 mGym2 Images: 2. FINDINGS: Fluoroscopic spot films of the right hemipelvis demonstrate a needle and contrast material in the region of the right sacroiliac joint. FL/FL guidance in treatment room IMPRESSION: Fluoroscopy during procedure. Please see procedure report for additional information. Electronically signed by: Puneet Pinto MD 01/16/2025 08:35 AM EDT
--- OUTSIDE RECORDS SUMMARY | 2025-01-15 11:13 | XMS_ITS | Clinical Summary ---
Author Organization [facility] Address [address] [place] [address] Care Team Providers Care Military Personnel Specialist Name Role Phone Cheryl Fournier MD Primary [...] 2023-2 5 season) 2024 Influenza Vaccine (#1) 2025 RSV Immunization Adult Patie nts (1 [...] 5 Years) and At-Risk Patients (6 to 49 Years) Aged Out No longer eligible b ased on patient's age to complete this topic RSV Immunization Patients Un swati 20 months Aged Out No longer eligible b ased on patient's age to complete this topic Varicella Vaccines Aged Out No longer eligible based on patient's age to complete this topic Care Teams Military Personnel Specialist Relationship Specialty Start Date End Date Cheryl Fournier MD PCP - General Internal Medicine 09/09/16
--- OUTSIDE RECORDS SUMMARY | 2025-01-15 11:13 | XMS_ITS | Clinical Summary ---
Author Organization [employer] Address [address] [place] [address] Care Team Providers Care Hardboard Press Operator Name Role Phone Mike Arora MD Primary Care Prov ider Allergies No known active allergies Medications Emollient (CeraVe Moisturizing) cream apply to dry skin BID 021 Active ledipasvir-sofos buvir (Harvoni) 90-400 MG tablet tablet take 1 tablet by oral route every day for 4 more weeks 020 Active nicotine (Nicoderm, Step 3) 7 MG/24HR patch Place 1 patch on the skin at bed time. 022 Active nicotine (Nicoderm, Step 2) 14 MG/24HR patch Place 1 patch on the skin at bed time. 022 Active albuterol (ProAir HFA) 108 (90 Base) MCG/ACT inhalerIndicatio ns:Chronic obstructive pulmonary disease, unspecified COPD type (CMS/HCC) Inhale 2 puffs every 4 (four) hours. 18 g 3 023 Active Wixela Inhub 250-50 MCG/ACT aerosol powderIndication s:Chronic obstructive pulmonary disease, unspecified COPD type (CMS/HCC) INHALE 1 PUFF INTO THE LUNGS IN THE MORNING 60 each 3 024 Active gabapentin (Neurontin) 600 MG tablet TAKE 1 TABLET BY MOUTH 3 TIMES DAILY. 90 tablet 5 025 Active Spiriva HandiHaler 18 MCG inhalation capsule INHALE 1 CAPSULE VIA HANDIHALER ONCE DAILY AT THE SAME TIME EVERY DAY IN THE MORNING 30 capsule 11 04/23/2 025 Active meloxicam (Mobic) 15 MG tabletIndication s:Low back pain associated with a spinal disorder other than radiculopathy or spinal stenosis TAKE 1 TABLET BY MOUTH EVERY DAY 30 tablet 2 Active sildenafil (Viagra) 50 MG tablet TAKE 1 TABLET (50 MG) BY MOUTH DAILY NEEDED FOR ERECTILE DYSFUNCTION 30 tablet 2 025 Active traMADol (Ultram) 50 MG tabletIndication s:Low back pain associated with a spinal disorder other than radiculopathy or spinal stenosis TAKE 1 TABLET (50 MG) BY MOUTH EVERY 6 (SIX) HOURS IF NEEDED FOR SEVERE PAIN FOR UP TO 7 DAYS. 28 tablet 025 2024 Active traMADol (Ultram) 50 MG tabletIndication s:Low back pain associated with a spinal disorder other than radiculopathy or spinal stenosis Take 1 tablet (50 mg) by mouth every 6 (six) hours if needed for severe pain for up to 7 days. 28 tablet 025 2024 Active traMADol (Ultram) 50 MG tabletIndication s:Low back pain associated with a spinal disorder other than radiculopathy or spinal stenosis Take 1 tablet (50 mg) by mouth every 6 (six) hours if needed for severe pain. 30 tablet 024 2024 Discontinued(R eoomerer (will not trigger notification to Pharmacy)) traMADol (Ultram) 50 MG tabletIndication s:Low back pain associated with a spinal disorder other than radiculopathy or spinal stenosis Take 1 tablet (50 mg) by mouth every 6 (six) hours if needed for severe pain. 30 tablet 024 2024 Discontinued traMADol (Ultram) 50 MG tabletIndication s:Low back pain associated with a spinal disorder other than radiculopathy or spinal stenosis Take 1 tablet (50 mg) by mouth every 6 (six) hours if needed for severe pain for up to 7 days. 28 tablet 025 2024 Discontinued predniSONE (Deltasone) 20 MG tablet Take 2 tablets (40 mg) by mouth Once per day for 5 days. 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 At this moment will refer to [facility] Derm clinic. Chronic obstructive pulmonary disease [...] Encounters Date Type Department Care Team Description 01/11/2025 Telephone [facility] [address] [place] [address] Mike Arora MD Med Refill 01/11/2025 Refill [facility] [address] [place] [address] Mike Arora MD Low back pain associated with a spinal disorder other than radiculopathy or spinal stenosis (Primary Dx) 01/10/2025 Refill [facility] [address] [place] [address] Mike Arora MD Low back pain associated with a spinal disorder other than radiculopathy or spinal stenosis 12/25/2024 9:30 AM EDT Telemedicine [facility] [address] [place] [address] Mike Arora MD Low back pain associated with a spinal disorder other than radiculopathy or spinal stenosis 12/25/2024 Travel 12/24/2024 Telephone [facility] [address] [place] [address] Mike Arora MD chart prep 12/17/2024 Orders Only [facility] External Provider, [facility] 11/16/2024 Refill [facility] [address] [place] [address] Mike Arora MD 11/15/2024 Refill [facility] [address] [place] [address] Mike Arora MD Low back pain associated with a spinal disorder other than radiculopathy or spinal stenosis 10/22/2024 Refill [facility] [address] [place] [address] Leeanna Reyes MD from Last 3 Months Immunizations Immunization Administration [...] is your housing situation today? I have suziealbin seth 01/30/[address] you [...] 100 03/16/2024 9:30 AM EDT Temperature 37.1 C (98.7 F) 03/16/2024 9:30 AM EDT Respiratory Rate 20 03/16/2024 9:30 AM EDT Oxygen Saturation 98% 09/30/2023 10:55 AM EDT Inhaled Oxygen Concentration - - Weight 70.8 kg (156 lb) 03/16/2024 9:30 AM EDT Height 175.3 cm (5' 9 ) 03/16/2024 9:30 AM EDT Body Mass Index 23.04 03/16/2024 9:30 AM EDT Plan of Treatment Upcoming Encounters Date Type Department Care Team (Late st Contact Info) Description 02/11/2025 1:15 PM EDT Telemedicine [facility] [address] [place] [address] Mike Arora MD [address] [place], [place] [id number] Health Maintenance Due Date Last Done Comments [...] 05/18/2022 SDOH Screening 01/29/2025 01/30/2024 Influenza Vaccine (#1) 2025 05/18/2022 Tobacco Screening 03/16/2025 03/16/2024 Colonoscopy [...] Procedure Name Priority Date/Time Associated Diagnosis Comments XR LUMBAR SPINE COMPLETE 4+ VIEWS Routine 12/17/2024 1:50 PM EDT LIPID PANEL, STANDARD Routine 03/19/2024 8:16 AM EDT Primary hypertension HIV 1 RNA, QN PCR W/RFL IL (RTI,PI,INTEGRASE) Routine 08/10/2022 10:30 AM EST Simple chronic bronchitis (CMS/HCC) HM COLONOSCOPY Routine 11/04/2020 from Last 3 Months or Most Recently Relevant to Health Maintenance Results * XR Lumbar Spine Complete 4+ Views (12/17/2024 1:50 PM EDT) Anatomical Region Laterality Modality Spine, L-spine Radiographic Divya ging 12/17/2024 1:50 PM EDT Narrative 12/17/2024 3:35 PM EDT [address] [address] XRay Report Signed Patient: Nehal Veloz MR#: [id number] : 1960 Acct:[id number] Age/Sex: 64 / M ADM Date: 12/17/24 Loc: HO.XRAY Attending Dr: Garry AYALA Ordering Physician: Garry Lopez Date of Service: 12/17/24 Procedure(s): XR lumbar spine 4V min Accession Number(s): [id number] cc: Garyr Lopez; Mike Arora MD Exam: 5 view L-spine x-rays Technique: AP, lateral spot, and lateral: Flexion, neutral, and extension view x-rays of the lumbar spine. Indication: Z98.890 No prior x-ray. FINDINGS: There is convex left curvature of the lumbar spine. There are 5 nonrib-bearing lumbar segments. Multilevel degenerative changes are evident with disc space height, endplate sclerosis, endplate osteophytes, facet sclerosis, facet osteophytes, and facet joint space narrowing. L3-4 demonstrates grade 1 retrolisthesis. With flexion and extension, there is no instability. There is mild wedging of T12. XR/XR lumbar spine 4V min IMPRESSION: Multilevel degenerative disc disease and facet arthropathy is evident throughout the lumbar spine. There is mild nonspecific wedging of T12 vertebral body. This is probably chronic, correlate for focal tenderness. Electronically signed by: Bello Mack MD 12/17/2024 03:31 PM EDT Dictated By: Bello Mack MD Signed By: <Electronically signed by Bello Mack MD in OV> 12/17/24 1531 DD/ 1350 TD/TT: 12/17/24 1400 Distribution Operation Supervisor: Procedure Note Donotuseinterpreter, Image - 12/17/[address] [address] XRay Report Signed Patient: Catrachita Veloz#: [id number] : 2Acct:[id number] Age/Sex: 64 / MADM Date: 12/17/24 Loc: HO.XRAY Attending Dr: Garry AYALA Ordering Physician: Garry Lopez Date of Service: 12/17/24 Procedure(s): XR lumbar spine 4V min Accession Number(s): [id number] cc: Garry Lopez; Mike Arora MD Exam: 5 view L-spine x-rays Technique: AP, lateral spot, and lateral: Flexion, neutral, and extension view x-rays of the lumbar spine. Indication: Z98.890 No prior x-ray. FINDINGS: There is convex left curvature of the lumbar spine. There are 5 nonrib-bearing lumbar segments. Multilevel degenerative changes are evident with disc space height, endplate sclerosis, endplate osteophytes, facet sclerosis, facet osteophytes, and facet joint space narrowing. L3-4 demonstrates grade 1 retrolisthesis. With flexion and extension, there is no instability. There is mild wedging of T12. XR/XR lumbar spine 4V min IMPRESSION: Multilevel degenerative disc disease and facet arthropathy is evident throughout the lumbar spine. There is mild nonspecific wedging of T12 vertebral body. This is probably chronic, correlate for focal tenderness. Electronically signed by: Bello Mack MD 12/17/2024 03:31 PM EDT Dictated By: Bello Mack MD Signed By: <Electronically signed by Bello Mack MD in OV> 12/17/24 1531 DD/ 1350 TD/TT: 12/17/24 1400 Distribution Operation Supervisor: [facility] External Provider IMG XR PROCEDURES Final Result * Lipid Panel, Standard (03/19/2024 8:16 AM EDT) Triglycerides 94 <150 mg/dL [facility] Comment:Desirable Triglyceri de: less than 150 mg/dLBorderline High Triglyceride 150-199 mg/dLHigh Triglyceride: 200-499 mg/dLVery High Triglyceride: greater than or equal to 5OO mg/dL Cholesterol 144 <200 mg/dL [facility] Comment:Desirable Cholestero l: less than 200 mg/dLBorderline High Cholesterol: 200-239 mg/dLHigh Cholesterol: greater than 239 mg/dL LDL Cholesterol Calculated 65 <100 mg/dL [facility] Comment:Desirable LDL: less than 100 mg/dLNear Optimal/Above Optimal LDL: 110- 129 mg/dLBorderline High LDL: 130-159 mg/dLHigh LDL: 160-189 mg/dLVery High LDL: greater than or equal to 190 mg/dL HDL Cholesterol 61 >40 mg/dL [facility] Comment:Desirable HDL: great er than 40 mg/dL Note: This HDL assay may give artificially low results in patients with liver disease. Blood Venous blood specimen / Unknown 03/19/2024 8:16 AM EDT 03/19/2024 2:23 PM EDT Mike Gaffney MD LAB BLOOD ORDERABL ES Final Result [facility] [address] [place] [phone] * HIV-1 RNA, Quantitative, Real-Time PCR with Reflex to Genotype (RTI, PI, Integrase) (08/10/2022 10:30 AM EST) HIV 1 RNA, QN PCR NOT DETECTED copies/mL [facility], HIV 1 RNA, QN PCR NOT DETECTED Log copies/mL [facility], Comment: REFERENCE RANGE: NOT DETECTED copies/mL NOT DETECTED Log copies/mL This test was performed using Real-Time Polymerase Chain Reaction. Reportable range is 20 to 10,000,000 copies/mL (1.30-7.00 Log copies/mL). 08/10/2022 10:3 0 AM EST 08/10/2022 10:31 AM EST Narrative [facility] - 08/13/2022 11:15 PM EST FASTING:NO FASTING: NO Mike Gaffney MD LAB BLOOD ORDERABL ES Final Result [facility] [address], [place] [address] [facility], [address] [facility] [address] * Colonoscopy (11/04/2020) Pathologist [facility] Colonoscopy PERFORMED Historical Provider HEALTH MAINTENANCE Edited Result - Final from Last 3 Months or Most Recently Relevant to Health Maintenance [facility] Care Teams Hardboard Press Operator Relationship Specialty Start Date End Date LealMike Siddiqi MD [address] [place] [address] KATINA Anthony [id number] PCP - General Internal Medicine 07/09/19
== END 2025-01-15 10:11 | disposition home or self-care (01) ==
LOC: CF 10:10
PROVIDERS: Visit Provider Anesthesiology
DX: M46.1 Sacroiliitis, not elsewhere classified (principal); M53.3 Sacrococcygeal disorders, not elsewhere classified
CPT/HCPCS: 27096; J2003; J2795; Q9967

== ENCOUNTER 2025-01-15 12:42 | Outpatient (AMB) | payer MEDICAID, SELFPAY ==
--- NOTE | 2025-01-15 12:50 | A.OFFVIS_ITS ---
Vital Signs 01/15/25 12:51 Height 5 ft 9 in Weight 179 lb BMI 26.4 BP 119/83 Blood Pressure Location Lt brachial Position Sitting Respiration 18 Pulse 75 Pulse Source Pulse Oximeter Pulse Oximetry (%) 97 Oxygen Delivery Method Room Air Intake Visit Reasons: RIGHT DIAGNOSTIC SIJ INJECTION Architectural Practice Manager Required: No Allergies No Known Allergies Allergy (Verified 12/17/24 12:54) PFSH Medical History Back pain Arthritis Nicotine dependence, cigarettes, uncomplicated Right knee DJD Lumbar spinal stenosis Right lumbar radiculopathy Porphyrin disorder Tubular adenoma of colon (~2020) History of peptic ulcer (~2001) Difficult intravenous access History of chronic pain COPD (chronic obstructive pulmonary disease) Hepatitis C Surgical History History of hand surgery (~2020) History of colonoscopy (~2020) History of esophagogastroduodenoscopy (EGD) (~2001) Family History Mother Emphysema lung Cancer Social History Household Members Other:: room mate Are you a primary customer care associate to a significant other at home: No Do you presently have visiting nurse or other home services: No Alcohol intake: former Year quit: 2019 Patient Tobacco Use Status: Current everyday Tobacco user Tobacco use type: Cigarette Cigarettes Per Day: 7 Years Smoked: 55 Substance Use Type: Amphetamines, Crack/Cocaine, Former Substance User, Hallucinogens, IV Drugs, Marijuana and Opiates Current occupational status: employed 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 Informed consent was thoroughly explained to the patient risks and benefits were explained. The patient came to the operating room and positioned prone on operating table with pillow under the abdomen. Time-out was performed delineating name and date of of the patient, side and site of the procedure. The lower back of the patient was prepped with ChloraPrep and draped with self adhesive sterile utility towels. C-arm was brought over the operating field and picture of the right SI joint was demonstrated on the screen. Tilting C-arm 20 degrees contralateral to the site of the joint to the left the most posterior portion of the joint was superimposed on were anterior portion of the joint. The superpositions point was chosen as the target of the injection. The projection of the target with skin was injected with small amount of mixture of lidocaine 2% and ropivacaine 0.5% one-to-one. After that 22 gauge 3-1/2 inch needle was inserted through the skin wheal and advanced to were the SI joint in tunnel vision fashion. When needle gently entered the capsule of the joint injection of the contrast was performed delineating arthrogram. After that injection of the treatment medicine containing ropivacaine 0.5% 5 mL was performed into the joint. Upon completion of the injection needle was removed sterile Band-Aid was applied. The patient tolerated procedure well. Orders: Orders FL guidance in treatment room Today M46.1 - Sacroiliitis, not elsewhere classified Coding Level of Care Code Procedure Only Diagnoses Sacroiliitis M46.1 Sacroiliac joint dysfunction of right side M53.3
[2025-01-15 12:51] VITALS: BP 119/83; PULSE 75; RESP 18; O2SAT 97; BMI 26.4
== END 2025-01-15 13:17 | disposition home or self-care (01) ==
LOC: HO.PMCPRC 12:42
PROVIDERS: PCP Internal Medicine; Visit Provider Anesthesiology
DX: M46.1 Sacroiliitis, not elsewhere classified (principal); M53.3 Sacrococcygeal disorders, not elsewhere classified
CPT/HCPCS: 27096

== ENCOUNTER 2025-01-18 12:54 | Outpatient (AMB) | payer MEDICAID, SELFPAY ==
--- OUTSIDE RECORDS SUMMARY | 2025-01-18 12:56 | XMS_ITS | Clinical Summary ---
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 At this moment will refer to [facility] Derm clinic. Chronic obstructive [...] alleviate symptoms. The patient was prescribed azithromycin (Z-Valnetino) and instructed on dosage. - The patient [...] Type Department Care Team Description 01/11/2025 Telephone [facility] [address] [place] [address] Mike Arora MD Med Refill 01/11/2025 Refill [facility] [address] [place] [address] Mike Arora MD Low back pain associated with a spinal disorder other than radiculopathy or spinal stenosis (Primary Dx) 01/10/2025 Refill [facility] [address] [place] [address] Mike Arora MD Low back pain associated with a spinal disorder other than radiculopathy or spinal stenosis 12/25/2024 9:30 AM EDT Telemedicine [facility] [address] [place] [address] Mike Arora MD Low back pain associated with a spinal disorder other than radiculopathy or spinal stenosis 12/25/2024 Travel 12/24/2024 Telephone [facility] [address] [place] [address] Mike Arora MD chart prep 12/17/2024 Orders Only [facility] External Provider, [facility] 11/16/2024 Refill [facility] [address] [place] [address] Mike Arora MD 11/15/2024 Refill [facility] [address] [place] [address] Mike Arora MD Low back pain associated with a spinal disorder other than radiculopathy or spinal stenosis 10/22/2024 Refill [facility] [address] [place] [address] Leeanna Reyes MD from Last 3 Months [...] Info) Description 02/11/2025 1:15 PM EDT Telemedicine [facility] [address] [place] [address] Mike Arora MD [address] [place], [place] [phone] Health Maintenance Due Date Last Done Comments [...] PM EDT Narrative 12/17/2024 3:35 PM EDT [address] [address] XRay Report Signed Patient: Nehal Veloz MR#: [id number] : 1960 Acct:[id number] Age/Sex: 64 / M ADM Date: 12/17/24 Loc: HO.XRAY Attending Dr: Garry AYALA Ordering Physician: Garry Lopez Date of Service: 12/17/24 Procedure(s): XR lumbar spine 4V min Accession Number(s): [id number] cc: Garry Lopez; Mike Arora MD Exam: [...] 12/17/24 1531 DD/ 1350 TD/TT: 12/17/24 1400 Shadowgraph Scale Operator: Procedure Note Donotuseinterpreter, Image - 12/17/[address] [address] XRay Report Signed Patient: Catrachita Veloz#: [id number] : 2Acct:[id number] Age/Sex: 64 / MADM Date: 12/17/24 Loc: HO.XRAY Attending Dr: Garry AYALA Ordering Physician: Garry Lopez Date of Service: 12/17/24 Procedure(s): XR lumbar spine 4V min Accession Number(s): [id number] cc: aGrry Lopez; Mike Arora MD Exam: 5 view [...] 12/17/24 1531 DD/ 1350 TD/TT: 12/17/24 1400 Shadowgraph Scale Operator: [facility] External Provider IMG XR PROCEDURES Final Result * Lipid Panel, Standard (03/19/2024 8:16 AM EDT) Triglycerides 94 <150 mg/dL [facility] Comment:Desirable Triglyceri de: less than 150 mg/dLBorderline High Triglyceride 150-199 mg/dLHigh Triglyceride: 200-499 mg/dLVery High Triglyceride: greater than or equal to 5OO mg/dL Cholesterol 144 <200 mg/dL [facility] Comment:Desirable Cholestero l: less than 200 mg/dLBorderline High Cholesterol: 200-239 mg/dLHigh Cholesterol: greater than 239 mg/dL LDL Cholesterol Calculated 65 <100 mg/dL [facility] Comment:Desirable LDL: less than 100 mg/dLNear Optimal/Above Optimal LDL: 110- 129 mg/dLBorderline High LDL: 130-159 mg/dLHigh LDL: 160-189 mg/dLVery High LDL: greater than or equal to 190 mg/dL HDL Cholesterol 61 >40 mg/dL [facility] Comment:Desirable HDL: great er than 40 mg/dL Note: This HDL assay may give artificially low results in patients with liver disease. Blood Venous blood specimen / Unknown 03/19/2024 8:16 AM EDT 03/19/2024 2:23 PM EDT Mike Gaffney MD LAB BLOOD ORDERABL ES Final Result [facility] [address] [place] [phone] * HIV-1 RNA, Quantitative, Real-Time PCR with Reflex to Genotype (RTI, PI, Integrase) (08/10/2022 10:30 AM EST) HIV 1 RNA, QN PCR NOT DETECTED copies/mL [facility] [employer] [employer] [facility], HIV 1 RNA, QN PCR NOT DETECTED Log copies/mL [facility] [employer] [employer] [facility], Comment: REFERENCE RANGE: NOT DETECTED copies/mL NOT DETECTED Log copies/mL This test was performed using Real-Time Polymerase Chain Reaction. Reportable range is 20 to 10,000,000 copies/mL (1.30-7.00 Log copies/mL). 08/10/2022 10:3 0 AM EST 08/10/2022 10:31 AM EST Narrative [facility] - 08/13/2022 11:15 PM EST FASTING:NO FASTING: NO Mike Gaffney MD LAB BLOOD ORDERABL ES Final Result [facility] [address], [place] [address] [facility], [address] [place] [address] * Colonoscopy (11/04/2020) Pathologist [facility] Colonoscopy PERFORMED Historical Provider HEALTH MAINTENANCE Edited Result - Final from Last 3 Months or Most Recently Relevant to Health Maintenance [facility] Care Teams Gate Clerk Relationship Specialty Start Date End Date LealMike Siddiqi MD [address] [place] [address] KATINA Anthony [phone] PCP - General Internal Medicine 07/09/19
--- OUTSIDE RECORDS SUMMARY | 2025-01-18 12:56 | XMS_ITS | Clinical Summary ---
Author Organization [facility] Address [address] [place] [address] Care Team Providers Care Lockstitch Lining Setter Name Role Phone Cheryl Fournier MD Primary [...] age to complete this topic Care Teams Lockstitch Lining Setter Relationship Specialty Start Date End Date Cheryl Fournier MD PCP - General Internal Medicine 09/09/16
--- NOTE | 2025-01-18 12:57 | MHC.OFFVIS ---
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 The patient underwent a right diagnostic sacroiliac joint injection three days ago, which did not provide significant relief. The patient has a history of lumbar spinal stenosis and a pinched nerve, which was surgically decompressed about 05/2024. Post-surgery, the patient reports improvement in symptoms, with less numbness in the legs, but continues to experience pain and limited work capacity. - Pain onset: Persistent following diagnostic sacroiliac joint injection - Quality: Shooting pain, especially when sitting or driving - Location: Right leg, hip, and knee - Exacerbating factors: Sitting, working more than five hours, driving - Relieving factors: Injections provide immediate relief - Affect: Pain impacts ability to work and perform daily activities - Analgesia: Uses gabapentin, injections provide immediate relief - Adverse Effects: None reported - Activities of Daily Living: Limited work capacity, discomfort when sitting or driving - Aberrant Drug Related Behaviors: None reported [facility] Medical History Back pain Arthritis Nicotine dependence, cigarettes, uncomplicated Right knee DJD Lumbar spinal stenosis Right lumbar radiculopathy Porphyrin disorder Tubular adenoma of colon (~2020) History of peptic ulcer (~2001) Difficult intravenous access History of chronic pain COPD (chronic obstructive pulmonary disease) Hepatitis C Surgical History History of hand surgery (~2020) History of colonoscopy (~2020) History of esophagogastroduodenoscopy (EGD) (~2001) Family History Mother Emphysema lung Cancer Social History Household Members Other:: room mate Are you a primary healthcare financial analyst to a significant other at home: No Do you presently have visiting nurse or other home services: No Alcohol intake: former Year quit: 2019 Patient Tobacco Use Status: Current everyday Tobacco user Tobacco use type: Cigarette Cigarettes Per Day: 7 Years Smoked: 55 Substance Use Type: Amphetamines, Crack/Cocaine, Former Substance User, Hallucinogens, IV Drugs, Marijuana and Opiates Current occupational status: employed 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 Answers questions appropriately. Fully engaged in examination. Appears uncomfortable. Skin: warm, dry, intact HEENT: Normocephalic. Hearing intact. Cardiac: External chest normal in appearance. Respiratory: No cough, audible wheezing or stridor. Abdomen: without gross distension. MS: No obvious swelling or deformities. Able to transition from sit to stand unassisted. Ambulates with bilaterally normal heel strike and toe off Negative footdrop, negative clonus SLR positive on the right Tenderness over midline lumbar vertebrae and lumbar paraspinal muscles No pain with internal/external rotation of the right hip Neurological: Oriented to person, place, time and situation. Thought process intact. No gait abnormalities appreciated. Psychiatric: Appropriate mood and affect. Good judgment and insight. Results Reviewed Results Reviewed: XR PELVIS 08/21/24 CLINICAL INFORMATION: M25.559 - Pain in unspecified hip COMPARISON: Correlated to right hip x-ray dated September 21, 2023. TECHNIQUE: AP view of the pelvis. FINDINGS: Bony pelvis is intact. No acute cortical disruption. There is sclerosis and the articular surface of the right and left acetabulum. Multilevel marginal osteophyte formation and syndesmophyte formation at L3-4 L4-5 and L5-S1 level. No lytic or blastic lesions. IMPRESSION: No acute fracture, bony pelvis. Mild osteoarthrosis both hips. Multilevel lower lumbar spondylosis. XR HIP, RIGHT 09/21/23 CLINICAL INFORMATION: Pain in right hip. COMPARISON: None available. TECHNIQUE: Two views of the right hip. FINDINGS: Advanced degenerative changes in the imaged lower lumbar spine. Degenerative changes on limited views of the right sacroiliac joint. Mild degenerative changes in the right hip with joint space narrowing and hypertrophic change. Alignment preserved. IMPRESSION: 1. Mild degenerative changes in the right hip. 2. Advanced degenerative changes in the lower lumbar spine. 3. Degenerative changes on limited views of the right sacroiliac joint. Assessment & Plan Assessment & Plan (1) Lumbar spinal stenosis: Code(s): M48.061 - Spinal stenosis, lumbar region without neurogenic claudication Category: Medical Qualifiers: Neurogenic claudication status: with neurogenic claudication Qualified Code(s): M48.062 - Spinal stenosis, lumbar region with neurogenic claudication (2) Right lumbar radiculopathy: Code(s): M54.16 - Radiculopathy, lumbar region Category: Medical (3) Status post lumbar spine surgery for decompression of spinal cord: Code(s): Z98.890 - Other specified postprocedural states Category: Surgical (4) Right hip pain: Code(s): M25.551 - Pain in right hip Category: Medical (5) Osteoarthritis of right hip: Code(s): M16.11 - Unilateral primary osteoarthritis, right hip Category: Medical (6) Pain of right sacroiliac joint: Code(s): M53.3 - Sacrococcygeal disorders, not elsewhere classified Category: Medical (7) Sacroiliitis: Code(s): M46.1 - Sacroiliitis, not elsewhere classified Category: Medical Plan The plan includes ordering a new MRI to assess the current status of the lumbar spine and determine the appropriate site for a potential steroid injection. The patient will continue with his current medication regimen, including gabapentin, and will be monitored for any changes in symptoms or new developments. Efforts will be made to address insurance issues to facilitate further treatment options, including potential steroid injections. The patient is advised to follow up with his surgeon regarding the need for additional surgical intervention, as previously discussed. Patient was informed and verbally consented to the use of an ambient scribe for clinic note documentation during this visit. Orders: Orders MR lumbar spine wo/w con Today M48.062 - Spinal stenosis, lumbar region with neurogenic claudication, M54.16 - Radiculopathy, lumbar region, Z98.890 - Other specified postprocedural states Patient Instructions: - Schedule and attend the MRI appointment as soon as possible. - Continue taking gabapentin as prescribed. - Follow up with your surgeon regarding potential further surgical interventions. - Contact your insurance provider to resolve any issues related to treatment coverage. Coding Level of Care Code Est Pt Level 3 (00446) Complex EM visit Add On G2211 Diagnoses Spinal stenosis of lumbar region with neurogenic claudication M48.062 Neurogenic claudication status: with neurogenic claudication Right lumbar radiculopathy M54.16 Status post lumbar spine surgery for decompression of spinal cord Z98.890 Right hip pain M25.551 Osteoarthritis of right hip M16.11 Pain of right sacroiliac joint M53.3 Sacroiliitis M46.1
[2025-01-18 12:59] VITALS: BP 163/96; PULSE 75; RESP 16; O2SAT 95; BMI 25.4
== END 2025-01-18 13:14 | disposition home or self-care (01) ==
LOC: HO.PMC 12:54
PROVIDERS: PCP Internal Medicine; Visit Provider Registered Nurse Emergency
DX: M48.062 Spinal stenosis, lumbar region with neurogenic claudication (principal); M54.16 Radiculopathy, lumbar region; Z98.890 Other specified postprocedural states; M25.551 Pain in right hip; M16.11 Unilateral primary osteoarthritis, right hip; M53.3 Sacrococcygeal disorders, not elsewhere classified; M46.1 Sacroiliitis, not elsewhere classified
CPT/HCPCS: 99213

== ENCOUNTER → 2025-01-18 12:54 | Outpatient (BNVA) | payer MEDICAID, SELFPAY | PROVIDERS: PCP Internal Medicine; Visit Provider Registered Nurse Emergency | DX: M48.062 Spinal stenosis, lumbar region with neurogenic claudication (principal); R10.84 Generalized abdominal pain; R19.5 Other fecal abnormalities; R63.4 Abnormal weight loss; D64.9 Anemia, unspecified; R19.7 Diarrhea, unspecified; M54.16 Radiculopathy, lumbar region; Z98.890 Other specified postprocedural states; M16.11 Unilateral primary osteoarthritis, right hip; M53.3 Sacrococcygeal disorders, not elsewhere classified; M46.1 Sacroiliitis, not elsewhere classified | CPT/HCPCS: 99212 ==

== ENCOUNTER 2025-01-18 13:18 | Outpatient (AMB) | payer MEDICAID, SELFPAY ==
--- NOTE | 2025-01-18 13:28 | A.OFFVIS_ITS ---
Vital Signs 01/18/25 13:30 Height 5 ft 9 in Weight 172 lb 2 oz BMI 25.4 BP 140/90 H Blood Pressure Location Lt brachial Position Sitting Pulse 73 Pulse Oximetry (%) 97 Oxygen Delivery Method Room Air Intake Visit Reasons: jm pt abdominal pain Intake Note: Patient complex follow up for abdominal pain/torres pt helena was 10/24/2023 and last EGD/Colonoscopy was 10/12/2023 by with 5 yrs recall. Patient cc: abdominal pain when he ate to much and little stool with BM. Resource Development Director Required: No Accompanied by: Self / Same As Patient Allergies No Known Allergies Allergy (Verified 01/18/25 13:28) HPI HPI jm pt abdominal pain: Details: Patient is a 64-year-old male with PMH of arthritis, nicotine dependence, oa and COPD. Last visit with LUCY Maloney 10/24/2023 for follow-up after EGD /colonoscopy. ask about colo-? bleeding Patient presents with abdominal distension and discomfort noted over the past eight months, initially associated with a 45 lb weight gain during a period of unemployment. Reports abdominal pain and bloating, primarily postprandial, especially after consuming processed foods such as instant noodles and hot dogs. Describes early satiety and episodes of incomplete evacuation. Noted acute onset of diarrhea with possible dark red blood in stool following a recent dietary indiscretion, lasting two days, followed by persistent changes in stool caliber?smaller,darker, and sinking in the toilet. Denies nausea, vomiting, heartburn, or dysphagia. 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 No prior similar GI symptoms. No current use of laxatives or stool softeners. No recent changes in appetite except for reduced intake due to abdominal discomfort. Social hx: -daily use, 1-2 shots most days borbun -denies recreational drug use -current smoker, rolled 10-15/day - family hx as below -denies personal hx of CA -denies significant cardiopulmonary history -tolerated anesthesia in the past without difficulty. [facility] Medical History (Updated 01/22/25 @ 08:22 by Venita Cormier CNP) Weight loss, unintentional Anemia Abdominal pain Change in stool caliber Back pain Arthritis Nicotine dependence, cigarettes, uncomplicated Right knee DJD Lumbar spinal stenosis Right lumbar radiculopathy Porphyrin disorder Tubular adenoma of colon (~2020) History of peptic ulcer (~2001) Difficult intravenous access History of chronic pain COPD (chronic obstructive pulmonary disease) Hepatitis C Surgical History (Updated 01/18/25 @ 13:29 by Fatou Nelson) History of back surgery History of hand surgery (~2020) History of colonoscopy (~2020) History of esophagogastroduodenoscopy (EGD) (~2001) Family History Mother Emphysema lung Cancer Social History Household Members Other:: room mate Are you a primary healthcare applications analyst to a significant other at home: No Do you presently have visiting nurse or other home services: No Alcohol intake: former Year quit: 2019 Patient Tobacco Use Status: Current everyday Tobacco user Tobacco use type: Cigarette Cigarettes Per Day: 7 Years Smoked: 55 Substance Use Type: Amphetamines, Crack/Cocaine, Former Substance User, Hallucinogens, IV Drugs, Marijuana and Opiates Current occupational status: employed 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 Review of Systems Const Reports as per HPI ENT Reports as per HPI Card Reports as per HPI Resp Reports as per HPI GI Reports as per HPI Reports as per HPI Physical Exam Vital Signs: Last Vital Signs Pulse 73 01/18/25 13:30 BP 140/90 H 01/18/25 13:30 Pulse Ox 97 01/18/25 13:30 Oxygen Delivery Method Room Air 01/18/25 13:30 BMI result Body Mass Index 25.4 Const General: healthy appearing, no acute distress and well developed Nutritional Appearance: average body habitus Orientation/consciousness: patient oriented x3 HEENT Head: Yes normal to inspection, Yes normocephalic and Yes atraumatic Face and sinus: Yes normal facial exam Eyes General: appearance normal, both eyes and all related structures Neck Neck: Yes normal visual inspection Resp Effort & Inspection: normal respiratory effort, able to speak in complete sentences, no tracheal deviation and symmetric chest movement Auscultation: clear to auscultation bilaterally Cardio Jugular venous distension: no JVD Rate: regular rate Rhythm: regular rhythm Heart sounds: S1 normal heart sound present, S2 normal heart sound present, no gallops and no murmurs GI Inspection: Yes normal to inspection, No distended and Yes other (ab bloating) Palpation (GI): Soft to palpation, not firm, nontender and No hepatosplenomegaly present Auscultation: Hypoactive bowel sounds present Neuro General: patient oriented x3 Gait exam (Neuro): Normal gait present Psych Appearance: grossly normal Mental Status: mental status grossly normal Speech and movement: Normal speech and movement present Affect: normal affect Attitude: cooperative Thought process: Normal thought process present Thought content: Normal thought content present Insight: Good insight present (Psych) Judgement: Good judgement present (Psych) Results Reviewed Results Reviewed: 10/12/23 Upper endoscopy and colonoscopy-complete with [place] prep-Gastritis, duodenitis, hemorrhoids Date of Service: 10/12/23 Narrative: Procedure: Upper endoscopy and colonoscopy EGD Procedure: The procedure, indications, preparation and potential complications were reviewed with the patient, who indicated understanding and gave written informed consent to proceed. Physical exam was performed. The endoscope was introduced through the mouth, and advanced to the second part of duodenum. The mucosa was carefully examined on slow withdrawal of the endoscope. The patient tolerated the procedure well. There were no immediate complications. EGD Findings: Esophagus: Normal esophageal mucosa was noted. The Z-line was at 41 and irregular up to 39 cm. Cold forceps biopsies were taken to rule out Reza's esophagus. If dysplasia confirmed, these will also be sent out for tissue cypher. Stomach: Erythema and small erosions in the gastric fundus and antrum were noted. Retroflexion was performed in the cardia. Random cold forceps biopsies were taken to rule out H pylori. Duodenum: Edema, erythema and erosions were noted in the duodenal bulb. Cold forceps biopsies were taken from the duodenal bulb and 2nd portion of duodenum to rule out celiac sprue. Colonoscopy Procedure: The patient was then turned for the colonoscopy. A digital rectal exam was performed which was normal. A distal attachment cap was affixed to the tip of the scope and the colonoscope was then inserted through the anus and advanced th rough the colon and advanced to the cecum at 70 cm and terminal ileum. Appendiceal orifice and ileocecal valve were identified. Mucosa was carefully examined under high definition white light as the instrument was slowly withdrawn in a retrograde panoramic fashion. Retroflexion was performed in rectum. The procedure was not difficult. There were no immediate obvious complications. The quality of the prep was BBPS: 2+2+2 = adequate Withdrawal time 9 minutes. Limitations: No limitations Findings: Mucosa: Liquid stool was noted throughout the colon which was flushed and suctioned. Normal colon and terminal ileum mucosa. Evidence of previous tattoo at 30 cm from the anus, no residual or new polyp was noted. Protruding lesions: Small internal hemorrhoids without stigmata of recent bleeding. Impression: 1. Irregular Z line (biopsy, tissue cypher) 2. Gastritis (biopsy) 3. Duodenitis (biopsy) 5. Normal colon and terminal ileum mucosa 6. Previous tattoo at 30 cm 7. Internal hemorrhoids Recommendations: Follow-up path results Start PPI therapy and continue for at least 8 weeks Avoid NSAID. Smoking cessation If H pylori positive, will need treatment for eradication Repeat colonoscopy in 5 years Consider checking iron, B12 and folate studies for further evaluation of the anemia Pathology Addendum #1 (C): TissueCypher results: Risk Class: Low Risk Score: 0.3 (range 0 ? 10) 5-year probability of progression: 0.30% See the full report in the EMR - report/pathology section as a scanned report (camera icon). Electronically Signed By: Serene Pearce 02/21/24 1233 Diagnosis A. Duodenum, biopsy: Duodenal mucosa with predominantly preserved villi and focal features of chronic/non-specific duodenitis. B. Stomach, random, biopsy: Gastric antral mucosa with focal intestinal me taplasia and gastric body mucosa with congestion, both with focal minimal chronic inactive inflammation; negative for H pylori, intestinal metaplasia and dysplasia. C. Esophagogastric junction, biopsy: Squamocolumnar mucosa with mild chronic active inflammation, focal intestinal metaplasia, and hyperplastic changes; negative for dysplasia (see comment). Comment: (C): These findings are consistent with Reza's esophagus if the biopsies were taken from above the anatomic gastroesophageal junction. Clinical and endoscopic correlation is advised. Clinical History Pre-Op Dx: Unspecified porphyria, anemia, benign neoplasm of colon Post-Op Dx: Gastritis, duodenitis, hemorrhoids Operative Note Date of Service: 11/24/20 Narrative: Operative Information Procedure Description: Colonoscopy COLONOSCOPY Instrument: Olympus variable stiffness pediatric scope 190L Colonoscopy Monitoring: Vital signs and clinical assessment, continuous EKG monitoring, Pulse oximetry, Carbon Dioxide monitoring and blood pressure monitoring were done throughout the procedure. Colon withdrawal time was 12 minutes. Procedure: The patient was placed in the left lateral decubitis position and pre-procedure medications were administered. After a digital rectal examination of the ano-rectum, the video colonoscope was inserted into the rectum and advanced through the colon to the cecum/TI. The colonoscope was slowly withdrawn in a retrograde panoramic fashion and the colon mucosa was carefully examined including a retroflexed view of the rectum. Findings and interventions are described below. Procedure Difficulty: easy Findings: Terminal Ileum-normal Cecum:normal Ascending Colon: normal Transverse Colon -normal Descending Colon:normal Sigmoid Colon: normal, tattoo from prior colonoscopy noted but no lesions seen Rectum: Retroflexion with small internal hemorrhoids, grade I, 11-12 mm sessile polyp removed with cold snare Anorectum - normal Colon preparation: [place] Bowel Preparation Scale Right colon; 1 Transverse colon: 1 Left colon; 2 Impression and Post Procedure Diagnosis: polyp internal hemorrhoids Plan: High fiber diet leaflet Avoid straining at stool, epsom salts and sitz bath, anusol supps or cream as needed Repeat Colonoscopy in 2-3 years or earlier if clinically indicate Pathology Diagnosis Rectum, polypectomy: Tubular adenoma; no high grade dysplasia or carcinoma seen Assessment & Plan Assessment & Plan (1) Abdominal pain: Code(s): R10.9 - Unspecified abdominal pain Category: Medical Qualifiers: Abdominal location: generalized Qualified Code(s): R10.84 - Generalized abdominal pain Plan: Persistent postprandial abdominal pain and bloating, especially after processed foods, with associated distension and early satiety. No acute peritoneal signs. Additional Tests: Comprehensive metabolic panel, CBC, liver and renal function, inflammatory markers Medications: Review and confirm pantoprazole use; hold for two weeks for H. pylori testing. Lifestyle Modifications: Advise reduction of processed foods, encourage balanced diet, hydration, and moderation of alcohol/tobacco. (2) Change in stool caliber: Comment: 10/12/23 colonoscopy complete with adequate prep-hemorrhoids. 11/24/20 colonoscopy complete with fair prep-11-12 mm sessile Rectal Tubular adenoma, internal hemorrhoids Code(s): R19.5 - Other fecal abnormalities Category: Medical Plan: Recent onset of smaller, darker stools, incomplete evacuation, and episodes of diarrhea with possible blood. Concern for lower GI pathology given history of internal hemorrhoids and prior polyps. Gastroenteritis also a possibility given onset of sx after consuming several gas station hot dogs. Additional Tests: stool studies for occult blood and infection; H. pylori stool antigen (after PPI hold). consider sooner colonoscopy than previously recommended due to new symptoms Lifestyle Modifications: Increase dietary fiber as tolerated, avoid trigger foods, monitor for further changes in stool or bleeding. (3) Weight loss, unintentional: Code(s): R63.4 - Abnormal weight loss Category: Medical Plan: Loss of ~9 lb over 2?3 months, most recently in the past two weeks, without intentional dietary restriction. Concerning in context of GI symptoms and family history of unknown cancer. Additional Tests: CBC, CMP, TSH, vitamin levels, iron studies, chest X-ray to rule out systemic causes; repeat colonoscopy as above. Medications: No changes at this time. Lifestyle Modifications: Encourage adequate caloric intake, monitor weight weekly, address barriers to nutrition. Plan After discussion with colleague will proceed with imaging for further evaluation r/o Hepatopancreatobiliary source source, intestinal inflammatory process, mass or other etiology. Follow-up 4 weeks or sooner as needed Time: I spent a total of 30 minutes on the date of encounter which includes: Preparing to see the patient (reviewed previous documentation, test results and medical history) Performing a medically appropriate exam and/or evaluation Ordering medications, tests, and procedures Documenting clinical information in the health record Orders: Orders IRON PROFILE 01/18/25 D64.9 - Anemia, unspecified Comprehensive [place]. Panel Fast 01/18/25 R10.9 - Unspecified abdominal pain C Reactive Protein 01/18/25 R19.5 - Other fecal abnormalities XR chest 2V 01/18/25 R63.4 - Abnormal weight loss Ferritin Today D64.9 - Anemia, unspecified CT abdomen pelvis wo/w IV con Today R10.84 - Generalized abdominal pain, R19.5 - Other fecal abnormalities, R63.4 - Abnormal weight loss Lipase Today R10.84 - Generalized abdominal pain, R19.5 - Other fecal abnormalities Ova and Parasite Today R19.5 - Other fecal abnormalities, R19.7 - Diarrhea, unspecified Fecal Fat Qualitative Today R19.5 - Other fecal abnormalities, R19.7 - Diarrhea, unspecified H pylori Ag Stool 01/18/25 R10.9 - Unspecified abdominal pain, R19.5 - Other fecal abnormalities Complete Blood Count Auto Diff 01/18/25 D64.9 - Anemia, unspecified Vitamin B12 and Folate 01/18/25 D64.9 - Anemia, unspecified TSH reflex Free T4 01/18/25 R19.5 - Other fecal abnormalities HIV Ab/Ag 01/18/25 R63.4 - Abnormal weight loss Hemoglobin A1c 01/18/25 R63.4 - Abnormal weight loss GI Panel Today R19.5 - Other fecal abnormalities, R19.7 - Diarrhea, unspecified Coding Level of Care Code Established Pt Est Pt Level 4 (80737) Patient Type Established Diagnoses Generalized abdominal pain R10.84 Abdominal location: generalized Change in stool caliber R19.5 Weight loss, unintentional R63.4
[2025-01-18 13:30] VITALS: BP 140/90; PULSE 73; O2SAT 97; BMI 25.4
== END 2025-01-18 14:23 | disposition home or self-care (01) ==
LOC: HO.HGI 13:19
PROVIDERS: PCP Internal Medicine; Visit Provider Nurse Practitioner Family
DX: R10.84 Generalized abdominal pain (principal); R19.5 Other fecal abnormalities; R63.4 Abnormal weight loss
CPT/HCPCS: 99214

== ENCOUNTER 2025-01-27 16:59 | Outpatient (REF) | payer MEDICAID, SELFPAY ==
--- NOTE | ~2025-01-27 | MR_ITS ---
CLINICAL HISTORY: Z98.890 - Other specified postprocedural states --- Additional Notes or Special Instructions: previous decompression MRI LUMBAR SPINE WITHOUT CONTRAST Comparison: MR/SR - MR LUMBAR SPINE WITHOUT IV CONTRAST - 07/28/23 20:22 EST Findings: Stable minimal grade 1 retrolistheses L1 on L2, L2 on L3 and L3 on L4. No acute fracture. Stable heterogeneous signal throughout the vertebral bodies in the lumbar spine, lower thoracic spine and upper sacrum. Conus medullaris terminates at the appropriate level. T12-L1: Unremarkable. L1-2: Mild disc bulge. Facet arthropathy. No significant spinal or foraminal stenosis. L2-3: Moderate disc bulge. Facet arthropathy. No significant spinal or right foraminal stenosis. Moderate left foraminal stenosis. L3-4: Postsurgical changes in the paraspinous and posterior subcutaneous tissues with no evidence for a fluid collection. Large disc bulge. Facet arthropathy. Moderate to moderately severe spinal stenosis. Severe right lateral recess stenosis. Moderate right and mild left foraminal stenoses. L4-5: Postsurgical changes in the paraspinous and posterior subcutaneous tissues with no evidence for a fluid collection.Large disc bulge. 9 x 9 mm extruded component extending inferiorly is without significant change. Facet arthropathy. Moderate spinal stenosis. Severe bilateral foraminal stenoses. L5-S1: Mild disc bulge. Facet arthropathy. No significant spinal stenosis. Mild right and severe left foraminal stenoses. 2.2 cm probable cyst in the right kidney. Paraspinous muscles unremarkable. Impression: 1. Multilevel disc herniations and facet arthrosis with no significant new findings compared to prior. 2. Moderate to moderately severe spinal stenosis L3-4. Moderate spinal stenosis L4-5. 3. Varying degrees of foraminal stenoses especially at L4-5 bilaterally and L5-S1 on the left. This document has been electronically signed by: Glenna Meier DO on 01/29/2025 15:26:47
== END 2025-01-27 17:00 | disposition home or self-care (01) ==
LOC: HO.MRI 16:59
PROVIDERS: PCP Internal Medicine; Visit Provider Physician Assistant
DX: Z98.890 Other specified postprocedural states (principal); M48.061 Spinal stenosis, lumbar region without neurogenic claudication
CPT/HCPCS: 72158; A9585

== ENCOUNTER → 2025-01-27 17:03 | Outpatient (BNV) | payer MEDICAID, SELFPAY | PROVIDERS: PCP Internal Medicine; Visit Provider Radiology Diagnostic Radiology | DX: M51.26 Other intervertebral disc displacement, lumbar region (principal); M99.63 Osseous and subluxation stenosis of intervertebral foramina of lumbar region | CPT/HCPCS: 72158 ==

== ENCOUNTER 2025-02-06 13:01 | Outpatient (REF) | payer MEDICAID, SELFPAY ==
[2025-02-06 13:24] LABS: MANUAL DIFF FLAG NO
--- OUTSIDE RECORDS SUMMARY | 2025-02-06 13:37 | XMS_ITS | Clinical Summary ---
[facility] Organization [facility] Address [address] [place] [address] Care Team Providers Care Teacher Resource Name Role Phone Cheryl Fournier MD Primary [...] Vaccine ( - 2023-2 5 season) 2024 Depression Screening 07/04/2024 Influenza Vaccine (#1) 2025 RSV Immunization Adult [...] age to complete this topic Care Teams Teacher Resource Relationship Specialty Start Date End Date Cheryl Fournier MD PCP - General Internal Medicine 09/09/16
--- OUTSIDE RECORDS SUMMARY | 2025-02-06 13:37 | XMS_ITS | Clinical Summary ---
Author Organization [employer] Address [address] [place] [address] Care Team Providers Care Eye Glass Frame Polisher Name Role Phone Mike Arora MD Primary [...] MORNING 60 each 3 05/25/20 24 Active gabapentin (Neurontin) 600 MG tablet [...] DYSFUNCTION 30 tablet 2 11/20/19 25 Active traMADol (Ultram) 50 MG tabletIndication s:Low back pain associated with a spinal disorder other than radiculopathy or spinal stenosis Take 1 tablet (50 mg) by mouth every 6 (six) hours if needed for severe pain for up to 7 days. 28 tablet 12/26/19 25 2024 Discontinued traMADol (Ultram) 50 MG tabletIndication s:Low back pain associated with a spinal disorder other than radiculopathy or spinal stenosis TAKE 1 TABLET (50 MG) BY MOUTH EVERY 6 (SIX) HOURS IF NEEDED FOR SEVERE PAIN FOR UP TO 7 DAYS. 28 tablet 01/12/20 25 2024 traMADol (Ultram) 50 MG tabletIndication s:Low back pain associated with a spinal disorder other than radiculopathy or spinal stenosis Take 1 tablet (50 mg) by mouth every 6 (six) hours if needed for severe pain for up to 7 days. 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 At this moment will refer to [facility] Derm clinic. Chronic obstructive pulmonary disease [...] Encounters Date Type Department Care Team Description 01/27/2025 Orders Only [facility] External Provider, [facility] 01/11/2025 Telephone [facility] [address] [place] [address] Mike Arora MD Med Refill 01/11/2025 Refill [facility] [address] [place] [address] Mike Arora MD Low back pain associated with a spinal disorder other than radiculopathy or spinal stenosis (Primary Dx) 01/10/2025 Refill [facility] [address] [place] [address] Mike Arora MD Low back pain associated with a spinal disorder other than radiculopathy or spinal stenosis 12/25/2024 9:30 AM EDT Telemedicine [facility] [address] [place] [address] Mike Arora MD Low back pain associated with a spinal disorder other than radiculopathy or spinal stenosis 12/25/2024 Travel 12/24/2024 Telephone [facility] [address] [place] [address] Mike Arora MD chart prep 12/17/2024 Orders Only [facility] External Provider, [facility] 11/16/2024 Refill [facility] [address] [place] [address] Mike Arora MD 11/15/2024 Refill [facility] [address] [place] [address] Mike Arora MD Low back pain associated with a spinal disorder other than radiculopathy or spinal stenosis from Last 3 Months Immunizations Immunization Administration [...] Upcoming Encounters Date Type Department Care Team ([facility] st Contact Info) Description 02/11/2025 1:15 PM EDT Telemedicine [facility] [address] [place] [address] Mike Arora MD [address] [place] [address] Health Maintenance Due Date Last Done Comments [...] Procedure Name Priority Date/Time Associated Diagnosis Comments MR LUMBAR SPINE W AND WO CONTRAST Routine 01/29/2025 3:26 PM EDT XR LUMBAR SPINE COMPLETE 4+ VIEWS Routine 12/17/2024 1:50 PM EDT LIPID PANEL, STANDARD Routine 03/19/2024 8:16 AM EDT Primary hypertension HIV 1 RNA, QN PCR W/RFL LI (RTI,PI,INTEGRASE) Routine 08/10/2022 10:30 AM EST Simple chronic bronchitis (CMS/HCC) HM COLONOSCOPY Routine 11/04/2020 from Last 3 Months or Most Recently Relevant to Health Maintenance Results * MR Lumbar Spine w/ and w/o Contrast (01/29/2025 3:26 PM EDT) Anatomical Region Laterality Modality Spine, L-spine Magnetic Resonan ce 01/29/2025 3:26 PM EDT Narrative 01/29/2025 3:28 PM EDT [address] [address] Magnetic Resonance Report Signed Patient: Nehal Veloz MR#: [id number] 907 : 1960 Acct:[id number] Age/Sex: 65 / M ADM Date: 01/27/25 Loc: HO.MRI Attending Dr: Garry AYALA Ordering Physician: Garry Lopez Date of Service: 01/27/25 Procedure(s): MR lumbar spine wo/w con Accession Number(s): [id number] cc: Garry Lopez; Mike Arora MD CLINICAL HISTORY: Z98.890 - Other specified postprocedural states --- Additional Notes or Special Instructions: previous decompression MRI LUMBAR SPINE WITHOUT CONTRAST Comparison: MR/SR - MR LUMBAR SPINE WITHOUT IV CONTRAST - 07/28/23 20:22 EST Findings: Stable minimal grade 1 retrolistheses L1 on L2, L2 on L3 and L3 on L4. No acute fracture. Stable heterogeneous signal throughout the vertebral bodies in the lumbar spine, lower thoracic spine and upper sacrum. Conus medullaris terminates at the appropriate level. T12-L1: Unremarkable. L1-2: Mild disc bulge. Facet arthropathy. No significant spinal or foraminal stenosis. L2-3: Moderate disc bulge. Facet arthropathy. No significant spinal or right foraminal stenosis. Moderate left foraminal stenosis. L3-4: Postsurgical changes in the paraspinous and posterior subcutaneous tissues with no evidence for a fluid collection. Large disc bulge. Facet arthropathy. Moderate to moderately severe spinal stenosis. Severe right lateral recess stenosis. Moderate right and mild left foraminal stenoses. L4-5: Postsurgical changes in the paraspinous and posterior subcutaneous tissues with no evidence for a fluid collection.Large disc bulge. 9 x 9 mm extruded component extending inferiorly is without significant change. Facet arthropathy. Moderate spinal stenosis. Severe bilateral foraminal stenoses. L5-S1: Mild disc bulge. Facet arthropathy. No significant spinal stenosis. Mild right and severe left foraminal stenoses. 2.2 cm probable cyst in the right kidney. Paraspinous muscles unremarkable. Impression: 1. Multilevel disc herniations and facet arthrosis with no significant new findings compared to prior. 2. Moderate to moderately severe spinal stenosis L3-4. Moderate spinal stenosis L4-5. 3. Varying degrees of foraminal stenoses especially at L4-5 bilaterally and L5-S1 on the left. This document has been electronically signed by: Glenna Meier DO on 01/29/2025 15:26:47 Dictated By: Glenna Meier MD Signed By: <Electronically signed by Glenna Meier MD in OV> 01/29/25 1527 DD/ 1526 TD/TT: 01/29/25 1526 Tire Stripper: Procedure Note Donotmadelaineinterpreter, Image - 01/29/[address] [address] Magnetic Resonance Report Signed Patient: Nehal VelozMR#: [id number] 907 : 2Acct:[id number] Age/Sex: 65 / MADM Date: 01/27/25 Loc: HO.MRI Attending Dr: Garry AYALA Ordering Physician: Garry Lopez Date of Service: 01/27/25 Procedure(s): MR lumbar spine wo/w con Accession Number(s): [id number] cc: Garry Lopez; Mike Aroar MD CLINICAL HISTORY: Z98.890 - Other specified postprocedural states ---Additional Notes or Special Instructions: previous decompression MRI LUMBAR SPINE WITHOUT CONTRAST Comparison: MR/SR - MR LUMBAR SPINE WITHOUT IV CONTRAST - 07/28/23 20:22 EST Findings: Stable minimal grade 1 retrolistheses L1 on L2, L2 on L3 and L3 on L4. No acute fracture. Stable heterogeneous signal throughout the vertebral bodies in the lumbar spine, lower thoracic spine and upper sacrum. Conus medullaris terminates at the appropriate level. T12-L1: Unremarkable. L1-2: Mild disc bulge. Facet arthropathy. No significant spinal or foraminal stenosis. L2-3: Moderate disc bulge. Facet arthropathy. No significant spinal or right foraminal stenosis. Moderate left foraminal stenosis. L3-4: Postsurgical changes in the paraspinous and posterior subcutaneous tissues with no evidence for a fluid collection. Large disc bulge. Facet arthropathy. Moderate to moderately severe spinal stenosis. Severe right lateral recess stenosis. Moderate right and mild left foraminal stenoses. L4-5: Postsurgical changes in the paraspinous and posterior subcutaneous tissues with no evidence for a fluid collection.Large disc bulge. 9 x 9 mm extruded component extending inferiorly is without significant change. Facet arthropathy. Moderate spinal stenosis. Severe bilateral foraminal stenoses. L5-S1: Mild disc bulge. Facet arthropathy. No significant spinal stenosis. Mild right and severe left foraminal stenoses. 2.2 cm probable cyst in the right kidney. Paraspinous muscles unremarkable. Impression: 1. Multilevel disc herniations and facet arthrosis with no significant new findings compared to prior. 2. Moderate to moderately severe spinal stenosis L3-4. Moderate spinal stenosis L4-5. 3. Varying degrees of foraminal stenoses especially at L4-5 bilaterally and L5-S1 on the left. This document has been electronically signed by: Glenna Meier DO on 01/29/2025 15:26:47 Dictated By: Glenna Meier MD Signed By: <Electronically signed by Glenna Meier MD in OV> 01/29/25 1527 DD/ 1526 TD/TT: 01/29/25 1526 Tire Stripper: [facility] External Provider IMG MRI PROCEDURES Final Result * XR Lumbar Spine Complete 4+ Views (12/17/2024 1:50 PM EDT) Anatomical Region Laterality Modality Spine, L-spine Radiographic Divya ging 12/17/2024 1:50 PM EDT Narrative 12/17/2024 3:35 PM EDT [place] [address] XRay Report Signed Patient: Nehal Veloz MR#: [id number] 907 : 1960 Acct:[id number] Age/Sex: 64 / M ADM Date: 12/17/24 Loc: [facility] Attending Dr: Garry AYALA Ordering Physician: Garry Lopez Date of Service: 12/17/24 Procedure(s): XR lumbar spine 4V min Accession Number(s): [id number] cc: Garry Lopez; Mike Arora MD Exam: [...] Bello Mack MD 12/17/2024 03:31 PM EDT RP Dictated By: Bello Mack MD Signed By: <Electronically signed by Bello Mack MD in OV> 12/17/24 1531 DD/ 1350 TD/TT: 12/17/24 1400 Tire Stripper: Procedure Note Donotuseinterpreter, Image - 12/17/[address] [address] XRay Report Signed Patient: Nehal VelozMR#: [id number] 907 : 1960cct:[id number] Age/Sex: 64 / MADM Date: 12/17/24 Loc: [facility] Attending Dr: Garry AYALA Ordering Physician: Garry Lopez Date of Service: 12/17/24 Procedure(s): XR lumbar spine 4V min Accession Number(s): [id number] cc: Garry Lopez; Mike Arora MD Exam: [...] Bello Mack MD 12/17/2024 03:31 PM EDT RP Dictated By: Bello Mack MD Signed By: <Electronically signed by Bello Mack MD in OV> 12/17/24 1531 DD/ 1350 TD/TT: 12/17/24 1400 Tire Stripper: [facility] External Provider IMG XR PROCEDURES Final Result * Lipid Panel, Standard (03/19/2024 8:16 AM EDT) Triglycerides 94 <150 mg/dL [facility] Comment:Desirable Triglyceri de: less than 150 mg/dLBorderline High Triglyceride 150-199 mg/dLHigh Triglyceride: 200-499 mg/dLVery High Triglyceride: greater than or equal to 5OO mg/dL Cholesterol 144 <200 mg/dL [facility] Comment:Desirable Cholestero l: less than 200 mg/dLBorderline High Cholesterol: 200-239 mg/dLHigh Cholesterol: greater than 239 mg/dL LDL Cholesterol Calculated 65 <100 mg/dL [facility] Comment:Desirable LDL: less than 100 mg/dLNear Optimal/Above Optimal LDL: 110- 129 mg/dLBorderline High LDL: 130-159 mg/dLHigh LDL: 160-189 mg/dLVery High LDL: greater than or equal to 190 mg/dL HDL Cholesterol 61 >40 mg/dL [facility] Comment:Desirable HDL: great er than 40 mg/dL Note: This HDL assay may give artificially low results in patients with liver disease. Blood Venous blood specimen / Unknown 03/19/2024 8:16 AM EDT 03/19/2024 2:23 PM EDT Mike Gaffney MD LAB BLOOD ORDERABL ES Final Result Performing Organization Address City/[facility]/ZIP Co de Phone Number [facility] [address] [place] [address] [phone] * HIV-1 RNA, Quantitative, Real-Time PCR with Reflex to Genotype (RTI, PI, Integrase) (08/10/2022 10:30 AM EST) HIV 1 RNA, QN PCR NOT DETECTED copies/mL [facility] [employer], HIV 1 RNA, QN PCR NOT DETECTED Log copies/mL [facility], Comment: REFERENCE RANGE: NOT DETECTED copies/mL NOT DETECTED Log copies/mL This test was performed using Real-Time Polymerase Chain Reaction. Reportable range is 20 to 10,000,000 copies/mL (1.30-7.00 Log copies/mL). 08/10/2022 10:3 0 AM EST 08/10/2022 10:31 AM EST Narrative [facility] - 08/13/2022 11:15 PM EST FASTING:NO FASTING: NO Mike Gaffney MD LAB BLOOD ORDERABL ES Final Result Performing Organization Address [facility] Co de Phone Number [facility] [address] [place] [address] [facility], [address] [place] [address] * Colonoscopy (11/04/2020) Colonoscopy PERFORMED Historical Provider HEALTH MAINTENANCE Edited Result - Final from Last 3 Months or Most Recently Relevant to Health Maintenance [facility] C[facility] Care Teams Eye Glass Frame Polisher Relationship Specialty Start Date End Date Mike Arora MD [address] [place] [address] [place] [address] PCP - General Internal Medicine 07/09/19"
[2025-02-06 14:36] LABS: Hematocrit 41.3 % (42.0-52.0); Hemoglobin 14.1 g/dl (14.0-18.0); Imm Gran Abs Auto 0.03 X10*3/uL (0.00-0.03); Imm Gran Pct Auto 0.3 % (0.0-0.4); Lymphocytes Absolute Auto 2.2 X10*3/uL (1.2-4.9); Mean Corpuscular HGB Conc 34.1 g/dl (31.0-36.0); Mean Corpuscular Hemoglobin 33.3 pg (27.0-33.0); Mean Corpuscular Volume 97.4 fL (80.0-98.0); NRBC Abs Auto 0.000 X10*3/uL (0.0-0.012); NRBC Pct Auto 0.0 /100WBC (0.0-0.2); Platelet Count 269 X10*3/uL (160-400); Red Blood Count 4.24 X10*6/uL (4.60-5.80); White Blood Count 10.7 X10*3/uL (4.8-10.8)
[2025-02-06 14:42] LABS: Hemoglobin A1C 144.6595 umol/L; Total Hemoglobin (HGBA1C) 3774.5968 umol/L
[2025-02-06 15:13] LABS: Alanine Aminotransferase 32 U/L (0-40); Albumin Level 4.6 g/dL (3.5-5.0); Alkaline Phosphatase 51 U/L (39-117); Anion Gap 14 (12-20); Aspartate Amino Transferase 31 U/L (5-37); Blood Urea Nitrogen 15 mg/dL (9-16); Calcium 9.5 mg/dL (8.4-10.2); Carbon Dioxide 25 mmol/L (22-29); Chloride 109 mmol/L (96-108); Estimated Glomerular Filt Rate > 60; Iron 115 mcg/dL (45-160); Lipase 18 U/L (8-78); Percent Iron Saturation 34 % (15-50); Potassium 3.5 mmol/L (3.3-5.1); Sodium 144 mmol/L (135-145); Total Iron Binding Capacity 336 mcg/dL (228-428); Total Protein 7.3 g/dL (6.5-8.0); Unsaturated Iron Binding 221 ug/dL
[2025-02-06 15:35] LABS: Ferritin 124 ng/mL (20-250)
[2025-02-06 15:44] LABS: Folate 11.0 ng/mL (> or = 4.0); Vitamin B12 462 pg/mL (200-900)
[2025-02-07 08:17] LABS: HIV Num 1 0.07 S/CO (0.00-0.99)
== END 2025-02-06 13:02 | disposition home or self-care (01) ==
LOC: HO.LAB 13:01
PROVIDERS: PCP Internal Medicine; Visit Provider Nurse Practitioner Family
DX: Z11.4 Encounter for screening for human immunodeficiency virus [HIV] (principal); D64.9 Anemia, unspecified; R10.84 Generalized abdominal pain; R19.5 Other fecal abnormalities; R63.4 Abnormal weight loss
CPT/HCPCS: 36415; 80053; 82607; 82728; 82746; 83036; 83540; 83690; 84443; 85025; 86140; 87389

== ENCOUNTER 2025-02-11 07:41 | Outpatient (REF) | payer MEDICAID, SELFPAY ==
--- OUTSIDE RECORDS SUMMARY | 2025-02-11 07:44 | XMS_ITS | Clinical Summary ---
Author Organization [facility] Address [address] [place] [address] Care Team Providers Care I&C Tech Name Role Phone Cheryl Fournier MD Primary [...] age to complete this topic Care Teams I&C Tech Relationship Specialty Start Date End Date Cheryl Fournier MD PCP - General Internal Medicine 09/09/16
--- OUTSIDE RECORDS SUMMARY | 2025-02-11 07:44 | XMS_ITS | Clinical Summary ---
Author Organization [employer] Address [address] [facility] [address] [place] [address] Care Team Providers Care Physician President Name Role Phone Mike Arora MD Primary [...] 23 Active Wixela Inhub 250-50 MCG/ACT aerosol powderIndications [...] 10/25/19 25 Active meloxicam (Mobic) 15 MG tabletIndications :Low back pain associated with a spinal disorder other than radiculopathy or spinal stenosis TAKE 1 TABLET BY MOUTH EVERY DAY 30 tablet 2 11/17/19 25 Active sildenafil (Viagra) 50 MG tablet TAKE 1 TABLET (50 MG) BY MOUTH DAILY NEEDED FOR ERECTILE DYSFUNCTION 30 tablet 2 11/20/19 25 Active traMADol (Ultram) 50 MG tabletIndications :Low back pain associated with a spinal disorder other than radiculopathy or spinal stenosis TAKE 1 TABLET (50 MG) BY MOUTH EVERY 6 (SIX) HOURS IF NEEDED FOR SEVERE PAIN FOR UP TO 7 DAYS. 28 tablet 01/12/20 25 025 traMADol (Ultram) 50 MG tabletIndications :Low back pain associated with a spinal disorder other than radiculopathy or spinal stenosis Take 1 tablet (50 mg) by mouth every 6 (six) hours if needed for severe pain for up to 7 days. 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 At this moment will refer to [facility] Derm clinic. Chronic obstructive pulmonary disease [...] Encounters Date Type Department Care Team Description 02/09/2025 Refill [facility] [address] [place] [address] Mike Arora MD Low back pain associated with a spinal disorder other than radiculopathy or spinal stenosis 02/06/2025 Orders Only GENERIC EXTERNAL DATA DEPARTMENT Provider, Generic External Data 01/27/2025 Orders Only [facility] External Provider, [facility] 01/11/2025 Telephone [facility] [address] [place] [address] Mike Arora MD Med Refill 01/11/2025 Refill [facility] [address] [place] [address] Mike Arora MD Low back pain associated with a spinal disorder other than radiculopathy or spinal stenosis (Primary Dx) 01/10/2025 Refill [facility] [address] [place] [address] Mike Arora MD Low back pain associated with a spinal disorder other than radiculopathy or spinal stenosis 12/25/2024 9:30 AM EDT Telemedicine [facility] [address] [place] [address] Mike Arora MD Low back pain associated with a spinal disorder other than radiculopathy or spinal stenosis 12/25/2024 Travel 12/24/2024 Telephone [facility] [address] [place] [address] Mike Arora MD chart prep 12/17/2024 Orders Only [facility] External Provider, [facility] 11/16/2024 Refill [facility] [address] [place] [address] Mike Arora MD 11/15/2024 Refill [facility] [address] [place] [address] Mike Arora MD Low back pain associated [...] Upcoming Encounters Date Type Department Care Team ([facility] st Contact Info) Description 02/11/2025 1:15 PM EDT Telemedicine [facility] [address] [place] [address] Mike Arora MD [address] [place] [address] Health Maintenance Due Date Last Done Comments [...] (#1) 2025 05/18/2022 Tobacco Screening 03/16/2025 03/16/2024 Diabetes: Hemoglobin A1C 02/06/2026 025, 08/10/2022, 07/09/2019 Colonoscopy 10/11/2028 11/04/2020 Colorectal Cancer Screening 10/11/2028 Lipid Panel 03/19/2029 03/19/2024, 08/10/2022 DTaP/Tdap/Td Vaccines (2 - T d or Tdap) 03/16/2034 03/16/2024 Pneumococcal Vaccine: 50+ Years Completed 05/02/2023 HIV Screening Completed 02/06/2025, 08/10/2022, 07/09/2019 HIB Vaccines Aged Out No longer eligi [...] Procedure Name Priority Date/Time Associated Diagnosis Comments HIV 1/2 ANTIGEN/ANTIBODY, FOURTH GENERATION W/RFL Routine 02/06/2025 1:19 PM EDT VITAMIN B12/FOLATE, SERUM PANEL Routine 02/06/2025 1:19 PM EDT TSH W/REFLEX TO FT4 Routine 02/06/2025 1 :19 PM EDT FERRITIN Routine 02/06/2025 1:19 PM EDT LIPASE Routine 02/06/2025 1:19 PM EDT C-REACTIVE PROTEIN Routine 02/06/2025 1: 19 PM EDT IRON AND TOTAL IRON BINDING CAPACITY Routine 02/06/2025 1:19 PM EDT COMPREHENSIVE METABOLIC PANEL, FASTING Routine 02/06/2025 1:19 PM EDT HEMOGLOBIN A1C Routine 02/06/2025 1:19 PM EDT CBC WITH AUTO DIFFERENTIAL Routine 02/06/2025 1:19 PM EDT MR LUMBAR SPINE W AND WO CONTRAST Routine 01/29/2025 3:26 PM EDT XR LUMBAR SPINE COMPLETE 4+ VIEWS Routine 12/17/2024 1:50 PM EDT LIPID PANEL, STANDARD Routine 03/19/2024 8:16 AM EDT Primary hypertension HM COLONOSCOPY Routine 11/04/2020 from Last 3 Months or Most Recently Relevant to Health Maintenance Results * (ABNORMAL) Comprehensive Metabolic Panel, Fasting (02/06/2025 1:19 PM EDT) Sodium 144 135 - 145 mmol/L [facility] Potassium 3.5 3.3 - 5.1 mmol/L [facility] Chloride 109(H) 96 - 108 mmol/L [facility] Carbon Dioxide 25 22 - 29 mmol/L [facility] Anion Gap 14 12 - 20 [facility] Urea Nitrogen (BUN) 15 9 - 16 mg/dL [facility] Creatinine, Serum 0.63 0.5 - 1.4 mg/dL [facility] Estimated Glomerular Filt Rate >60 [facility] Comment:Chronic Kidney Disea se: Estimated GFR < 60 mL/min/1.03e7Fbledz Kidney Disease: Estimated GFR < 15 mL/min/1.73m2 Glucose Fasting 90 60 - 99 mg/dL [facility] Calcium 9.5 8.4 - 10.2 mg/dL [facility] Bilirubin, Total 0.6 0.0 - 1.0 mg/dL [facility] Aspartate Amino Transferase 31 5 - 37 U/L [facility] Alanine Aminotransferase 32 0 - 40 U/L [facility] Total Protein 7.3 6.5 - 8.0 g/dL [facility] Albumin Level 4.6 3.5 - 5.0 g/dL [facility] Alkaline Phosphatase 51 39 - 117 U/L [facility] 02/06/2025 1:19 PM EDT 02/06/2025 1:22 PM EDT Generic External Data Provider LAB BLOOD ORDERAB LES Final Result Performing Organization Address [facility]/ZIP Co de Phone Number [facility] [address] [place] [phone] * Vitamin B12 (Cobalamin) and Folate Panel, Serum (02/06/2025 1:19 PM EDT) Vitamin B12 462 200 - 900 pg/mL [facility] Comment:NORMAL 200-900 PG/ML INDETERMINATE 160-199 PG/ML DEFICIENT < 160 PG/ML Folate 11.0 > or = 4.0 ng/mL [facility] Comment:Reference Values:> o r = 4.0 ng/mL< 4.0 ng/mL suggests folate deficiency Methotrexate, aminopterin and folinic acid(leucovorin) are chemotherapeutic agents whose molecularstructures are similar to folate; therefore, the Architectfolate assay cannot be used for patients using these drugs. 02/06/2025 1:19 PM EDT 02/06/2025 1:22 PM EDT Generic External Data Provider LAB BLOOD ORDERAB LES Final Result Performing Organization Address [facility] Co de Phone Number [facility] [address] [place] [phone] * TSH with Reflex to Free T4 (02/06/2025 1:19 PM EDT) TSH reflex Free T4 1.40 0.32 - 4.0 uIU/mL [facility] 02/06/2025 1:19 PM EDT 02/06/2025 1:22 PM EDT Generic External Data Provider LAB BLOOD ORDERAB LES Final Result Performing Organization Address City/[facility]/ZIP Co de Phone Number [facility] [address] [place] [phone] * (ABNORMAL) CBC auto differential (02/06/2025 1:19 PM EDT) White Blood Count 10.7 4.8 - 10.8 X10*3/uL [facility] Red Blood Count 4.24(L) 4.60 - 5.80 X10*6/uL [facility] Hemoglobin 14.1 14.0 - 18.0 g/dl [facility] Hematocrit 41.3(L) 42.0 - 52.0 % [facility] Mean Corpuscular Volume 97.4 80.0 - 98.0 fL [facility] Mean Corpuscular Hemoglobin 33.3(H) 27.0 - 33.0 pg [facility] Mean Corpuscular HGB Conc 34.1 31.0 - 36.0 g/dl [facility] Red Cell Distribution Width 12.5 11.0 - 16.0 % [facility] Platelet Count 269 160 - 400 X10*3/uL [facility] Mean Platelet Volume 10.4 9.4 - 12.4 fL [facility] Neutrophils Percent Auto 65.8 45 - 73 % [facility] Imm Gran Pct Auto 0.3 0.0 - 0.4 % [facility] Lymphocytes Percent Auto 20.3 20 - 40 % [facility] Monocytes Percent Auto 10.5 2 - 11 % [facility] Eosinophils Percent Auto 2.6 0 - 4 % [facility] Basophils Percent Auto 0.5 0 - 2 % [facility] NRBC Pct Auto 0.0 0.0 - 0.2 /100WBC [facility] Neutrophils Absolute Auto 7.1 2.0 - 8.3 x10*3/uL [facility] Imm Gran Abs Auto 0.03 0.00 - 0.03 X10*3/uL [facility] Lymphocytes Absolute Auto 2.2 1.2 - 4.9 X10*3/uL [facility] Monocytes Absolute Auto 1.1 0.1 - 1.2 X10*3/uL [facility] Eosinophils Absolute Auto 0.3 0.0 - 0.4 X10*3/uL [facility] Basophils Absolute Auto 0.1 0.0 - 0.2 X10*3/uL [facility] NRBC Abs Auto 0.000 0.0 - 0.012 X10*3/uL [facility] 02/06/2025 1:19 PM EDT 02/06/2025 1:22 PM EDT Generic External Data Provider LAB BLOOD ORDERAB LES Final Result Performing Organization Address [facility] Co de Phone Number [facility] [address] [place] [phone] * Iron And Total Iron Binding Capacity (02/06/2025 1:19 PM EDT) [facility] Iron 115 45 - 160 mcg/dL [facility] Total Iron Binding Capacity 336 228 - 428 mcg/dL [facility] Percent Iron Saturation 34 15 - 50 % [facility] Unsaturated Iron Binding 221 ug/dL [facility] 02/06/2025 1:19 PM EDT 02/06/2025 1:22 PM EDT Generic External Data Provider LAB BLOOD ORDERAB LES Final Result Performing Organization Address [facility] Number [facility] [address] [place] [phone] * HIV-1/2 Antigen and Antibodies, Fourth Generation, with Reflexes (02/06/2025 1:19 PM EDT) Pathologist [facility] HIV AB/AG Nonreactive Nonreactive [facility] Comment:HIV-1 p24 Ag and/or HIV-1/HIV-2 Ab not detected.A test result that is nonreactive does not exclude thepossibility of exposure to or infection with HIV-1 and/orHIV-2. Nonreactive results in this assay for individualswith prior exposure to HIV-1 and/or HIV-2 may be due toantigen and antibody levels that are below the limit ofdetection of this assay.The [employer] HIV Ag/Ab Combo assay result andsupplemental assay results should be interpreted inconjunction with the patient's clinical presentation,history and other laboratory results. If the results areinconsistent with clinical evidence, additional testing issuggested to confirm the result. 02/06/2025 1:19 PM EDT 02/06/2025 1:22 PM EDT Generic External Data Provider LAB BLOOD ORDERAB LES Final Result Performing Organization Address [facility] Co de Phone Number [facility] [address] [place] [phone] * C-reactive Protein (02/06/2025 1:19 PM EDT) Pathologist [facility] C Reactive Protein 0.22 < or = 0.50 mg/dL [facility] 02/06/2025 1:19 PM EDT 02/06/2025 1:22 PM EDT Generic External Data Provider LAB BLOOD ORDERAB LES Final Result Performing Organization Address [facility] Co de Phone Number [facility] [address] [place] [phone] * Lipase (02/06/2025 1:19 PM EDT) Pathologist [facility] Lipase 18 8 - 78 U/L [facility] 02/06/2025 1:19 PM EDT 02/06/2025 1:22 PM EDT Generic External Data Provider LAB BLOOD ORDERAB LES Final Result Performing Organization Address [facility] Co de Phone Number [facility] [address] [place] [phone] * Hemoglobin A1c (02/06/2025 1:19 PM EDT) Hemoglobin A1c 5.7 <6.0 % [facility] Comment:Hemoglobin A1C Refer ence Range Adults: 4.8 - 6.0 % Non diabetic: < 6.0 % Goal: < 7.0 %Additional Action Suggested: > 8.0 %Note: Hemoglobin A1c results are invalid for patients with abnormal amounts of HbF. Blood transfusions may impact the HbA1c concentration in the patient sample. Estimated Average Glucose 117 mg/dL [facility] Comment:eAG = Estimated ave rage glucose which is %A1C expressed asaverage glucose, using the formula of the F2N-FetvhdpCmwlszt Glucose study (ADAG), Diabetes Care, Vol.31,#8,2007 02/06/2025 1:19 PM EDT 02/06/2025 1:22 PM EDT Generic External Data Provider LAB BLOOD ORDERAB LES Final Result Performing Organization Address [facility] Co de Phone Number [facility] [address] [place] [phone] * Ferritin (02/06/2025 1:19 PM EDT) Ferritin 124 20 - 250 ng/mL [facility] 02/06/2025 1:19 PM EDT 02/06/2025 1:22 PM EDT Generic External Data Provider LAB BLOOD ORDERAB LES Final Result Performing Organization Address [facility] de Phone Number [facility] [address] [place] [phone] * MR Lumbar Spine w/ and w/o Contrast (01/29/2025 3:26 PM EDT) Anatomical Region Laterality Modality Spine, L-spine Magnetic Resonan ce 01/29/2025 3:26 PM EDT Narrative 01/29/2025 3:28 PM EDT [address] [address] Magnetic Resonance Report Signed Patient: Nehal Veloz MR#: [id number] 907 : 1960 Acct:[id number] Age/Sex: 65 / M ADM Date: 01/27/25 Loc: HO.MRI Attending Dr: Garry AYALA Ordering Physician: Garry Lopez Date of Service: 01/27/25 Procedure(s): MR lumbar spine wo/w con Accession Number(s): [id number] cc: Garry Lopez; Mike Arora MD CLINICAL [...] 01/29/25 1527 DD/ 1526 TD/TT: 01/29/25 1526 Clay Caster: Procedure Note Kitter, Image - 01/29/2025 [place] [address] Magnetic Resonance Report Signed Patient: Nehal VelozMR#: [id number] 907 : 2Acct:[id number] Age/Sex: 65 / MADM Date: 01/27/25 Loc: HO.MRI Attending Dr: Garry AYALA Ordering Physician: Garry Lopez Date of Service: 01/27/25 Procedure(s): MR lumbar spine wo/w con Accession Number(s): [id number] cc: Garry Lopez; Mike Arora MD CLINICAL [...] 01/29/25 1527 DD/ 1526 TD/TT: 01/29/25 1526 Clay Caster: [facility] External Provider IMG MRI PROCEDURES Final Result * XR Lumbar Spine Complete 4+ Views (12/17/2024 1:50 PM EDT) Anatomical Region Laterality Modality Spine, L-spine Radiographic Divya ging 12/17/2024 1:50 PM EDT Narrative 12/17/2024 3:35 PM EDT [place] [address] XRay Report Signed Patient: Nehal Veloz MR#: [id number] 907 : 1960 Acct:[id number] Age/Sex: 64 / M ADM Date: 12/17/24 Loc: HO.DIPAK Attending Dr: Garry AYALA Ordering Physician: Garry Lopez Date of Service: 12/17/24 Procedure(s): XR lumbar spine 4V min Accession Number(s): [id number] cc: Garry Lopez; Mike Arora MD Exam: [...] 12/17/24 1531 DD/ 1350 TD/TT: 12/17/24 1400 Clay Caster: Procedure Note Donotuseinterpreter, Image - 12/17/[address] [address] XRay Report Signed Patient: Nehal VelozMR#: [id number] 907 : 2Acct:[id number] Age/Sex: 64 / MADM Date: 12/17/24 Loc: ANCELMO Attending Dr: Garry AYALA Ordering Physician: Garry Lopez Date of Service: 12/17/24 Procedure(s): XR lumbar spine 4V min Accession Number(s): [id number] cc: Garry Lopez; Mike Arora MD Exam: [...] 12/17/24 1531 DD/ 1350 TD/TT: 12/17/24 1400 Clay Caster: [facility] External Provider IMG XR PROCEDURES Final Result * Lipid Panel, Standard (03/19/2024 8:16 AM EDT) Triglycerides 94 <150 mg/dL [facility] Comment:Desirable Triglyceri de: less than 150 mg/dLBorderline High Triglyceride 150-199 mg/dLHigh Triglyceride: 200-499 mg/dLVery High Triglyceride: greater than or equal to 5OO mg/dL Cholesterol 144 <200 mg/dL [facility] Comment:Desirable Cholestero l: less than 200 mg/dLBorderline High Cholesterol: 200-239 mg/dLHigh Cholesterol: greater than 239 mg/dL LDL Cholesterol Calculated 65 <100 mg/dL [facility] Comment:Desirable LDL: less than 100 mg/dLNear Optimal/Above Optimal LDL: 110- 129 mg/dLBorderline High LDL: 130-159 mg/dLHigh LDL: 160-189 mg/dLVery High LDL: greater than or equal to 190 mg/dL HDL Cholesterol 61 >40 mg/dL [facility] Comment:Desirable HDL: great er than 40 mg/dL Note: This HDL assay may give artificially low results in patients with liver disease. Blood Venous blood specimen / Unknown 03/19/2024 8:16 AM EDT 03/19/2024 2:23 PM EDT Mike Gaffney MD LAB BLOOD ORDERABL ES Final Result [facility] [address] [place] [phone] * Hm Colonoscopy (11/04/2020) Colonoscopy PERFORMED Historical Provider HEALTH MAINTENANCE Edited Result - Final from Last 3 Months or Most Recently Relevant to Health Maintenance [facility] Care Teams Physician President Relationship Specialty Start Date End Date Mike Arora MD [address] [place] [phone] PCP - General Internal Medicine 07/09/19
[2025-02-11 09:47] LABS: E. coli EAEC Not Detected (Not Detect.); E. coli EPEC Not Detected (Not Detect.); E. coli ETEC Not Detected (Not Detect.); E. coli STEC Not Detected (Not Detect.); Shigella sp./EIEC Not Detected (Not Detect.)
== END 2025-02-11 07:42 | disposition home or self-care (01) ==
LOC: HO.LNP 07:41
PROVIDERS: Visit Provider Nurse Practitioner Family
DX: R19.5 Other fecal abnormalities (principal); R19.7 Diarrhea, unspecified; R10.9 Unspecified abdominal pain
CPT/HCPCS: 82705; 87177; 87209; 87338; 87507

== ENCOUNTER 2025-02-15 09:55 | Outpatient (AMB) | payer MEDICAID, SELFPAY ==
--- OUTSIDE RECORDS SUMMARY | 2025-02-11 13:15 | XMS_ITS | Encounter Summary ---
Author Organization [employer] Address [address] [facility] [address] [place] [address] Care Team Providers Care Manufacturing Technology Analyst Name Role Phone Mike Arora MD Primary Care Prov ider Encounter Details Date Type Department Care Team (Latest Contact Info) Description 02/11/2025 1:15 PM EDT Telemedicine [facility] [address] [place] [address] Mike Arora MD [address] [place] [address] Low back pain associated with a spinal [...] AM EDT documented as of this encounter Progress Notes * Mike Gaffney MD - 02/11/2025 1:15 PM EDT Subjective Patient ID: Nehal Veloz is a 65 y.o. male who presents for No chief complaint on file.. Back Pain This is a chronic problem. The pain is present in the lumbar spine. The quality of the pain is described as aching. Pertinent negatives include no bladder incontinence, bowel incontinence, numbness, tingling or weakness. Review of Systems Gastrointestinal: Negative for bowel incontinence. Genitourinary: Negative for bladder incontinence. Musculoskeletal: Positive for back pain. Neurological: Negative for tingling, weakness and numbness. Objective Physical Exam Neurological: General: No focal deficit present. Mental Status: He is oriented to person, place, and time. Psychiatric: Mood and Affect: Mood normal. Behavior: Behavior normal. Assessment/Plan Problem List Items Addressed This Visit Low back pain associated with a spinal disorder other than radiculopathy or spinal stenosis Patient is receiving cortisone shots, has a appointment with back abraneon in 2 weeks, no neurologic deficit, will contineu current medical pain medications, follow up as needed, er precautions reviewed Relevant Medications meloxicam (Mobic) 15 MG tablet documented in this encounter Miscellaneous Notes * Assessment & Plan Note - Mike Gaffney MD - 02/11/2025 1:44 PM EDTAssociated Problem(s): Low back pain associated with a spinal disorder other than radiculopathy or spinal stenosis Patient is receiving cortisone shots, has a appointment with back renetta in 2 weeks, no neurologic deficit, will contineu current medical pain medications, follow up as needed, er precautions reviewed documented in this encounter Plan of Treatment Not on file documented as of this encounter Visit Diagnoses Diagnosis Low back pain associated with a spinal disorder other than radiculopathy or spinal stenosis documented in this encounter Additional Health Concerns Assessment Noted Time PHQ-9 Depression Total Score: 0 10/15/19 23 10:23 AM EDT documented as of this encounter Care Teams Manufacturing Technology Analyst Relationship Specialty Start Date End Date Mike Arora MD [address] [place] [phone] PCP - General Internal Medicine 07/09/19 documented as of this encounter
[2025-02-15 09:58] VITALS: BMI 25.4
--- NOTE | 2025-02-15 09:58 | MHC.OFFVIS ---
Vital Signs 02/15/25 09:58 Height 5 ft 9 in Weight 172 lb BMI 25.4 Intake Visit Reasons: OV: right knee OA, last inj 09/27/24 Intake Note: Nehal is a 65 year old male who presents today as a follow up for his right knee OA, last injection 09/27/24. Patient states injection helped and would like to repeat injection today. Allergies No Known Allergies Allergy (Verified 02/15/25 10:02) HPI Comments Details: Other than right knee pain, he has right-sided lower back pain radiating to the leg. He has been following with neuro spine and pain management. Surgery is being discussed. [facility] Medical History (Updated 01/22/25 @ 08:22 by Venita Cormier CNP) Weight loss, unintentional Anemia Abdominal pain Change in stool caliber Back pain Arthritis Nicotine dependence, cigarettes, uncomplicated Right knee DJD Lumbar spinal stenosis Right lumbar radiculopathy Porphyrin disorder Tubular adenoma of colon (~2020) History of peptic ulcer (~2001) Difficult intravenous access History of chronic pain COPD (chronic obstructive pulmonary disease) Hepatitis C Surgical History History of back surgery History of hand surgery (~2020) History of colonoscopy (~2020) History of esophagogastroduodenoscopy (EGD) (~2001) Family History Mother Emphysema lung Cancer Social History Household Members Other:: room mate Are you a primary home health aide caregiver to a significant other at home: No Do you presently have visiting nurse or other home services: No Alcohol intake: former Year quit: 2019 Patient Tobacco Use Status: Current everyday Tobacco user Tobacco use type: Cigarette Cigarettes Per Day: 7 Years Smoked: 55 Substance Use Type: Amphetamines, Crack/Cocaine, Former Substance User, Hallucinogens, IV Drugs, Marijuana and Opiates Current occupational status: employed 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 Patient sits with right knee flexed. Medial edge of patella is identified and marked. Area is cleansed with betadine solution. A 27 gauge needle is injected at an angle laterally and slightly upwards under the patella. Solution containing 40 mg Kenalog and 3 mL of 2% Lidocaine is instilled. Patient tolerated procedure well without complications. Post-injection instructions given. Primary Site: right knee Prep: site was prepped using aseptic technique Injected: 40 mg of, Kenalog and with 3 mL of (2% lidocaine) Procedure: The patient tolerated the procedure well Coding - Large joint Procedure code (CPT) selection complete Assessment & Plan Assessment & Plan (1) Right knee DJD: Code(s): M17.11 - Unilateral primary osteoarthritis, right knee Category: Medical Qualifiers: Osteoarthritis type: primary Qualified Code(s): M17.11 - Unilateral primary osteoarthritis, right knee Plan Tolerated procedure well. Offered patient follow up appointment in 1 month but patient has a very busy work schedule. He will call us in a month for update. Assessment and plan discussed with patient, and patient was agreeable. All questions were answered thoroughly. Eliane Gomez MD, LILLY Board Certified, [place] Board of Physical Medicine and Rehabilitation (ABPMR) Board Certified, [place] Board of Electrodiagnostic Medicine (ABEM) Orders: Orders AMB Joint Injection/Aspiration Today M17.11 - Unilateral primary osteoarthritis, right knee Coding Level of Care Code Procedure Only Diagnoses Primary osteoarthritis of right knee M17.11 Osteoarthritis type: primary CPT Codes Coding - Large joint: 79590 - Large joint ([id number])
--- OUTSIDE RECORDS SUMMARY | 2025-02-15 10:11 | XMS_ITS | Clinical Summary ---
Author Organization [facility] Address [address] [place] [address] Care Team Providers Care Cone Machine Feeder Name Role Phone Cheryl Fournier MD Primary Care Provider [phone] Social History Tobacco Use Types Packs/Day Years [...] age to complete this topic Care Teams Cone Machine Feeder Relationship Specialty Start Date End Date Cheryl Fournier MD PCP - General Internal Medicine 09/09/16
== END 2025-02-15 10:24 | disposition home or self-care (01) ==
LOC: HO.HOS 09:55
PROVIDERS: PCP Internal Medicine; Visit Provider Physical Medicine & Rehabilitation
DX: M17.11 Unilateral primary osteoarthritis, right knee (principal)
CPT/HCPCS: 20610

== ENCOUNTER → 2025-02-15 09:55 | Outpatient (BNVA) | payer MEDICAID, SELFPAY | PROVIDERS: PCP Internal Medicine; Visit Provider Physical Medicine & Rehabilitation | DX: M17.11 Unilateral primary osteoarthritis, right knee (principal) | CPT/HCPCS: 20610; J2003; J3301 ==

== ENCOUNTER 2025-03-01 14:26 | Outpatient (AMB) | payer MEDICAID, SELFPAY ==
--- OUTSIDE RECORDS SUMMARY | 2025-03-01 14:28 | XMS_ITS | Encounter Summary ---
Author Organization [employer] Address [address] [facility] 7t [place] [address] Care Team Providers Care Dairy Department Manager Name Role Phone Mike Arora MD Primary Care Prov ider Reason for Visit * Reason Comments Med Refill Encounter Details Date Type Department Care Team ([facility] Contact Info) Description 02/17/2025 Refill [facility] CHC MED & PEDS [address] [place] [address] Mike Arora MD [address] [place] [address] Low back pain associated with a spinal [...] documented as of this encounter Care Teams Dairy Department Manager Relationship Specialty Start Date End Date Mike Arora MD [address] [place] [address] PCP - General Internal Medicine 07/09/19 documented as of this encounter
--- OUTSIDE RECORDS SUMMARY | 2025-03-01 14:29 | XMS_ITS | Encounter Summary ---
Author Organization [employer] Address [address] [facility] [address] [place] [address] Care Team Providers Care Wire Technician Name Role Phone Mike Arora MD Primary Care Prov ider Reason for Visit * Reason Onset Date Comments Med Refill 01/11/2025 Encounter Details Date Type Department Care Team ([facility] st Contact Info) Description 01/11/2025 Telephone [facility] CHC MED & PEDS [address] [place] [address] Mike Arora MD [address] [place] [address] Med Refill Social History Tobacco Use Types [...] encounter Miscellaneous Notes * Telephone Encounter - Shellie Qureshi LPN - 01/11/2025 10:22 AM EDT Medication was prescribed on 12/25/24 for short term. * Telephone Encounter - Salinas Lundy - 01/11/2025 10:19 AM EDT TC from pt requesting medication refill. Medications needing refill : predniSONE (Deltasone) 20 MG tablet [[id number]] To be sent to: [facility]/pharmacy #[id number] [place], [place] - [address] [place] [address] documented in this encounter Plan of Treatment Not on file documented as of this encounter Visit Diagnoses Not on filedocumented in this encounter Additional Health Concerns Assessment Noted Time PHQ-9 Depression Total Score: 0 10/15/19 23 10:23 AM EDT documented as of this encounter Care Teams Wire Technician Relationship Specialty Start Date End Date Mike Arora MD [address] [place] [address] PCP - General Internal Medicine 07/09/19 documented as of this encounter
--- OUTSIDE RECORDS SUMMARY | 2025-03-01 14:29 | XMS_ITS | Encounter Summary ---
Author Organization [employer] Address [address] [facility] 7t [place] [address] Care Team Providers Care Direct Of Real Estate Name Role Phone Mike Arora MD Primary Care Prov ider Reason for Visit * Reason Onset Date Comments Med Refill 05/21/2024 Encounter Details Date Type Department Care Team (Late st Contact Info) Description 05/21/2024 Telephone [facility] MEDICINE [address] [place] [address] Mike Arora MD [address] [place] [address] Med Refill Social History Tobacco Use Types [...] 50 MG tablet To be sent to: [facility]/pharmacy #[id number] - [place] - [address] [place] [address] documented in this encounter Plan of Treatment Not on file documented as of this encounter Visit Diagnoses Not on filedocumented in this encounter Additional Health Concerns Assessment Noted Time PHQ-9 Depression Total Score: 0 10/15/19 23 10:23 AM EDT documented as of this encounter Care Teams Direct Of Real Estate Relationship Specialty Start Date End Date Mike Arora MD [address] [place] [address] PCP - General Internal Medicine 07/09/19 documented as of this encounter
--- OUTSIDE RECORDS SUMMARY | 2025-03-01 14:29 | XMS_ITS | Encounter Summary ---
Author Organization [employer] Address [address] [facility] 7t [place] [address] Care Team Providers Care Composer Teaching Artist Name Role Phone Mike Arora MD Primary Care Prov ider Reason for Visit * Reason Comments Med Refill Encounter Details Date Type Department Care Team ([facility] Contact Info) Description 06/10/2024 Refill [facility] CHC MED & PEDS [address] [place] [address] Mike Arora MD [address] [place] [address] Low back pain associated with a spinal [...] documented as of this encounter Care Teams Composer Teaching Artist Relationship Specialty Start Date End Date Mike Arora MD [address] [place] [address] PCP - General Internal Medicine 07/09/19 documented as of this encounter
--- OUTSIDE RECORDS SUMMARY | 2025-03-01 14:29 | XMS_ITS | Encounter Summary ---
Author Organization [employer] Address [address] [facility] [address] [place] [address] Care Team Providers Care Shipping And Receiving Specialist Name Role Phone Mike Arora MD Primary Care Prov ider Encounter Details Date Type Department Care Team ([facility] st Contact Info) Description 08/10/2022 Orders Only [facility] MEDICINE [address] [place] [address] Mike Arora MD [address] [place], [place] [phone] Prostate cancer screening (Primary Dx); Simple chronic [...] PCR POSITIVE (08/10/2022 10:30 AM EST) Pathologist [facility] HCV RNA, QN Real Time PCR <15 NOT DETECTED NOT DETECTED IU/mL [employer] [place] [employer] HCV RNA QN Real Time PCR <1.18 NOT DETECTED NOT DETECTED Log IU/mL [facility] Comment: HCV RNA is not detected. There is no laboratory evidence of a current active HCV infection. This pattern of results (undetectable HCV RNA combined with reactive HCV antibody) could be consistent with a resolved past infection if the clinical history is compatible with previous HCV exposure. However, if no previous exposure is suspected, the reactive HCV antibody could be a biological false positive result. (Always Message) [facility] [email or web address] [place] [employer] Comment: This test was performed using Real-Time Polymerase Chain Reaction. Reportable Range: 15 IU/mL to 100,000,000 IU/mL (1.18 Log IU/mL to 8.00 Log IU/mL). The analytical performance characteristics of this assay have been determined by [employer]. The modifications have not been cleared or approved by the FDA. This assay has been validated pursuant to the CLIA regulations and is used for clinical purposes. For more information on this test, go to: http://education.Telepartner/faq/EQL87b4 (This link is being provided for informational/ [...] LAB BLOOD ORDERABL ES Final Result [address], [place] [address] [employer] [place] [employer] [address] [facility], (Nl2) [place] [address] * PSA,Total (08/10/2022 10:30 AM EST) PSA, Total 0.35 < OR = 4.00 ng/mL [employer] [place] [employer] Comment: The total PSA value from this assay system is standardized against the WHO standard. The test result will be approximately 20% lower when compared to the equimolar-standardized total PSA ([place]). Comparison of serial PSA results should be [...] ORDERABL ES Final Result Performing Organization Address [facility]/ZIP Co de Phone Number [address], [place] [address] [employer] [place] [employer] [address] [place] [address], (Nl2) [place] [address] * (ABNORMAL) Hemoglobin A1c with Calculated Mean Plasma Glucose (MPG) (08/10/2022 10:30 AM EST) Hemoglobin A1c 5.8(H) <5.7 % of total Hgb [employer] [place] [employer] Comment: For someone without known diabetes, a [...] children. Mean Plasma Glucose 129 mg/dL (calc) [employer] [facility] [place] [employer] 08/10/2022 10:3 0 AM EST 08/10/2022 10:31 AM EST Narrative [facility] - 08/13/2022 11:15 PM EST FASTING:NO FASTING: NO Mike Gaffney MD LAB BLOOD ORDERABL ES Final Result Performing Organization Address City/[facility]/ZIP Co de Phone Number [address], [place] [address] [employer] [place] [employer] [address] [place] [address], (Nl2) [place] [address] * TSH W/Reflex to FT4 (08/10/2022 10:30 AM EST) TSH w/Reflex to FT4 2.75 0.40 - 4.50 mIU/L [employer] [facility] [place] [employer] 08/10/2022 10:3 0 AM EST 08/10/2022 10:31 AM EST Narrative [facility] - 08/13/2022 11:15 PM EST FASTING:NO FASTING: NO Mike Gaffney MD LAB BLOOD ORDERABL ES Final Result [facility] [address] [facility], [address] In, [place] [address] [employer] [place] [employer] [address] [facility], (Nl2) [place] [address] * Lipid Panel, Standard (08/10/2022 10:30 AM EST) Cholesterol, Total 145 <200 mg/dL [employer] [place] [employer] HDL Cholesterol 58 > OR = 40 mg/dL [facility] [facility] [place] [employer] [facility] Triglycerides 50 <150 mg/dL [employer] [facility] [place] [employer] LDL Cholesterol 75 mg/dL (calc) [employer] [place] [employer] Comment: Reference range: <100 Desirable range <100 mg/dL for primary prevention; <70 mg/dL for patients with CHD or diabetic patients with > or = 2 CHD risk factors. LDL-C is now calculated using the Darrel-Matt calculation, which is a validated novel method providing better accuracy than the Friedewald equation in the estimation of LDL-C. Darrel SS et al. DYLAN. 2013;310(19): 0790-2849 (http://education.Woofound.InHiro/faq/THZ148) Chol/HDLC Ratio 2.5 <5.0 (calc) [employer] [facility] [place] [employer] [facility] Non-HDL Cholesterol 87 <130 mg/dL (calc) [employer] [facility] [place] [employer] Comment: For patients with diabetes plus 1 [...] ORDERABL ES Final Result Performing Organization Address [facility]/ZIP Co de Phone Number [address] [place] [address] [employer] [place] [employer] [address] [place] [address], (Nl2) [place] [address] * HIV-1 RNA, Quantitative, Real-Time PCR with Reflex to Genotype (RTI, PI, Integrase) (08/10/2022 10:30 AM EST) HIV 1 RNA, QN PCR NOT DETECTED copies/mL [facility], HIV 1 RNA, QN PCR NOT DETECTED Log copies/mL [employer], Comment: REFERENCE RANGE: NOT DETECTED copies/mL NOT DETECTED Log copies/mL This test was performed using Real-Time Polymerase Chain Reaction. Reportable range is 20 to 10,000,000 copies/mL (1.30-7.00 Log copies/mL). 08/10/2022 10:3 0 AM EST 08/10/2022 10:31 AM EST Narrative [facility] - 08/13/2022 11:15 PM EST FASTING:NO FASTING: NO Mike Gaffney MD LAB BLOOD ORDERABL ES Final Result Performing Organization Address City/[facility]/ZIP Co de Phone Number [address] [place] [address] [facility], [address] [place] [address] * (ABNORMAL) Hepatitis C Antibody with Reflex to HCV, RNA, Quantitative, Real- Time PCR (08/10/2022 10:30 AM EST) Hepatitis C Antibody REACTIVE( A) NON-REACT BIANCA [employer] [facility] [place] [employer] Index >11.00(H) <1.00 [facility] [place] [facility] Comment: Based on this result, the [...] MD LAB BLOOD ORDERABL ES Final Result [facility] [address] [facility], [facility], [place] [address] [employer] [place] [employer] [address] [facility], (Nl2) [place] [address] * Hepatic Function Panel (08/10/2022 10:30 AM EST) Protein, Total 7.1 6.1 - 8.1 g/dL [facility] [place] [facility] Albumin 4.7 3.6 - 5.1 g/dL [facility] [place] [facility] Globulin 2.4 1.9 - 3.7 g/dL (calc) [facility] [place] [facility] Albumin/Globulin Ratio 2.0 1.0 - 2.5 (calc) [facility] [place] [facility] Bilirubin, Total 0.7 0.2 - 1.2 mg/dL [facility] [place] [facility] Bilirubin, Direct 0.2 < OR = 0.2 mg/dL [facility] [place] [facility] Bilirubin, Indirect 0.5 0.2 - 1.2 mg/dL (calc) [facility] [place] [facility] Alkaline Phosphatase 35 35 - 144 U/L [facility] [place] [facility] AST 17 10 - 35 U/L [facility] [place] [facility] ALT 16 9 - 46 U/L [facility] [place] [facility] Blood Venous blood specimen / Unknown 08/10/2022 10:30 AM EST 08/10/2022 10:31 AM EST Narrative [facility] - 08/13/2022 11:15 PM EST FASTING:NO FASTING: NO Mike Gaffney MD LAB BLOOD ORDERABL ES Final Result Performing Organization Address City/[facility]/ZIP Co de Phone Number [address] [place] [address] [facility] [place] [facility] [address] [facility], (Nl2) [place] [address] * Basic Metabolic Panel (08/10/2022 10:30 AM EST) [facility] Glucose 90 65 - 139 mg/dL [employer] [facility] [place] [employer] Comment: Non-fasting reference interval Urea Nitrogen (BUN) 25 7 - 25 mg/dL [facility] [place] [facility] Creatinine, Serum 0.71 0.70 - 1.35 mg/dL [facility] [place] [facility] eGFR 105 > OR = 60 mL/min/1 .73m2 [employer] [facility] [place] [facility] Comment: The eGFR is based on the CKD-EPI 2020 equation. To calculate the new eGFR from a previous Creatinine or Cystatin C result, go to https://www.kidney.org/professionals/ kdoqi/gfr%5Fcalculator BUN/Creatinine Ratio NOT APPLICABLE 6 - 22 (calc) [facility] [place] [facility] Sodium 136 135 - 146 mmol/L [facility] [place] [facility] Potassium 4.4 3.5 - 5.3 mmol/L [facility] [place] [facility] Chloride 101 98 - 110 mmol/L [facility] [place] [facility] Carbon Dioxide 26 20 - 32 mmol/L [facility] [place] [facility] Calcium 9.6 8.6 - 10.3 mg/dL [facility] [place] [facility] Blood Venous blood specimen / Unknown 08/10/2022 10:30 AM EST 08/10/2022 10:31 AM EST Narrative [facility] - 08/13/2022 11:15 PM EST FASTING:NO FASTING: NO Mike Gaffney MD LAB BLOOD ORDERABL ES Final Result Performing Organization Address City/[facility]/ZIP Co de Phone Number [address] [place] [address] [employer] [place] [employer] [address] [place] [address], (Nl2) [place] [address] * CBC auto differential (08/10/2022 10:30 AM EST) White Blood Cell Count 7.2 3.8 - 10.8 Thousand/ uL [facility] [place] [facility] Red Blood Cell Count 4.22 4.20 - 5.80 Million/u L [facility] Hemoglobin 13.4 13.2 - 17.1 g/dL [facility] [place] [facility] Hematocrit 39.8 38.5 - 50.0 % [facility] MCV 94.3 80.0 - 100.0 fL [facility] MCH 31.8 27.0 - 33.0 pg [facility] MCHC 33.7 32.0 - 36.0 g/dL [facility] [place] [facility] RDW 12.5 11.0 - 15.0 % [facility] Platelet Count 270 140 - 400 Thousand/ uL [facility] [place] [facility] MPV 9.9 7.5 - 12.5 fL [facility] Absolute Neutrophils 3,679 1,500 - 7,800 cells/uL [facility] [place] [facility] Absolute Lymphocytes 2,498 850 - 3,900 cells/uL [facility] [place] [facility] Absolute Monocytes 612 200 - 950 cells/uL [facility] [place] [facility] Absolute Eosinophils 360 15 - 500 cells/uL [facility] [place] [facility] Absolute Basophils 50 0 - 200 cells/uL [facility] [place] [facility] Neutrophils 51.1 % [facility] [place] [facility] Lymphocytes 34.7 % [facility] [place] [facility] Monocytes 8.5 % [facility] [place] [facility] Eosinophils 5.0 % [facility] [place] [facility] Basophils 0.7 % [facility] [place] [facility] Blood Venous blood specimen / Unknown 08/10/2022 10:30 AM EST 08/10/2022 10:31 AM EST Narrative [facility] - 08/13/2022 11:15 PM EST FASTING:NO FASTING: NO us Mike Gaffney MD LAB BLOOD ORDERABL ES Final Result [facility] [address] [facility], [facility], [place] [address] [facility] [address] [facility], (Nl2) [place] [address] documented in this encounter Visit Diagnoses Diagnosis Prostate cancer screening- Primary Special screening for malignant neoplasm of prostate Simple chronic bronchitis (CMS/HCC) Simple chronic bronchitis documented in this encounter Care Teams Shipping And Receiving Specialist Relationship Specialty Start Date End Date Mike Arora MD [address] [place] [address] PCP - General Internal Medicine 07/09/19 documented as of this encounter
--- OUTSIDE RECORDS SUMMARY | 2025-03-01 14:29 | XMS_ITS | Encounter Summary ---
Author Organization [employer] Address [address] [facility] 7t [place] [address] Care Team Providers Care Oil Tanker Captain Name Role Phone Mike Arora MD Primary Care Prov ider Reason for Visit * Reason Comments Med Refill Encounter Details Date Type Department Care Team ([facility] Contact Info) Description 05/09/2024 Refill [facility] CHC MED & PEDS [address] [place] [address] Mike Arora MD [address] [place] [address] Low back pain associated with a spinal [...] documented as of this encounter Care Teams Oil Tanker Captain Relationship Specialty Start Date End Date Mike Arora MD [address] [place] [address] PCP - General Internal Medicine 07/09/19 documented as of this encounter
--- OUTSIDE RECORDS SUMMARY | 2025-03-01 14:29 | XMS_ITS | Clinical Summary ---
Author Organization [facility] Address [address] [place] [address] Care Team Providers Care Mastercam Programmer Name Role Phone Cheryl Fournier MD Primary [...] age to complete this topic Care Teams Mastercam Programmer Relationship Specialty Start Date End Date Cheryl Fournier MD PCP - General Internal Medicine 09/09/16
--- OUTSIDE RECORDS SUMMARY | 2025-03-01 14:29 | XMS_ITS | Encounter Summary ---
Author Organization [employer] Address [address] [facility] [address] [place] [address] Care Team Providers Care Water Trainer Name Role Phone Mike Arora MD Primary Care Prov ider Reason for Visit * Reason Onset Date Comments call back 10/20/2022 Encounter Details Date Type Department Care Team ([facility] st Contact Info) Description 10/20/2022 Telephone [facility] [address] [place] [address] Mike Arora MD [address] [place] [address] call back Social History Tobacco Use Types [...] Per pt, he had it done at [facility]. No result found. Will f/u with [facility] diagnostic specialist to find out where pt had the CT done. * Telephone Encounter - Chantal Stuart RN - 10/20/2022 3:08 PM EDT Tc from pt requesting a call back regarding why pt has to do a US Abdomen. Please contact pt at [phone] Please clarify above message. Thanks * Telephone Encounter - Jose Howard - 10/20/2022 10:00 AM EDT Tc from pt requesting a call back regarding why pt has to do a US Abdomen. Please contact pt at [phone] documented in this encounter Plan of Treatment Not on file documented as of this encounter Visit Diagnoses Not on filedocumented in this encounter Additional Health Concerns Assessment Noted Time PHQ-9 Depression Total Score: 0 10/15/19 23 10:23 AM EDT documented as of this encounter Care Teams Water Trainer Relationship Specialty Start Date End Date Mike Arora MD [address] [place] [phone] PCP - General Internal Medicine 07/09/19 documented as of this encounter
--- OUTSIDE RECORDS SUMMARY | 2025-03-01 14:29 | XMS_ITS | Clinical Summary ---
Author Organization [employer] Address [address] [facility] [address] [place] [address] Care Team Providers Care Sharepoint Designer Developer Name Role Phone Mike Arora MD [...] (four) hours. 18 g 3 023 Active gabapentin (Neurontin) 600 MG tablet TAKE 1 TABLET BY MOUTH 3 TIMES DAILY. 90 tablet 5 025 Active Spiriva HandiHaler 18 MCG inhalation capsule INHALE 1 CAPSULE VIA HANDIHALER ONCE DAILY AT THE SAME TIME EVERY DAY IN THE MORNING 30 capsule 11 025 Active sildenafil (Viagra) 50 MG tablet TAKE 1 TABLET (50 MG) BY MOUTH DAILY NEEDED FOR ERECTILE DYSFUNCTION 30 tablet 2 025 Active meloxicam (Mobic) 15 MG tabletIndication s:Low back pain associated with a spinal disorder other than radiculopathy or spinal stenosis TAKE 1 TABLET BY MOUTH EVERY DAY 30 tablet 2 025 Active meloxicam (Mobic) 15 MG tabletIndication s:Low back pain associated with a spinal disorder other than radiculopathy or spinal stenosis Take 1 tablet (15 mg) by mouth Once per day. 30 tablet 2 025 Active Advair Diskus 250-50 MCG/ACT aerosol powderIndication s:Chronic obstructive pulmonary disease, unspecified COPD type (CMS/HCC) INHALE 1 PUFF INTO THE LUNGS IN THE MORNING 60 each 3 025 Active Wixela Inhub 250-50 MCG/ACT aerosol powderIndication s:Chronic obstructive pulmonary disease, unspecified COPD type (CMS/HCC) INHALE 1 PUFF INTO THE LUNGS IN THE MORNING 60 each 3 024 2024 Discontinued meloxicam (Mobic) 15 MG tabletIndication s:Low back pain associated with a spinal disorder other than radiculopathy or spinal stenosis TAKE 1 TABLET BY MOUTH EVERY DAY 30 tablet 2 025 2024 Discontinued(R eorder (will not trigger notification to Pharmacy)) traMADol (Ultram) 50 MG tabletIndication s:Low back pain associated with a spinal disorder other than radiculopathy or spinal stenosis Take 1 tablet (50 mg) by mouth every 6 (six) hours if needed for severe pain for up to 7 days. 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 At this moment will refer to [facility] Derm clinic. Chronic obstructive pulmonary disease 06/21/2022 [...] Encounters Date Type Department Care Team Description 02/17/2025 Refill [facility] MED & PEDS [address] [place] [address] Mike Arora MD Low back pain associated with a spinal disorder other than radiculopathy or spinal stenosis 02/15/[address] [facility] MEDICINE [address] [place] [address] Mike Arora MD Low back pain associated with a spinal disorder other than radiculopathy or spinal stenosis (Primary Dx) 02/14/[address] [facility] & PEDS [address] [place] [address] Mike Arora MD Chronic obstructive pulmonary disease, unspecified COPD type (CMS/HCC) 02/11/2025 1:15 PM EDT Telemedicine [facility] PEDS [address] [place] [address] Mike Arora MD Low back pain associated with a spinal disorder other than radiculopathy or spinal stenosis 02/11/2025 Travel 02/09/2025 Refill [facility] [address] [place] [address] Mike Arora MD Low back pain associated with a spinal disorder other than radiculopathy or spinal stenosis 02/06/2025 Orders Only GENERIC EXTERNAL DATA DEPARTMENT Provider, Generic External Data 01/27/2025 Orders Only [facility] External Provider, [facility] 01/11/2025 Telephone [facility] [address] [place] [address] Mike Arora MD Med Refill 01/11/2025 Refill [facility] [address] [place] [address] Mike Arora MD Low back pain associated with a spinal disorder other than radiculopathy or spinal stenosis (Primary Dx) 01/10/2025 Refill [facility] [address] [place] [address] Mike Arora MD Low back pain associated with a spinal disorder other than radiculopathy or spinal stenosis 12/25/2024 9:30 AM EDT Telemedicine [facility] [address] [place] [address] Mike Arora MD Low back pain associated with a spinal disorder other than radiculopathy or spinal stenosis 12/25/2024 Travel 12/24/2024 Telephone [facility] [address] [place] [address] Mike Arora MD chart prep 12/17/2024 Orders Only [facility] External Provider, [facility] from Last 3 Months Immunizations Immunization Administration [...] EDT) Sodium 144 135 - 145 mmol/L [facility] Potassium 3.5 3.3 - 5.1 mmol/L [facility] Chloride 109(H) 96 - 108 mmol/L [facility] Carbon Dioxide 25 22 - 29 mmol/L [facility] Anion Gap 14 12 - 20 [facility] Urea Nitrogen (BUN) 15 9 - 16 mg/dL [facility] Creatinine, Serum 0.63 0.5 - 1.4 mg/dL [facility] Estimated Glomerular Filt Rate >60 [facility] Comment:Chronic Kidney Disea se: Estimated GFR < 60 mL/min/[id number] Kidney Disease: Estimated GFR < 15 mL/min/1.73m2 Glucose Fasting 90 60 - 99 mg/dL [facility] Calcium 9.5 8.4 - 10.2 mg/dL [facility] Bilirubin, Total 0.6 0.0 - 1.0 mg/dL [facility] Aspartate Amino Transferase 31 5 - 37 U/L [facility] Alanine Aminotransferase 32 0 - 40 U/L [facility] Total Protein 7.3 6.5 - 8.0 g/dL [facility] Albumin Level 4.6 3.5 - 5.0 g/dL [facility] Alkaline Phosphatase 51 39 - 117 U/L [facility] 02/06/2025 1:19 PM EDT 02/06/2025 1:22 PM EDT us Generic External Data Provider LAB BLOOD ORDERAB LES Final Result [facility] [address] [place] [phone] * Vitamin B12 (Cobalamin) and Folate Panel, Serum (02/06/2025 1:19 PM EDT) Vitamin B12 462 200 - 900 pg/mL [facility] Comment:NORMAL 200-900 PG/ML INDETERMINATE 160-199 PG/ML DEFICIENT < 160 PG/ML Folate 11.0 > or = 4.0 ng/mL [facility] Comment:Reference Values:> o r = 4.0 ng/mL< 4.0 ng/mL suggests folate deficiency Methotrexate, aminopterin and folinic acid(leucovorin) are chemotherapeutic agents whose molecularstructures are similar to folate; therefore, the Architectfolate assay cannot be used for patients using these drugs. 02/06/2025 1:19 PM EDT 02/06/2025 1:22 PM EDT us Generic External Data Provider LAB BLOOD ORDERAB LES Final Result Performing Organization Address City/[facility]/ZIP Co de Phone Number [facility] [address] [place] [address] [phone] * TSH with Reflex to Free T4 (02/06/2025 1:19 PM EDT) [facility] TSH reflex Free T4 1.40 0.32 - 4.0 uIU/mL [facility] 02/06/2025 1:19 PM EDT 02/06/2025 1:22 PM EDT Generic External Data Provider LAB BLOOD ORDERAB LES Final Result Performing Organization Address [facility] Co de Phone Number [facility] [address] [place] [address] [phone] * (ABNORMAL) CBC auto differential (02/06/2025 1:19 PM EDT) [facility] White Blood Count 10.7 4.8 - 10.8 X10*3/uL [facility] Red Blood Count 4.24(L) 4.60 - 5.80 X10*6/uL [facility] Hemoglobin 14.1 14.0 - 18.0 g/dl [facility] Hematocrit 41.3(L) 42.0 - 52.0 % [facility] Mean Corpuscular Volume 97.4 80.0 - 98.0 fL [facility] Mean Corpuscular Hemoglobin 33.3(H) 27.0 - 33.0 pg [facility] Mean Corpuscular HGB Conc 34.1 31.0 - 36.0 g/dl [facility] Red Cell Distribution Width 12.5 11.0 - 16.0 % [facility] Platelet Count 269 160 - 400 X10*3/uL [facility] Mean Platelet Volume 10.4 9.4 - 12.4 fL [facility] Neutrophils Percent Auto 65.8 45 - 73 % [facility] Imm Gran Pct Auto 0.3 0.0 - 0.4 % [facility] Lymphocytes Percent Auto 20.3 20 - 40 % [facility] Monocytes Percent Auto 10.5 2 - 11 % [facility] Eosinophils Percent Auto 2.6 0 - 4 % [facility] Basophils Percent Auto 0.5 0 - 2 % [facility] NRBC Pct Auto 0.0 0.0 - 0.2 /100WBC [facility] Neutrophils Absolute Auto 7.1 2.0 - 8.3 x10*3/uL [facility] Imm Gran Abs Auto 0.03 0.00 - 0.03 X10*3/uL [facility] Lymphocytes Absolute Auto 2.2 1.2 - 4.9 X10*3/uL [facility] Monocytes Absolute Auto 1.1 0.1 - 1.2 X10*3/uL [facility] Eosinophils Absolute Auto 0.3 0.0 - 0.4 X10*3/uL [facility] Basophils Absolute Auto 0.1 0.0 - 0.2 X10*3/uL [facility] NRBC Abs Auto 0.000 0.0 - 0.012 X10*3/uL [facility] 02/06/2025 1:19 PM EDT 02/06/2025 1:22 PM EDT us Generic External Data Provider LAB BLOOD ORDERAB LES Final Result [facility] [address] [place] [phone] * Iron And Total Iron Binding Capacity (02/06/2025 1:19 PM EDT) Iron 115 45 - 160 mcg/dL [facility] Total Iron Binding Capacity 336 228 - 428 mcg/dL [facility] Percent Iron Saturation 34 15 - 50 % [facility] Unsaturated Iron Binding 221 ug/dL [facility] 02/06/2025 1:19 PM EDT 02/06/2025 1:22 PM EDT us Generic External Data Provider LAB BLOOD ORDERAB LES Final Result Performing Organization Address City/[facility]/ZIP Co de Phone Number [facility] [address] [place] [phone] * HIV-1/2 Antigen and Antibodies, Fourth Generation, with Reflexes (02/06/2025 1:19 PM EDT) HIV AB/AG Nonreactive Nonreactive [facility] Comment:HIV-1 p24 Ag and/or HIV-1/HIV-2 Ab not detected.A test result that is nonreactive does not exclude thepossibility of exposure to or infection with HIV-1 and/orHIV-2. Nonreactive results in this assay for individualswith prior exposure to HIV-1 and/or HIV-2 may be due toantigen and antibody levels that are below the limit ofdetection of this assay.The [employer] HIV Ag/Ab Combo assay result andsupplemental assay results should be interpreted inconjunction with the patient's clinical presentation,history and other laboratory results. If the results areinconsistent with clinical evidence, additional testing issuggested to confirm the result. 02/06/2025 1:19 PM EDT 02/06/2025 1:22 PM EDT us Generic External Data Provider LAB BLOOD ORDERAB LES Final Result Performing Organization Address [facility] Co de Phone Number [facility] [address] [place] [phone] * C-reactive Protein (02/06/2025 1:19 PM EDT) C Reactive Protein 0.22 < or = 0.50 mg/dL [facility] 02/06/2025 1:19 PM EDT 02/06/2025 1:22 PM EDT us Generic External Data Provider LAB BLOOD ORDERAB LES Final Result Performing Organization Address [facility]/ZIP Co de Phone Number [facility] [address] [place] [phone] * Lipase (02/06/2025 1:19 PM EDT) Lipase 18 8 - 78 U/L [facility] 02/06/2025 1:19 PM EDT 02/06/2025 1:22 PM EDT Generic External Data Provider LAB BLOOD ORDERAB LES Final Result [facility] [address] [place] [phone] [phone] * Hemoglobin A1c (02/06/2025 1:19 PM [...] patient sample. Estimated Average Glucose 117 mg/dL [facility] Comment:eAG = Estimated ave rage glucose which is %A1C expressed asaverage glucose, using the formula of the S4L-NlcpayhFtoqbaz Glucose study (ADAG), Diabetes Care, Vol.31,#8,Feb. 2007 02/06/2025 1:19 PM EDT 02/06/2025 1:22 PM EDT Generic External Data Provider LAB BLOOD ORDERAB LES Final Result Performing Organization Address City/[facility]/ZIP Co de Phone Number [facility] [address] [place] [address] [phone] * Ferritin (02/06/2025 1:19 PM EDT) Ferritin 124 20 - 250 ng/mL [facility] 02/06/2025 1:19 PM EDT 02/06/2025 1:22 PM EDT us Generic External Data Provider LAB BLOOD ORDERAB LES Final Result Performing Organization Address City/State/[facility] Co de Phone Number [facility] [address] [place] [phone] * MR Lumbar Spine w/ and w/o Contrast (01/29/2025 3:26 PM EDT) Anatomical Region Laterality Modality Spine, L-spine Magnetic Resonan ce 01/29/2025 3:26 PM EDT Narrative 01/29/2025 3:28 PM EDT [address] [address] Magnetic Resonance Report Signed Patient: Nehal Veloz MR#: [id number] 907 : 1960 Acct:[id number] Age/Sex: 65 / M ADM Date: 01/27/25 Loc: HO.MRI Attending Dr: Garry AYALA Ordering Physician: Garry Lopez Date of Service: 01/27/25 Procedure(s): MR lumbar spine wo/w con Accession Number(s): [id number] cc: Garry Lopez; Mike Arora MD CLINICAL [...] 01/29/25 1527 DD/ 1526 TD/TT: 01/29/25 1526 Latex Thread Machine Operator: Procedure Note Donotuseinterpreter, Image - 01/29/2025 [place] [address] Magnetic Resonance Report Signed Patient: Nehal Veloz#: [id number] 907 : 1960cct:[id number] Age/Sex: 65 / MADM Date: 01/27/25 Loc: HO.MRI Attending Dr: Garry AYALA Ordering Physician: Garry Lopez Date of Service: 01/27/25 Procedure(s): MR lumbar spine wo/w con Accession Number(s): [id number] cc: Garry Lopez; Mike Arora MD CLINICAL [...] OV> 01/29/25 1527 DD/ 1526 TD/TT: 01/29/25 152 Latex Thread Machine Operator: [facility] External Provider IMG MRI PROCEDURES Final Result * XR Lumbar Spine Complete 4+ Views (12/17/2024 1:50 PM EDT) Anatomical Region Laterality Modality Spine, L-spine Radiographic Divya ging 12/17/2024 1:50 PM EDT Narrative 12/17/2024 3:35 PM EDT [address] [address] XRay Report Signed Patient: Nehal Veloz MR#: [id number] 907 : 1960 Acct:[id number] Age/Sex: 64 / M ADM Date: 12/17/24 Loc: HO.XRAY Attending Dr: Garry AYALA Ordering Physician: Garry Lopez Date of Service: 12/17/24 Procedure(s): XR lumbar spine 4V min Accession Number(s): [id number] cc: Garry Lopez; Mike Arora MD Exam: [...] 12/17/24 1531 DD/ 1350 TD/TT: 12/17/24 1400 Latex Thread Machine Operator: Procedure Note Donotuseinterpreter, Image - 12/17/[address] [address] XRay Report Signed Patient: Nehal VelozMR#: [id number] 907 : 1960cct:[id number] Age/Sex: 64 / MADM Date: 12/17/24 Loc: HO.XRAY Attending Dr: Garry AYALA Ordering Physician: Garry Lopez Date of Service: 12/17/24 Procedure(s): XR lumbar spine 4V min Accession Number(s): [id number] cc: Garry Lopez; Mike Arora MD Exam: [...] 12/17/24 1531 DD/ 1350 TD/TT: 12/17/24 1400 Latex Thread Machine Operator: [facility] External Provider IMG XR PROCEDURES Final Result * Lipid Panel, Standard (03/19/2024 8:16 AM EDT) Triglycerides 94 <150 mg/dL [facility] Comment:Desirable Triglyceri de: less than 150 mg/dLBorderline High Triglyceride 150-199 mg/dLHigh Triglyceride: 200-499 mg/dLVery High Triglyceride: greater than or equal to 5OO mg/dL Cholesterol 144 <200 mg/dL [facility] Comment:Desirable Cholestero l: less than 200 mg/dLBorderline High Cholesterol: 200-239 mg/dLHigh Cholesterol: greater than 239 mg/dL LDL Cholesterol Calculated 65 <100 mg/dL [facility] Comment:Desirable LDL: less than 100 [...] MD LAB BLOOD ORDERABL ES Final Result [facility] [address] [place] [phone] * Colonoscopy (11/04/2020) Colonoscopy PERFORMED Historical Provider HEALTH MAINTENANCE Edited Result - Final from Last 3 Months or Most Recently Relevant to Health Maintenance Insurance [facility] C3 * Guarantor: Nehal Veloz Account Type Relation to Patient Date of Phone Billing Address Personal/Family Self [address] [place] Care Teams Sharepoint Designer Developer Relationship Specialty Start Date End Date Mike Arora MD [address] [place] [phone] PCP - General Internal Medicine 07/09/19
--- OUTSIDE RECORDS SUMMARY | 2025-03-01 14:29 | XMS_ITS | Encounter Summary ---
Author Organization [employer] Address [address] [facility] 7t [place] [address] Care Team Providers Care Party Plan Selling Distributor Name Role Phone Mike Arora MD Primary Care Prov ider Reason for Visit * Reason Onset Date Comments Medication Question 07/13/2023 Encounter Details Date Type Department Care Team ([facility] Contact Info) Description 07/13/2023 Telephone [facility] [address] [place] [address] Mike Arora MD [address] [place] [address] Medication Question Social History Tobacco Use Types [...] results from PT. Please contact Pt @ [phone] documented in this encounter Plan of Treatment Not on file documented as of this encounter Visit Diagnoses Not on filedocumented in this encounter Additional Health Concerns Assessment Noted Time PHQ-9 Depression Total Score: 0 10/15/19 23 10:23 AM EDT documented as of this encounter Care Teams Party Plan Selling Distributor Relationship Specialty Start Date End Date Mike Arora MD [address] [place] [address] PCP - General Internal Medicine 07/09/19 documented as of this encounter
--- NOTE | 2025-03-01 14:31 | HO.SPINEOV ---
Intake Visit Reasons: discuss surgery Intake Note: Mr. Veloz is here today to Discuss Surgery. 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 I reviewed his lumbar MRI done at [place] with Dr. Berry. We also reviewed his x-rays. He has severe degenerative disc disease at multiple levels including L3-4, L4-5 and L5-S1. Dr. Berry would like to focus more on seeing if we can avoid lumbar fusion surgery by trying to do median branch blocks for his right-sided low back pain. He did not respond to the SI joint fusion that was done by Dr. Romano. If he has a response to the median branch blocks, we can consider endoscopic rhizotomy. Since he already knows we will refer him back to him. It will be a right L4 right L5 and right S1 median branch blocks. Total amount of time spent in this visit was 20 minutes in discussion of symptoms, lumbar MRI imaging results and subsequent plan of care Garry Berry MD,PhD [facility] Orders: Referrals Pain Management Referral M54.9 - Dorsalgia, unspecified Coding Level of Care Code Est Pt Level 3 (58910) Diagnoses Back pain M54.9
== END 2025-03-01 14:50 | disposition home or self-care (01) ==
LOC: HO.HNS 14:27
PROVIDERS: PCP Internal Medicine; Visit Provider Physician Assistant
DX: M54.9 Dorsalgia, unspecified (principal)
CPT/HCPCS: 99213

== ENCOUNTER → 2025-03-01 14:26 | Outpatient (BNVA) | payer MEDICAID, SELFPAY | PROVIDERS: PCP Internal Medicine; Visit Provider Physician Assistant | DX: M54.9 Dorsalgia, unspecified (principal) | CPT/HCPCS: 99212 ==

== ENCOUNTER 2025-04-17 10:29 | Outpatient (AMB) | payer MEDICAID, SELFPAY ==
--- NOTE | 2025-04-17 10:50 | A.OFFVIS_ITS ---
Vital Signs 04/17/25 10:51 Height 5 ft 9 in Weight 175 lb BMI 25.8 BP 144/83 H Blood Pressure Location Lt brachial Position Sitting Respiration 16 Pulse 74 Pulse Source Pulse Oximeter Pulse Oximetry (%) 97 Oxygen Delivery Method Room Air Intake Visit Reasons: PROCEDURE DISCUSSIONS Feeder Driver Required: No Accompanied by: Life Partner Allergies No Known Allergies Allergy (Verified 04/17/25 10:51) HPI Comments Details: The patient is a 65-year-old male presenting for evaluation of persistent pain following a diagnostic sacroiliac joint injection. He underwent a right diagnostic sacroiliac joint injection without any significant improvement. The attention was attracted today that the patient has significant signs and symptoms of vertebra genic low back pain. He reports difficulty driving, difficulty sitting long time, difficulty flexing forward, difficulty picking up objects from the floor, difficulty with increased activities. We discussed possibility of treatment of his pain with BVN RFA L3, L4, L5, S1. We will schedule him for the procedure as soon as possible The patient has a history of lumbar spinal stenosis and a pinched nerve, which was surgically decompressed about 05/2024. Post-surgery, the patient reports improvement in symptoms, with less numbness in the legs, but continues to experience pain and limited work capacity. - Pain onset: Persistent following diagnostic sacroiliac joint injection - Quality: Shooting pain, especially when sitting or driving - Location: Right leg, hip, and knee - Exacerbating factors: Sitting, working more than five hours, driving - Relieving factors: Injections provide immediate relief - Affect: Pain impacts ability to work and perform daily activities - Analgesia: Uses gabapentin, injections provide immediate relief - Adverse Effects: None reported - Activities of Daily Living: Limited work capacity, discomfort when sitting or driving - Aberrant Drug Related Behaviors: None reported [facility] Medical History (Updated 04/18/25 @ 13:01 by Sebastien Brown MD) Weight loss, unintentional Anemia Abdominal pain Change in stool caliber Back pain Arthritis Nicotine dependence, cigarettes, uncomplicated Right knee DJD Lumbar spinal stenosis Right lumbar radiculopathy Porphyrin disorder Tubular adenoma of colon (~2020) History of peptic ulcer (~2001) Difficult intravenous access History of chronic pain COPD (chronic obstructive pulmonary disease) Hepatitis C Surgical History History of back surgery History of hand surgery (~2020) History of colonoscopy (~2020) History of esophagogastroduodenoscopy (EGD) (~2001) Family History Mother Emphysema lung Cancer Social History Household Members Other:: room mate Are you a primary care management associate to a significant other at home: No Do you presently have visiting nurse or other home services: No Alcohol intake: former Year quit: 2019 Patient Tobacco Use Status: Current everyday Tobacco user Tobacco use type: Cigarette Cigarettes Per Day: 7 Years Smoked: 55 Substance Use Type: Amphetamines, Crack/Cocaine, Former Substance User, Hallucinogens, IV Drugs, Marijuana and Opiates Current occupational status: employed 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 Alert and oriented. Mood and affect appropriate. Follows and participates in conversation appropriately. Respiratory effort is unlabored. No cough. No nasal discharge. Able to transition from sit to stand unassisted. Ambulates with bilaterally normal heel strike and toe off. Back/Spine/Pelvis Other: Patient is able to walk and stand on heels and tip toes with no difficulties demonstrating good motor tone. Mild limping due to right hip and right knee pain. Unable to flex forward because of the severe pain in the back. Well healed midline lumbar scar. Demonstrates 5/5 left and 4/5 right strength of quadriceps bilaterally as well as 5/5 flexion/dorsiflexion of bilateral feet against resistance. 2+ pedal pulses bilaterally. Facet loading reproduces mild pain bilaterally, right>left. Cervical Spine: cervical ROM normal and No Cervical spine tenderness Thoracic/Lumbar Spine: thoracic and lumbar spine normal to inspection, Thoracic/lumbar spine scar(s), No thoraco-lumbar ROM normal, Lasegue's sign negative, straight leg raise negative bilaterally, No thoracic spinal tenderness and No lumbar spinal tenderness Pelvis: no sciatic notch tenderness Sacroiliac joints: on the right tender to palpation and on the left nontender Assessment & Plan Assessment & Plan (1) Vertebrogenic low back pain: Code(s): M54.51 - Vertebrogenic low back pain Category: Medical Plan Most likely the pain of this patient is multifactorial in nature. I explained to the patient that to significant steps needs to be done in the order to help with his pain. I proposed to perform 1st BVn radiofrequency ablation of the L3, L4, L5, S1, the patient was explained that this will alleviate his pain with prolonged sitting and flexing forward. However the pain with walking most likely related to facet arthropathy and we will address this issue with medial branch blocks in the future. Patient agreed with the plan. I will schedule him for the procedure and I will see him after the procedure. Patient Instructions: I here by testify that I spent 35 minutes in conversation with this patient as well as evaluating his prior records and prior diagnostic studies as well as planning his care and organizing this note. Coding Level of Care Code Est Pt Level 4 (46637) Diagnoses Vertebrogenic low back pain M54.51
[2025-04-17 10:51] VITALS: BP 144/83; PULSE 74; RESP 16; O2SAT 97; BMI 25.8
--- OUTSIDE RECORDS SUMMARY | 2025-04-17 12:27 | XMS_ITS | Encounter Summary ---
Author Organization [employer] Address [address] [facility] [address] [place] [address] Care Team Providers Care Oil Field Equipment Mechanic Name Role Phone Mike Arora MD Primary Care Prov ider Reason for Visit * Reason Comments Med Refill Encounter Details Date Type Department Care Team ([facility] Contact Info) Description 06/10/2024 Refill [facility] PEDS [address] [place] [address] Mike Arora MD [address] [place] [address] Low back pain associated with a spinal [...] as of this encounter Care Teams Oil Field Equipment Mechanic Relationship Specialty Start Date End Date Mike Arora MD [address] [place] [id number] PCP - General Internal Medicine 07/09/19 documented as of this encounter
--- OUTSIDE RECORDS SUMMARY | 2025-04-17 12:27 | XMS_ITS | Encounter Summary ---
Author Organization [employer] Address [address] [facility] [address] [place] [address] Care Team Providers Care Reconstructive Surgeon Name Role Phone Mike Arora MD Primary Care Prov ider Reason for Visit * Reason Onset Date Comments Med Refill 05/21/2024 Encounter Details Date Type Department Care Team (Late st Contact Info) Description 05/21/2024 Telephone [facility] MEDICINE [address] [place] [address] Mike Arora MD [address] [place] [address] Med Refill Social History Tobacco Use Types [...] 50 MG tablet To be sent to: [facility]/pharmacy #[id number] - [place] - [address] [place] [address] documented in this encounter Plan of Treatment Not on file documented as of this encounter Visit Diagnoses Not on filedocumented in this encounter Additional Health Concerns Assessment Noted Time PHQ-9 Depression Total Score: 0 10/15/19 23 10:23 AM EDT documented as of this encounter Care Teams Reconstructive Surgeon Relationship Specialty Start Date End Date Mike Arora MD [address] [place] [id number] PCP - General Internal Medicine 07/09/19 documented as of this encounter
--- OUTSIDE RECORDS SUMMARY | 2025-04-17 12:27 | XMS_ITS | Encounter Summary ---
Author Organization [employer] Address [address] [facility] [address] [place] [address] Care Team Providers Care Fur Storage Clerk Name Role Phone Mike Arora MD Primary Care Prov ider Encounter Details Date Type Department Care Team ([facility] st Contact Info) Description 08/10/2022 Orders Only [facility] MEDICINE [address] [place] [address] Mike Arora MD [address] [place], [place] [phone] Prostate cancer screening (Primary Dx); Simple chronic [...] POSITIVE (08/10/2022 10:30 AM EST) Pathologist [facility] HCV RNA, QN Real Time PCR <15 NOT DETECTED NOT DETECTED IU/mL [facility] [place] [facility] HCV RNA QN Real Time PCR <1.18 NOT DETECTED NOT DETECTED Log IU/mL [facility] [email or web address] Comment: HCV RNA is not detected. There [...] false positive result. (Always Message) [facility] [place] [facility] Comment: This test was performed using Real-Time Polymerase Chain Reaction. Reportable Range: 15 IU/mL to 100,000,000 IU/mL (1.18 Log IU/mL to 8.00 Log IU/mL). The analytical performance characteristics of this assay have been determined by [facility]. The modifications have not been cleared or approved by the FDA. This assay has been validated pursuant to the CLIA regulations and is used for clinical purposes. For more information on this test, go to: http://education.BehavioSec/faq/BXY75f3 (This link is being provided for informational/ [...] MD LAB BLOOD ORDERABL ES Final Result [address], [place] [address] [facility] [place] [facility] [address] [facility], (Nl2) [place] [address] * PSA,Total (08/10/2022 10:30 AM EST) PSA, Total 0.35 < OR = 4.00 ng/mL [facility] [place] [facility] Comment: The total PSA value from this [...] ORDERABL ES Final Result Performing Organization Address [facility]/ZIP Co de Phone Number [address], [place] [address] [facility] [place] [facility] [address] [place] [address], ([address]) [place] [address] * (ABNORMAL) Hemoglobin A1c with Calculated Mean Plasma Glucose (MPG) (08/10/2022 10:30 AM EST) Hemoglobin A1c 5.8(H) <5.7 % of total Hgb [facility] [place] [facility] Comment: For someone without known diabetes, a [...] children. Mean Plasma Glucose 129 mg/dL (calc) [facility] [place] [facility] 08/10/2022 10:3 0 AM EST 08/10/2022 10:31 AM EST Narrative [facility] - 08/13/2022 11:15 PM EST FASTING:NO FASTING: NO Mike Gaffney MD LAB BLOOD ORDERABL ES Final Result Performing Organization Address City/[facility]/ZIP Co de Phone Number [address], [place] [address] [facility] [place] [facility] [address] [place] [address], ([address]) [place] [address] * TSH W/Reflex to FT4 (08/10/2022 10:30 AM EST) TSH w/Reflex to FT4 2.75 0.40 - 4.50 mIU/L [facility] [place] [facility] 08/10/2022 10:3 0 AM EST 08/10/2022 10:31 AM EST Narrative [facility] - 08/13/2022 11:15 PM EST FASTING:NO FASTING: NO Mike Gaffney MD LAB BLOOD ORDERABL ES Final Result [facility] [address] [facility] [place] [address] [facility] [place] [facility] [address] [facility], ([address]) [place] [address] * Lipid Panel, Standard (08/10/2022 10:30 AM EST) Cholesterol, Total 145 <200 mg/dL [facility] [place] [facility] HDL Cholesterol 58 > OR = 40 mg/dL [facility] [place] [facility] Triglycerides 50 <150 mg/dL [facility] [place] [facility] LDL Cholesterol 75 mg/dL (calc) [facility] [place] [facility] Comment: Reference range: <100 Desirable range <100 mg/dL for primary prevention; <70 mg/dL for patients with CHD or diabetic patients with > or = 2 CHD risk factors. LDL-C is now calculated using the Darrel-Matt calculation, which is a validated novel method providing better accuracy than the Friedewald equation in the estimation of LDL-C. Darrel SS et al. DYLAN. 2013;310(19): 7091-7874 (http://education.Digistrive.InfluAds/faq/CDD671) Chol/HDLC Ratio 2.5 <5.0 (calc) [facility] [place] [facility] Non-HDL Cholesterol 87 <130 mg/dL (calc) [facility] [place] [facility] Comment: For patients with diabetes plus 1 [...] ORDERABL ES Final Result Performing Organization Address [facility]/ZIP Co de Phone Number [address] [place] [address] [facility] [place] [facility] [address] [place] [address], ([address]) [place] [address] * HIV-1 RNA, Quantitative, Real-Time PCR with Reflex to Genotype (RTI, PI, Integrase) (08/10/2022 10:30 AM EST) HIV 1 RNA, QN PCR NOT DETECTED copies/mL [facility], HIV 1 RNA, QN PCR NOT DETECTED Log copies/mL [facility], Comment: REFERENCE RANGE: NOT DETECTED copies/mL NOT DETECTED Log copies/mL This test was performed using Real-Time Polymerase Chain Reaction. Reportable range is 20 to 10,000,000 copies/mL (1.30-7.00 Log copies/mL). 08/10/2022 10:3 0 AM EST 08/10/2022 10:31 AM EST Narrative [facility] - 08/13/2022 11:15 PM EST FASTING:NO FASTING: NO Mike Gaffney MD LAB BLOOD ORDERABL ES Final Result Performing Organization Address City/[facility]/ZIP Co de Phone Number [address], [place] [address] [facility], [address] [place] [address] * (ABNORMAL) Hepatitis C Antibody with Reflex to HCV, RNA, Quantitative, Real- Time PCR (08/10/2022 10:30 AM EST) Hepatitis C Antibody REACTIVE( A) NON-REACT BIANCA [facility] [place] [facility] Index >11.00(H) <1.00 [facility] [place] [facility] Comment: Based on this result, the [...] MD LAB BLOOD ORDERABL ES Final Result [facility] [address] [facility], [facility], [place] [address] [facility] [place] [facility] [address] [facility], (Nl[address]) [place] [address] * Hepatic Function Panel (08/10/2022 10:30 AM EST) Protein, Total 7.1 6.1 - 8.1 g/dL [facility] [place] [facility] Albumin 4.7 3.6 - 5.1 g/dL [facility] [place] [facility] Globulin 2.4 1.9 - 3.7 g/dL (calc) [facility] [place] [facility] Albumin/Globulin Ratio 2.0 1.0 - 2.5 (calc) [facility] [place] [facility] Bilirubin, Total 0.7 0.2 - 1.2 mg/dL [facility] [place] [facility] Bilirubin, Direct 0.2 < OR = 0.2 mg/dL [facility] [place] [facility] Bilirubin, Indirect 0.5 0.2 - 1.2 mg/dL (calc) [facility] [place] [facility] Alkaline Phosphatase 35 35 - 144 U/L [facility] [place] [facility] AST 17 10 - 35 U/L [facility] [place] [facility] ALT 16 9 - 46 U/L [facility] [place] [facility] Blood Venous blood specimen / Unknown 08/10/2022 10:30 AM EST 08/10/2022 10:31 AM EST Narrative [facility] - 08/13/2022 11:15 PM EST FASTING:NO FASTING: NO Mike Gaffney MD LAB BLOOD ORDERABL ES Final Result Performing Organization Address City/[facility]/ZIP Co de Phone Number [address], [place] [address] [facility] [place] [facility] [address] [facility], (Nl[address]) [place] [address] * Basic Metabolic Panel (08/10/2022 10:30 AM EST) [facility] Glucose 90 65 - 139 mg/dL [facility] [place] [facility] Comment: Non-fasting reference interval Urea Nitrogen (BUN) 25 7 - 25 mg/dL [facility] [place] [facility] Creatinine, Serum 0.71 0.70 - 1.35 mg/dL [facility] [place] [facility] eGFR 105 > OR = 60 mL/min/1 .73m2 [facility] [place] [facility] Comment: The eGFR is based on the CKD-EPI 2020 equation. To calculate the new eGFR from a previous Creatinine or Cystatin C result, go to https://www.kidney.org/professionals/ kdoqi/gfr%5Fcalculator BUN/Creatinine Ratio NOT APPLICABLE 6 - 22 (calc) [facility] [place] [facility] Sodium 136 135 - 146 mmol/L [facility] [place] [facility] Potassium 4.4 3.5 - 5.3 mmol/L [facility] [place] [facility] Chloride 101 98 - 110 mmol/L [facility] [place] [facility] Carbon Dioxide 26 20 - 32 mmol/L [facility] [place] [facility] Calcium 9.6 8.6 - 10.3 mg/dL [facility] [place] [facility] Blood Venous blood specimen / Unknown 08/10/2022 10:30 AM EST 08/10/2022 10:31 AM EST Narrative [facility] - 08/13/2022 11:15 PM EST FASTING:NO FASTING: NO Mike Gaffney MD LAB BLOOD ORDERABL ES Final Result Performing Organization Address City/[facility]/ZIP Co de Phone Number [address], [place] [address] [facility] [place] [facility] [address] [place] [address], ([address]) [place] [address] * CBC auto differential (08/10/2022 10:30 AM EST) White Blood Cell Count 7.2 3.8 - 10.8 Thousand/ uL [facility] Red Blood Cell Count 4.22 4.20 - 5.80 Million/u L [facility] Hemoglobin 13.4 13.2 - 17.1 g/dL [facility] Hematocrit 39.8 38.5 - 50.0 % [facility] MCV 94.3 80.0 - 100.0 fL [facility] MCH 31.8 27.0 - 33.0 pg [facility] MCHC 33.7 32.0 - 36.0 g/dL [facility] RDW 12.5 11.0 - 15.0 % [facility] Platelet Count 270 140 - 400 Thousand/ uL [facility] MPV 9.9 7.5 - 12.5 fL [facility] Absolute Neutrophils 3,679 1,500 - 7,800 cells/uL [facility] Absolute Lymphocytes 2,498 850 - 3,900 cells/uL [facility] Absolute Monocytes 612 200 - 950 cells/uL [facility] Absolute Eosinophils 360 15 - 500 cells/uL [facility] Absolute Basophils 50 0 - 200 cells/uL [facility] Neutrophils 51.1 % [facility] [place] [facility] Lymphocytes 34.7 % [facility] [place] [facility] Monocytes 8.5 % [facility] [place] [facility] Eosinophils 5.0 % [facility] [place] [facility] Basophils 0.7 % [facility] [place] [facility] Blood Venous blood specimen / Unknown 08/10/2022 10:30 AM EST 08/10/2022 10:31 AM EST Narrative [facility] - 08/13/2022 11:15 PM EST FASTING:NO FASTING: NO us Mike Gaffney MD LAB BLOOD ORDERABL ES Final Result [facility] [address] [facility], [place] [address] [facility] [employer] [address] [facility], ([address]) [place] [address] documented in this encounter Visit Diagnoses Diagnosis Prostate cancer screening- Primary Special screening for malignant neoplasm of prostate Simple chronic bronchitis (CMS/HCC) (HCC) Simple chronic bronchitis documented in this encounter Care Teams Fur Storage Clerk Relationship Specialty Start Date End Date Mike Arora MD [address] [place] [id number] PCP - General Internal Medicine 07/09/19 documented as of this encounter
--- OUTSIDE RECORDS SUMMARY | 2025-04-17 12:27 | XMS_ITS | Clinical Summary ---
Author Organization [employer] Address [address] [facility] 7t [place] [address] Care Team Providers Care Delivery Architect Name Role Phone Mike Arora MD Primary Care Prov ider Allergies No known active allergies Medications Emollient (CeraVe Moisturizing) cream apply to dry skin BID 1 Active ledipasvir-sofosb uvir (Harvoni) 90-400 MG tablet tablet take 1 tablet by oral route every day for 4 more weeks 0 Active nicotine (Nicoderm, Step 3) 7 MG/24HR patch Place 1 patch on the skin at bed time. 2 Active nicotine (Nicoderm, Step 2) 14 MG/24HR patch Place 1 patch on the skin at bed time. 2 Active albuterol (ProAir HFA) 108 (90 Base) MCG/ACT inhalerIndication s:Chronic obstructive pulmonary disease, unspecified COPD type (CMS/HCC) ([facility]) Inhale 2 puffs every 4 (four) hours. 18 g 3 3 Active Spiriva HandiHaler 18 MCG inhalation capsule INHALE 1 CAPSULE VIA HANDIHALER ONCE DAILY AT THE SAME TIME EVERY DAY IN THE MORNING 30 capsule 11 5 Active sildenafil (Viagra) 50 MG tablet TAKE 1 TABLET (50 MG) BY MOUTH DAILY NEEDED FOR ERECTILE DYSFUNCTION 30 tablet 2 5 Active meloxicam (Mobic) 15 MG tabletIndications :Low back pain associated with a spinal disorder other than radiculopathy or spinal stenosis TAKE 1 TABLET BY MOUTH EVERY DAY 30 tablet 2 5 Active meloxicam (Mobic) 15 MG tabletIndications :Low back pain associated with a spinal disorder other than radiculopathy or spinal stenosis Take 1 tablet (15 mg) by mouth Once per day. 30 tablet 2 5 Active Advair Diskus 250-50 MCG/ACT aerosol powderIndications :Chronic obstructive pulmonary disease, unspecified COPD type (CMS/HCC) (HCC) INHALE 1 PUFF INTO THE LUNGS IN THE MORNING 60 each 3 5 Active gabapentin (Neurontin) 600 MG tablet TAKE 1 TABLET BY MOUTH 3 TIMES DAILY. 90 tablet 5 5 Active Active Problems Problem Noted Date Diagnosed Date [...] receiving cortisone shots, has a appointment with huey jackson in 2 weeks, no neurologic deficit, will [...] Will place referral to pain management in [place], patient has tried Pt previously without improvement [...] evaluation. At this moment will refer to [facility] Derm clinic. Chronic obstructive pulmonary [...] to 300 mg BID. Chronic hepatitis C (CMS/HCC) 08/27/2019 Assessment & Plan (10/14/2022 1:28 PM EDT): Will order ultrasound and afp, he was succesfully treated for hep c, Hepatic fibrosis 08/27/2019 Encounters Date Type Department Care Team Description 03/06/2025 Refill [facility] MEDICINE [address] [place] [address] Mike Arora MD Low back pain associated with a spinal disorder other than radiculopathy or spinal stenosis (Primary Dx) 03/06/2025 Population Health [facility] ([facility] Department [address] [place] [address] Provider, Population Health Generic 03/02/2025 Refill [facility] CHC MED & PEDS [address] [place] [address] Mike Arora MD 02/17/2025 Refill [facility] CHC MED & PEDS [address] [place] [address] Mike Arora MD Low back pain associated with a spinal disorder other than radiculopathy or spinal stenosis 02/15/2025 Refill [facility] MEDICINE [address] [place] [address] Mike Arora MD Low back pain associated with a spinal disorder other than radiculopathy or spinal stenosis (Primary Dx) 02/14/2025 Refill [facility] CHC MED & PEDS [address] [place] [address] Mike Arora MD Chronic obstructive pulmonary disease, unspecified COPD type ([facility]/HCC) 02/11/2025 1:15 PM EDT Telemedicine [facility] CHC MED & PEDS [address] [place] [address] Mike Arora MD Low back pain associated with a spinal disorder other than radiculopathy or spinal stenosis 02/11/2025 Travel 02/09/2025 Refill [facility] MED & PEDS [address] [place] [address] Mike Arora MD Low back pain associated with a spinal disorder other than radiculopathy or spinal stenosis 02/06/2025 Orders Only GENERIC EXTERNAL DATA DEPARTMENT Provider, Generic External Data 01/27/2025 Orders Only [facility] External Provider, [facility] from Last 3 Months Immunizations Immunization Administration [...] series) 2022 Depression Screening 10/15/2023 10/14/2022, 10/14/2022 SDOH Screening 01/29/2025 01/30/2024 COVID-19 Vaccine (2 - 2024-2 6 season) 2025 05/18/2022 Influenza Vaccine (#1) 2025 05/18/2022 Tobacco Screening [...] WO CONTRAST Routine 01/29/2025 3:26 PM EDT LIPID PANEL, STANDARD Routine 03/19/2024 8:16 AM EDT Primary hypertension HM COLONOSCOPY Routine 11/04/2020 from Last 3 Months or Most Recently Relevant to Health Maintenance Results * (ABNORMAL) Comprehensive Metabolic Panel, Fasting (02/06/2025 1:19 PM EDT) Sodium 144 135 - 145 mmol/L [facility] Potassium 3.5 3.3 - 5.1 mmol/L [facility] Chloride 109(H) 96 - 108 mmol/L [facility] Carbon Dioxide 25 22 - 29 mmol/L [facility] Anion Gap 14 12 - 20 [facility] Urea Nitrogen (BUN) 15 9 - 16 mg/dL [facility] Creatinine, Serum 0.63 0.5 - 1.4 mg/dL [facility] Estimated Glomerular Filt Rate >60 [facility] Comment:Chronic Kidney Disea se: Estimated GFR < 60 mL/min/[id number] Kidney Disease: Estimated GFR < 15 mL/min/1.73m2 Glucose Fasting 90 60 - 99 mg/dL [facility] Calcium 9.5 8.4 - 10.2 mg/dL [facility] Bilirubin, Total 0.6 0.0 - 1.0 mg/dL [facility] Aspartate Amino Transferase 31 5 - 37 U/L [facility] Alanine Aminotransferase 32 0 - 40 U/L [facility] Total Protein 7.3 6.5 - 8.0 g/dL [facility] Albumin Level 4.6 3.5 - 5.0 g/dL [facility] Alkaline Phosphatase 51 39 - 117 U/L [facility] 02/06/2025 1:19 PM EDT 02/06/2025 1:22 PM EDT us Generic External Data Provider LAB BLOOD ORDERAB LES Final Result [facility] [address], [place] [phone] * Vitamin B12 (Cobalamin) and Folate Panel, Serum (02/06/2025 1:19 PM EDT) Vitamin B12 462 200 - 900 pg/mL [facility] Comment:NORMAL 200-900 PG/ML INDETERMINATE 160-199 PG/ML DEFICIENT < 160 PG/ML Folate 11.0 > or = 4.0 ng/mL [facility] Comment:Reference Values:> o r = 4.0 ng/mL< 4.0 ng/mL suggests folate deficiency Methotrexate, aminopterin and folinic acid(leucovorin) are chemotherapeutic agents whose molecularstructures are similar to folate; therefore, the Architectfolate assay cannot be used for patients using these drugs. 02/06/2025 1:19 PM EDT 02/06/2025 1:22 PM EDT Generic External Data Provider LAB BLOOD ORDERAB LES Final Result Performing Organization Address [facility] de Phone Number [facility] [address] [place] [phone] * TSH with Reflex to Free T4 (02/06/2025 1:19 PM EDT) Pathologist [facility] TSH reflex Free T4 1.40 0.32 - 4.0 uIU/mL [facility] 02/06/2025 1:19 PM EDT 02/06/2025 1:22 PM EDT Generic External Data Provider LAB BLOOD ORDERAB LES Final Result Performing Organization Address [facility] de Phone Number [facility] [address] [place] [phone] * (ABNORMAL) CBC auto differential (02/06/2025 1:19 PM EDT) Pathologist [facility] White Blood Count 10.7 4.8 - 10.8 X10*3/uL [facility] Red Blood Count 4.24(L) 4.60 - 5.80 X10*6/uL [facility] Hemoglobin 14.1 14.0 - 18.0 g/dl [facility] Hematocrit 41.3(L) 42.0 - 52.0 % [facility] Mean Corpuscular Volume 97.4 80.0 - 98.0 fL [facility] Mean Corpuscular Hemoglobin 33.3(H) 27.0 - 33.0 pg [facility] Mean Corpuscular HGB Conc 34.1 31.0 - 36.0 g/dl [facility] Red Cell Distribution Width 12.5 11.0 - 16.0 % [facility] Platelet Count 269 160 - 400 X10*3/uL [facility] Mean Platelet Volume 10.4 9.4 - 12.4 fL [facility] Neutrophils Percent Auto 65.8 45 - 73 % [facility] Imm Gran Pct Auto 0.3 0.0 - 0.4 % [facility] Lymphocytes Percent Auto 20.3 20 - 40 % [facility] Monocytes Percent Auto 10.5 2 - 11 % [facility] Eosinophils Percent Auto 2.6 0 - 4 % [facility] Basophils Percent Auto 0.5 0 - 2 % [facility] NRBC Pct Auto 0.0 0.0 - 0.2 /100WBC [facility] Neutrophils Absolute Auto 7.1 2.0 - 8.3 x10*3/uL [facility] Imm Gran Abs Auto 0.03 0.00 - 0.03 X10*3/uL [facility] Lymphocytes Absolute Auto 2.2 1.2 - 4.9 X10*3/uL [facility] Monocytes Absolute Auto 1.1 0.1 - 1.2 X10*3/uL [facility] Eosinophils Absolute Auto 0.3 0.0 - 0.4 X10*3/uL [facility] Basophils Absolute Auto 0.1 0.0 - 0.2 X10*3/uL [facility] NRBC Abs Auto 0.000 0.0 - 0.012 X10*3/uL [facility] 02/06/2025 1:19 PM EDT 02/06/2025 1:22 PM EDT us Generic External Data Provider LAB BLOOD ORDERAB LES Final Result [facility] [address] [place] [phone] * Iron And Total Iron Binding Capacity (02/06/2025 1:19 PM EDT) Iron 115 45 - 160 mcg/dL [facility] Total Iron Binding Capacity 336 228 - 428 mcg/dL [facility] Percent Iron Saturation 34 15 - 50 % [facility] Unsaturated Iron Binding 221 ug/dL [facility] 02/06/2025 1:19 PM EDT 02/06/2025 1:22 PM EDT us Generic External Data Provider LAB BLOOD ORDERAB LES Final Result Performing Organization Address [facility]/ZIP Co de Phone Number [facility] [address] [place] [phone] * HIV-1/2 Antigen and Antibodies, Fourth Generation, with Reflexes (02/06/2025 1:19 PM EDT) HIV AB/AG Nonreactive Nonreactive [facility] Comment:HIV-1 p24 Ag and/or HIV-1/HIV-2 Ab not detected.A test result that is nonreactive does not exclude thepossibility of exposure to or infection with HIV-1 and/orHIV-2. Nonreactive results in this assay for individualswith prior exposure to HIV-1 and/or HIV-2 may be due toantigen and antibody levels that are below the limit ofdetection of this assay.The [employer] HIV Ag/Ab Combo assay result andsupplemental assay results should be interpreted inconjunction with the patient's clinical presentation,history and other laboratory results. If the results areinconsistent with clinical evidence, additional testing issuggested to confirm the result. 02/06/2025 1:19 PM EDT 02/06/2025 1:22 PM EDT us Generic External Data Provider LAB BLOOD ORDERAB LES Final Result Performing Organization Address [facility]/ZIP Co de Phone Number [facility] [address] [place] [phone] * C-reactive Protein (02/06/2025 1:19 PM EDT) C Reactive Protein 0.22 < or = 0.50 mg/dL [facility] 02/06/2025 1:19 PM EDT 02/06/2025 1:22 PM EDT Generic External Data Provider LAB BLOOD ORDERAB LES Final Result Performing Organization Address City/[facility]/ZIP Co de Phone Number [facility] [address] [place] [phone] * Lipase (02/06/2025 1:19 PM EDT) Lipase 18 8 - 78 U/L [facility] 02/06/2025 1:19 PM EDT 02/06/2025 1:22 PM EDT Generic External Data Provider LAB BLOOD ORDERAB LES Final Result Performing Organization Address [facility] Co de Phone Number [facility] [address] [place] [phone] * Hemoglobin A1c (02/06/2025 1:19 PM EDT) Hemoglobin A1c 5.7 <6.0 % [facility] Comment:Hemoglobin A1C Refer ence Range Adults: 4.8 - 6.0 % Non diabetic: < 6.0 % Goal: < 7.0 %Additional Action Suggested: > 8.0 %Note: Hemoglobin A1c results are invalid for patients with abnormal amounts of HbF. Blood transfusions may impact the HbA1c concentration in the patient sample. Estimated Average Glucose 117 mg/dL [facility] Comment:eAG = Estimated ave rage glucose which is %A1C expressed asaverage glucose, using the formula of the W0H-XmexginYvignbi Glucose study (ADAG), Diabetes Care, Vol.31,#8,Feb. 2007 02/06/2025 1:19 PM EDT 02/06/2025 1:22 PM EDT us Generic External Data Provider LAB BLOOD ORDERAB LES Final Result Performing Organization Address [facility] Co de Phone Number [facility] [address] [place] [phone] * Ferritin (02/06/2025 1:19 PM EDT) Ferritin 124 20 - 250 ng/mL [facility] 02/06/2025 1:19 PM EDT 02/06/2025 1:22 PM EDT Generic External Data Provider LAB BLOOD ORDERAB LES Final Result Performing Organization Address [facility] de Phone Number [facility] [address] [place] [phone] * MR Lumbar Spine w/ and w/o Contrast (01/29/2025 3:26 PM EDT) Anatomical Region Laterality Modality Spine, L-spine Magnetic Resonan ce 01/29/2025 3:26 PM EDT Narrative 01/29/2025 3:28 PM EDT [address] [address] Magnetic Resonance Report Signed Patient: Nehal Veloz MR#: [id number] : 1960 Acct:[id number] Age/Sex: 65 / M ADM Date: 01/27/25 Loc: HO.MRI Attending Dr: Garry AYALA Ordering Physician: Garry Lopez Date of Service: 01/27/25 Procedure(s): MR lumbar spine wo/w con Accession Number(s): [id number] cc: Garry Lopez; Mike Arora MD CLINICAL [...] 01/29/25 1527 DD/ 1526 TD/TT: 01/29/25 1526 Marble And Granite Polisher: Procedure Note Donotuseinterpreter, Image - 01/29/[address] [address] Magnetic Resonance Report Signed Patient: Nehal Veloz#: [id number] : 1960cct:[id number] Age/Sex: 65 / MADM Date: 01/27/25 Loc: HO.MRI Attending Dr: Garry AYALA Ordering Physician: Garry Lopez Date of Service: 01/27/25 Procedure(s): MR lumbar spine wo/w con Accession Number(s): [id number] cc: Garry Lopez; Mike Arora MD CLINICAL [...] Meier MD in OV> 01/29/25 1527 DD/ 25 TD/TT: 01/29/251525 Marble And Granite Polisher: [facility] External Provider IMG MRI PROCEDURES Final Result * Lipid Panel, Standard (03/19/2024 8:16 AM EDT) Triglycerides 94 <150 mg/dL [facility] Comment:Desirable Triglyceri de: less than 150 mg/dLBorderline High Triglyceride 150-199 mg/dLHigh Triglyceride: 200-499 mg/dLVery High Triglyceride: greater than or equal to 5OO mg/dL Cholesterol 144 <200 mg/dL [facility] Comment:Desirable Cholestero l: less than 200 mg/dLBorderline High Cholesterol: 200-239 mg/dLHigh Cholesterol: greater than 239 mg/dL LDL Cholesterol Calculated 65 <100 mg/dL [facility] Comment:Desirable LDL: less than 100 mg/dLNear Optimal/Above Optimal LDL: 110- 129 mg/dLBorderline High LDL: 130-159 mg/dLHigh LDL: 160-189 mg/dLVery High LDL: greater than or equal to 190 mg/dL HDL Cholesterol 61 >40 mg/dL [facility] Comment:Desirable HDL: great er than 40 mg/dL Note: This HDL assay may give artificially low results in patients with liver disease. Blood Venous blood specimen / Unknown 03/19/2024 8:16 AM EDT 03/19/2024 2:23 PM EDT Mike Gaffney MD LAB BLOOD ORDERABL ES Final Result [facility] [address] [place] [phone] * Hm Colonoscopy (11/04/2020) Colonoscopy PERFORMED Historical Provider HEALTH MAINTENANCE Edited Result - Final from Last 3 Months or Most Recently Relevant to Health Maintenance Insurance [facility] C3 Care Teams Delivery Architect Relationship Specialty Start Date End Date LealMike Gonzalez MD [address] [place] [address] KATINA Anthony [address] PCP - General Internal Medicine 07/09/19
--- OUTSIDE RECORDS SUMMARY | 2025-04-17 12:27 | XMS_ITS | Encounter Summary ---
Author Organization [employer] Address [address] [facility] 7t [place] [address] Care Team Providers Care Lavender Farm Worker Name Role Phone Miek Arora MD Primary Care Prov ider Reason for Visit * Reason Onset Date Comments Medication Question 07/13/2023 Encounter Details Date Type Department Care Team ([facility] Contact Info) Description 07/13/2023 Telephone [facility] CHC MED & PEDS [address] [place] [address] Mike Arora MD [address] [place] [address] Medication Question Social History Tobacco Use Types [...] results from PT. Please contact Pt @ [phone] documented in this encounter Plan of Treatment Not on file documented as of this encounter Visit Diagnoses Not on filedocumented in this encounter Additional Health Concerns Assessment Noted Time PHQ-9 Depression Total Score: 0 10/15/19 23 10:23 AM EDT documented as of this encounter Care Teams Lavender Farm Worker Relationship Specialty Start Date End Date Mike Arora MD [address] [place] [address] PCP - General Internal Medicine 07/09/19 documented as of this encounter
--- OUTSIDE RECORDS SUMMARY | 2025-04-17 12:27 | XMS_ITS | Clinical Summary ---
Author Organization [facility] Address [address] [place] [address] Care Team Providers Care Medical Researcher Name Role Phone Cheryl Fournier MD Primary [...] 01/05/2012 Zoster Vaccines (1 of 2) 01/05/2012 Depression Screening 07/04/2024 COVID-19 Vaccine (1 - 2023-2 5 season) 2025 Influenza Vaccine (#1) 2025 RSV Immunization Adult [...] age to complete this topic Care Teams Medical Researcher Relationship Specialty Start Date End Date Cheryl Fournier MD PCP - General Internal Medicine 09/09/16
--- OUTSIDE RECORDS SUMMARY | 2025-04-17 12:27 | XMS_ITS | Encounter Summary ---
Author Organization [employer] Address [address] [facility] 7t [place] [address] Care Team Providers Care Tape Edge Machine Operator Name Role Phone Mike Arora MD Primary Care Prov ider Reason for Visit * Reason Comments Med Refill Encounter Details Date Type Department Care Team ([facility] Contact Info) Description 05/09/2024 Refill [facility] CHC MED & PEDS [address] [place] [address] Mike Arora MD [address] [place] [address] Low back pain associated with a spinal [...] documented as of this encounter Care Teams Tape Edge Machine Operator Relationship Specialty Start Date End Date Mike Arora MD [address] [place] [phone] PCP - General Internal Medicine 07/09/19 documented as of this encounter
--- OUTSIDE RECORDS SUMMARY | 2025-04-17 12:27 | XMS_ITS | Encounter Summary ---
Author Organization [employer] Address [address] [facility] [address] [place] [address] Care Team Providers Care Cardiac Nurse Specialist Name Role Phone Mike Arora MD Primary Care Prov ider Reason for Visit * Reason Onset Date Comments Med Refill 01/11/2025 Encounter Details Date Type Department Care Team ([facility] st Contact Info) Description 01/11/2025 Telephone [facility] CHC MED & PEDS [address] [place] [address] Mike Arora MD [address] [place] [address] Med Refill Social History Tobacco Use Types [...] refill : predniSONE (Deltasone) 20 MG tablet [[id number]] To be sent to: [facility]/pharmacy #[id number] [place], [place] - [address] [place] [address] documented in this encounter Plan of Treatment Not on file documented as of this encounter Visit Diagnoses Not on filedocumented in this encounter Additional Health Concerns Assessment Noted Time PHQ-9 Depression Total Score: 0 10/15/19 23 10:23 AM EDT documented as of this encounter Care Teams Cardiac Nurse Specialist Relationship Specialty Start Date End Date Mike Arora MD [address] [place] [phone] PCP - General Internal Medicine 07/09/19 documented as of this encounter
--- OUTSIDE RECORDS SUMMARY | 2025-04-17 12:27 | XMS_ITS | Encounter Summary ---
Author Organization [employer] Address [address] [facility] 7t [place] [address] Care Team Providers Care Pin Chaser Name Role Phone Mike Arroa MD Primary Care Prov ider Reason for Visit * Reason Comments Med Refill Encounter Details Date Type Department Care Team ([facility] Contact Info) Description 02/17/2025 Refill [facility] CHC MED & PEDS [address] [place] [address] Mike Arora MD [address] [place] [address] Low back pain associated with a spinal [...] documented as of this encounter Care Teams Pin Chaser Relationship Specialty Start Date End Date Mike Arora MD [address] [place] [phone] PCP - General Internal Medicine 07/09/19 documented as of this encounter
--- OUTSIDE RECORDS SUMMARY | 2025-04-17 12:27 | XMS_ITS | Encounter Summary ---
Author Organization [employer] Address [address] [facility] [address] [place] [address] Care Team Providers Care Wire Fence Erector Name Role Phone Mike Arora MD Primary Care Prov ider Reason for Visit * Reason Onset Date Comments call back 10/20/2022 Encounter Details Date Type Department Care Team ([facility] st Contact Info) Description 10/20/2022 Telephone [facility] MEDICINE [address] [place] [address] Mike Arora MD [address] [place] [address] call back Social History Tobacco Use Types [...] Per pt, he had it done at [facility]. No result found. Will f/u with [facility] diagnostic specialist to find out where pt had the CT done. * Telephone Encounter - Chantal Stuart RN - 10/20/2022 3:08 PM EDT Tc from pt requesting a call back regarding why pt has to do a US Abdomen. Please contact pt at [phone] Please clarify above message. Thanks * Telephone Encounter - Jose Howard - 10/20/2022 10:00 AM EDT Tc from pt requesting a call back regarding why pt has to do a US Abdomen. Please contact pt at [phone] documented in this encounter Plan of Treatment Not on file documented as of this encounter Visit Diagnoses Not on filedocumented in this encounter Additional Health Concerns Assessment Noted Time PHQ-9 Depression Total Score: 0 10/15/19 23 10:23 AM EDT documented as of this encounter Care Teams Wire Fence Erector Relationship Specialty Start Date End Date Mike Arora MD [address] [place] [phone] PCP - General Internal Medicine 07/09/19 documented as of this encounter
--- OUTSIDE RECORDS SUMMARY | 2025-04-17 12:27 | XMS_ITS | Encounter Summary ---
Author Organization [employer] Address [address] [facility] 7t [place] [address] Care Team Providers Care Wheel Filler Name Role Phone Mike Arora MD Primary Care Prov ider Reason for Visit * Reason Onset Date Comments Med Refill 03/06/2025 Encounter Details Date Type Department Care Team (Late st Contact Info) Description 03/06/[address] [facility] MEDICINE [address] [place] [address] Mike Arora MD [address] [place], [place] [phone] Low back pain associated with a spinal disorder other than radiculopathy or spinal stenosis (Primary Dx) Social History Tobacco Use Types Packs/Day Years Used Date Smoking Tobacco: Every Day Cigarettes Passive Smoke Exposure: Never Smokeless Tobacco: Never Alcohol Use Standard Drinks/Week Comments Never 0 (1 standard drink = 0.6 oz pur e alcohol) Depression Answer Date Recorded Patient Health Questionnaire-9 Score 0 10/14/2022 Housing Stability Answer Date Recorded What is your housing situation today? I have suzie sing 01/30/[address] you li [...] encounter Miscellaneous Notes * Telephone Encounter - Fabiano Perera - 03/06/2025 4:26 PM EDT TC from pt requesting medication refill. Medications needing refill: traMADol (Ultram) 50 MG tablet To be sent to: [facility]/pharmacy #[id number] - [place] - [address] [place] [address] documented in this encounter Plan of Treatment Not on file documented as of this encounter Visit Diagnoses Diagnosis Low back pain associated with a spinal disorder other than radiculopathy or spinal stenosis- Primary documented in this encounter Additional Health Concerns Assessment Noted Time PHQ-9 Depression Total Score: 0 10/15/19 23 10:23 AM EDT documented as of this encounter Care Teams Wheel Filler Relationship Specialty Start Date End Date Mike Arora MD [address] [place] [address] [place] [address] PCP - General Internal Medicine 07/09/19 documented as of this encounter
== END 2025-04-17 11:29 | disposition home or self-care (01) ==
LOC: HO.PMC 10:30
PROVIDERS: PCP Internal Medicine; Visit Provider Anesthesiology
DX: M54.51 Vertebrogenic low back pain (principal)
CPT/HCPCS: 99214

== ENCOUNTER → 2025-04-17 10:29 | Outpatient (BNVA) | payer MEDICAID, SELFPAY | PROVIDERS: PCP Internal Medicine; Visit Provider Anesthesiology | DX: M54.51 Vertebrogenic low back pain (principal) | CPT/HCPCS: 99212 ==

== ENCOUNTER 2025-05-10 08:31 | Day surgery (SDC) | payer MEDICAID, SELFPAY ==
--- OUTSIDE RECORDS SUMMARY | 2025-04-29 16:01 | XMS_ITS | Encounter Summary ---
Author Organization [employer] Address [address] [facility] 7[address] [place] [address] Care Team Providers Care Pumpman Name Role Phone Mike Arora MD Primary Care Prov ider Reason for Visit * Reason Onset Date Comments Med Refill 03/06/2025 Encounter Details Date Type Department Care Team (Late st Contact Info) Description 03/06/2025 Refill [facility] MEDICINE [address] [place] [address] Mike Arora MD [address] [place], [place] [phone] Low back pain associated with a spinal [...] 50 MG tablet To be sent to: [facility]/pharmacy #[id number] - [place] - [address] [place] [address] documented in this encounter Plan of Treatment Not on file documented as of this encounter Visit Diagnoses Diagnosis Low back pain associated with a spinal disorder other than radiculopathy or spinal stenosis- Primary documented in this encounter Additional Health Concerns Assessment Noted Time PHQ-9 Depression Total Score: 0 10/15/19 23 10:23 AM EDT documented as of this encounter Care Teams Pumpman Relationship Specialty Start Date End Date Mike Arora MD [address] [place] [address] [place] [address] PCP - General Internal Medicine 07/09/19 documented as of this encounter
--- OUTSIDE RECORDS SUMMARY | 2025-04-29 16:01 | XMS_ITS | Encounter Summary ---
Author Organization [employer] Address [address] [facility] 7t [place] [address] Care Team Providers Care Body Component Engineer Name Role Phone Mike Arora MD Primary Care Prov ider Reason for Visit * Reason Comments Med Refill Encounter Details Date Type Department Care Team ([facility] Contact Info) Description 02/17/2025 Refill [facility] CHC MED & PEDS [address] [place] [address] Mike Arora MD [address] [place] [address] Low back pain associated with a spinal [...] documented as of this encounter Care Teams Body Component Engineer Relationship Specialty Start Date End Date Mike Arora MD [address] [place] [address] PCP - General Internal Medicine 07/09/19 documented as of this encounter
--- OUTSIDE RECORDS SUMMARY | 2025-04-29 16:02 | XMS_ITS | Encounter Summary ---
Author Organization [employer] Address [address] [facility] [address] [place] [address] Care Team Providers Care Ditch Worker Name Role Phone Mike Arora MD Primary Care Prov ider Reason for Visit * Reason Onset Date Comments Med Refill 01/11/2025 Encounter Details Date Type Department Care Team ([facility] st Contact Info) Description 01/11/2025 Telephone [facility] CHC MED & PEDS [address] [place], [place] [phone] Mike Arora MD [address] [place] [address] Med Refill Social History Tobacco Use Types [...] refill : predniSONE (Deltasone) 20 MG tablet [[id number]] To be sent to: [facility]/pharmacy #[id number] [place], [place] - [address] [place] [address] documented in this encounter Plan of Treatment Not on file documented as of this encounter Visit Diagnoses Not on filedocumented in this encounter Additional Health Concerns Assessment Noted Time PHQ-9 Depression Total Score: 0 10/15/19 23 10:23 AM EDT documented as of this encounter Care Teams Ditch Worker Relationship Specialty Start Date End Date Mike Arora MD [address] [place] [address] PCP - General Internal Medicine 07/09/19 documented as of this encounter
--- OUTSIDE RECORDS SUMMARY | 2025-04-29 16:02 | XMS_ITS | Encounter Summary ---
Author Organization [employer] Address [address] [facility] 7t [place] [address] Care Team Providers Care Saddle Maker Name Role Phone Mike Arora MD Primary Care Prov ider Reason for Visit * Reason Onset Date Comments Med Refill 05/21/2024 Encounter Details Date Type Department Care Team (Late st Contact Info) Description 05/21/2024 Telephone [facility] MEDICINE [address] [place] [address] Mike Arora MD [address] [place], [place] [phone] Med Refill Social History Tobacco Use Types [...] MG tablet To be sent to: [facility]/pharmacy #[id number] - [place] - [address] [place] [address] documented in this encounter Plan of Treatment Not on file documented as of this encounter Visit Diagnoses Not on filedocumented in this encounter Additional Health Concerns Assessment Noted Time PHQ-9 Depression Total Score: 0 10/15/19 23 10:23 AM EDT documented as of this encounter Care Teams Saddle Maker Relationship Specialty Start Date End Date Mike Arora MD [address] [place] [address] PCP - General Internal Medicine 07/09/19 documented as of this encounter
--- OUTSIDE RECORDS SUMMARY | 2025-04-29 16:02 | XMS_ITS | Clinical Summary ---
Author Organization [employer] Address [address] [place] [address] Care Team Providers Care E Commerce Web Developer Name Role Phone Cheryl Fournier MD Primary Care Provider [phone] Social History Tobacco Use Types Packs/Day Years [...] age to complete this topic Care Teams E Commerce Web Developer Relationship Specialty Start Date End Date Cheryl Fournier MD PCP - General Internal Medicine 09/09/16
--- OUTSIDE RECORDS SUMMARY | 2025-04-29 16:02 | XMS_ITS | Encounter Summary ---
Author Organization [employer] Address [address] [facility] 7[address] [place] [address] Care Team Providers Care Vice President Of Marketing Name Role Phone Mike Arora MD Primary Care Prov ider Reason for Visit * Reason Comments Med Refill Encounter Details Date Type Department Care Team ([facility] Contact Info) Description 06/10/2024 Refill [facility] CHC MED & PEDS [address] [place] [address] Mike Arora MD [address] [place] [address] Low back pain associated with a spinal [...] documented as of this encounter Care Teams Vice President Of Marketing Relationship Specialty Start Date End Date Mike Arora MD [address] [place] [address] PCP - General Internal Medicine 07/09/19 documented as of this encounter
--- OUTSIDE RECORDS SUMMARY | 2025-04-29 16:02 | XMS_ITS | Encounter Summary ---
Author Organization [employer] Address [address] [facility] 7t [place] [address] Care Team Providers Care Sports Medicine Coordinator Name Role Phone Mike Arora MD Primary Care Prov ider Reason for Visit * Reason Onset Date Comments Medication Question 07/13/2023 Encounter Details Date Type Department Care Team ([facility] Contact Info) Description 07/13/2023 Telephone [facility] CHC MED & PEDS [address] [place] [address] Mike Arora MD [address] [place] [address] Medication Question Social History Tobacco Use Types [...] results from PT. Please contact Pt @ [phone] documented in this encounter Plan of Treatment Not on file documented as of this encounter Visit Diagnoses Not on filedocumented in this encounter Additional Health Concerns Assessment Noted Time PHQ-9 Depression Total Score: 0 10/15/19 23 10:23 AM EDT documented as of this encounter Care Teams Sports Medicine Coordinator Relationship Specialty Start Date End Date Mike Arora MD [address] [place] [address] PCP - General Internal Medicine 07/09/19 documented as of this encounter
--- OUTSIDE RECORDS SUMMARY | 2025-04-29 16:02 | XMS_ITS | Encounter Summary ---
Author Organization [employer] Address [address] [facility] [address] [place] [address] Care Team Providers Care Small Stock Facer Name Role Phone Mike Arora MD Primary Care Prov ider Reason for Visit * Reason Onset Date Comments call back 10/20/2022 Encounter Details Date Type Department Care Team ([facility] st Contact Info) Description 10/20/2022 Telephone [facility] MEDICINE [address] [place] [address] Mike Arora MD [address] [place] [address] call back Social History Tobacco Use Types [...] Per pt, he had it done at [facility]. No result found. Will f/u with [facility] diagnostic specialist to find out where pt had the CT done. * Telephone Encounter - Chantal Stuart RN - 10/20/2022 3:08 PM EDT Tc from pt requesting a call back regarding why pt has to do a US Abdomen. Please contact pt at [phone] Please clarify above message. Thanks * Telephone Encounter - Jose Howard - 10/20/2022 10:00 AM EDT Tc from pt requesting a call back regarding why pt has to do a US Abdomen. Please contact pt at [phone] documented in this encounter Plan of Treatment Not on file documented as of this encounter Visit Diagnoses Not on filedocumented in this encounter Additional Health Concerns Assessment Noted Time PHQ-9 Depression Total Score: 0 10/15/19 23 10:23 AM EDT documented as of this encounter Care Teams Small Stock Facer Relationship Specialty Start Date End Date Mike Arora MD [address] [place] [address] PCP - General Internal Medicine 07/09/19 documented as of this encounter
--- OUTSIDE RECORDS SUMMARY | 2025-04-29 16:02 | XMS_ITS | Encounter Summary ---
Author Organization [employer] Address [address] [facility] 7[address] [place] [address] Care Team Providers Care Manager Technical Support Name Role Phone Mike Arora MD Primary Care Prov ider Reason for Visit * Reason Comments Med Refill Encounter Details Date Type Department Care Team ([facility] Contact Info) Description 05/09/2024 Refill [facility] CHC MED & PEDS [address] [place] [address] Mike Arora MD [address] [place] [address] Low back pain associated with a spinal [...] documented as of this encounter Care Teams Manager Technical Support Relationship Specialty Start Date End Date Mike Arora MD [address] [place] [address] PCP - General Internal Medicine 07/09/19 documented as of this encounter
--- OUTSIDE RECORDS SUMMARY | 2025-04-29 16:02 | XMS_ITS | Clinical Summary ---
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 At this moment will refer to [facility] Derm clinic. Chronic obstructive pulmonary [...] Type Department Care Team Description 03/06/2025 Refill [facility] [address] [place] [address] Mike Arora MD Low back pain associated with a spinal disorder other than radiculopathy or spinal stenosis (Primary Dx) 03/06/2025 Population Health Risk Score [facility] (C3) Department [address] [place] [address] Provider, Population Health Generic 03/02/2025 Refill [facility] [address] [place] [address] Mike Arora MD 02/17/2025 Refill [facility] [address] [place] [address] Mike Arora MD Low back pain associated with a spinal disorder other than radiculopathy or spinal stenosis 02/15/2025 Refill [facility] [address] [place] [address] Mike Arora MD Low back pain associated with a spinal disorder other than radiculopathy or spinal stenosis (Primary Dx) 02/14/2025 Refill [facility] [address] [place] [address] Mike Arora MD Chronic obstructive pulmonary disease, unspecified COPD type ([facility]/HCC) 02/11/2025 1:15 PM EDT Telemedicine [facility] [address] [place] [address] Mike Arora MD Low back pain associated with a spinal disorder other than radiculopathy or spinal stenosis 02/11/2025 Travel 02/09/2025 Refill [facility] [address] [place] [address] Mike Arora MD Low back pain associated with a spinal disorder other than radiculopathy or spinal stenosis 02/06/2025 Orders Only GENERIC EXTERNAL DATA DEPARTMENT Provider, Generic External Data 01/27/2025 Orders Only [facility] External Provider, [facility] from Last 3 Months Immunizations Immunization [...] EDT) Sodium 144 135 - 145 mmol/L [facility] Potassium 3.5 3.3 - 5.1 mmol/L [facility] Chloride 109(H) 96 - 108 mmol/L [facility] Carbon Dioxide 25 22 - 29 mmol/L [facility] Anion Gap 14 12 - 20 [facility] Urea Nitrogen (BUN) 15 9 - 16 mg/dL [facility] Creatinine, Serum 0.63 0.5 - 1.4 mg/dL [facility] Estimated Glomerular Filt Rate >60 [facility] Comment:Chronic Kidney Disea se: Estimated GFR < 60 mL/min/[id number] Kidney Disease: Estimated GFR < 15 mL/min/1.73m2 Glucose Fasting 90 60 - 99 mg/dL [facility] Calcium 9.5 8.4 - 10.2 mg/dL [facility] Bilirubin, Total 0.6 0.0 - 1.0 mg/dL [facility] Aspartate Amino Transferase 31 5 - 37 U/L [facility] Alanine Aminotransferase 32 0 - 40 U/L [facility] Total Protein 7.3 6.5 - 8.0 g/dL [facility] Albumin Level 4.6 3.5 - 5.0 g/dL [facility] Alkaline Phosphatase 51 39 - 117 U/L [facility] 02/06/2025 1:19 PM EDT 02/06/2025 1:22 PM EDT us Generic External Data Provider LAB BLOOD ORDERAB LES Final Result [facility] [address] [place], [place] [phone] * Vitamin B12 (Cobalamin) and Folate Panel, Serum (02/06/2025 1:19 PM EDT) Vitamin B12 462 200 - 900 pg/mL [facility] Comment:NORMAL 200-900 PG/ML INDETERMINATE 160-199 PG/ML DEFICIENT < 160 PG/ML Folate 11.0 > or = 4.0 ng/mL [facility] Comment:Reference Values:> o r = 4.0 ng/mL< 4.0 ng/mL suggests folate deficiency Methotrexate, aminopterin and folinic acid(leucovorin) are chemotherapeutic agents whose molecularstructures are similar to folate; therefore, the Architectfolate assay cannot be used for patients using these drugs. 02/06/2025 1:19 PM EDT 02/06/2025 1:22 PM EDT Generic External Data Provider LAB BLOOD ORDERAB LES Final Result Performing Organization Address [facility] de Phone Number [facility] [address] [place] [phone] * TSH with Reflex to Free T4 (02/06/2025 1:19 PM EDT) Pathologist [facility] TSH reflex Free T4 1.40 0.32 - 4.0 uIU/mL [facility] 02/06/2025 1:19 PM EDT 02/06/2025 1:22 PM EDT Generic External Data Provider LAB BLOOD ORDERAB LES Final Result Performing Organization Address [facility] de Phone Number [facility] [address] [place] [phone] * (ABNORMAL) CBC auto differential (02/06/2025 1:19 PM EDT) Pathologist [facility] White Blood Count 10.7 4.8 - 10.8 X10*3/uL [facility] Red Blood Count 4.24(L) 4.60 - 5.80 X10*6/uL [facility] Hemoglobin 14.1 14.0 - 18.0 g/dl [facility] Hematocrit 41.3(L) 42.0 - 52.0 % [facility] Mean Corpuscular Volume 97.4 80.0 - 98.0 fL [facility] Mean Corpuscular Hemoglobin 33.3(H) 27.0 - 33.0 pg [facility] Mean Corpuscular HGB Conc 34.1 31.0 - 36.0 g/dl [facility] Red Cell Distribution Width 12.5 11.0 - 16.0 % [facility] Platelet Count 269 160 - 400 X10*3/uL [facility] Mean Platelet Volume 10.4 9.4 - 12.4 fL [facility] Neutrophils Percent Auto 65.8 45 - 73 % [facility] Imm Gran Pct Auto 0.3 0.0 - 0.4 % [facility] Lymphocytes Percent Auto 20.3 20 - 40 % [facility] Monocytes Percent Auto 10.5 2 - 11 % [facility] Eosinophils Percent Auto 2.6 0 - 4 % [facility] Basophils Percent Auto 0.5 0 - 2 % [facility] NRBC Pct Auto 0.0 0.0 - 0.2 /100WBC [facility] Neutrophils Absolute Auto 7.1 2.0 - 8.3 x10*3/uL [facility] Imm Gran Abs Auto 0.03 0.00 - 0.03 X10*3/uL [facility] Lymphocytes Absolute Auto 2.2 1.2 - 4.9 X10*3/uL [facility] Monocytes Absolute Auto 1.1 0.1 - 1.2 X10*3/uL [facility] Eosinophils Absolute Auto 0.3 0.0 - 0.4 X10*3/uL [facility] Basophils Absolute Auto 0.1 0.0 - 0.2 X10*3/uL [facility] NRBC Abs Auto 0.000 0.0 - 0.012 X10*3/uL [facility] 02/06/2025 1:19 PM EDT 02/06/2025 1:22 PM EDT us Generic External Data Provider LAB BLOOD ORDERAB LES Final Result [facility] [address] [place] [phone] * Iron And Total Iron Binding Capacity (02/06/2025 1:19 PM EDT) Iron 115 45 - 160 mcg/dL [facility] Total Iron Binding Capacity 336 228 - 428 mcg/dL [facility] Percent Iron Saturation 34 15 - 50 % [facility] Unsaturated Iron Binding 221 ug/dL [facility] 02/06/2025 1:19 PM EDT 02/06/2025 1:22 PM EDT us Generic External Data Provider LAB BLOOD ORDERAB LES Final Result Performing Organization Address [facility]/ZIP Co de Phone Number [facility] [address] [place] [phone] * HIV-1/2 Antigen and Antibodies, Fourth Generation, with Reflexes (02/06/2025 1:19 PM EDT) HIV AB/AG Nonreactive Nonreactive [facility] Comment:HIV-1 p24 Ag and/or HIV-1/HIV-2 Ab not detected.A test result that is nonreactive does not exclude thepossibility of exposure to or infection with HIV-1 and/orHIV-2. Nonreactive results in this assay for individualswith prior exposure to HIV-1 and/or HIV-2 may be due toantigen and antibody levels that are below the limit ofdetection of this assay.The [email or web address] HIV Ag/Ab Combo assay result andsupplemental assay results should be interpreted inconjunction with the patient's clinical presentation,history and other laboratory results. If the results areinconsistent with clinical evidence, additional testing issuggested to confirm the result. 02/06/2025 1:19 PM EDT 02/06/2025 1:22 PM EDT us Generic External Data Provider LAB BLOOD ORDERAB LES Final Result Performing Organization Address [facility]/ZIP Co de Phone Number [facility] [address] [place] [phone] * C-reactive Protein (02/06/2025 1:19 PM EDT) C Reactive Protein 0.22 < or = 0.50 mg/dL [facility] 02/06/2025 1:19 PM EDT 02/06/2025 1:22 PM EDT Generic External Data Provider LAB BLOOD ORDERAB LES Final Result Performing Organization Address City/[facility]/ZIP Co de Phone Number [facility] [address] [place] [phone] * Lipase (02/06/2025 1:19 PM EDT) Lipase 18 8 - 78 U/L [facility] 02/06/2025 1:19 PM EDT 02/06/2025 1:22 PM EDT Generic External Data Provider LAB BLOOD ORDERAB LES Final Result Performing Organization Address [facility] Co de Phone Number [facility] [address] [place] [phone] * Hemoglobin A1c (02/06/2025 1:19 PM EDT) Hemoglobin A1c 5.7 <6.0 % [facility] Comment:Hemoglobin A1C Refer ence Range Adults: 4.8 - 6.0 % Non diabetic: < 6.0 % Goal: < 7.0 %Additional Action Suggested: > 8.0 %Note: Hemoglobin A1c results are invalid for patients with abnormal amounts of HbF. Blood transfusions may impact the HbA1c concentration in the patient sample. Estimated Average Glucose 117 mg/dL [facility] Comment:eAG = Estimated ave rage glucose which is %A1C expressed asaverage glucose, using the formula of the F4A-BseyhhyDfkhaov Glucose study (ADAG), Diabetes Care, Vol.31,#8,Feb. 2007 02/06/2025 1:19 PM EDT 02/06/2025 1:22 PM EDT us Generic External Data Provider LAB BLOOD ORDERAB LES Final Result Performing Organization Address [facility] Co de Phone Number [facility] [address] [place] [phone] * Ferritin (02/06/2025 1:19 PM EDT) Ferritin 124 20 - 250 ng/mL [facility] 02/06/2025 1:19 PM EDT 02/06/2025 1:22 PM EDT Generic External Data Provider LAB BLOOD ORDERAB LES Final Result Performing Organization Address [facility] de Phone Number [facility] [address] [place] [phone] * MR Lumbar Spine w/ and w/o Contrast (01/29/2025 3:26 PM EDT) Anatomical Region Laterality Modality Spine, L-spine Magnetic Resonan ce 01/29/2025 3:26 PM EDT Narrative 01/29/2025 3:28 PM EDT [address] [address] Magnetic Resonance Report Signed Patient: Nehal Veloz MR#: [id number] : 1960 Acct:[id number] Age/Sex: 65 / M ADM Date: 01/27/25 Loc: HO.MRI Attending Dr: Garry AYALA Ordering Physician: Garry Lopez Date of Service: 01/27/25 Procedure(s): MR lumbar spine wo/w con Accession Number(s): [id number] cc: Garry Lopez; Mike Arora MD CLINICAL [...] 01/29/25 1527 DD/ 1526 TD/TT: 01/29/25 1526 Head Grinder: Procedure Note Donotuseinterpreter, Image - 01/29/[address] [address] Magnetic Resonance Report Signed Patient: Nehal Veloz#: [id number] : 1960cct:[id number] Age/Sex: 65 / MADM Date: 01/27/25 Loc: HO.MRI Attending Dr: Garry AYALA Ordering Physician: Garry Lopez Date of Service: 01/27/25 Procedure(s): MR lumbar spine wo/w con Accession Number(s): [id number] cc: Garry Lopez; Mike Arora MD CLINICAL [...] OV> 01/29/25 1527 DD/ 25 TD/TT: 01/29/251525 Head Grinder: [facility] External Provider IMG MRI PROCEDURES Final Result * Lipid Panel, Standard (03/19/2024 8:16 AM EDT) Triglycerides 94 <150 mg/dL [facility] Comment:Desirable Triglyceri de: less than 150 mg/dLBorderline High Triglyceride 150-199 mg/dLHigh Triglyceride: 200-499 mg/dLVery High Triglyceride: greater than or equal to 5OO mg/dL Cholesterol 144 <200 mg/dL [facility] Comment:Desirable Cholestero l: less than 200 mg/dLBorderline High Cholesterol: 200-239 mg/dLHigh Cholesterol: greater than 239 mg/dL LDL Cholesterol Calculated 65 <100 mg/dL [facility] Comment:Desirable LDL: less than 100 mg/dLNear Optimal/Above Optimal LDL: 110- 129 mg/dLBorderline High LDL: 130-159 mg/dLHigh LDL: 160-189 mg/dLVery High LDL: greater than or equal to 190 mg/dL HDL Cholesterol 61 >40 mg/dL [facility] Comment:Desirable HDL: great er than 40 mg/dL Note: This HDL assay may give artificially low results in patients with liver disease. Blood Venous blood specimen / Unknown 03/19/2024 8:16 AM EDT 03/19/2024 2:23 PM EDT Mike Gaffney MD LAB BLOOD ORDERABL ES Final Result [facility] [address] [place] [phone] * Hm Colonoscopy (11/04/2020) Colonoscopy PERFORMED Historical Provider HEALTH MAINTENANCE Edited Result - Final from Last 3 Months or Most Recently Relevant to Health Maintenance Insurance [facility] [address] C3 Care Teams Veneer Stacker Relationship Specialty Start Date End Date LealMike Gonzalez MD [address] [place] [address] KATINA Anthony [phone] PCP - General Internal Medicine 07/09/19
--- OUTSIDE RECORDS SUMMARY | 2025-04-29 16:02 | XMS_ITS | Encounter Summary ---
Author Organization [employer] Address [address] [facility] [address] [place] [address] Care Team Providers Care Minute Clerk Name Role Phone Mike Arora MD Primary Care Prov ider Encounter Details Date Type Department Care Team ([facility] st Contact Info) Description 08/10/2022 Orders Only [facility] [address] [place] [address] Mike Arora MD [address] [place], [place] [id number] Prostate cancer screening (Primary Dx); Simple chronic [...] PCR POSITIVE (08/10/2022 10:30 AM EST) Pathologist [facility] HCV RNA, QN Real Time PCR <15 NOT DETECTED NOT DETECTED IU/mL [facility] [place] [facility] HCV RNA QN Real Time PCR <1.18 NOT DETECTED NOT DETECTED Log IU/mL [facility] Comment: HCV RNA is not detected. There [...] a biological false positive result. (Always Message) [facility] [place] [facility] Comment: This test was performed using Real-Time Polymerase Chain Reaction. Reportable Range: 15 IU/mL to 100,000,000 IU/mL (1.18 Log IU/mL to 8.00 Log IU/mL). The analytical performance characteristics of this assay have been determined by [facility]. The modifications have not been cleared or approved by the FDA. This assay has been validated pursuant to the CLIA regulations and is used for clinical purposes. For more information on this test, go to: http://education.SmartPay Jieyin/faq/YEY79g9 (This link is being provided for informational/ [...] MD LAB BLOOD ORDERABL ES Final Result [address], [place] [address] [facility] [place] [facility] [address] [facility], (Nl2) [place] [address] * PSA,Total (08/10/2022 10:30 AM EST) PSA, Total 0.35 < OR = 4.00 ng/mL [facility] [place] [facility] Comment: The total PSA value from this [...] ORDERABL ES Final Result Performing Organization Address [facility]/ZIP Co de Phone Number [address], [place] [address] [facility] [place] [facility] [address] [place] [address], ([address]) [place] [address] * (ABNORMAL) Hemoglobin A1c with Calculated Mean Plasma Glucose (MPG) (08/10/2022 10:30 AM EST) Hemoglobin A1c 5.8(H) <5.7 % of total Hgb [facility] [place] [facility] Comment: For someone without known diabetes, a [...] children. Mean Plasma Glucose 129 mg/dL (calc) [facility] [place] [facility] 08/10/2022 10:3 0 AM EST 08/10/2022 10:31 AM EST Narrative [facility] - 08/13/2022 11:15 PM EST FASTING:NO FASTING: NO Mike Gaffney MD LAB BLOOD ORDERABL ES Final Result Performing Organization Address City/[facility]/ZIP Co de Phone Number [address], [place] [address] [facility] [place] [facility] [address] [place] [address], ([address]) [place] [address] * TSH W/Reflex to FT4 (08/10/2022 10:30 AM EST) TSH w/Reflex to FT4 2.75 0.40 - 4.50 mIU/L [facility] [place] [facility] 08/10/2022 10:3 0 AM EST 08/10/2022 10:31 AM EST Narrative [facility] - 08/13/2022 11:15 PM EST FASTING:NO FASTING: NO Mike Gaffney MD LAB BLOOD ORDERABL ES Final Result [facility] [address] [facility] [place] [address] [facility] [place] [facility] [address] [facility], ([address]) [place] [address] * Lipid Panel, Standard (08/10/2022 10:30 AM EST) Cholesterol, Total 145 <200 mg/dL [facility] [place] [facility] HDL Cholesterol 58 > OR = 40 mg/dL [facility] [place] [facility] Triglycerides 50 <150 mg/dL [facility] [place] [facility] LDL Cholesterol 75 mg/dL (calc) [facility] [place] [facility] Comment: Reference range: <100 Desirable range <100 mg/dL for primary prevention; <70 mg/dL for patients with CHD or diabetic patients with > or = 2 CHD risk factors. LDL-C is now calculated using the Darrel-Matt calculation, which is a validated novel method providing better accuracy than the Friedewald equation in the estimation of LDL-C. Darrel SS et al. DYLAN. 2013;310(19): 4298-2431 (http://education.K[employer]ak Urja.[employer]-Ramp Wireless/faq/FLA413) Chol/HDLC Ratio 2.5 <5.0 (calc) [facility] [place] [facility] Non-HDL Cholesterol 87 <130 mg/dL (calc) [facility] [place] [facility] Comment: For patients with diabetes plus 1 [...] ORDERABL ES Final Result Performing Organization Address [facility]/ZIP Co de Phone Number [address], [place] [address] [facility] [place] [facility] [address] [place] [address], ([address]) [place] [address] * HIV-1 RNA, Quantitative, Real-Time PCR with Reflex to Genotype (RTI, PI, Integrase) (08/10/2022 10:30 AM EST) HIV 1 RNA, QN PCR NOT DETECTED copies/mL [facility], HIV 1 RNA, QN PCR NOT DETECTED Log copies/mL [facility], Comment: REFERENCE RANGE: NOT DETECTED copies/mL NOT DETECTED Log copies/mL This test was performed using Real-Time Polymerase Chain Reaction. Reportable range is 20 to 10,000,000 copies/mL (1.30-7.00 Log copies/mL). 08/10/2022 10:3 0 AM EST 08/10/2022 10:31 AM EST Narrative [facility] - 08/13/2022 11:15 PM EST FASTING:NO FASTING: NO Mike Gaffney MD LAB BLOOD ORDERABL ES Final Result Performing Organization Address City/[facility]/ZIP Co de Phone Number [address], [place] [address] [facility], [address] [place] [address] * (ABNORMAL) Hepatitis C Antibody with Reflex to HCV, RNA, Quantitative, Real- Time PCR (08/10/2022 10:30 AM EST) Hepatitis C Antibody REACTIVE( A) NON-REACT BIANCA [facility] [place] [facility] Index >11.00(H) <1.00 [facility] [place] [facility] Comment: Based on this result, the [...] MD LAB BLOOD ORDERABL ES Final Result [facility] [address] [facility], [facility], [place] [address] [facility] [place] [facility] [address] [facility], ([address]) [place] [address] * Hepatic Function Panel (08/10/2022 10:30 AM EST) Protein, Total 7.1 6.1 - 8.1 g/dL [facility] [place] [facility] Albumin 4.7 3.6 - 5.1 g/dL [facility] Globulin 2.4 1.9 - 3.7 g/dL (calc) [facility] Albumin/Globulin Ratio 2.0 1.0 - 2.5 (calc) [facility] Bilirubin, Total 0.7 0.2 - 1.2 mg/dL [facility] Bilirubin, Direct 0.2 < OR = 0.2 mg/dL [facility] Bilirubin, Indirect 0.5 0.2 - 1.2 mg/dL (calc) [facility] [place] [facility] Alkaline Phosphatase 35 35 - 144 U/L [facility] AST 17 10 - 35 U/L [facility] ALT 16 9 - 46 U/L [facility] [place] [facility] Blood Venous blood specimen / Unknown 08/10/2022 10:30 AM EST 08/10/2022 10:31 AM EST Narrative [facility] - 08/13/2022 11:15 PM EST FASTING:NO FASTING: NO Mike Gaffney MD LAB BLOOD ORDERABL ES Final Result Performing Organization Address City/[facility]/ZIP Co de Phone Number [address], [place] [address] [facility] [place] [facility] [address] [facility], ([address]) [place] [address] * Basic Metabolic Panel (08/10/2022 10:30 AM EST) [facility] Glucose 90 65 - 139 mg/dL [facility] [place] [facility] Comment: Non-fasting reference interval Urea Nitrogen (BUN) 25 7 - 25 mg/dL [facility] [place] [facility] Creatinine, Serum 0.71 0.70 - 1.35 mg/dL [facility] [place] [facility] eGFR 105 > OR = 60 mL/min/1 .73m2 [facility] [place] [facility] Comment: The eGFR is based on the CKD-EPI 2020 equation. To calculate the new eGFR from a previous Creatinine or Cystatin C result, go to https://www.kidney.org/professionals/ kdoqi/gfr%5Fcalculator BUN/Creatinine Ratio NOT APPLICABLE 6 - 22 (calc) [facility] Sodium 136 135 - 146 mmol/L [facility] Potassium 4.4 3.5 - 5.3 mmol/L [facility] Chloride 101 98 - 110 mmol/L [facility] Carbon Dioxide 26 20 - 32 mmol/L [facility] [place] [facility] Calcium 9.6 8.6 - 10.3 mg/dL [facility] [place] [facility] Blood Venous blood specimen / Unknown 08/10/2022 10:30 AM EST 08/10/2022 10:31 AM EST Narrative [facility] - 08/13/2022 11:15 PM EST FASTING:NO FASTING: NO Mike Gaffney MD LAB BLOOD ORDERABL ES Final Result Performing Organization Address City/[facility]/ZIP Co de Phone Number [address], [place] [address] [facility] [place] [facility] [address] [place] [address], ([address]) [place] [address] * CBC auto differential (08/10/2022 10:30 AM EST) White Blood Cell Count 7.2 3.8 - 10.8 Thousand/ uL [facility] Red Blood Cell Count 4.22 4.20 - 5.80 Million/u L [facility] Hemoglobin 13.4 13.2 - 17.1 g/dL [facility] Hematocrit 39.8 38.5 - 50.0 % [facility] MCV 94.3 80.0 - 100.0 fL [facility] MCH 31.8 27.0 - 33.0 pg [facility] MCHC 33.7 32.0 - 36.0 g/dL [facility] RDW 12.5 11.0 - 15.0 % [facility] Platelet Count 270 140 - 400 Thousand/ uL [facility] MPV 9.9 7.5 - 12.5 fL [facility] Absolute Neutrophils 3,679 1,500 - 7,800 cells/uL [facility] Absolute Lymphocytes 2,498 850 - 3,900 cells/uL [facility] Absolute Monocytes 612 200 - 950 cells/uL [facility] Absolute Eosinophils 360 15 - 500 cells/uL [facility] [place] [facility] Absolute Basophils 50 0 - 200 cells/uL [facility] Neutrophils 51.1 % [facility] [place] [facility] Lymphocytes 34.7 % [facility] Monocytes 8.5 % [facility] Eosinophils 5.0 % [facility] Basophils 0.7 % [facility] [place] [facility] Blood Venous blood specimen / Unknown 08/10/2022 10:30 AM EST 08/10/2022 10:31 AM EST Narrative [facility] - 08/13/2022 11:15 PM EST FASTING:NO FASTING: NO us Mike Gaffney MD LAB BLOOD ORDERABL ES Final Result [facility] [address] [facility], [place] [address] [facility] [address] [facility], ([address]) [place] [address] documented in this encounter Visit Diagnoses Diagnosis Prostate cancer screening- Primary Special screening for malignant neoplasm of prostate Simple chronic bronchitis (CMS/HCC) (HCC) Simple chronic bronchitis documented in this encounter Care Teams Minute Clerk Relationship Specialty Start Date End Date Mike Arora MD [address] [place] [address] PCP - General Internal Medicine 07/09/19 documented as of this encounter
--- NOTE | 2025-05-08 10:23 | HO.ANESPROP2 ---
Documented by User: Carla Goodrich NP 05/08/25 10:27 HPI - Anesthesia Eval Consult details Narrative: 65yo M for L3,L4,L5 and S1 Basivertebral Nerve Ablation (Intracept RFA) s/p Foraminotomy 05/2024 with GA-ETT 7.5 Prior to 05/2024 Foraminotomy Hx polysub: Clean x 25 years Smoker/COPD: Scheduled inhalers controls. 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 Now normalized. GERD/Barretts: ppi controls PMFSH Active Problems Active Problems: All Active Problems Vertebrogenic low back pain (Acute) Back pain (Acute) Weight loss, unintentional (Acute) Anemia (Acute) Abdominal pain (Acute) Change in stool caliber (Acute) Sacroiliac joint dysfunction of right side (Acute) Patellar tendinitis of right knee (Acute) Right knee DJD (Acute) Sacroiliitis (Acute) Pain of right sacroiliac joint (Acute) Osteoarthritis of right hip (Acute) Greater trochanteric bursitis of right hip (Acute) Arthritis of right hip (Acute) Status post lumbar spine surgery for decompression of spinal cord (Acute) History of adenomatous polyp of colon (Acute) Reza's esophagus determined by endoscopy (Acute) Cervical myelopathy (Acute) Right knee pain (Acute) Right hip pain (Acute) Dupuytren's disease of palm with nodules without contracture (Acute) Bilateral hand numbness (Acute) Poor historian (Acute) Abnormal abdominal ultrasound (Acute) Porphyria (Acute) Bilateral renal stones (Acute) Lipoma (Acute) Epidermal inclusion cyst (Acute) Nicotine dependence, cigarettes, uncomplicated (Acute) Right knee DJD (Acute) Lumbar spinal stenosis (Acute) Right lumbar radiculopathy (Acute) Porphyrin disorder (Acute) Tubular adenoma of colon (Acute ~2020) COPD (chronic obstructive pulmonary disease) (Acute) Past Medical History Medical History Weight loss, unintentional Anemia Abdominal pain Change in stool caliber Back pain Arthritis Nicotine dependence, cigarettes, uncomplicated Right knee DJD Lumbar spinal stenosis Right lumbar radiculopathy Porphyrin disorder Tubular adenoma of colon (~2020) History of peptic ulcer (~2001) Difficult intravenous access History of chronic pain COPD (chronic obstructive pulmonary disease) Hepatitis C Family History Family History Mother Emphysema lung Cancer Family history of problems with anesthesia: No Surgical History Surgical History History of back surgery History of hand surgery (~2020) History of colonoscopy (~2020) History of esophagogastroduodenoscopy (EGD) (~2001) History of Problems with Anesthesia: No Social History Social History Household Members Other:: room mate Are you a primary caregivers homecare to a significant other at home: No Do you presently have visiting nurse or other home services: No Alcohol intake: former Year quit: 2019 Patient Tobacco Use Status: Current everyday Tobacco user Tobacco use type: Cigarette Cigarettes Per Day: 10 Years Smoked: 55 Second Hand Smoke Exposure: No Use of substances other than those prescribed or required for medical reasons: No Substance Use Type: Amphetamines, Crack/Cocaine, Former Substance User, Hallucinogens, IV Drugs, Marijuana and Opiates Have you been hit, kicked, punched, or otherwise hurt by someone within the past year? 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 Allergies Allergy/AdvReac Type Severity Reaction Status Date / Time No Known Allergies Allergy Verified 04/17/25 10:51 Home Medications ?Medication ?Instructions ?Recorded ?Confirmed ?Last Taken ?Type albuterol sulfate 90 mcg/actuation 2 puff PO Q4-6H PRN Shortness Of 09/04/20 05/10/25 05/10/25 06:30 History aerosol inhaler Breath tiotropium bromide 18 mcg capsule 1 cap inhalation DAILY 09/04/20 05/10/25 05/16/24 History with inhalation device fluticasone 250 mcg-salmeterol 50 1 ea inhalation QAM 05/11/24 05/10/25 05/16/24 History mcg/dose blistr powdr for inhalation ([facility]ela Inhub) meloxicam 15 mg tablet 15 mg PO DAILY 05/11/24 05/10/25 05/09/24 History Held on 05/16/24. Instructions: Resume on 05/17/24. gabapentin 600 mg tablet 600 mg PO TID 09/07/24 05/10/25 Unknown History sildenafil 50 mg tablet 50 mg PO ONCE PRN Erectile 09/07/24 05/10/25 Unknown History Dysfunction tramadol 50 mg tablet 50 mg PO Q6H PRN severe pain 01/18/25 05/10/25 Unknown History Exam Pertinent Lab Results Pertinent Lab Results: Laboratory Tests 02/06/25 13:19 WBC 10.7 Hgb 14.1 Hct 41.3 L Plt Count 269 D Sodium 144 Potassium 3.5 Chloride 109 H Carbon Dioxide 25 BUN 15 Creatinine 0.63 Narrative Narrative: EKG 05/2024 Vent. Rate : 088 BPM Atrial Rate : 088 BPM P-R Int : 134 ms QRS Dur : 086 ms QT Int : 358 ms P-R-T Axes : 083 072 066 degrees QTc Int : 433 ms Normal sinus rhythm Normal ECG No previous ECGs available Assessment and Plan Assessment Anesthesia Assessment: Chart Reviewed Final Anesthetic Review Family History of Problems with Anesthesia: No History of Problems with Anesthesia: No Documented by User: Mike Hagen MD 05/10/25 11:03 [facility] Past Medical History Medical History Weight loss, unintentional Anemia Abdominal pain Change in stool caliber Back pain Arthritis Nicotine dependence, cigarettes, uncomplicated Right knee DJD Lumbar spinal stenosis Right lumbar radiculopathy Porphyrin disorder Tubular adenoma of colon (~2020) History of peptic ulcer (~2001) Difficult intravenous access History of chronic pain COPD (chronic obstructive pulmonary disease) Hepatitis C Family History Family History Mother Emphysema lung Cancer Surgical History Surgical History History of back surgery History of hand surgery (~2020) History of colonoscopy (~2020) History of esophagogastroduodenoscopy (EGD) (~2001) Social History Social History Household Members Other:: room mate Are you a primary caregivers homecare to a significant other at home: No Do you presently have visiting nurse or other home services: No Alcohol intake: former Year quit: 2019 Patient Tobacco Use Status: Current everyday Tobacco user Tobacco use type: Cigarette Cigarettes Per Day: 10 Years Smoked: 55 Second Hand Smoke Exposure: No Use of substances other than those prescribed or required for medical reasons: No Substance Use Type: Amphetamines, Crack/Cocaine, Former Substance User, Hallucinogens, IV Drugs, Marijuana and Opiates Have you been hit, kicked, punched, or otherwise hurt by someone within the past year? 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 Allergies Allergy/AdvReac Type Severity Reaction Status Date / Time No Known Allergies Allergy Verified 04/17/25 10:51 Home Medications ?Medication ?Instructions ?Recorded ?Confirmed ?Last Taken ?Type albuterol sulfate 90 mcg/actuation 2 puff PO Q4-6H PRN Shortness Of 09/04/20 05/10/25 05/10/25 06:30 History aerosol inhaler Breath tiotropium bromide 18 mcg capsule 1 cap inhalation DAILY 09/04/20 05/10/25 05/16/24 History with inhalation device fluticasone 250 mcg-salmeterol 50 1 ea inhalation QAM 05/11/24 05/10/25 05/16/24 History mcg/dose blistr powdr for inhalation (Steviexela Inhub) meloxicam 15 mg tablet 15 mg PO DAILY 05/11/24 05/10/25 05/09/24 History Held on 05/16/24. Instructions: Resume on 05/17/24. gabapentin 600 mg tablet 600 mg PO TID 09/07/24 05/10/25 Unknown History sildenafil 50 mg tablet 50 mg PO ONCE PRN Erectile 09/07/24 05/10/25 Unknown History Dysfunction tramadol 50 mg tablet 50 mg PO Q6H PRN severe pain 01/18/25 05/10/25 Unknown History Exam Exam Date and Time: 05/10/2025 Airway Mallampati Class: II TM Dist: >3cm Neck ROM: Full Denture: Upper and Lower Loose/Missing/Broken Teeth: Yes, Upper and Lower Heart: rrr Lungs: ctab vesicular Assessment and Plan Assessment Anesthesia Assessment: Anesthesia Plan Discussed and Smoking Cess. Discussed Final Anesthetic Review NPO: Yes ASA Class: III Final Preanesthetic Review: No Changes in Pt Med Stat, Meds/Allgs Chart Reviewed, Consent Obtained/Reviewed and Anes Risks/Benef Reviewed Patient Risk: Low Procedure Risk: Low Anesthetic Plan Anesthetic Plan: GA Disposition: Standard PACU
[2025-05-08 12:08] VITALS: BMI 25.8
[2025-05-10] VITALS (7 sets, daily range): BP systolic 135–149; BP diastolic 79–98; PULSE 59–68; RESP 16–17; TEMP 36.6–36.8; O2SAT 98–99; BMI 24.2
--- NOTE | ~2025-05-10 | FL_ITS ---
EXAMINATION: FLUOROSCOPY GUIDANCE FOR NEEDLE PLACEMENT CLINICAL INFORMATION: l3 l4 l5 s1 intracept rfa COMPARISON: Previous lumbar spine MRI most recent January 2025 TECHNIQUE: Fluoroscopy guidance provided for pain management procedure. FINDINGS: Images demonstrate interpedicular trochars and probe placement in the L3-S1 vertebrae. See procedure note for detailed findings. FLUOROSCOPY TIME: 5 minutes 3.5 seconds. 11 submitted images DOSE AREA PRODUCT: 2008 uGy-m2 (microgray-meter squared) FL/FL guidance in OR IMPRESSION: Fluoroscopy guidance for pain management procedure. Electronically signed by: Usha De Paz MD 05/10/2025 12:41 PM [facility]
[2025-05-10] MEDS: Lactated Ringers 1,000 ML 100 ML IVCONT (08:58)
--- NOTE | 2025-05-10 09:53 | MHC.SHP ---
Pre-Procedural Eval Section A - 24 Hr Update-Section A only Date of Service: 05/10/25 The patient is an INPATIENT: No Changes since office visit: Yes Patient answered all questions The patient has been examined within 24 hours of the surgical procedure. The History & Physical has been completed within 30 days and I have reviewed it.: No Section B - Complete if H&P > 30 days Chief Complaint: Vertebrogenic low back pain Details of Present Illness: as above Relevant Family History (Specify if Yes): No Relevant Social History: None Present Medications: see Short Stay Collaborative assessment Medical History: No relevant PMH History of Previous Operations: Relevant previous surgery/procedure and date(s) (L3- L4 and L4- L5 lumbar decompression.) Allergies: Allergies Allergy/AdvReac Type Severity Reaction Status Date / Time No Known Allergies Allergy Verified 04/17/25 10:51 Review of Systems Sugical H&P ROS: Negative: Cardiovascular, Respiratory, Psychiatric, Hem-Onc, Allergic/Immunologic, Gastrointestinal, Genitourinary, Musculoskeletal, Integumentary, Endocrine and Eyes/Ears/Nose/Throat and Yes, Specify: Constitution and Neurological (DDD lumbar spine Vertebrogenic low back pain) Exam Surgical H&P Exam: Normal: HEENT, Normal: Heart, Normal: Lungs, Normal: Extremities, Normal: Abdomen, Normal: Skin and Normal: Neurological Plan Diagnosis/Plan: Unchanged I have reviewed the history and physical and performed a pertinent physical examination on my patient. No changes have occurred unless specified. Time Spent With Patient Time: Total time managing care of this patient today ____ minutes.
--- NOTE | 2025-05-10 12:12 | P.BOP_ITS ---
Brief Operative Note Date of Service: 05/10/25 Pre-op diagnosis: Vertebra genic low back pain Post-op diagnosis: same Procedure: BVN L3, L4, L5, S1 radiofrequency ablation intracept. Surgeon: Sebastien Brown MD Anesthesia: GETA Was an Panel Edge Sealer used for this Procedure?: No Estimated blood loss (mL): 18 Pathology: none sent Condition: stable Disposition: PACU
--- NOTE | 2025-05-10 12:15 | P.OP_ITS ---
Operative Note Operative Note Date of Service: 05/10/25 Narrative: Basivertebral nerve (BVN) ablation? Intracept Procedure L3, L4, L5, S1 Informed consent was explained, risks and benefits were explained to the patient as well as alternatives. Risks delineated as risks of bleeding, infection, peripheral nerve damage, spinal cord damage, headache, epidural hematoma and other unspecified complications. Procedure Time Out: Patient ID confirmed, correct procedure to be performed, correct site and/or side for procedure , need for antibiotic administration, need for DVT prophylaxis, risk of fire.? The patient received cefazolin 2 g intravenously 25 minutes before onset of the procedure as well as [id number] mg intravenously push. The entire back was sterilely prepped with ChloraPrep twice and draped with sterile self adhesive utility towels and covered with full body drape.? Two sterilely draped C-arms were positioned in fixed anterior posterior and lateral positions alongside the patient's torso.? Sterilely draped C-arm was moved to visualize the target at the superolateral aspect of the L4 vertebral body. The C-arm was rotated to square off the superior endplate at L4 . The superolateral left L4 pedicle was identified, and the skin entry point identified and infiltrated with mixture of 2% lidocaine with ropivacaine 0.5% one to one using a 25- gauge 1-1/2 inch needle. A 22- gauge 5-inch spinal needle was used to anesthetize the track to the pedicle and periosteum and confirm the introducer cannula trajectory. A skin incision was made with 11 scalpel blade 5 mm. The introducer cannula with bevel tip was then introduced through the skin, subcutaneous tissue and paraspinal muscle until bony contact was made. The position was checked in the AP and lateral plane. Using a mallet, the trocar was then advanced through the pedicle to the posterior aspect of the vertebral body using a combination of AP and lateral views to ensure appropriate traversing of the pedicle and no breaching of the pedicle medially or inferiorly. Once the trocar was in the posterior aspect of the L4 vertebral body, the trocar was removed from the cannula and the curved cannula assembly with the nitinol J-stylet was inserted. The spin wheel was rotated counterclockwise permitting excursion of the J-stylet. The curved cannula assembly was then advanced using a mallet in 1-2 mm increments. The J- stylet was observed to traverse the vertebral body in the AP and lateral views. Target was reached when the tip of the stylet was 20 % anterior of the posterior wall of the L4 on the lateral view and it crossed the midline of the L4 spinous process in the AP view. The stylet was then removed. The bipolar radiofrequency (RF) probe was removed from the previous vertebral body, the tip cleaned and was inserted into the introducer cannula in its ablation position. The spin wheel was rotated clockwise to retract the PEEK sleeve to expose the proximal electrode on the radiofrequency probe. The BVN was then ablated using [employer]?s standard RFG algorithm for 7 minutes. After that C-arms were moved to visualize the target at the superolateral aspect of S1 vertebral body on the right .C-arm was rotated to sq of the superior endplate at S1 and positioned in Gudino positioned. Superior lateral right S1 pedicle was identified and the skin entry point was identified and infiltrated with mixture of 2% lidocaine and ropivacaine 0.5% one-to-one using 25 gauge 1-1/2 inch needle. 22 gauge 5 in spinal needle was used to anesthetize the tract to the pedicle and periosteum and confirm the introducer cannula trajectory. A skin incision was made with 11 blade scalpel 5 mm. The introducer cannula with chava tip was inserted through the skin subcutaneous tissue and paraspinal muscles until bony contact was made. The position was checked in the AP and lateral plane. Using mallet the trocar was then advanced through the pedicle to the posterior aspect of vertebral body of S1 using a combination of AP and lateral views intermittently to ensure appropriate traversing of the pedicle and no breaching of the pedicle medial laterally or inferiorly. Once the trocar was in the posterior aspect of L5 vertebral body introducer cannula with steep bevel reach the vertebral body passing through the right pedicle the trocar was removed from the cannula and the curved cannula assembly with the knitting all J stylette was inserted. This pinwheel was rotated counter-clockwise permitting excursion of the J stylet. The curved cannula assembly than was advanced using a mallet in 1-2 mm increments. The J stylette was observed to traverse the vertebral body in AP and lateral views. Target was reached when tip of the stylette was 30 % anterior to the posterior wall of the S1 in the lateral view and midway between the superior and inferior endplates and it across the midline of the S1 spinous process in the AP view. The stylette was then removed. The bipolar radiofrequency RF probe was inserted into the introducer cannula in its ablation positioned. This pain we will was rotated clockwise to retract the PE EK sleeve to expose the proximal electrode on the radiofrequency probe. The BVN was then ablated using the standard algorithm for 15 minutes. Sterilely draped C-arm was then moved to visualize the target at the superolateral aspect of the L3 vertebral body. The C-arm was rotated to square off the superior endplate at L3 and rotated left to obtain an oblique view. The superolateral left L3 pedicle was identified, and the skin entry point identified and infiltrated with mixture of 2% lidocaine with ropivacaine 0.5% one to one using a 25- gauge 1-1/2 inch needle. A 22-gauge 5-inch spinal needle was used to anesthetize the track to the pedicle and periosteum and confirm the introducer cannula trajectory. A skin incision was made with 11 blade scalpel 5 mm. The introducer cannula with bevel tip was then introduced through the skin, subcutaneous tissue and paraspinal muscle until bony contact was made. The position was checked in the AP and lateral plane. Using a mallet, the trocar was then advanced through the pedicle to the posterior aspect of the vertebral body using a combination of AP and lateral views to ensure appropriate traversing of the pedicle and no breaching of the pedicle medially or inferiorly. Once the trocar was in the posterior aspect of the L3 vertebral body then introducer cannula with tip bevel reached the vertebral body passing through the left pedicle, the trocar was removed from the cannula and the curved cannula assembly with the nitinol J-stylet was inserted. The spin wheel was rotated counterclockwise permitting excursion of the J- stylet. The curved cannula assembly was then advanced using a mallet in 1-2 mm increments. The J-stylet was observed to traverse the vertebral body in the AP and lateral views. Target was reached when the tip of the stylet was 30 % anterior of the posterior wall of the L3 in the lateral view (midway between the superior and inferior endplates) and it crossed the midline of the L3 spinous process in the AP view. The stylet was then removed. The bipolar radiofrequency (RF) probe was inserted into the introducer cannula in its ablation position. The spin wheel was rotated clockwise to retract the PEEK sleeve to expose the proximal electrode on the radiofrequency probe. The BVN was then ablated using [employer]?s standard RFG algorithm for 7 minutes.? While the ablation was occurring at below level the C-arm was moved to visualize the target at the superolateral aspect of the L5 vertebral body. The C-arm was rotated to square off the superior endplate at L5. The superolateral ?left L5 pedicle was identified, and the skin entry point identified and infiltrated with mixture of 2% lidocaine with ropivacaine 0.5% one to one using a 25- gauge 1-1/2 inch needle. A 22-gauge 5-inch spinal needle was used to anesthetize the track to the pedicle and periosteum and confirm the introducer cannula trajectory. A skin incision was made with 11 scalpel blade 5 mm. The introducer cannula with bevel tip was then introduced through the skin, subcutaneous tissue and paraspinal muscle until bony contact was made. The position was checked in the AP and lateral plane. Using a mallet, the trocar was then advanced through the pedicle to the posterior aspect of the vertebral body using a combination of AP and lateral views to ensure appropriate traversing of the pedicle and no breaching of the pedicle medially or inferiorly. Once the trocar was in the posterior aspect of the L5 vertebral body, the trocar was removed from the can nula and the curved cannula assembly with the nitinol J-stylet was inserted. The spin wheel was rotated counterclockwise permitting excursion of the J-stylet. The curved cannula assembly was then advanced using a mallet in 1-2 mm increments. The J-stylet was observed to traverse the vertebral body in the AP and lateral views. Target was reached when the tip of the stylet was 45 % anterior of the posterior wall of the L5 on the lateral view and it crossed the midline of the L5 spinous process in the AP view. The stylet was then removed. The bipolar radiofrequency (RF) probe was removed from the previous vertebral body, the tip cleaned and was inserted into the introducer cannula in its ablation position. The spin wheel was rotated clockwise to retract the PEEK sleeve to expose the proximal electrode on the radiofrequency probe. The BVN was then ablated using [employer]?s standard RFG algorithm for 7 minutes. Upon completion of the radiofrequency application the final cannula was removed EN mass with radiofrequency probe and for 0-0 silk sutures were applied to the small incisions of the skin. Sterile dressing using bacitracin and 4x4s applied affixing it to the skin with Tegaderm.
[2025-05-10] MEDS: oxyCODONE HCl Immed Release 5 MG TABLET PO (12:30)
== END 2025-05-10 13:31 | disposition home or self-care (01) ==
PROVIDERS: PCP Internal Medicine; Visit Provider Anesthesiology
PROC: (CPT 64628; principal; 2025-05-10 10:00)
DX: M54.51 Vertebrogenic low back pain (principal); Z98.890 Other specified postprocedural states; M54.16 Radiculopathy, lumbar region; M48.061 Spinal stenosis, lumbar region without neurogenic claudication; M79.604 Pain in right leg; M25.551 Pain in right hip; M25.561 Pain in right knee; M17.11 Unilateral primary osteoarthritis, right knee; J44.9 Chronic obstructive pulmonary disease, unspecified; D64.9 Anemia, unspecified; Z86.19 Personal history of other infectious and parasitic diseases; F17.210 Nicotine dependence, cigarettes, uncomplicated; F19.90 Other psychoactive substance use, unspecified, uncomplicated; Z79.899 Other long term (current) drug therapy
CPT/HCPCS: 64628; 64629 ×2; C1889; J0690; J1100; J1171; J1885; J2003; J2405; J2704; J2795; J3010; J3374

== ENCOUNTER → 2025-05-10 08:31 | Outpatient (BNV) | payer MEDICAID, SELFPAY | PROVIDERS: PCP Internal Medicine; Visit Provider Anesthesiology | DX: M54.51 Vertebrogenic low back pain (principal) | CPT/HCPCS: 64628; 64629 ==

== ENCOUNTER 2025-05-16 15:10 | Outpatient (AMB) | payer MEDICAID, SELFPAY ==
[2025-05-16 15:14] VITALS: BP 139/76; PULSE 62; RESP 16; O2SAT 96; BMI 23.7
--- NOTE | 2025-05-16 15:14 | MHC.OFFVIS ---
Vital Signs 05/16/25 15:14 Height 5 ft 10 in Weight 165 lb BMI 23.7 BP 139/76 Blood Pressure Location Rt brachial Position Sitting Respiration 16 Pulse 62 Pulse Source Pulse Oximeter Pulse Oximetry (%) 96 Oxygen Delivery Method Room Air Intake Visit Reasons: S/p L3, L4, L5 and S1 BVN (Intracept) 05/10/25 Intake Note: Dressing changed, sites looks healthy Therapeutic Case Manager Required: No Accompanied by: Life Partner Allergies No Known Allergies Allergy (Verified 05/16/25 15:24) HPI Comments Details: Nehal is back in my office after BVN RFA L3, L4, L5, S1. Patient is doing very well. He reports that he is able to walk straight again. He is able to sit for long period of time. He stated that his ready to jump and dance. I warned him that he needs to wait for 10 more weeks to engaged into stenos and impactful activities. For the next 10 weeks no bumpy rides, no heavy lifting and no fast walking running or jumping. Patient expressed understanding. 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 The wounds were exposed today and washed with ChloraPrep. There were no swelling, no pathological discharge, no redness no inflammation. Sterile dressings were applied. The sutures will be removed next time he is here in 1 week. Prior: The patient is a 65-year-old male presenting for evaluation of persistent pain following a diagnostic sacroiliac joint injection. He underwent a right diagnostic sacroiliac joint injection without any significant improvement. The attention was attracted today that the patient has significant signs and symptoms of vertebra genic low back pain. He reports difficulty driving, difficulty sitting long time, difficulty flexing forward, difficulty picking up objects from the floor, difficulty with increased activities. We discussed possibility of treatment of his pain with BVN RFA L3, L4, L5, S1. We will schedule him for the procedure as soon as possible The patient has a history of lumbar spinal stenosis and a pinched nerve, which was surgically decompressed about 05/2024. Post-surgery, the patient reports improvement in symptoms, with less numbness in the legs, but continues to experience pain and limited work capacity. - Pain onset: Persistent following diagnostic sacroiliac joint injection - Quality: Shooting pain, especially when sitting or driving - Location: Right leg, hip, and knee - Exacerbating factors: Sitting, working more than five hours, driving - Relieving factors: Injections provide immediate relief - Affect: Pain impacts ability to work and perform daily activities - Analgesia: Uses gabapentin, injections provide immediate relief - Adverse Effects: None reported - Activities of Daily Living: Limited work capacity, discomfort when sitting or driving - Aberrant Drug Related Behaviors: None reported [facility] Medical History Weight loss, unintentional Anemia Abdominal pain Change in stool caliber Back pain Arthritis Nicotine dependence, cigarettes, uncomplicated Right knee DJD Lumbar spinal stenosis Right lumbar radiculopathy Porphyrin disorder Tubular adenoma of colon (~2020) History of peptic ulcer (~2001) Difficult intravenous access History of chronic pain COPD (chronic obstructive pulmonary disease) Hepatitis C Surgical History History of back surgery History of hand surgery (~2020) History of colonoscopy (~2020) History of esophagogastroduodenoscopy (EGD) (~2001) Family History Mother Emphysema lung Cancer Social History Household Members Other:: room mate Are you a primary prompt care rn to a significant other at home: No Do you presently have visiting nurse or other home services: No Alcohol intake: former Year quit: 2019 Comment: COUNTS CORRECT Patient Tobacco Use Status: Current everyday Tobacco user Tobacco use type: Cigarette Cigarettes Per Day: 10 Years Smoked: 55 Second Hand Smoke Exposure: No Substance Use Type: Amphetamines, Crack/Cocaine, Former Substance User, Hallucinogens, IV Drugs, Marijuana and Opiates Current occupational status: employed 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 Alert and oriented. Mood and affect appropriate. Follows and participates in conversation appropriately. Respiratory effort is unlabored. No cough. No nasal discharge. Able to transition from sit to stand unassisted. Ambulates with bilaterally normal heel strike and toe off. Back/Spine/Pelvis Other: Patient is able to walk and stand on heels and tip toes with no difficulties demonstrating good motor tone. Mild limping due to right hip and right knee pain. Unable to flex forward because of the severe pain in the back. Well healed midline lumbar scar. Demonstrates 5/5 left and 4/5 right strength of quadriceps bilaterally as well as 5/5 flexion/dorsiflexion of bilateral feet against resistance. 2+ pedal pulses bilaterally. Facet loading reproduces mild pain bilaterally, right>left. Cervical Spine: cervical ROM normal and No Cervical spine tenderness Thoracic/Lumbar Spine: thoracic and lumbar spine normal to inspection, Thoracic/lumbar spine scar(s), No thoraco-lumbar ROM normal, Lasegue's sign negative, straight leg raise negative bilaterally, No thoracic spinal tenderness and No lumbar spinal tenderness Pelvis: no sciatic notch tenderness Sacroiliac joints: on the right tender to palpation and on the left nontender Assessment & Plan Assessment & Plan (1) Vertebrogenic low back pain: Code(s): M54.51 - Vertebrogenic low back pain Category: Medical Plan Patient is doing very well after BV and RFA. suture removal in 1 week. Mobility limitations discussed as above. Patient expressed understanding. Coding Level of Care Code Est Pt Level 3 (18877) Diagnoses Vertebrogenic low back pain M54.51
--- OUTSIDE RECORDS SUMMARY | 2025-05-16 18:23 | XMS_ITS | Encounter Summary ---
Author Organization [employer] Address [address] [place] [address] Care Team Providers Care Half Sole Fitter Name Role Phone Mike Arora MD Primary Care Prov ider Reason for Visit * Reason Onset Date Comments Med Refill 03/06/2025 Encounter Details Date Type Department Care Team (Late st Contact Info) Description 03/06/2025 Refill [facility] [address] [place] [address] Mike Arora MD [address], [place] [id number] Low back pain associated with a spinal [...] 50 MG tablet To be sent to: [facility]/pharmacy #[id number] documented in this encounter Plan of Treatment Upcoming Encounters Date Type Department Care Team (Late st Contact Info) Description 06/20/2025 3:45 PM EST Office Visit [facility] [address] [place] [address] Mike Arora MD [address] [place] [address] documented as of this encounter Visit Diagnoses Diagnosis Low back pain associated with a spinal disorder other than radiculopathy or spinal stenosis- Primary documented in this encounter Additional Health Concerns Assessment Noted Time PHQ-9 Depression Total Score: 0 10/15/19 23 10:23 AM EDT documented as of this encounter Care Teams Half Sole Fitter Relationship Specialty Start Date End Date Mike Arora MD [address] [place] [address] PCP - General Internal Medicine 07/09/19 documented as of this encounter
--- OUTSIDE RECORDS SUMMARY | 2025-05-16 18:24 | XMS_ITS | Encounter Summary ---
Author Organization [employer] Address [address] [facility] [address] [place] [address] Care Team Providers Care Structural Draftsman Name Role Phone Mike Arora MD Primary Care Prov ider Reason for Visit * Reason Comments Med Refill Encounter Details Date Type Department Care Team ([facility] Contact Info) Description 06/10/2024 Refill [facility] [address] [place] [address] Mike Arora MD [address] [place] [address] Low back pain associated with a spinal [...] Description 06/20/2025 3:45 PM EST Office Visit [facility] [address] [place] [address] Mike Arora MD [address] [place] [address] documented as of this encounter Visit Diagnoses Diagnosis Low back pain associated with a spinal disorder other than radiculopathy or spinal stenosis documented in this encounter Additional Health Concerns Assessment Noted Time PHQ-9 Depression Total Score: 0 10/15/19 23 10:23 AM EDT documented as of this encounter Care Teams Structural Draftsman Relationship Specialty Start Date End Date Mike Arora MD [address] [place] [address] PCP - General Internal Medicine 07/09/19 documented as of this encounter
--- OUTSIDE RECORDS SUMMARY | 2025-05-16 18:24 | XMS_ITS | Encounter Summary ---
Author Organization [employer] Address [address] [facility] [address] [place] [address] Care Team Providers Care Laboratory Apparatus Glass Blower Name Role Phone Mike Arora MD Primary Care Prov ider Encounter Details Date Type Department Care Team (Late Contact Info) Description 08/10/2022 Orders Only [facility] [address] [place], [place] [phone] Mike Arora MD [address] [place], [place] [phone] Prostate cancer screening (Primary Dx); Simple chronic [...] Department Care Team (Late Contact Info) Description 06/20/2025 3:45 PM EST Office Visit [facility] MED & PEDS [address] [place], [place] [phone] Mike Arora MD [address] [place], [place] [phone] Scheduled Orders Name Type Priority Associated Diagnoses [...] PCR <15 NOT DETECTED NOT DETECTED IU/mL [facility] HCV RNA QN Real Time PCR <1.18 NOT DETECTED NOT DETECTED Log IU/mL [employer] [place] [employer] Comment: HCV RNA is not detected. There [...] a biological false positive result. (Always Message) [facility] [employer] [place] [facility] Comment: This test was performed using Real-Time Polymerase Chain Reaction. Reportable Range: 15 IU/mL to 100,000,000 IU/mL (1.18 Log IU/mL to 8.00 Log IU/mL). The analytical performance characteristics of this assay have been determined by [employer]. The modifications have not been cleared or approved by the FDA. This assay has been validated pursuant to the CLIA regulations and is used for clinical purposes. For more information on this test, go to: http://education.[employer]/faq/TDP70v9 (This link is being provided for informational/ educational purposes only.) This assay is intended for use as an aid in the diagnosis of HCV infection and the management of HCV infected patients undergoing anti-viral therapy. 08/10/2022 10:3 0 AM EST 08/10/2022 10:31 AM EST Narrative [facility] - 08/13/2022 11:15 PM EST FASTING:NO FASTING: NO Mike Gaffney MD LAB BLOOD ORDERABL ES Final Result [facility] [address] [facility] [employer], [place] [address] [employer] [place] [employer] [address] [facility], (Nl2) [place] [address] * PSA,Total (08/10/2022 10:30 AM EST) PSA, Total 0.35 < OR = 4.00 ng/mL [employer] [place] [employer] Comment: The total PSA value from this assay system is standardized against the WHO standard. The test result will be approximately 20% lower when compared to the equimolar-standardized total PSA ([place]). Comparison of serial PSA results should be [...] Final Result Performing Organization Address [facility] de Phone Number [address], [place] [address] [employer] [place] [employer] [address] [place] [address], (Nl2) [place] [address] * (ABNORMAL) Hemoglobin A1c with Calculated Mean Plasma Glucose (MPG) (08/10/2022 10:30 AM EST) Hemoglobin A1c 5.8(H) <5.7 % of total Hgb [employer] [place] [facility] Comment: For someone without known diabetes, a [...] children. Mean Plasma Glucose 129 mg/dL (calc) Fluid 08/10/2022 10:3 0 AM EST 08/10/2022 10:31 AM EST Narrative [facility] - 08/13/2022 11:15 PM EST FASTING:NO FASTING: NO Mike Gaffney MD LAB BLOOD ORDERABL ES Final Result Performing Organization Address [facility] Co de Phone Number [address], [place] [address] [employer] [place] [employer] [address] [place] [address], (Nl2) [place] [address] * TSH W/Reflex to FT4 (08/10/2022 10:30 AM EST) TSH w/Reflex to FT4 2.75 0.40 - 4.50 mIU/L [employer] [place] [facility] 08/10/2022 10:3 0 AM EST 08/10/2022 10:31 AM EST Narrative [facility] - 08/13/2022 11:15 PM EST FASTING:NO FASTING: NO Mike Gaffney MD LAB BLOOD ORDERABL ES Final Result [address], [place] [address] [employer] [place] [employer] [address] [place] [address], (Nl2) [place] [address] * Lipid Panel, Standard (08/10/2022 10:30 AM EST) Cholesterol, Total 145 <200 mg/dL [employer] [place] [facility] HDL Cholesterol 58 > OR = 40 mg/dL [employer] [place] [facility] Triglycerides 50 <150 mg/dL [employer] [place] [facility] LDL Cholesterol 75 mg/dL (calc) [employer] [place] [facility] Comment: Reference range: <100 Desirable range <100 mg/dL for primary prevention; <70 mg/dL for patients with CHD or diabetic patients with > or = 2 CHD risk factors. LDL-C is now calculated using the Morales calculation, which is a validated novel method providing better accuracy than the Friedewald equation in the estimation of LDL-C. Darrel SS et al. DYLAN. 2013;310(19): 6757-3150 (http://education.[employer]/faq/WHG340) Chol/HDLC Ratio 2.5 <5.0 (calc) [employer] [place] [employer] Non-HDL Cholesterol 87 <130 mg/dL (calc) [employer] [place] [facility] Comment: For patients with diabetes plus 1 [...] Final Result Performing Organization Address [facility] Co de Phone Number [address], [place] [address] [employer] [place] [employer] [address] [facility], (Nl2) [place] [address] * HIV-1 RNA, Quantitative, Real-Time PCR with Reflex to Genotype (RTI, PI, Integrase) (08/10/2022 10:30 AM EST) Pathologist [facility] HIV 1 RNA, QN PCR NOT DETECTED copies/mL [facility], HIV 1 RNA, QN PCR NOT DETECTED Log copies/mL [facility] [employer] [facility], Comment: REFERENCE RANGE: NOT DETECTED copies/mL NOT DETECTED Log copies/mL This test was performed using Real-Time Polymerase Chain Reaction. Reportable range is 20 to 10,000,000 copies/mL (1.30-7.00 Log copies/mL). 08/10/2022 10:3 0 AM EST 08/10/2022 10:31 AM EST Narrative [facility] - 08/13/2022 11:15 PM EST FASTING:NO FASTING: NO Mike Gaffney MD LAB BLOOD ORDERABL ES Final Result Performing Organization Address [facility]/ZIP Co de Phone Number [address] [place] [address] [facility], [address] [address] [address] * (ABNORMAL) Hepatitis C Antibody with Reflex to HCV, RNA, Quantitative, Real- Time PCR (08/10/2022 10:30 AM EST) [facility] Hepatitis C Antibody REACTIVE( A) NON-REACT [facility] Index >11.00(H) <1.00 [employer] [place] [employer] Comment: Based on this result, the sample will be tested for HCV RNA by a Nucleic Acid Amplification Test (NAAT) to determine if the patient has a current active infection. Blood Venous blood specimen / Unknown 08/10/2022 10:30 AM EST 08/10/2022 10:31 AM EST Narrative [facility] - 08/13/2022 11:15 PM EST FASTING:NO FASTING: NO Mike Gaffney MD LAB BLOOD ORDERABL ES Final Result [address], [place] [address] [employer] [place] [employer] [address] [facility], (Nl2) [place] [address] * Hepatic Function Panel (08/10/2022 10:30 AM EST) [facility] Protein, Total 7.1 6.1 - 8.1 g/dL [facility] [place] [facility] Albumin 4.7 3.6 - 5.1 g/dL [facility] Globulin 2.4 1.9 - 3.7 g/dL (calc) [employer] [place] [facility] Albumin/Globulin Ratio 2.0 1.0 - 2.5 (calc) [facility] Bilirubin, Total 0.7 0.2 - 1.2 mg/dL [employer] [place] [facility] Bilirubin, Direct 0.2 < OR = 0.2 mg/dL [employer] [place] [facility] Bilirubin, Indirect 0.5 0.2 - 1.2 mg/dL (calc) [employer] [place] [facility] Alkaline Phosphatase 35 35 - 144 U/L [facility] AST 17 10 - 35 U/L [facility] [place] [facility] ALT 16 9 - 46 U/L [facility] Blood Venous blood specimen / Unknown 08/10/2022 10:30 AM EST 08/10/2022 10:31 AM EST Narrative [facility] - 08/13/2022 11:15 PM EST FASTING:NO FASTING: NO Mike Gaffney MD LAB BLOOD ORDERABL ES Final Result [facility] [address] [facility] [employer], [place] [address] [employer] [place] [employer] [address] [facility] [facility], (Nl[address]) [place] [address] * Basic Metabolic Panel (08/10/2022 10:30 AM EST) Glucose 90 65 - 139 mg/dL [employer] [place] [facility] Comment: Non-fasting reference interval Urea Nitrogen (BUN) 25 7 - 25 mg/dL [facility] Creatinine, Serum 0.71 0.70 - 1.35 mg/dL [facility] [employer] [place] [facility] eGFR 105 > OR = 60 mL/min/1 .73m2 [facility] [place] [facility] Comment: The eGFR is based on the CKD-EPI 2020 equation. To calculate the new eGFR from a previous Creatinine or Cystatin C result, go to https://www.kidney.org/professionals/ kdoqi/gfr%5Fcalculator BUN/Creatinine Ratio NOT APPLICABLE 6 - 22 (calc) [facility] [place] [facility] Sodium 136 135 - 146 mmol/L [facility] [place] [facility] Potassium 4.4 3.5 - 5.3 mmol/L [facility] Chloride 101 98 - 110 mmol/L [facility] [place] [facility] Carbon Dioxide 26 20 - 32 mmol/L [facility] [place] [facility] Calcium 9.6 8.6 - 10.3 mg/dL [facility] Blood Venous blood specimen / Unknown 08/10/2022 10:30 AM EST 08/10/2022 10:31 AM EST Narrative [facility] - 08/13/2022 11:15 PM EST FASTING:NO FASTING: NO us Mike Gaffney MD LAB BLOOD ORDERABL ES Final Result [facility] [address] [facility] [place] [address] [facility] [place] [facility] [address] [facility], (Nl[address]) [place] [address] * CBC auto differential (08/10/2022 10:30 AM EST) White Blood Cell Count 7.2 3.8 - 10.8 Thousand/ uL [facility] Red Blood Cell Count 4.22 4.20 - 5.80 Million/u L [facility] Hemoglobin 13.4 13.2 - 17.1 g/dL [facility] Hematocrit 39.8 38.5 - 50.0 % [facility] MCV 94.3 80.0 - 100.0 fL [facility] MCH 31.8 27.0 - 33.0 pg [facility] MCHC 33.7 32.0 - 36.0 g/dL [facility] RDW 12.5 11.0 - 15.0 % [facility] Platelet Count 270 140 - 400 Thousand/ uL [facility] MPV 9.9 7.5 - 12.5 fL [facility] Absolute Neutrophils 3,679 1,500 - 7,800 cells/uL [facility] Absolute Lymphocytes 2,498 850 - 3,900 cells/uL [facility] Absolute Monocytes 612 200 - 950 cells/uL [facility] Absolute Eosinophils 360 15 - 500 cells/uL [facility] Absolute Basophils 50 0 - 200 cells/uL [facility] Neutrophils 51.1 % [facility] [place] [facility] Lymphocytes 34.7 % [facility] [place] [facility] Monocytes 8.5 % [facility] [place] [facility] Eosinophils 5.0 % [facility] Basophils 0.7 % [facility] [place] [facility] Blood Venous blood specimen / Unknown 08/10/2022 10:30 AM EST 08/10/2022 10:31 AM EST Narrative [facility] - 08/13/2022 11:15 PM EST FASTING:NO FASTING: NO Mike Gaffney MD LAB BLOOD ORDERABL ES Final Result [facility] [address] [facility] [employer], [place] [address] [employer] [place] [facility] [address], (N[address]) [place] [address] documented in this encounter Visit Diagnoses Diagnosis Prostate cancer screening- Primary Special screening for malignant neoplasm of prostate Simple chronic bronchitis (CMS/HCC) (HCC) Simple chronic bronchitis documented in this encounter Care Teams Laboratory Apparatus Glass Blower Relationship Specialty Start Date End Date Mike Arora MD [address] [place] [address] PCP - General Internal Medicine 07/09/19 documented as of this encounter
--- OUTSIDE RECORDS SUMMARY | 2025-05-16 18:24 | XMS_ITS | Encounter Summary ---
Author Organization [employer] Address [address] [facility] 7t [place] [address] Care Team Providers Care Community Organization Director Name Role Phone Mike Arora MD Primary Care Prov ider Reason for Visit * Reason Comments Med Refill Encounter Details Date Type Department Care Team ([facility] Contact Info) Description 05/09/2024 Refill [facility] MED & PEDS [address] [place] [address] Mike Arora MD [address] [place] [address] Low back pain associated with a spinal [...] Description 06/20/2025 3:45 PM EST Office Visit [facility] MED & PEDS [address] [place] [address] Mike Arora MD [address] [place] [address] documented as of this encounter Visit Diagnoses Diagnosis Low back pain associated with a spinal disorder other than radiculopathy or spinal stenosis documented in this encounter Additional Health Concerns Assessment Noted Time PHQ-9 Depression Total Score: 0 10/15/19 23 10:23 AM EDT documented as of this encounter Care Teams Community Organization Director Relationship Specialty Start Date End Date Mike Arora MD [address] [place] [address] PCP - General Internal Medicine 07/09/19 documented as of this encounter
--- OUTSIDE RECORDS SUMMARY | 2025-05-16 18:24 | XMS_ITS | Encounter Summary ---
Author Organization [employer] Address [address] [facility] [address] [place] [address] Care Team Providers Care Range Mechanic Name Role Phone Mike Arora MD Primary Care Prov ider Reason for Visit * Reason Onset Date Comments Med Refill 01/11/2025 Encounter Details Date Type Department Care Team ([facility] st Contact Info) Description 01/11/2025 Telephone [facility] CH[facility] MED & PEDS [address] [place] [address] Mike Arora MD [address] [place] [address] Med Refill Social History Tobacco Use Types [...] refill : predniSONE (Deltasone) 20 MG tablet [[id number]] To be sent to: [facility]/pharmacy #[id number] documented in this encounter Plan of Treatment Upcoming Encounters Date Type Department Care Team (Late st Contact Info) Description 06/20/2025 3:45 PM EST Office Visit [facility] MED & PEDS [address] [place] [address] Mike Arora MD [address] [place] [address] documented as of this encounter Visit Diagnoses Not on filedocumented in this encounter Additional Health Concerns Assessment Noted Time PHQ-9 Depression Total Score: 0 10/15/19 23 10:23 AM EDT documented as of this encounter Care Teams Range Mechanic Relationship Specialty Start Date End Date Mike Arora MD [address] [place] [address] PCP - General Internal Medicine 07/09/19 documented as of this encounter
--- OUTSIDE RECORDS SUMMARY | 2025-05-16 18:24 | XMS_ITS | Encounter Summary ---
Author Organization [employer] Address [address] [facility] 7t [place] [address] Care Team Providers Care Outside Sales Executive Name Role Phone Mike Arora MD Primary Care Prov ider Reason for Visit * Reason Comments Med Refill Encounter Details Date Type Department Care Team ([facility] Contact Info) Description 02/17/2025 Refill [facility] CH[facility] MED & PEDS [address] [place] [address] Mike Arora MD [address] [place] [address] Low back pain associated with a spinal [...] Description 06/20/2025 3:45 PM EST Office Visit [facility] MED & PEDS [address] [place] [address] Mike Arora MD [address] [place] [address] documented as of this encounter Visit Diagnoses Diagnosis Low back pain associated with a spinal disorder other than radiculopathy or spinal stenosis documented in this encounter Additional Health Concerns Assessment Noted Time PHQ-9 Depression Total Score: 0 10/15/19 23 10:23 AM EDT documented as of this encounter Care Teams Outside Sales Executive Relationship Specialty Start Date End Date Mike Arora MD [address] [place] [address] PCP - General Internal Medicine 07/09/19 documented as of this encounter
--- OUTSIDE RECORDS SUMMARY | 2025-05-16 18:24 | XMS_ITS | Clinical Summary ---
Author Organization [employer] Address [address] [facility] 7t [place] [address] Care Team Providers Care Pharmacy Graduate Intern Name Role Phone Mike Arora MD [...] obstructive pulmonary disease, unspecified COPD type (CMS/HCC) ([facility]) Inhale 2 puffs every 4 (four) hours. 18 g 3 12/07/19 23 Active Spiriva HandiHaler 18 MCG inhalation capsule INHALE 1 CAPSULE VIA HANDIHALER ONCE DAILY AT THE SAME TIME EVERY DAY IN THE MORNING 30 capsule 11 10/25/19 25 Active sildenafil (Viagra) 50 MG tablet TAKE 1 TABLET (50 MG) BY MOUTH DAILY NEEDED FOR ERECTILE DYSFUNCTION 30 tablet 2 11/20/19 25 Active meloxicam (Mobic) 15 MG tabletIndication s:Low back pain associated with a spinal disorder other than radiculopathy or spinal stenosis TAKE 1 TABLET BY MOUTH EVERY DAY 30 tablet 2 02/13/20 25 Active meloxicam (Mobic) 15 MG tabletIndication s:Low back pain associated with a spinal disorder other than radiculopathy or spinal stenosis Take 1 tablet (15 mg) by mouth Once per day. 30 tablet 2 02/12/20 25 Active Advair Diskus 250-50 MCG/ACT aerosol powderIndication s:Chronic obstructive pulmonary disease, unspecified COPD type (CMS/HCC) (HCC) INHALE 1 PUFF INTO THE LUNGS IN THE MORNING 60 each 3 02/19/20 25 Active gabapentin (Neurontin) 600 MG tablet TAKE 1 TABLET BY MOUTH 3 TIMES DAILY. 90 tablet 5 03/12/20 25 Active traMADol (Ultram) 50 MG tabletIndication s:Low back pain associated with a spinal disorder other than radiculopathy or spinal stenosis TAKE 1 TABLET BY MOUTH EVERY 6 HOURS IF NEEDED FOR SEVERE PAIN FOR UP TO 7 DAYS. 28 tablet 05/01/20 25 Active traMADol (Ultram) 50 MG tabletIndication s:Low back pain associated with a spinal disorder other than radiculopathy or spinal stenosis Take 1 tablet (50 mg) by mouth every 6 (six) hours if needed for severe pain for up to 7 days. 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 At this moment will refer to [facility] Derm clinic. Chronic obstructive pulmonary [...] Encounters Date Type Department Care Team Description 05/16/2025 Telephone [facility] [address] [place] [address] Mila Anderson, RN 05/10/2025 Orders Only [facility] External Provider, [facility] 04/30/2025 Telephone [facility] MED [facility] [address] [place] [address] Mila Anderson, JASON 04/29/2025 Refill [facility] [address] [place] [address] Cheryl Olguin MD Low back pain associated with a spinal disorder other than radiculopathy or spinal stenosis 03/06/2025 Refill [facility] [address] [place] [address] Mike Arora MD Low back pain associated with a spinal disorder other than radiculopathy or spinal stenosis (Primary Dx) 03/06/2025 Population Health Risk Score [facility] (C[facility]) Department [address] [address] Provider, Population Health Generic 03/02/2025 Refill [facility] [address] [place] [address] Mike Arora MD 02/17/2025 Refill [facility] [address] [place] [address] Mike Arora MD Low back pain associated with a spinal disorder other than radiculopathy or spinal stenosis 02/15/2025 Refill [facility] [address] [place] [address] Mike Arora MD Low back pain associated with a spinal disorder other than radiculopathy or spinal stenosis (Primary Dx) 02/14/2025 Refill [facility] [address] [place] [address] Mike Arora MD Chronic obstructive pulmonary disease, unspecified COPD type (CMS/HCC) from Last 3 Months Immunizations Immunization Administration [...] Upcoming Encounters Date Type Department Care Team ([facility] st Contact Info) Description 06/20/2025 3:45 PM EST Office Visit [facility] [address] [place] [address] Mike Arora MD [address] [place] [address] Health Maintenance Due Date Last Done Comments CT Colonography 1962 FIT DNA/Cologuard 1962 FIT 1962 FOBT 1960 Sigmoidoscopy 1960 Disability Screening 1962 Alcohol/Substance Use Screening 1974 Hepatitis A Vaccines (1 of 2 - Risk 2-dose series) 1981 RSV Patients and Patients Aged 60 years or older (1 - Risk 50-74 years 1-dose series) 01/05/2012 Zoster Vaccines (1 of 2) 01/05/2012 Hepatitis B Vaccines (1 of 3 - Risk 3-dose series) 2022 Depression Screening 10/15/2023 10/14/2022, 10/14/2022 SDOH Screening 01/29/2025 01/30/2024 COVID-19 Vaccine (2 - 2024-2 6 season) 2025 05/18/2022 Influenza Vaccine (#1) 2025 05/18/2022 Tobacco Screening 03/16/2025 03/16/2024 Diabetes: Hemoglobin A1C 02/06/2026 08 025, 08/10/2022, 07/09/2019 Colonoscopy 10/11/2028 11/04/2020 Colorectal [...] Procedure Name Priority Date/Time Associated Diagnosis Comments FL GUIDANCE IN OR Routine 05/10/2025 10: 45 AM EST HIV 1/2 ANTIGEN/ANTIBODY, FOURTH GENERATION W/RFL Routine 02/06/2025 1:19 PM EDT HEMOGLOBIN A1C Routine 02/06/2025 1:19 PM EDT LIPID PANEL, STANDARD Routine 03/19/2024 8:16 AM EDT Primary hypertension HM COLONOSCOPY Routine 11/04/2020 from Last 3 Months or Most Recently Relevant to Health Maintenance Results * FL Guidance in OR (05/10/2025 10:45 AM EST) Anatomical Region Laterality Modality X-Ray Angiograph y 05/10/2025 10:4 5 AM EST Narrative 05/10/2025 12:43 PM EST [address] [address] Fluoroscopy Report Signed Patient: Nehal Veloz MR#: [id number] : 1960 Acct:[id number] Age/Sex: 65 / M ADM Date: 05/10/25 Loc: HO.SSS Attending Dr: Sebastien Brown MD Ordering Physician: Sebastien Brown MD Date of Service: 05/10/25 Procedure(s): FL guidance in OR Accession Number(s): [id number] cc: Mike Arora MD; Sebastien Brown MD Reason for Exam: l3 l4 l5 s1 intracept rfa EXAMINATION: FLUOROSCOPY GUIDANCE FOR NEEDLE PLACEMENT CLINICAL INFORMATION: l3 l4 l5 s1 intracept rfa COMPARISON: Previous lumbar spine MRI most recent January 2025 TECHNIQUE: Fluoroscopy guidance provided for pain management procedure. FINDINGS: Images demonstrate interpedicular trochars and probe placement in the L3-S1 vertebrae. See procedure note for detailed findings. FLUOROSCOPY TIME: 5 minutes 3.5 seconds. 11 submitted images DOSE AREA PRODUCT: 2008 uGy-m2 (microgray-meter squared) FL/FL guidance in OR IMPRESSION: Fluoroscopy guidance for pain management procedure. Electronically signed by: Usha De Paz MD 05/10/2025 12:41 PM [facility] Dictated By: Usha De Paz MD Signed By: <Electronically signed by Usha De Paz MD in OV> 05/10/25 1241 DD/ 1045 TD/TT: 05/10/25 1205 Hotel Concierge: RAFIA Procedure Note Donotuseinterpreter, Image - 05/10/[address] [address] Fluoroscopy Report Signed Patient: Nehal VelozMR#: [id number] : 1960cct:[id number] Age/Sex: 65 / MADM Date: 05/10/25 Loc: HO.SSS Attending Dr: Sebastien Brown MD Ordering Physician: Sebastien Brown MD Date of Service: 05/10/25 Procedure(s): FL guidance in OR Accession Number(s): [id number] cc: Mike Arora MD; Sebastien Brown MD Reason for Exam: l3 l4 l5 s1 intracept rfa EXAMINATION: FLUOROSCOPY GUIDANCE FOR NEEDLE PLACEMENT CLINICAL INFORMATION: l3 l4 l5 s1 intracept rfa COMPARISON: Previous lumbar spine MRI most recent January 2025 TECHNIQUE: Fluoroscopy guidance provided for pain management procedure. FINDINGS: Images demonstrate interpedicular trochars and probe placement in the L3-S1 vertebrae. See procedure note for detailed findings. FLUOROSCOPY TIME: 5 minutes 3.5 seconds. 11 submitted images DOSE AREA PRODUCT: 2007 uGy-m2 (microgray-meter squared) FL/FL guidance in OR IMPRESSION: Fluoroscopy guidance for pain management procedure. Electronically signed by: Usha De Paz MD 05/10/2025 12:41 PM [facility] Dictated By: Usha De Paz MD Signed By: <Electronically signed by Usha De Paz MD in OV> 05/10/25 1241 DD/ 1045 TD/TT: 05/10/25 1205 Hotel Concierge: RAFIA [facility] External Provider IMG IR PROCEDURES Final Result * HIV-1/2 Antigen and Antibodies, Fourth Generation, with Reflexes (02/06/2025 1:19 PM EDT) Pathologist [facility] HIV AB/AG Nonreactive Nonreactive [facility] Comment:HIV-1 p24 Ag and/or HIV-1/HIV-2 Ab not detected.A test result that is nonreactive does not exclude thepossibility of exposure to or infection with HIV-1 and/orHIV-2. Nonreactive results in this assay for individualswith prior exposure to HIV-1 and/or HIV-2 may be due toantigen and antibody levels that are below the limit ofdetection of this assay.The [employer] HIV Ag/Ab Combo assay result andsupplemental assay results should be interpreted inconjunction with the patient's clinical presentation,history and other laboratory results. If the results areinconsistent with clinical evidence, additional testing issuggested to confirm the result. 02/06/2025 1:19 PM EDT 02/06/2025 1:22 PM EDT Generic External Data Provider LAB BLOOD ORDERAB LES Final Result Performing Organization Address [facility] Co de Phone Number [facility] [address] [place] [phone] * Hemoglobin A1c (02/06/2025 1:19 PM EDT) Hemoglobin A1c 5.7 <6.0 % [facility] Comment:Hemoglobin A1C Refer ence Range Adults: 4.8 - 6.0 % Non diabetic: < 6.0 % Goal: < 7.0 %Additional Action Suggested: > 8.0 %Note: Hemoglobin A1c results are invalid for patients with abnormal amounts of HbF. Blood transfusions may impact the HbA1c concentration in the patient sample. Estimated Average Glucose 117 mg/dL [facility] Comment:eAG = Estimated ave rage glucose which is %A1C expressed asaverage glucose, using the formula of the D6D-OqcgruaFmurvvu Glucose study (ADAG), Diabetes Care, Vol.31,#8,Feb. 2007 02/06/2025 1:19 PM EDT 02/06/2025 1:22 PM EDT Generic External Data Provider LAB BLOOD ORDERAB LES Final Result Performing Organization Address [facility] Co de Phone Number [facility] [address] [place] [phone] * Lipid Panel, Standard (03/19/2024 8:16 AM EDT) Triglycerides 94 <150 mg/dL [facility] Comment:Desirable Triglyceri de: less than 150 mg/dLBorderline High Triglyceride 150-199 mg/dLHigh Triglyceride: 200-499 mg/dLVery High Triglyceride: greater than or equal to 5OO mg/dL Cholesterol 144 <200 mg/dL [facility] Comment:Desirable Cholestero l: less than 200 mg/dLBorderline High Cholesterol: 200-239 mg/dLHigh Cholesterol: greater than 239 mg/dL LDL Cholesterol Calculated 65 <100 mg/dL [facility] Comment:Desirable LDL: less than 100 mg/dLNear Optimal/Above Optimal LDL: 110- 129 mg/dLBorderline High LDL: 130-159 mg/dLHigh LDL: 160-189 mg/dLVery High LDL: greater than or equal to 190 mg/dL HDL Cholesterol 61 >40 mg/dL [facility] Comment:Desirable HDL: great er than 40 mg/dL Note: This HDL assay may give artificially low results in patients with liver disease. Blood Venous blood specimen / Unknown 03/19/2024 8:16 AM EDT 03/19/2024 2:23 PM EDT Mike Gaffney MD LAB BLOOD ORDERABL ES Final Result [facility] [address] [place] [phone] [phone] * Colonoscopy (11/04/2020) Colonoscopy PERFORMED Historical Provider HEALTH MAINTENANCE Edited Result - Final from Last 3 Months or Most Recently Relevant to Health Maintenance Insurance [facility] C3 Care Teams Pharmacy Graduate Intern Relationship Specialty Start Date End Date LealMike Gonzalez MD [address] [place] [address] KATINA Anthony [phone] PCP - General Internal Medicine 07/09/19
--- OUTSIDE RECORDS SUMMARY | 2025-05-16 18:24 | XMS_ITS | Encounter Summary ---
Author Organization [employer] Address [address] [facility] [address] [place] [address] Care Team Providers Care Barrel Washer Machine Name Role Phone Mike Arora MD Primary Care Prov ider Reason for Visit * Reason Onset Date Comments Medication Question 07/13/2023 Encounter Details Date Type Department Care Team ([facility] Contact Info) Description 07/13/2023 Telephone [facility] [address] [place] [address] Mike Arora MD [address] [place] [address] Medication Question Social History Tobacco Use Types [...] results from PT. Please contact Pt @ [phone] documented in this encounter Plan of Treatment Upcoming Encounters Date Type Department Care Team (Late st Contact Info) Description 06/20/2025 3:45 PM EST Office Visit [facility] [address] [place] [address] Mike Arora MD [address] [place] [address] documented as of this encounter Visit Diagnoses Not on filedocumented in this encounter Additional Health Concerns Assessment Noted Time PHQ-9 Depression Total Score: 0 10/15/19 23 10:23 AM EDT documented as of this encounter Care Teams Barrel Washer Machine Relationship Specialty Start Date End Date Mike Arora MD [address] [place] [phone] PCP - General Internal Medicine 07/09/19 documented as of this encounter
--- OUTSIDE RECORDS SUMMARY | 2025-05-16 18:24 | XMS_ITS | Clinical Summary ---
Author Organization [facility] Address [address] [place] [address] Care Team Providers Care Corporate Librarian Name Role Phone Cheryl Fournier MD Primary Care Provider [phone] Social History Tobacco Use Types Packs/Day Years [...] Depression Screening 07/04/2024 COVID-19 Vaccine (1 - 2024-2 6 season) 2025 Influenza Vaccine (#1) 2025 RSV [...] age to complete this topic Care Teams Corporate Librarian Relationship Specialty Start Date End Date Cheryl Fournier MD PCP - General Internal Medicine 09/09/16
--- OUTSIDE RECORDS SUMMARY | 2025-05-16 18:24 | XMS_ITS | Encounter Summary ---
Author Organization [employer] Address [address] [facility] 7[address] [place] [address] Care Team Providers Care Ceramic Tile Setter Name Role Phone Mike Arora MD Primary Care Prov ider Reason for Visit * Reason Onset Date Comments Med Refill 05/21/2024 Encounter Details Date Type Department Care Team (Late st Contact Info) Description 05/21/2024 Telephone [facility] [address] [place] [address] Mike Arora MD [address] [place] [address] Med Refill Social History Tobacco Use Types [...] 50 MG tablet To be sent to: [facility]/pharmacy #[id number] - [place] - [address] [place] [address] documented in this encounter Plan of Treatment Upcoming Encounters Date Type Department Care Team (Late st Contact Info) Description 06/20/2025 3:45 PM EST Office Visit [facility] PEDS [address] [place] [address] Mike Arora MD [address] [place] [address] documented as of this encounter Visit Diagnoses Not on filedocumented in this encounter Additional Health Concerns Assessment Noted Time PHQ-9 Depression Total Score: 0 10/15/19 23 10:23 AM EDT documented as of this encounter Care Teams Ceramic Tile Setter Relationship Specialty Start Date End Date Mike Arora MD [address] [place] [address] PCP - General Internal Medicine 07/09/19 documented as of this encounter
--- OUTSIDE RECORDS SUMMARY | 2025-05-16 18:24 | XMS_ITS | Encounter Summary ---
Author Organization [employer] Address [address] [facility] 7[address] [place] [address] Care Team Providers Care Proced Tech Name Role Phone Mike Arora MD Primary Care Prov ider Encounter Details Date Type Department Care Team ([facility] st Contact Info) Description 05/16/2025 Telephone [facility] [address] [place] [address] Mila Anderson RN [address] [place], [place] Social History Tobacco Use Types Packs/Day Years [...] encounter Miscellaneous Notes * Telephone Encounter - Mila Anderson RN - 05/16/2025 2:52 PM EST TC to pt to schedule initial PARTY PLAN SALESPERSON appointment, no answer. Lvm for pt to c/b. documented in this encounter Plan of Treatment Upcoming Encounters Date Type Department Care Team (Late st Contact Info) Description 06/20/2025 3:45 PM EST Office Visit [facility] [address] [place] [address] Mike Arora MD [address] [place] [address] documented as of this encounter Visit Diagnoses Not on filedocumented in this encounter Additional Health Concerns Assessment Noted Time PHQ-9 Depression Total Score: 0 10/15/19 23 10:23 AM EDT documented as of this encounter Care Teams Proced Tech Relationship Specialty Start Date End Date Mike Arora MD [address] [place] [address] PCP - General Internal Medicine 07/09/19 documented as of this encounter
--- OUTSIDE RECORDS SUMMARY | 2025-05-16 18:24 | XMS_ITS | Encounter Summary ---
Author Organization [employer] Address [address] [facility] [address] [place] [address] Care Team Providers Care Traveling Missionary Name Role Phone Mike Arora MD Primary Care Prov ider Reason for Visit * Reason Onset Date Comments call back 10/20/2022 Encounter Details Date Type Department Care Team ([facility] st Contact Info) Description 10/20/2022 Telephone [facility] [address] [place] [address] Mike Arora MD [address] [place] [address] call back Social History Tobacco Use Types [...] Per pt, he had it done at [facility]. No result found. Will f/u with [facility] diagnostic specialist to find out where pt had the CT done. * Telephone Encounter - Chantal Stuart RN - 10/20/2022 3:08 PM EDT Tc from pt requesting a call back regarding why pt has to do a US Abdomen. Please contact pt at [phone] Please clarify above message. Thanks * Telephone Encounter - Jose Howard - 10/20/2022 10:00 AM EDT Tc from pt requesting a call back regarding why pt has to do a US Abdomen. Please contact pt at [phone] documented in this encounter Plan of Treatment Upcoming Encounters Date Type Department Care Team (Late st Contact Info) Description 06/20/2025 3:45 PM EST Office Visit [facility] & PEDS [address] [place] [address] Mike Arora MD [address] [place] [address] documented as of this encounter Visit Diagnoses Not on filedocumented in this encounter Additional Health Concerns Assessment Noted Time PHQ-9 Depression Total Score: 0 10/15/19 23 10:23 AM EDT documented as of this encounter Care Teams Traveling Missionary Relationship Specialty Start Date End Date Mike Arora MD [address] [place] [address] PCP - General Internal Medicine 07/09/19 documented as of this encounter
== END 2025-05-16 15:47 | disposition home or self-care (01) ==
LOC: HO.PMC 15:11
PROVIDERS: PCP Internal Medicine; Visit Provider Anesthesiology
DX: M54.51 Vertebrogenic low back pain (principal)
CPT/HCPCS: 99024

== ENCOUNTER → 2025-05-16 15:10 | Outpatient (BNVA) | payer MEDICAID, SELFPAY | PROVIDERS: PCP Internal Medicine; Visit Provider Anesthesiology | DX: M54.51 Vertebrogenic low back pain (principal); Z98.890 Other specified postprocedural states | CPT/HCPCS: 99212 ==

== ENCOUNTER 2025-05-23 14:45 | Outpatient (REF) | payer MEDICAID, SELFPAY ==
--- OUTSIDE RECORDS SUMMARY | 2025-05-23 20:12 | XMS_ITS | Encounter Summary ---
Author Organization [employer] Address [address] [facility] 7[address] [place] [address] Care Team Providers Care Senior Producer Name Role Phone Mike Arora MD Primary Care Prov ider Reason for Visit * Reason Onset Date Comments Med Refill 05/21/2024 Encounter Details Date Type Department Care Team (Late st Contact Info) Description 05/21/2024 Telephone [facility] [address] [place] [address] Mike Arora MD [address] [place] [address] Med Refill Social History Tobacco Use Types [...] 50 MG tablet To be sent to: [facility]/pharmacy #[id number] - [place] - [address] [place] [address] documented in this encounter Plan of Treatment Upcoming Encounters Date Type Department Care Team (Late st Contact Info) Description 06/20/2025 3:45 PM EST Office Visit [facility] & PEDS [address] [place] [address] Mike Arora MD [address] [place] [address] documented as of this encounter Visit Diagnoses Not on filedocumented in this encounter Additional Health Concerns Assessment Noted Time PHQ-9 Depression Total Score: 0 10/15/19 23 10:23 AM EDT documented as of this encounter Care Teams Senior Producer Relationship Specialty Start Date End Date Mike Arora MD [address] [place] [address] PCP - General Internal Medicine 07/09/19 documented as of this encounter
--- OUTSIDE RECORDS SUMMARY | 2025-05-23 20:12 | XMS_ITS | Clinical Summary ---
Author Organization [employer] Address [address] [place] [address] Care Team Providers Care Gas Regulator Repairer Helper Name Role Phone Cheryl Fournier MD Primary [...] age to complete this topic Care Teams Gas Regulator Repairer Helper Relationship Specialty Start Date End Date Cheryl Fournier MD PCP - General Internal Medicine 09/09/16
--- OUTSIDE RECORDS SUMMARY | 2025-05-23 20:12 | XMS_ITS | Clinical Summary ---
Author Organization [employer] Address [address] [facility] [address] [place] [address] Care Team Providers Care Navy Seal Name Role Phone Mike Arora MD Primary [...] pulmonary disease, unspecified COPD type (CMS/HCC) ([facility]) Inhale 2 puffs every 4 (four) hours. 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 At this moment will refer to [facility] Derm clinic. Chronic obstructive pulmonary [...] Type Department Care Team Description 05/16/2025 Telephone [facility] [address] [place] [address] Mila Anderson RN 05/10/2025 Orders Only [facility] External Provider, [facility] 04/30/2025 Telephone [facility] [address] [place] [address] Mila Anderson RN 04/29/2025 Refill [facility] MEDICINE [address] [place] [address] Cheryl Olguin MD Low back pain associated with a spinal disorder other than radiculopathy or spinal stenosis 03/06/2025 Refill [facility] MED[facility] [address] [place] [address] Mike Arora MD Low back pain associated with a spinal disorder other than radiculopathy or spinal stenosis (Primary Dx) 03/06/2025 Population Health Risk Score [facility] (C[facility]) Department [address] [place] [address] [phone] Provider, Population Health Generic 03/02/2025 Refill [facility] [address] [place] [address] Mike Arora MD from Last 3 Months Immunizations Immunization [...] Description 06/20/2025 3:45 PM EST Office Visit [facility] MED & PEDS [address] [place] [address] Mike Arora MD [address] [place] [address] Health Maintenance Due Date Last Done Comments [...] AM EST Narrative 05/10/2025 12:43 PM EST [place] [address] Fluoroscopy Report Signed Patient: Nehal Veloz MR#: [id number] : 1960 Acct:[id number] Age/Sex: 65 / M ADM Date: 05/10/25 Loc: HO.[facility] Attending Dr: Sebastien Brown MD Ordering Physician: Sebastien Brown MD Date of Service: 05/10/25 Procedure(s): FL guidance in OR Accession Number(s): [id number] cc: Mike Arora MD; Sebastien Brown MD [...] Usha De Paz MD 05/10/2025 12:41 PM EST RP Dictated By: Usha De Paz MD Signed By: <Electronically signed by Usha De Paz MD in OV> 05/10/25 1241 DD/ 1045 TD/TT: 05/10/25 1205 Bottling Supervisor: RAFIA Procedure Note Donotuseinterpreter, Image - 05/10/2025 [place] [address] Fluoroscopy Report Signed Patient: Catrachita Veloz#: [id number] : 2Acct:[id number] Age/Sex: 65 / MADM Date: 05/10/25 Loc: HO.[facility] Attending Dr: Sebastien Brown MD Ordering Physician: Sebastien Brown MD Date of Service: 05/10/25 Procedure(s): FL guidance in OR Accession Number(s): [id number] cc: Mike Arora MD; Sebastien Brown MD [...] Usha De Paz MD 05/10/2025 12:41 PM EST RP Dictated By: Usha De Paz MD Signed By: <Electronically signed by Usha De Paz MD in OV> 05/10/25 1241 DD/ 1045 TD/TT: 05/10/25 1205 Bottling Supervisor: RAFIA [facility] External Provider IMG IR PROCEDURES Final Result * HIV-1/2 Antigen and Antibodies, Fourth Generation, with Reflexes (02/06/2025 1:19 PM EDT) HIV AB/AG Nonreactive Nonreactive [facility] Comment:HIV-1 p24 Ag and/or HIV-1/HIV-2 Ab not detected.A test result that is nonreactive does not exclude thepossibility of exposure to or infection with HIV-1 and/orHIV-2. Nonreactive results in this assay for individualswith prior exposure to HIV-1 and/or HIV-2 may be due toantigen and antibody levels that are below the limit ofdetection of this assay.The [facility] HIV Ag/Ab Combo assay result andsupplemental assay results should be interpreted inconjunction with the patient's clinical presentation,history and other laboratory results. If the results areinconsistent with clinical evidence, additional testing issuggested to confirm the result. 02/06/2025 1:19 PM EDT 02/06/2025 1:22 PM EDT Generic External Data Provider LAB BLOOD ORDERAB LES Final Result [facility] [address] [place] [phone] * Hemoglobin A1c (02/06/2025 1:19 PM EDT) Hemoglobin A1c 5.7 <6.0 % [facility] Comment:Hemoglobin A1C Refer ence Range Adults: 4.8 - 6.0 % Non diabetic: < 6.0 % Goal: < 7.0 %Additional Action Suggested: > 8.0 %Note: Hemoglobin A1c results are invalid for patients with abnormal amounts of HbF. Blood transfusions may impact the HbA1c concentration in the patient sample. Estimated Average Glucose 117 mg/dL [facility] Comment:eAG = Estimated ave rage glucose which is %A1C expressed asaverage glucose, using the formula of the M2C-NdpnptlHbdgcca Glucose study (ADAG), Diabetes Care, Vol.31,#8,2007 02/06/2025 1:19 PM EDT 02/06/2025 1:22 PM EDT us Generic External Data Provider LAB BLOOD ORDERAB LES Final Result [facility] [address] [place] [address] [phone] * Lipid Panel, Standard (03/19/2024 8:16 AM EDT) Triglycerides 94 <150 mg/dL [facility] Comment:Desirable Triglyceri de: less than 150 mg/dLBorderline High Triglyceride 150-199 mg/dLHigh Triglyceride: 200-499 mg/dLVery High Triglyceride: greater than or equal to 5OO mg/dL Cholesterol 144 <200 mg/dL [facility] Comment:Desirable Cholestero l: less than 200 mg/dLBorderline High Cholesterol: 200-239 mg/dLHigh Cholesterol: greater than 239 mg/dL LDL Cholesterol Calculated 65 <100 mg/dL [facility] Comment:Desirable LDL: less than 100 mg/dLNear Optimal/Above Optimal LDL: 110- 129 mg/dLBorderline High LDL: 130-159 mg/dLHigh LDL: 160-189 mg/dLVery High LDL: greater than or equal to 190 mg/dL HDL Cholesterol 61 >40 mg/dL [facility] Comment:Desirable HDL: great er than 40 mg/dL Note: This HDL assay may give artificially low results in patients with liver disease. Blood Venous blood specimen / Unknown 03/19/2024 8:16 AM EDT 03/19/2024 2:23 PM EDT us Mike Gaffney MD LAB BLOOD ORDERABL ES Final Result [facility] [address] [place] [phone] * Colonoscopy (11/04/2020) Colonoscopy PERFORMED us Historical Provider HEALTH MAINTENANCE Edited Result - Final from Last 3 Months or Most Recently Relevant to Health Maintenance Insurance [email or web address] C3 Care Teams [employer] Seal Relationship Specialty Start Date End Date Mike Arora MD [address] [place] [address] [place] [address] PCP - General Internal Medicine 07/09/19
--- OUTSIDE RECORDS SUMMARY | 2025-05-23 20:12 | XMS_ITS | Encounter Summary ---
Author Organization [employer] Address [address] [facility] [address] [place] [address] Care Team Providers Care Retail Parts Pro Name Role Phone Mike Arora MD Primary Care Prov ider Reason for Visit * Reason Comments Med Refill Encounter Details Date Type Department Care Team ([facility] Contact Info) Description 05/09/2024 Refill [facility] & PEDS [address] [place] [address] Mike Arora MD [address] [place] [address] Low back pain associated with a spinal [...] Description 06/20/2025 3:45 PM EST Office Visit [facility] MED & PEDS [address] [place] [address] Mike Arora MD [address] [place] [address] documented as of this encounter Visit Diagnoses Diagnosis Low back pain associated with a spinal disorder other than radiculopathy or spinal stenosis documented in this encounter Additional Health Concerns Assessment Noted Time PHQ-9 Depression Total Score: 0 10/15/19 23 10:23 AM EDT documented as of this encounter Care Teams [employer] Pro Relationship Specialty Start Date End Date Mike Arora MD [address] [place] [address] PCP - General Internal Medicine 07/09/19 documented as of this encounter
--- OUTSIDE RECORDS SUMMARY | 2025-05-23 20:12 | XMS_ITS | Encounter Summary ---
Author Organization [employer] Address [address] [facility] [address] [place] [address] Care Team Providers Care Hand Crown Pouncer Name Role Phone Mike Arora MD Primary Care Prov ider Reason for Visit * Reason Comments Med Refill Encounter Details Date Type Department Care Team ([facility] Contact Info) Description 06/10/2024 Refill [facility] MED & PEDS [address] [place] [address] Mike Aorra MD [address] [place] [address] Low back pain associated with a spinal [...] 3:45 PM EST Office Visit [facility] PEDS [address] [place] [address] Mike Arora MD [address] [place] [address] documented as of this encounter Visit Diagnoses Diagnosis Low back pain associated with a spinal disorder other than radiculopathy or spinal stenosis documented in this encounter Additional Health Concerns Assessment Noted Time PHQ-9 Depression Total Score: 0 10/15/19 23 10:23 AM EDT documented as of this encounter Care Teams Hand Crown Pouncer Relationship Specialty Start Date End Date Mike Arora MD [address] [place] [address] PCP - General Internal Medicine 07/09/19 documented as of this encounter
--- OUTSIDE RECORDS SUMMARY | 2025-05-23 20:12 | XMS_ITS | Encounter Summary ---
Author Organization [employer] Address [address] [facility] [address] [place] [address] Care Team Providers Care Fisheries Technician Name Role Phone Mike Arora MD Primary Care Prov ider Reason for Visit * Reason Comments Med Refill Encounter Details Date Type Department Care Team ([facility] Contact Info) Description 02/17/[address] [facility] MED & PEDS [address] [place] [address] Mike Arora MD [address] [place] [address] Low back pain associated with a spinal [...] [facility] [address] [place] [address] Mike Arora MD [address] [place] [address] documented as of this encounter Visit Diagnoses Diagnosis Low back pain associated with a spinal disorder other than radiculopathy or spinal stenosis documented in this encounter Additional Health Concerns Assessment Noted Time PHQ-9 Depression Total Score: 0 10/15/19 23 10:23 AM EDT documented as of this encounter Care Teams Fisheries Technician Relationship Specialty Start Date End Date Mike Arora MD [address] [place] [address] PCP - General Internal Medicine 07/09/19 documented as of this encounter
--- OUTSIDE RECORDS SUMMARY | 2025-05-23 20:12 | XMS_ITS | Encounter Summary ---
Author Organization [employer] Address [address] [facility] [address] [place] [address] Care Team Providers Care Professor Of Practice Name Role Phone Mike Arora MD Primary Care Prov ider Reason for Visit * Reason Onset Date Comments Med Refill 03/06/2025 Encounter Details Date Type Department Care Team (Late st Contact Info) Description 03/06/2025 Refill [facility] MEDICINE [address] [place] [address] Mike Arora MD [address] [place], [place] [phone] Low back pain associated with a spinal [...] 50 MG tablet To be sent to: [facility]/pharmacy #[id number] documented in this encounter Plan of Treatment Upcoming Encounters Date Type Department Care Team (Late st Contact Info) Description 06/20/2025 3:45 PM EST Office Visit [facility] MED & PEDS [address] [place] [address] Mike Arora MD [address] [place] [address] documented as of this encounter Visit Diagnoses Diagnosis Low back pain associated with a spinal disorder other than radiculopathy or spinal stenosis- Primary documented in this encounter Additional Health Concerns Assessment Noted Time PHQ-9 Depression Total Score: 0 10/15/19 23 10:23 AM EDT documented as of this encounter Care Teams Professor Of Practice Relationship Specialty Start Date End Date Mike Arora MD [address] [place] [address] PCP - General Internal Medicine 07/09/19 documented as of this encounter
--- OUTSIDE RECORDS SUMMARY | 2025-05-23 20:13 | XMS_ITS | Encounter Summary ---
Author Organization [employer] Address [address] [facility] [address] [place] [address] Care Team Providers Care Editorial Assistant Name Role Phone Mike Arora MD Primary Care Prov ider Encounter Details Date Type Department Care Team (Late Contact Info) Description 08/10/2022 Orders Only [facility] MEDICINE [address] [place], [place] [phone] Mike Arora MD [address] [place], [place] [phone] Prostate cancer screening (Primary Dx); Simple chronic [...] Description 06/20/2025 3:45 PM EST Office Visit [facility] MED & PEDS [address] [place], [place] [phone] Mike Arora MD [address] [place], [place] [phone] Scheduled Orders Name Type Priority Associated Diagnoses [...] PCR <15 NOT DETECTED NOT DETECTED IU/mL [facility] HCV RNA QN Real Time PCR <1.18 NOT DETECTED NOT DETECTED Log IU/mL [facility] [place] [facility] Comment: HCV RNA is not detected. There [...] a biological false positive result. (Always Message) [facility] [place] [facility] Comment: This test was performed using Real-Time Polymerase Chain Reaction. Reportable Range: 15 IU/mL to 100,000,000 IU/mL (1.18 Log IU/mL to 8.00 Log IU/mL). The analytical performance characteristics of this assay have been determined by [employer]. The modifications have not been cleared or approved by the FDA. This assay has been validated pursuant to the CLIA regulations and is used for clinical purposes. For more information on this test, go to: http://education.CollegeFrog/faq/NUH27j4 (This link is being provided for informational/ educational purposes only.) This assay is intended for use as an aid in the diagnosis of HCV infection and the management of HCV infected patients undergoing anti-viral therapy. 08/10/2022 10:3 0 AM EST 08/10/2022 10:31 AM EST Narrative [facility] - 08/13/2022 11:15 PM EST FASTING:NO FASTING: NO Mike Gaffney MD LAB BLOOD ORDERABL ES Final Result [facility] [address], [facility], [place] [address] [facility] [place] [facility] [address], (Nl2) [place] [address] * PSA,Total (08/10/2022 10:30 AM EST) PSA, Total 0.35 < OR = 4.00 ng/mL [facility] [place] [facility] Comment: The total PSA value from this assay system is standardized against the WHO standard. The test result will be approximately 20% lower when compared to the equimolar-standardized total PSA ([place]). Comparison of serial PSA results should be [...] ORDERABL ES Final Result Performing Organization Address [facility] de Phone Number [address], [place] [address] [facility] [place] [facility] [address] [place] [address], (Nl2) [place] [address] * (ABNORMAL) Hemoglobin A1c with Calculated Mean Plasma Glucose (MPG) (08/10/2022 10:30 AM EST) Hemoglobin A1c 5.8(H) <5.7 % of total Hgb [facility] [place] [facility] Comment: For someone without known diabetes, a [...] children. Mean Plasma Glucose 129 mg/dL (calc) [facility] 08/10/2022 10:3 0 AM EST 08/10/2022 10:31 AM EST Narrative [facility] - 08/13/2022 11:15 PM EST FASTING:NO FASTING: NO Mike Gaffney MD LAB BLOOD ORDERABL ES Final Result Performing Organization Address [facility] Co de Phone Number [address], [place] [address] [facility] [place] [facility] [employer] [address] [place] [address], ([address]l2) [place] [address] * TSH W/Reflex to FT4 (08/10/2022 10:30 AM EST) TSH w/Reflex to FT4 2.75 0.40 - 4.50 mIU/L [facility] [place] [facility] 08/10/2022 10:3 0 AM EST 08/10/2022 10:31 AM EST Narrative [facility] - 08/13/2022 11:15 PM EST FASTING:NO FASTING: NO Mike Gaffney MD LAB BLOOD ORDERABL ES Final Result [address], [place] [address] [facility] [place] [facility] [employer] [address] [place] [address], (Nl2) [place] [address] * Lipid Panel, Standard (08/10/2022 10:30 AM EST) Cholesterol, Total 145 <200 mg/dL [facility] [place] [facility] HDL Cholesterol 58 > OR = 40 mg/dL [facility] [place] [facility] Triglycerides 50 <150 mg/dL [facility] [place] [facility] LDL Cholesterol 75 mg/dL (calc) [facility] [place] [facility] Comment: Reference range: <100 Desirable range <100 mg/dL for primary prevention; <70 mg/dL for patients with CHD or diabetic patients with > or = 2 CHD risk factors. LDL-C is now calculated using the Morales calculation, which is a validated novel method providing better accuracy than the Friedewald equation in the estimation of LDL-C. Darrel SS et al. DYLAN. 2013;310(19): 0092-1189 (http://education.Gridsum.Updater/faq/RKQ065) Chol/HDLC Ratio 2.5 <5.0 (calc) [facility] [place] [facility] Non-HDL Cholesterol 87 <130 mg/dL (calc) [facility] [place] [facility] Comment: For patients with diabetes plus 1 [...] ORDERABL ES Final Result Performing Organization Address [facility] Co de Phone Number [address], [place] [address] [facility] [place] [facility] [address], (Nl2) [place] [address] * HIV-1 RNA, Quantitative, Real-Time PCR with Reflex to Genotype (RTI, PI, Integrase) (08/10/2022 10:30 AM EST) Pathologist [facility] HIV 1 RNA, QN PCR NOT DETECTED copies/mL [facility], HIV 1 RNA, QN PCR NOT DETECTED Log copies/mL [facility], Comment: REFERENCE RANGE: NOT DETECTED copies/mL NOT DETECTED Log copies/mL This test was performed using Real-Time Polymerase Chain Reaction. Reportable range is 20 to 10,000,000 copies/mL (1.30-7.00 Log copies/mL). 08/10/2022 10:3 0 AM EST 08/10/2022 10:31 AM EST Narrative [facility] - 08/13/2022 11:15 PM EST FASTING:NO FASTING: NO Mike Gaffney MD LAB BLOOD ORDERABL ES Final Result Performing Organization Address [facility]/ZIP Co de Phone Number [address], [place] [address] [facility], [address] [place] [address] * (ABNORMAL) Hepatitis C Antibody with Reflex to HCV, RNA, Quantitative, Real- Time PCR (08/10/2022 10:30 AM EST) [facility] Hepatitis C Antibody REACTIVE( A) NON-REACT [facility] [place] [facility] Index >11.00(H) <1.00 [facility] [place] [facility] Comment: Based on this result, the sample [...] LAB BLOOD ORDERABL ES Final Result [address], [place] [address] [facility] [place] [facility] [address], (Nl[address]) [place] [address] * Hepatic Function Panel (08/10/2022 10:30 AM EST) [facility] Protein, Total 7.1 6.1 - 8.1 g/dL [facility] [place] [facility] Albumin 4.7 3.6 - 5.1 g/dL [facility] [place] [facility] Globulin 2.4 1.9 - 3.7 g/dL (calc) [facility] [place] [facility] Albumin/Globulin Ratio 2.0 1.0 - 2.5 (calc) [facility] [place] [facility] Bilirubin, Total 0.7 0.2 - 1.2 mg/dL [facility] [place] [facility] Bilirubin, Direct 0.2 < OR = 0.2 mg/dL [facility] [place] [facility] Bilirubin, Indirect 0.5 0.2 - 1.2 mg/dL (calc) [facility] [place] [facility] Alkaline Phosphatase 35 35 - 144 U/L [facility] [place] [facility] AST 17 10 - 35 U/L [facility] [place] [facility] ALT 16 9 - 46 U/L [facility] [place] [facility] Blood Venous blood specimen / Unknown 08/10/2022 10:30 AM EST 08/10/2022 10:31 AM EST Narrative [facility] - 08/13/2022 11:15 PM EST FASTING:NO FASTING: NO Mike Gaffney MD LAB BLOOD ORDERABL ES Final Result [facility] [address], [facility], [place] [address] [facility] [place] [facility] [employer] [address], (N[address]) [place] [address] * Basic Metabolic Panel (08/10/2022 10:30 AM EST) Glucose 90 65 - 139 mg/dL [facility] [place] [facility] Comment: Non-fasting reference interval Urea Nitrogen (BUN) 25 7 - 25 mg/dL [facility] [place] [facility] Creatinine, Serum 0.71 0.70 - 1.35 mg/dL [facility] [place] [facility] eGFR 105 > OR = 60 mL/min/1 .73m2 [facility] [place] [facility] Comment: The eGFR is based on the CKD-EPI 2020 equation. To calculate the new eGFR from a previous Creatinine or Cystatin C result, go to https://www.kidney.org/professionals/ kdoqi/gfr%5Fcalculator BUN/Creatinine Ratio NOT APPLICABLE 6 - 22 (calc) [facility] [place] [facility] Sodium 136 135 - 146 mmol/L [facility] [place] [facility] Potassium 4.4 3.5 - 5.3 mmol/L [facility] [place] [facility] Chloride 101 98 - 110 mmol/L [facility] [place] [facility] Carbon Dioxide 26 20 - 32 mmol/L [facility] [place] [facility] Calcium 9.6 8.6 - 10.3 mg/dL [facility] [place] [facility] Blood Venous blood specimen / Unknown 08/10/2022 10:30 AM EST 08/10/2022 10:31 AM EST Narrative [facility] - 08/13/2022 11:15 PM EST FASTING:NO FASTING: NO us Mike Gaffney MD LAB BLOOD ORDERABL ES Final Result [facility] [address] [place] [address] [facility] [place] [facility] [address], (Nl[address]) [place] [address] * CBC auto differential (08/10/2022 10:30 AM EST) White Blood Cell Count 7.2 3.8 - 10.8 Thousand/ uL [facility] [place] [facility] Red Blood Cell Count 4.22 4.20 - 5.80 Million/u L [facility] Hemoglobin 13.4 13.2 - 17.1 g/dL [facility] [place] [facility] Hematocrit 39.8 38.5 - 50.0 % [facility] MCV 94.3 80.0 - 100.0 fL [facility] MCH 31.8 27.0 - 33.0 pg [facility] MCHC 33.7 32.0 - 36.0 g/dL [facility] RDW 12.5 11.0 - 15.0 % [facility] Platelet Count 270 140 - 400 Thousand/ uL [facility] [place] [facility] MPV 9.9 7.5 - 12.5 fL [facility] Absolute Neutrophils 3,679 1,500 - 7,800 cells/uL [facility] Absolute Lymphocytes 2,498 850 - 3,900 cells/uL [facility] Absolute Monocytes 612 200 - 950 cells/uL [facility] [place] [facility] Absolute Eosinophils 360 15 - 500 cells/uL [facility] [place] [facility] Absolute Basophils 50 0 - 200 cells/uL [facility] Neutrophils 51.1 % [facility] [place] [facility] Lymphocytes 34.7 % [facility] [place] [facility] Monocytes 8.5 % [facility] [place] [facility] Eosinophils 5.0 % [facility] Basophils 0.7 % [facility] [place] [facility] Blood Venous blood specimen / Unknown 08/10/2022 10:30 AM EST 08/10/2022 10:31 AM EST Narrative [facility] - 08/13/2022 11:15 PM EST FASTING:NO FASTING: NO Mike Gaffney MD LAB BLOOD ORDERABL ES Final Result [facility] [address], [facility], [place] [address] [facility] [place] [facility] [address], (N[address]) [place] [address] documented in this encounter Visit Diagnoses Diagnosis Prostate cancer screening- Primary Special screening for malignant neoplasm of prostate Simple chronic bronchitis (CMS/HCC) (HCC) Simple chronic bronchitis documented in this encounter Care Teams Editorial Assistant Relationship Specialty Start Date End Date Mike Arora MD [address] [place] [address] PCP - General Internal Medicine 07/09/19 documented as of this encounter
--- OUTSIDE RECORDS SUMMARY | 2025-05-23 20:13 | XMS_ITS | Encounter Summary ---
Author Organization [employer] Address [address] [facility] 7t [place] [address] Care Team Providers Care Social Work Manager Name Role Phone Mike Arora MD Primary Care Prov ider Reason for Visit * Reason Onset Date Comments Medication Question 07/13/2023 Encounter Details Date Type Department Care Team ([facility] Contact Info) Description 07/13/2023 Telephone [facility] MED & PEDS [address] [place] [address] Mike Arora MD [address] [place] [address] Medication Question Social History Tobacco Use Types [...] results from PT. Please contact Pt @ [phone] documented in this encounter Plan of Treatment Upcoming Encounters Date Type Department Care Team (Late st Contact Info) Description 06/20/2025 3:45 PM EST Office Visit [facility] MED & PEDS [address] [place] [address] Mike Arora MD [address] [place] [address] documented as of this encounter Visit Diagnoses Not on filedocumented in this encounter Additional Health Concerns Assessment Noted Time PHQ-9 Depression Total Score: 0 10/15/19 23 10:23 AM EDT documented as of this encounter Care Teams Social Work Manager Relationship Specialty Start Date End Date Mike Arora MD [address] [place] [address] PCP - General Internal Medicine 07/09/19 documented as of this encounter
--- OUTSIDE RECORDS SUMMARY | 2025-05-23 20:13 | XMS_ITS | Encounter Summary ---
Author Organization [employer] Address [address] [facility] [address] [place] [address] Care Team Providers Care Credentials Specialist Name Role Phone Mike Arora MD Primary Care Prov ider Reason for Visit * Reason Onset Date Comments Med Refill 01/11/2025 Encounter Details Date Type Department Care Team ([facility] st Contact Info) Description 01/11/2025 Telephone [facility] CHC MED & PEDS [address] [place] [address] Mike Arora MD [address] [place] [address] Med Refill Social History Tobacco Use Types [...] refill : predniSONE (Deltasone) 20 MG tablet [[id number]] To be sent to: [facility]/pharmacy #[id number] documented in this encounter Plan of Treatment Upcoming Encounters Date Type Department Care Team (Late st Contact Info) Description 06/20/2025 3:45 PM EST Office Visit [facility] MED & PEDS [address] [place] [address] Mike Arora MD [address] [place] [address] documented as of this encounter Visit Diagnoses Not on filedocumented in this encounter Additional Health Concerns Assessment Noted Time PHQ-9 Depression Total Score: 0 10/15/19 23 10:23 AM EDT documented as of this encounter Care Teams Credentials Specialist Relationship Specialty Start Date End Date Mike Arora MD [address] [place] [id number] PCP - General Internal Medicine 07/09/19 documented as of this encounter
--- OUTSIDE RECORDS SUMMARY | 2025-05-23 20:13 | XMS_ITS | Encounter Summary ---
Author Organization [employer] Address [address] [facility] [address] [place] [address] Care Team Providers Care Machine Maintenance Mechanic Name Role Phone Mike Arora MD Primary Care Prov ider Reason for Visit * Reason Onset Date Comments call back 10/20/2022 Encounter Details Date Type Department Care Team ([facility] st Contact Info) Description 10/20/2022 Telephone [facility] MEDICINE [address] [place] [address] Mike Arora MD [address] [place] [address] call back Social History Tobacco Use Types [...] Per pt, he had it done at [facility]. No result found. Will f/u with [facility] diagnostic specialist to find out where pt had the CT done. * Telephone Encounter - Chantal Stuart RN - 10/20/2022 3:08 PM EDT Tc from pt requesting a call back regarding why pt has to do a US Abdomen. Please contact pt at [phone] Please clarify above message. Thanks * Telephone Encounter - Jose Howard - 10/20/2022 10:00 AM EDT Tc from pt requesting a call back regarding why pt has to do a US Abdomen. Please contact pt at [phone] documented in this encounter Plan of Treatment Upcoming Encounters Date Type Department Care Team (Late st Contact Info) Description 06/20/2025 3:45 PM EST Office Visit [facility] MED & PEDS [address] [place] [address] Mike Arora MD [address] [place] [address] documented as of this encounter Visit Diagnoses Not on filedocumented in this encounter Additional Health Concerns Assessment Noted Time PHQ-9 Depression Total Score: 0 10/15/19 23 10:23 AM EDT documented as of this encounter Care Teams Machine Maintenance Mechanic Relationship Specialty Start Date End Date Mike Arora MD [address] [place] [address] PCP - General Internal Medicine 07/09/19 documented as of this encounter
== END 2025-05-23 14:46 | disposition home or self-care (01) ==
LOC: HO.CT 14:45
PROVIDERS: PCP Internal Medicine; Visit Provider Nurse Practitioner Family
DX: Z13.89 Encounter for screening for other disorder (principal)

== ENCOUNTER 2025-06-05 12:37 | Outpatient (AMB) | payer MEDICAID, SELFPAY ==
--- NOTE | 2025-06-05 13:02 | MHC.OFFVIS ---
Vital Signs 06/05/25 13:03 Height 5 ft 10 in Weight 168 lb BMI 24.1 BP 151/88 H Blood Pressure Location Lt brachial Position Sitting Respiration 16 Pulse 75 Pulse Source Pulse Oximeter Pulse Oximetry (%) 96 Oxygen Delivery Method Room Air Intake Visit Reasons: SUTURE EVALUATION Senior Physical Therapist Required: No Accompanied by: Self / Same As Patient Allergies No Known Allergies Allergy (Verified 06/05/25 13:02) HPI Comments Details: Nehal is back in my office 3 weeks after BVN RFA L3, L4, L5, S1. He reports pain and redness on the left side of his back in the projection of the previously made minimal incisions. Somehow he still continues to were sutures. The skin is red on inspection and there is minimal whitish discharge in the the lowest site of the injection. There is also tenderness on palpation in the projection of the paraspinal muscles. I suspected paraspinal muscle abscess or phlegmon. I will schedule him for stat CT scan. I will prescribe him antibiotic cephalexin for next 10 days. We will see what the results of the CT scan will show us. The patient did not show up for his suture removals 1 week ago. He claims that he never had a follow-up but most likely he just missed the appointment. The area of the incisions was washed with ChloraPrep and sutures were removed. Sterile dry dressing was applied. He denies systemic symptoms including fever, headache, malaise. Therefore osteomyelitis is unlikely. Prior: The patient is a 65-year-old male presenting for evaluation of persistent pain following a diagnostic sacroiliac joint injection. He underwent a right diagnostic sacroiliac joint injection without any significant improvement. The attention was attracted today that the patient has significant signs and symptoms of vertebra genic low back pain. He reports difficulty driving, difficulty sitting long time, difficulty flexing forward, difficulty picking up objects from the floor, difficulty with increased activities. We discussed possibility of treatment of his pain with BVN RFA L3, L4, L5, S1. We will schedule him for the procedure as soon as possible The patient has a history of lumbar spinal stenosis and a pinched nerve, which was surgically decompressed about 05/2024. Post-surgery, the patient reports improvement in symptoms, with less numbness in the legs, but continues to experience pain and limited work capacity. - Pain onset: Persistent following diagnostic sacroiliac joint injection - Quality: Shooting pain, especially when sitting or driving - Location: Right leg, hip, and knee - Exacerbating factors: Sitting, working more than five hours, driving - Relieving factors: Injections provide immediate relief - Affect: Pain impacts ability to work and perform daily activities - Analgesia: Uses gabapentin, injections provide immediate relief - Adverse Effects: None reported - Activities of Daily Living: Limited work capacity, discomfort when sitting or driving - Aberrant Drug Related Behaviors: None reported [facility] Medical History Weight loss, unintentional Anemia Abdominal pain Change in stool caliber Back pain Arthritis Nicotine dependence, cigarettes, uncomplicated Right knee DJD Lumbar spinal stenosis Right lumbar radiculopathy Porphyrin disorder Tubular adenoma of colon (~2020) History of peptic ulcer (~2001) Difficult intravenous access History of chronic pain COPD (chronic obstructive pulmonary disease) Hepatitis C Surgical History History of back surgery History of hand surgery (~2020) History of colonoscopy (~2020) History of esophagogastroduodenoscopy (EGD) (~2001) Family History Mother Emphysema lung Cancer Social History Household Members Other:: room mate Are you a primary medical care administrator to a significant other at home: No Do you presently have visiting nurse or other home services: No Alcohol intake: former Year quit: 2019 Comment: COUNTS CORRECT Patient Tobacco Use Status: Current everyday Tobacco user Tobacco use type: Cigarette Cigarettes Per Day: 10 Years Smoked: 55 Second Hand Smoke Exposure: No Substance Use Type: Amphetamines, Crack/Cocaine, Former Substance User, Hallucinogens, IV Drugs, Marijuana and Opiates Current occupational status: employed 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 Alert and oriented. Mood and affect appropriate. Follows and participates in conversation appropriately. Respiratory effort is unlabored. No cough. No nasal discharge. Able to transition from sit to stand unassisted. Ambulates with bilaterally normal heel strike and toe off. Back/Spine/Pelvis Other: Patient is able to walk and stand on heels and tip toes with no difficulties demonstrating good motor tone. Mild limping due to right hip and right knee pain. Unable to flex forward because of the severe pain in the back. Well healed midline lumbar scar. Demonstrates 5/5 left and 4/5 right strength of quadriceps bilaterally as well as 5/5 flexion/dorsiflexion of bilateral feet against resistance. 2+ pedal pulses bilaterally. Facet loading reproduces mild pain bilaterally, right>left. Cervical Spine: cervical ROM normal and No Cervical spine tenderness Thoracic/Lumbar Spine: thoracic and lumbar spine normal to inspection, Thoracic/lumbar spine scar(s), No thoraco-lumbar ROM normal, Lasegue's sign negative, straight leg raise negative bilaterally, No thoracic spinal tenderness and No lumbar spinal tenderness Pelvis: no sciatic notch tenderness Sacroiliac joints: on the right tender to palpation and on the left nontender Assessment & Plan Assessment & Plan (1) Abscess of paraspinous muscles: Code(s): M60.08 - Infective myositis, other site Category: Medical Plan Stat CT was ordered for the patient. BMP was ordered for the patient because CT is with and without contrast. We will expedite CT as soon as possible. After CT is ready I will evaluated and decide on further treatment. Orders: Orders CT lumbar spine wo/w IV con Today M60.08 - Infective myositis, other site Basic Metabolic Panel Today M60.08 - Infective myositis, other site Medications: New cephalexin Take OTC probiotics 25 billion cultures or more in between the doses of the antibiotics with food 1,000 mg (2 x 500 mg) PO Q12H 40 tabs 1RF 10 days M60.08 - Infective myositis, other site Coding Level of Care Code Est Pt Level 3 (97289) Diagnoses Abscess of paraspinous muscles M60.08
[2025-06-05 13:03] VITALS: BP 151/88; PULSE 75; RESP 16; O2SAT 96; BMI 24.1
--- OUTSIDE RECORDS SUMMARY | 2025-06-05 14:50 | XMS_ITS | Encounter Summary ---
Author Organization [employer] Address [address] [facility] 7t [place] [address] Care Team Providers Care Lottery Clerk Name Role Phone Mike Arora MD Primary Care Prov ider Reason for Visit * Reason Comments Med Refill Encounter Details Date Type Department Care Team ([facility] Contact Info) Description 06/10/2024 Refill [facility] CH[facility] MED & PEDS [address] [place] [address] Mike Arora MD [address] [place] [address] Low back pain associated with a spinal [...] [facility] MED & PEDS [address] [place] [address] Mike Arora MD 505 [place] [address] documented as of this encounter Visit Diagnoses Diagnosis Low back pain associated with a spinal disorder other than radiculopathy or spinal stenosis documented in this encounter Additional Health Concerns Assessment Noted Time PHQ-9 Depression Total Score: 0 10/15/19 23 10:23 AM EDT documented as of this encounter Care Teams Lottery Clerk Relationship Specialty Start Date End Date Mike Arora MD [address] [place] [address] PCP - General Internal Medicine 07/09/19 documented as of this encounter
--- OUTSIDE RECORDS SUMMARY | 2025-06-05 14:50 | XMS_ITS | Encounter Summary ---
Author Organization [employer] Address [address] [facility] 7 [place] [address] Care Team Providers Care Finance Intern Name Role Phone Mike Arora MD Primary Care Prov ider Reason for Visit * Reason Onset Date Comments call back 10/20/2022 Encounter Details Date Type Department Care Team ([facility] st Contact Info) Description 10/20/2022 Telephone [facility] MEDICINE [address] [place] [address] Mike Arora MD [address] [place] [address] call back Social History Tobacco Use Types [...] Per pt, he had it done at [facility]. No result found. Will f/u with [facility] diagnostic specialist to find out where pt had the CT done. * Telephone Encounter - Chantal Stuart RN - 10/20/2022 3:08 PM EDT Tc from pt requesting a call back regarding why pt has to do a US Abdomen. Please contact pt at [phone] Please clarify above message. Thanks * Telephone Encounter - Jose Howard - 10/20/2022 10:00 AM EDT Tc from pt requesting a call back regarding why pt has to do a US Abdomen. Please contact pt at [phone] documented in this encounter Plan of Treatment Upcoming Encounters Date Type Department Care Team (Late st Contact Info) Description 06/20/2025 3:45 PM EST Office Visit [facility] MED & PEDS [address] [place] [address] Mike Arora MD [address] [place] [address] documented as of this encounter Visit Diagnoses Not on filedocumented in this encounter Additional Health Concerns Assessment Noted Time PHQ-9 Depression Total Score: 0 10/15/19 23 10:23 AM EDT documented as of this encounter Care Teams Finance Intern Relationship Specialty Start Date End Date Mike Arora MD [address] [place] [address] PCP - General Internal Medicine 07/09/19 documented as of this encounter
--- OUTSIDE RECORDS SUMMARY | 2025-06-05 14:50 | XMS_ITS | Encounter Summary ---
Author Organization [employer] Address 75 [facility] 7t [place] [address] Care Team Providers Care Nurse Esthetician Name Role Phone Mike Arora MD Primary Care Prov ider Reason for Visit * Reason Comments Med Refill Encounter Details Date Type Department Care Team ([facility] Contact Info) Description 05/29/2025 Refill [facility] MED & PEDS [address] [place] [address] Mike Arora MD 505 [place] [address] Low back pain associated with a spinal [...] Visit [facility] MED & PEDS [address] [place] [address] Mike Arora MD [address] [place] [address] documented as of this encounter Visit Diagnoses Diagnosis Low back pain associated with a spinal disorder other than radiculopathy or spinal stenosis documented in this encounter Additional Health Concerns Assessment Noted Time PHQ-9 Depression Total Score: 0 10/15/19 23 10:23 AM EDT documented as of this encounter Care Teams Nurse Esthetician Relationship Specialty Start Date End Date Mike Arora MD 505 [place] [address] PCP - General Internal Medicine 07/09/19 documented as of this encounter
--- OUTSIDE RECORDS SUMMARY | 2025-06-05 14:50 | XMS_ITS | Encounter Summary ---
Author Organization [employer] Address [address] [facility] 7t [place] [address] Care Team Providers Care Database Report Writer Name Role Phone Mike Arora MD Primary Care Prov ider Reason for Visit * Reason Comments Med Refill Encounter Details Date Type Department Care Team ([facility] Contact Info) Description 02/17/2025 Refill [facility] CHC MED & PEDS [address] [place] [address] Mike Arora MD 505 [place] [address] Low back pain associated with a spinal [...] Description 06/20/2025 3:45 PM EST Office Visit [facility] MED & PEDS [address] [place] [address] Mike Arora MD [address] [place] [address] documented as of this encounter Visit Diagnoses Diagnosis Low back pain associated with a spinal disorder other than radiculopathy or spinal stenosis documented in this encounter Additional Health Concerns Assessment Noted Time PHQ-9 Depression Total Score: 0 10/15/19 23 10:23 AM EDT documented as of this encounter Care Teams Database Report Writer Relationship Specialty Start Date End Date Mike Arora MD [address] [place] [address] PCP - General Internal Medicine 07/09/19 documented as of this encounter
--- OUTSIDE RECORDS SUMMARY | 2025-06-05 14:50 | XMS_ITS | Encounter Summary ---
Author Organization [employer] Address 75 [facility] [address] [place] [address] Care Team Providers Care Alumnae Secretary Name Role Phone Mike Arora MD Primary Care Prov ider Reason for Visit * Reason Onset Date Comments Med Refill 01/11/2025 Encounter Details Date Type Department Care Team ([facility] st Contact Info) Description 01/11/2025 Telephone [facility] CHC MED & PEDS [address] [place], [place] [phone] Mike Arora MD 505 [place] [address] Med Refill Social History Tobacco Use Types [...] refill : predniSONE (Deltasone) 20 MG tablet [[id number]] To be sent to: [facility]/pharmacy #[id number] documented in this encounter Plan of Treatment Upcoming Encounters Date Type Department Care Team (Late st Contact Info) Description 06/20/2025 3:45 PM EST Office Visit [facility] MED & PEDS [address] [place] [address] Mike Arora MD [address] [place] [address] documented as of this encounter Visit Diagnoses Not on filedocumented in this encounter Additional Health Concerns Assessment Noted Time PHQ-9 Depression Total Score: 0 10/15/19 23 10:23 AM EDT documented as of this encounter Care Teams Alumnae Secretary Relationship Specialty Start Date End Date Mike Arora MD [address] [place] [address] PCP - General Internal Medicine 07/09/19 documented as of this encounter
--- OUTSIDE RECORDS SUMMARY | 2025-06-05 14:50 | XMS_ITS | Clinical Summary ---
Author Organization [facility] Address [address] [place] [address] Care Team Providers Care Out And Out Cigar Maker Hand Name Role Phone Cheryl Fournier MD Primary [...] age to complete this topic Care Teams Out And Out Cigar Maker Hand Relationship Specialty Start Date End Date Cheryl Fournier MD PCP - General Internal Medicine 09/09/16
--- OUTSIDE RECORDS SUMMARY | 2025-06-05 14:50 | XMS_ITS | Encounter Summary ---
Author Organization [employer] Address [address] [facility] 7t [place] [address] Care Team Providers Care Wash House Worker Name Role Phone Mike Arora MD Primary Care Prov ider Reason for Visit * Reason Onset Date Comments Med Refill 05/21/2024 Encounter Details Date Type Department Care Team (Late st Contact Info) Description 05/21/[address] [facility] MEDICINE [address] [place] [address] Mike Arora MD [address] [place] [address] Med Refill Social History Tobacco Use Types [...] 50 MG tablet To be sent to: [facility]/pharmacy #[id number] - [place] - [address] [place] [address] documented in this encounter Plan of Treatment Upcoming Encounters Date Type Department Care Team (Late st Contact Info) Description 06/20/2025 3:45 PM EST Office Visit [facility] MED & PEDS [address] [place] [address] Mike Arora MD [address] [place] [address] documented as of this encounter Visit Diagnoses Not on filedocumented in this encounter Additional Health Concerns Assessment Noted Time PHQ-9 Depression Total Score: 0 10/15/19 23 10:23 AM EDT documented as of this encounter Care Teams Wash House Worker Relationship Specialty Start Date End Date Mike Arora MD [address] [place] [address] PCP - General Internal Medicine 07/09/19 documented as of this encounter
--- OUTSIDE RECORDS SUMMARY | 2025-06-05 14:50 | XMS_ITS | Encounter Summary ---
Author Organization [employer] Address 75 [facility] 7t [place] [address] Care Team Providers Care Excellence Specialist Name Role Phone Mike Arora MD Primary Care Prov ider Reason for Visit * Reason Onset Date Comments Medication Question 07/13/2023 Encounter Details Date Type Department Care Team ([facility] Contact Info) Description 07/13/2023 Telephone [facility] MED & PEDS [address] [place] [address] Mike Arora MD [address] [place] [address] Medication Question Social History Tobacco Use Types [...] results from PT. Please contact Pt @ [phone] documented in this encounter Plan of Treatment Upcoming Encounters Date Type Department Care Team (Late st Contact Info) Description 06/20/2025 3:45 PM EST Office Visit [facility] MED & PEDS [address] [place] [address] Mike Arora MD [address] [place] [address] documented as of this encounter Visit Diagnoses Not on filedocumented in this encounter Additional Health Concerns Assessment Noted Time PHQ-9 Depression Total Score: 0 10/15/19 23 10:23 AM EDT documented as of this encounter Care Teams Excellence Specialist Relationship Specialty Start Date End Date Mike Arora MD [address] [place] [address] PCP - General Internal Medicine 07/09/19 documented as of this encounter
--- OUTSIDE RECORDS SUMMARY | 2025-06-05 14:50 | XMS_ITS | Encounter Summary ---
Author Organization [employer] Address [address] [facility] 7t [place] [address] Care Team Providers Care Warehouse Driver Name Role Phone Mike Arora MD Primary Care Prov ider Reason for Visit * Reason Onset Date Comments Med Refill 03/06/2025 Encounter Details Date Type Department Care Team (Late st Contact Info) Description 03/06/2025 Refill [facility] MEDICINE [address] [place] [address] Mike Arora MD [address] [place], [place] [phone] Low back pain associated with a spinal [...] 50 MG tablet To be sent to: [facility]/pharmacy #[id number] [facility] [address] documented in this encounter Plan of Treatment Upcoming Encounters Date Type Department Care Team (Late st Contact Info) Description 06/20/2025 3:45 PM EST Office Visit [facility] MED & PEDS [address] [place] [address] Mike Arora MD [address] [place] [address] documented as of this encounter Visit Diagnoses Diagnosis Low back pain associated with a spinal disorder other than radiculopathy or spinal stenosis- Primary documented in this encounter Additional Health Concerns Assessment Noted Time PHQ-9 Depression Total Score: 0 10/15/19 23 10:23 AM EDT documented as of this encounter Care Teams Warehouse Driver Relationship Specialty Start Date End Date Mike Arora MD [address] [place] [address] PCP - General Internal Medicine 07/09/19 documented as of this encounter
--- OUTSIDE RECORDS SUMMARY | 2025-06-05 14:50 | XMS_ITS | Encounter Summary ---
Author Organization [employer] Address [address] [facility] 7t [place] [address] Care Team Providers Care Travel Administrator Name Role Phone Mike Arora MD Primary Care Prov ider Encounter Details Date Type Department Care Team (Late Contact Info) Description 08/10/2022 Orders Only [facility] MEDICINE [address] [place], [place] [phone] Mike Arora MD [address] [place], [place] [phone] Prostate cancer screening (Primary Dx); Simple chronic [...] Description 06/20/2025 3:45 PM EST Office Visit [facility] MED & PEDS [address] [place], [place] [phone] Mike Arora MD [address] [place], [place] [phone] Scheduled Orders Name Type Priority Associated Diagnoses [...] PCR <15 NOT DETECTED NOT DETECTED IU/mL [facility] HCV RNA QN Real Time PCR <1.18 NOT DETECTED NOT DETECTED Log IU/mL [facility] [place] [employer] Comment: HCV RNA is not detected. There [...] positive result. (Always Message) [facility] [place] [employer] Comment: This test was performed using Real-Time Polymerase Chain Reaction. Reportable Range: 15 IU/mL to 100,000,000 IU/mL (1.18 Log IU/mL to 8.00 Log IU/mL). The analytical performance characteristics of this assay have been determined by [employer] [facility]. The modifications have not been cleared or approved by the FDA. This assay has been validated pursuant to the CLIA regulations and is used for clinical purposes. For more information on this test, go to: http://education.MedWhat/faq/GCH15i3 (This link is being provided for informational/ educational purposes only.) This assay is intended for use as an aid in the diagnosis of HCV infection and the management of HCV infected patients undergoing anti-viral therapy. 08/10/2022 10:3 0 AM EST 08/10/2022 10:31 AM EST Narrative [facility] - 08/13/2022 11:15 PM EST FASTING:NO FASTING: NO Mike Gaffney MD LAB BLOOD ORDERABL ES Final Result [facility] [address] [facility], [place] [address] [facility] [place] [employer] [address] [facility], (Nl2) [place] [address] * PSA,Total (08/10/2022 10:30 AM EST) PSA, Total 0.35 < OR = 4.00 ng/mL [facility] [place] [employer] Comment: The total PSA value from this [...] ORDERABL ES Final Result Performing Organization Address [facility] de Phone Number [address], [place] [address] [facility] [place] [employer] [address] [place] [address], (Nl2) [place] [address] * (ABNORMAL) Hemoglobin A1c with Calculated Mean Plasma Glucose (MPG) (08/10/2022 10:30 AM EST) Hemoglobin A1c 5.8(H) <5.7 % of total Hgb [facility] [place] [employer] Comment: For someone without known diabetes, a [...] children. Mean Plasma Glucose 129 mg/dL (calc) [employer] 08/10/2022 10:3 0 AM EST 08/10/2022 10:31 AM EST Narrative [facility] - 08/13/2022 11:15 PM EST FASTING:NO FASTING: NO Mike Gaffney MD LAB BLOOD ORDERABL ES Final Result Performing Organization Address [facility] Co de Phone Number [address], [place] [address] [facility] [place] [employer] [address] [place] [address], (Nl2) [place] [address] * TSH W/Reflex to FT4 (08/10/2022 10:30 AM EST) TSH w/Reflex to FT4 2.75 0.40 - 4.50 mIU/L [facility] [place] [employer] 08/10/2022 10:3 0 AM EST 08/10/2022 10:31 AM EST Narrative [facility] - 08/13/2022 11:15 PM EST FASTING:NO FASTING: NO Mike Gaffney MD LAB BLOOD ORDERABL ES Final Result [address], [place] [address] [facility] [place] [employer] [address] [place] [address], (Nl2) [place] [address] * Lipid Panel, Standard (08/10/2022 10:30 AM EST) Cholesterol, Total 145 <200 mg/dL [facility] [place] [employer] HDL Cholesterol 58 > OR = 40 mg/dL [facility] [place] [employer] Triglycerides 50 <150 mg/dL [facility] [place] [employer] LDL Cholesterol 75 mg/dL (calc) [facility] [place] [employer] Comment: Reference range: <100 Desirable range <100 mg/dL for primary prevention; <70 mg/dL for patients with CHD or diabetic patients with > or = 2 CHD risk factors. LDL-C is now calculated using the Morales calculation, which is a validated novel method providing better accuracy than the Friedewald equation in the estimation of LDL-C. Darrel SS et al. DYLAN. 2013;310(19): 0711-9303 (http://education.PIE Software.PixelPlay/faq/WHP418) Chol/HDLC Ratio 2.5 <5.0 (calc) [facility] [place] [employer] Non-HDL Cholesterol 87 <130 mg/dL (calc) [facility] [place] [employer] Comment: For patients with diabetes plus 1 [...] ORDERABL ES Final Result Performing Organization Address [facility] Co de Phone Number [address], [place] [address] [facility] [place] [employer] [address] [facility], (Nl2) [place] [address] * HIV-1 RNA, Quantitative, Real-Time PCR with Reflex to Genotype (RTI, PI, Integrase) (08/10/2022 10:30 AM EST) Pathologist [facility] HIV 1 RNA, QN PCR NOT DETECTED copies/mL [facility], HIV 1 RNA, QN PCR NOT DETECTED Log copies/mL [facility], Comment: REFERENCE RANGE: NOT DETECTED copies/mL NOT DETECTED Log copies/mL This test was performed using Real-Time Polymerase Chain Reaction. Reportable range is 20 to 10,000,000 copies/mL (1.30-7.00 Log copies/mL). 08/10/2022 10:3 0 AM EST 08/10/2022 10:31 AM EST Narrative [facility] - 08/13/2022 11:15 PM EST FASTING:NO FASTING: NO Mike Gaffney MD LAB BLOOD ORDERABL ES Final Result Performing Organization Address [facility]/ZIP Co de Phone Number [address] [place] [address] [facility], [address] [address] [address] * (ABNORMAL) Hepatitis C Antibody with Reflex to HCV, RNA, Quantitative, Real- Time PCR (08/10/2022 10:30 AM EST) [facility] Hepatitis C Antibody REACTIVE( A) NON-REACT [facility] [facility] [place] [facility] Index >11.00(H) <1.00 [facility] [place] [facility] Comment: Based on this result, the sample will be tested for HCV RNA by a Nucleic Acid Amplification Test (NAAT) to determine if the patient has a current active infection. Blood Venous blood specimen / Unknown 08/10/2022 10:30 AM EST 08/10/2022 10:31 AM EST Narrative [facility] - 08/13/2022 11:15 PM EST FASTING:NO FASTING: NO Mike Gaffney MD LAB BLOOD ORDERABL ES Final Result [address] [place] [address] [facility] [place] [employer] [address] [facility], (Nl2) [place] [address] * Hepatic Function Panel (08/10/2022 10:30 AM EST) [facility] Protein, Total 7.1 6.1 - 8.1 g/dL [facility] [place] [facility] Albumin 4.7 3.6 - 5.1 g/dL [facility] [place] [facility] Globulin 2.4 1.9 - 3.7 g/dL (calc) [facility] [place] [facility] Albumin/Globulin Ratio 2.0 1.0 - 2.5 (calc) [facility] [place] [facility] Bilirubin, Total 0.7 0.2 - 1.2 mg/dL [facility] [place] [facility] Bilirubin, Direct 0.2 < OR = 0.2 mg/dL [facility] [place] [employer] Bilirubin, Indirect 0.5 0.2 - 1.2 mg/dL (calc) [facility] [place] [facility] Alkaline Phosphatase 35 35 - 144 U/L [facility] [place] [facility] AST 17 10 - 35 U/L [facility] [employer] [place] [facility] ALT 16 9 - 46 U/L [facility] [place] [facility] Blood Venous blood specimen / Unknown 08/10/2022 10:30 AM EST 08/10/2022 10:31 AM EST Narrative [facility] - 08/13/2022 11:15 PM EST FASTING:NO FASTING: NO Mike Gaffney MD LAB BLOOD ORDERABL ES Final Result [facility] [address] [facility], [place] [address] [facility] [place] [employer] [address] [facility], (Nl2) [place] [address] * Basic Metabolic Panel (08/10/2022 10:30 AM EST) Glucose 90 65 - 139 mg/dL [facility] [place] [facility] Comment: Non-fasting reference interval Urea Nitrogen (BUN) 25 7 - 25 mg/dL [facility] [place] [facility] Creatinine, Serum 0.71 0.70 - 1.35 mg/dL [facility] [place] [facility] eGFR 105 > OR = 60 mL/min/1 .73m2 [facility] [place] [facility] Comment: The eGFR is based on the CKD-EPI 2020 equation. To calculate the new eGFR from a previous Creatinine or Cystatin C result, go to https://www.kidney.org/professionals/ kdoqi/gfr%5Fcalculator BUN/Creatinine Ratio NOT APPLICABLE 6 - 22 (calc) [facility] [place] [facility] Sodium 136 135 - 146 mmol/L [facility] [place] [facility] Potassium 4.4 3.5 - 5.3 mmol/L [facility] [place] [facility] Chloride 101 98 - 110 mmol/L [facility] [place] [facility] Carbon Dioxide 26 20 - 32 mmol/L [facility] [employer] [facility] [place] [facility] Calcium 9.6 8.6 - 10.3 mg/dL [facility] [employer] [place] [facility] Blood Venous blood specimen / Unknown 08/10/2022 10:30 AM EST 08/10/2022 10:31 AM EST Narrative [facility] - 08/13/2022 11:15 PM EST FASTING:NO FASTING: NO us Mike Gaffney MD LAB BLOOD ORDERABL ES Final Result [facility] [address] [facility] [place] [address] [facility] [place] [facility] [address] [facility], (Nl2) [place] [address] * CBC auto differential (08/10/2022 10:30 AM [...] - 500 cells/uL [facility] [place] [facility] Absolute Basophils 50 0 - 200 cells/uL [facility] [place] [facility] Neutrophils 51.1 % [facility] [place] [facility] Lymphocytes 34.7 % [facility] [place] [facility] Monocytes 8.5 % [facility] [place] [facility] Eosinophils 5.0 % [facility] Basophils 0.7 % [facility] [place] [facility] Blood Venous blood specimen / Unknown 08/10/2022 10:30 AM EST 08/10/2022 10:31 AM EST Narrative [facility] - 08/13/2022 11:15 PM EST FASTING:NO FASTING: NO Mike Gaffney MD LAB BLOOD ORDERABL ES Final Result [facility] [address] [facility] [facility], [place] [address] [facility] [place] [facility] [address] [facility], (Nl2) [place] [address] documented in this encounter Visit Diagnoses Diagnosis Prostate cancer screening- Primary Special screening for malignant neoplasm of prostate Simple chronic bronchitis (CMS/HCC) (HCC) Simple chronic bronchitis documented in this encounter Care Teams Travel Administrator Relationship Specialty Start Date End Date Mike Arora MD [address] [place] [address] PCP - General Internal Medicine 07/09/19 documented as of this encounter
--- OUTSIDE RECORDS SUMMARY | 2025-06-05 14:50 | XMS_ITS | Clinical Summary ---
Author Organization [employer] Address [address] [facility] [address] [place] [address] Care Team Providers Care Direct Support Worker Name Role Phone Mike Arora MD [...] obstructive pulmonary disease, unspecified COPD type (CMS/HCC) ([facility]) Inhale 2 puffs every 4 [...] DAY 30 tablet 2 02/13/20 25 Active Advair Diskus 250-50 MCG/ACT aerosol [...] 7 DAYS. 28 tablet 05/01/20 25 Active meloxicam (Mobic) 15 MG tabletIndication s:Low back pain associated with a spinal disorder other than radiculopathy or spinal stenosis TAKE 1 TABLET BY MOUTH EVERY DAY 30 tablet 2 06/03/20 25 Active meloxicam (Mobic) 15 MG tabletIndication s:Low back pain associated with a spinal disorder other than radiculopathy or spinal stenosis Take 1 tablet (15 mg) by mouth Once per day. 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 At this moment will refer to [facility] Derm clinic. Chronic obstructive pulmonary disease [...] Encounters Date Type Department Care Team Description 05/29/2025 Refill [facility] [address] [place] [address] Mike Arora MD Low back pain associated with a spinal disorder other than radiculopathy or spinal stenosis 05/16/2025 Telephone [facility] [address] [place] [address] Mila Anderson, RN 05/10/2025 Orders Only [facility] External Provider, [facility] 04/30/2025 Telephone [facility] [address] [place] [address] Mila Anderson RN 04/29/2025 Refill [facility] [address] [place] [address] Cheryl Olguin MD Low back pain associated with a spinal disorder other than radiculopathy or spinal stenosis 03/06/2025 Refill [facility] [address] [place] [address] Mike Arora MD Low back pain associated with a spinal disorder other than radiculopathy or spinal stenosis (Primary Dx) 03/06/2025 Population Health Risk Score [facility] () Department [address] [place] [id number] Provider, Population Health Generic from Last 3 Months Immunizations Immunization Administration [...] Description 06/20/2025 3:45 PM EST Office Visit [facility] [address] [place] [address] Mike Arora MD [address] [place] [address] Health Maintenance Due Date Last Done Comments [...] AM EST Narrative 05/10/2025 12:43 PM EST [place] [id number] Fluoroscopy Report Signed Patient: Nehal Veloz MR#: [id number] : 1960 Acct:[id number] Age/Sex: 65 / M ADM Date: 05/10/25 Loc: HO.[facility] Attending Dr: Sebastien Brown MD Ordering Physician: Sebastien Brown MD Date of Service: 05/10/25 Procedure(s): FL guidance in OR Accession Number(s): [id number] cc: Mike Arora MD; Sebastien Brown MD [...] 05/10/25 1241 DD/ 1045 TD/TT: 05/10/25 1205 Global Compensation Analyst: RAFIA Procedure Note Donotuseinterpreter, Image - 05/10/2025 [place] [address] Fluoroscopy Report Signed Patient: Catrachita Veloz#: [id number] : 1960cct:[id number] Age/Sex: 65 / MADM Date: 05/10/25 Loc: HO.[facility] Attending Dr: Sebastien Brown MD Ordering Physician: Sebastien Brown MD Date of Service: 05/10/25 Procedure(s): FL guidance in OR Accession Number(s): [id number] cc: Mike Arora MD; Sebastien Brown MD [...] 05/10/25 1241 DD/ 1045 TD/TT: 05/10/25 1205 Global Compensation Analyst: RAFIA [facility] External Provider IMG IR PROCEDURES Final Result * HIV-1/2 Antigen and Antibodies, Fourth Generation, with Reflexes (02/06/2025 1:19 PM EDT) HIV AB/AG Nonreactive Nonreactive [facility] Comment:HIV-1 p24 Ag and/or HIV-1/HIV-2 Ab not detected.A test result that is nonreactive does not exclude thepossibility of exposure to or infection with HIV-1 and/orHIV-2. Nonreactive results in this assay for individualswith prior exposure to HIV-1 and/or HIV-2 may be due toantigen and antibody levels that are below the limit ofdetection of this assay.The [employer] HIV Ag/Ab Combo assay result andsupplemental assay results should be interpreted inconjunction with the patient's clinical presentation,history and other laboratory results. If the results areinconsistent with clinical evidence, additional testing issuggested to confirm the result. 02/06/2025 1:19 PM EDT 02/06/2025 1:22 PM EDT Generic External Data Provider LAB BLOOD ORDERAB LES Final Result [facility] [address] [place] [phone] * Hemoglobin A1c (02/06/2025 1:19 PM EDT) Hemoglobin A1c 5.7 <6.0 % [facility] Comment:Hemoglobin A1C Refer ence Range Adults: 4.8 - 6.0 % Non diabetic: < 6.0 % Goal: < 7.0 %Additional Action Suggested: > 8.0 %Note: Hemoglobin A1c results are invalid for patients with abnormal amounts of HbF. Blood transfusions may impact the HbA1c concentration in the patient sample. Estimated Average Glucose 117 mg/dL [facility] Comment:eAG = Estimated ave rage glucose which is %A1C expressed asaverage glucose, using the formula of the K2H-EsdihkoSpneovj Glucose study (ADAG), Diabetes Care, Vol.31,#8,2007 02/06/2025 1:19 PM EDT 02/06/2025 1:22 PM EDT us Generic External Data Provider LAB BLOOD ORDERAB LES Final Result [facility] [address] [place] [place] [phone] * Lipid Panel, Standard (03/19/2024 8:16 AM EDT) Triglycerides 94 <150 mg/dL [facility] Comment:Desirable Triglyceri de: less than 150 mg/dLBorderline High Triglyceride 150-199 mg/dLHigh Triglyceride: 200-499 mg/dLVery High Triglyceride: greater than or equal to 5OO mg/dL Cholesterol 144 <200 mg/dL [facility] Comment:Desirable Cholestero l: less than 200 mg/dLBorderline High Cholesterol: 200-239 mg/dLHigh Cholesterol: greater than 239 mg/dL LDL Cholesterol Calculated 65 <100 mg/dL [facility] Comment:Desirable LDL: less than 100 mg/dLNear Optimal/Above Optimal LDL: 110- 129 mg/dLBorderline High LDL: 130-159 mg/dLHigh LDL: 160-189 mg/dLVery High LDL: greater than or equal to 190 mg/dL HDL Cholesterol 61 >40 mg/dL [facility] Comment:Desirable HDL: great er than 40 mg/dL Note: This HDL assay may give artificially low results in patients with liver disease. Blood Venous blood specimen / Unknown 03/19/2024 8:16 AM EDT 03/19/2024 2:23 PM EDT us Mike Gaffney MD LAB BLOOD ORDERABL ES Final Result [facility] [address] [place] [phone] * Colonoscopy (11/04/2020) Colonoscopy PERFORMED us Historical Provider HEALTH MAINTENANCE Edited Result - Final from Last 3 Months or Most Recently Relevant to Health Maintenance Insurance [employer] Care Teams Direct Support Worker Relationship Specialty Start Date End Date Mike Arora MD [address] [place], [place] [address] [place] [address] PCP - General Internal Medicine 07/09/19
--- OUTSIDE RECORDS SUMMARY | 2025-06-05 14:50 | XMS_ITS | Encounter Summary ---
Author Organization [employer] Address [address] [facility] 7[address] [place] [address] Care Team Providers Care Arch Cushion Press Operator Name Role Phone Mike Arora MD Primary Care Prov ider Reason for Visit * Reason Comments Med Refill Encounter Details Date Type Department Care Team ([facility] Contact Info) Description 05/09/2024 Refill [facility] [address] [place] [address] Mike Arora MD [address] [place] [address] Low back pain associated with a spinal [...] Description 06/20/2025 3:45 PM EST Office Visit [facility] [address] [place] [address] Mike Arora MD [address] [place] [address] documented as of this encounter Visit Diagnoses Diagnosis Low back pain associated with a spinal disorder other than radiculopathy or spinal stenosis documented in this encounter Additional Health Concerns Assessment Noted Time PHQ-9 Depression Total Score: 0 10/15/19 23 10:23 AM EDT documented as of this encounter Care Teams Arch Cushion Press Operator Relationship Specialty Start Date End Date Mike Arora MD [address] [place] [address] PCP - General Internal Medicine 07/09/19 documented as of this encounter
== END 2025-06-05 13:25 | disposition home or self-care (01) ==
LOC: HO.PMC 12:38
PROVIDERS: PCP Internal Medicine; Visit Provider Anesthesiology
DX: M60.08 Infective myositis, other site (principal)
CPT/HCPCS: 99213

== ENCOUNTER → 2025-06-05 12:37 | Outpatient (BNVA) | payer MEDICAID, SELFPAY | PROVIDERS: PCP Internal Medicine; Visit Provider Anesthesiology | DX: M60.08 Infective myositis, other site (principal) | CPT/HCPCS: 99212 ==

== ENCOUNTER 2025-06-07 10:58 | Outpatient (REF) | payer MEDICAID, SELFPAY ==
--- NOTE | ~2025-06-07 | CT_ITS ---
EXAMINATION: CT LUNG SCREENING HISTORY: F17.210 - Nicotine dependence, cigarettes, uncomplicated TECHNIQUE: Low dose axial images were obtained from the sternal notch to upper abdomen without IV contrast per standard departmental protocol. Sagittal and coronal reformatted images were also obtained and reviewed. One or more of the following techniques was used for dose reduction: Automated exposure control, adjustment of the mA and/or kV according to patient size, use of iterative reconstruction technique. DLP: 38 mGy-cm COMPARISON: There are no prior studies available for comparison. FINDINGS: Lung nodules: Small calcified pulmonary nodules in the right upper, right lower, left upper and left lower lobes measuring up to 4 mm. Stable 9 x 4 mm peripheral or subpleural right middle lobe nodule along the minor fissure probably representing a peripheral or subpleural lymph node. No new or enlarging pulmonary nodules. Central airways are clear. Emphysema: mild Coronary Calcification: moderate Aortic Arch Calcification: mild Additional Chest Findings: Normal heart size. There is no pleural or pericardial effusion. There are small mediastinal lymph nodes similar to prior exams. No enlarged mediastinal lymph nodes. Bilateral gynecomastia, right greater than left, not appreciably changed. Small bilateral axillary lymph nodes not appreciably changed. Visualized upper abdomen: The visualized portions of the liver, spleen, and adrenals have an unremarkable unenhanced appearance. Degenerative changes of the spine. CT/CT lung screening IMPRESSION: Stable exam. Emphysema. Unchanged calcified bilateral pulmonary nodules probably representing calcified granulomas and 4 x 9 mm peripheral or subpleural right upper lobe nodule adjacent to the minor fissure probably representing a peripheral or subpleural lymph node. LUNG-RADS ASSESSMENT: Lung-RADS 2: Benign MANAGEMENT: Continue annual screening with LDCT in 12 months Category S: N/A Electronically signed by: Usha De Paz MD 06/10/2025 05:04 PM [facility]
--- NOTE | ~2025-06-07 | CT_ITS ---
EXAMINATION: CT LUMBAR SPINE WITHOUT AND WITH CONTRAST CLINICAL INFORMATION: Infective myositis, other site. 65-year-old male, prior decompression. Recent RFA L3, L4, L5, and S1. Tenderness to palpation overlying the right SI joint. Redness and tenderness to palpation of the paraspinous muscles left side of back. Rule out abscess. COMPARISON: No prior CT examination. Correlation made with MR lumbar 01/27/2025. Correlation made with pain management fluoroscopy procedure 05/10/2025. TECHNIQUE: Spiral CT imaging of the lumbar spine performed in axial plane both before and after the administration of 85 cc Omnipaque 350 iodinated contrast. Multiplanar reformatted images were constructed from the axial data set. This CT examination was performed using dose optimization techniques as appropriate, variously including the following: *Automated exposure control *Adjustment of mA and/or kV according to patient size (this includes techniques or standardized protocols for targeted exams where dose is matched to indication/reason for exam; i.e. extremities or head) *Use of iterative reconstruction technique FINDINGS: There is a mild levoconvex scoliosis, apex at L3-4. There is a normal lordosis. L2 limbus vertebra noted. No definite fracture, compression deformity, or suspicious bone lesion evident. There are numerous Schmorl's nodes in the endplates. There are sclerotic endplate changes present at L4-5, and L5-S1 with associated severe disc degeneration and disc vacuum phenomenon present. Moderate to severe disc degeneration noted at L1-L2 and lesser degeneration present at L2-3 and L3-4, as well as T12-L1. Multilevel facet degeneration noted, most significant on the right at L4-5. There has been a prior right L4 hemilaminotomy with microdiscectomy. There appears to have been a prior left L4-5 hemilaminotomy. The paraspinous and paravertebral musculature and soft tissues enhances normally without evidence of fluid collection, swelling, or changes of myositis. AXIAL DISC SPACE IMAGING: L1-L2: There is shallow diffuse disc bulging present, without significant central canal or neural foraminal narrowing. L2-3: There is a concentric disc osteophytic bulge extending into both foraminal zones. There are minor hypertrophic degenerative facet changes with mild posterior ligamentous thickening/infolding. There is mild to moderate central canal narrowing, mild to moderate bilateral subarticular recess narrowing, and mild to moderate bilateral neural foraminal narrowing left greater than right. L3-4: There is a prominent disc osteophytic ridge complex present, asymmetrically prominent to the right, and extending into the right greater than left foraminal zones. There is a superimposed right paracentral, lateral and foraminal extruded component of disc material with mild inferior migration, similar to the prior MRI. Mild hypertrophic degenerative facet changes are present. Combination of findings is resulting in moderate central canal stenosis, severe right and moderate to severe left subarticular recess narrowing, and severe right neural foraminal stenosis. There is moderate to severe left neural foraminal narrowing. This appears similar to the prior MRI. L4-5: There is a concentric disc osteophytic ridge complex present with a superimposed inferiorly extruded broad-based component, extending into the right greater than left foraminal zones. There appears to have been a prior left hemilaminotomy. Moderate hypertrophic degenerative facet changes are present. The combination of findings is resulting in moderate to severe central canal stenosis, severe right and moderate to severe left subarticular recess stenosis, and severe bilateral neural foraminal stenosis right greater than left. This appears similar to the prior MRI. L5-S1: Shallow disc osteophytic ridge complex present extending into both foraminal zones. Mild to moderate hypertrophic degenerative facet changes present bilaterally. There is epidural lipomatosis noted circumferentially. The combination of findings is resulting in mild central canal stenosis, mild bilateral subarticular recess stenosis, and moderate to severe right and severe left neural foraminal stenosis. CT/CT lumbar spine wo/w IV con IMPRESSION: 1. The paraspinous and paravertebral muscles and soft tissues appear normal without evidence of abnormal enhancement or abscess/fluid collection. 2. No acute bony abnormalities of the lumbar spine. Degenerative spondylosis as discussed, similar to the prior MRI. See above for details. 3. There appear to have been prior postoperative changes at L3-4 and L4-5. Electronically signed by: Anastacio Ayala MD 06/07/2025 02:21 PM [facility]
--- OUTSIDE RECORDS SUMMARY | 2025-06-07 13:28 | XMS_ITS | Clinical Summary ---
Author Organization [facility] Address [address] [place] [address] Care Team Providers Care Dispensing And Measuring Optician Name Role Phone Cheryl Fournier MD Primary Care Provider [phone] Social History Tobacco Use Types Packs/Day Years [...] age to complete this topic Care Teams Dispensing And Measuring Optician Relationship Specialty Start Date End Date Cheryl Fournier MD PCP - General Internal Medicine 09/09/16
[2025-06-07] MEDS: iohexoL 350 MG/ML 100 ML INFUS..BTL 85 ML IV (13:49)
[2025-06-10 09:45] LABS: Creatinine POC 0.6 mg/dL (0.5-1.4); GFR POC > 60
== END 2025-06-07 10:59 | disposition home or self-care (01) ==
LOC: HO.CT 10:58
PROVIDERS: PCP Internal Medicine; Visit Provider Anesthesiology
DX: M60.08 Infective myositis, other site (principal); F17.210 Nicotine dependence, cigarettes, uncomplicated
CPT/HCPCS: 71271; 72133; 82565; Q9967

== ENCOUNTER → 2025-06-07 11:00 | Outpatient (BNV) | payer MEDICAID, SELFPAY | PROVIDERS: PCP Internal Medicine; Visit Provider Radiology Diagnostic Radiology | DX: Z12.2 Encounter for screening for malignant neoplasm of respiratory organs (principal); Z87.891 Personal history of nicotine dependence; J43.9 Emphysema, unspecified | CPT/HCPCS: 71271; 72133 ==

== ENCOUNTER 2025-06-20 14:43 | Outpatient (AMB) | payer MEDICAID, SELFPAY ==
[2025-06-20 15:20] VITALS: BP 133/84; PULSE 74; RESP 16; O2SAT 97; BMI 23.5
--- NOTE | 2025-06-20 15:20 | A.OFFVIS_ITS ---
Vital Signs 06/20/25 15:20 Height 5 ft 10 in Weight 164 lb BMI 23.5 BP 133/84 Blood Pressure Location Lt brachial Position Sitting Respiration 16 Pulse 74 Pulse Source Pulse Oximeter Pulse Oximetry (%) 97 Oxygen Delivery Method Room Air Intake Visit Reasons: Follow up CT review Robotics Specialist Required: No Accompanied by: Self / Same As Patient Allergies No Known Allergies Allergy (Verified 06/20/25 15:20) HPI Comments Details: Nehal is back in my office 3 weeks after BVN RFA L3, L4, L5, S1. There was redness on exam 2 weeks ago and I thought that possibility of paraspinal phlegmon or abscess needs to be ruled out for this patient. I sent him to CT scan and I sent him to CBC. I also recommended him to start antibiotics. Now CT scan is performed and there is no paraspinal phlegmon demonstrated. There is no fluid collections noted. His WBC is normal 10.7. He denies back pain, he denies fever, he reports excellent mobility, he reports beautiful ability to sit. He is able to flex himself forward. 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 Next appointment is as needed. Prior: The patient is a 65-year-old male presenting for evaluation of persistent pain following a diagnostic sacroiliac joint injection. He underwent a right diagnostic sacroiliac joint injection without any significant improvement. The attention was attracted today that the patient has significant signs and symptoms of vertebra genic low back pain. He reports difficulty driving, difficulty sitting long time, difficulty flexing forward, difficulty picking up objects from the floor, difficulty with increased activities. We discussed possibility of treatment of his pain with BVN RFA L3, L4, L5, S1. We will schedule him for the procedure as soon as possible The patient has a history of lumbar spinal stenosis and a pinched nerve, which was surgically decompressed about 05/2024. Post-surgery, the patient reports improvement in symptoms, with less numbness in the legs, but continues to experience pain and limited work capacity. - Pain onset: Persistent following diagnostic sacroiliac joint injection - Quality: Shooting pain, especially when sitting or driving - Location: Right leg, hip, and knee - Exacerbating factors: Sitting, working more than five hours, driving - Relieving factors: Injections provide immediate relief - Affect: Pain impacts ability to work and perform daily activities - Analgesia: Uses gabapentin, injections provide immediate relief - Adverse Effects: None reported - Activities of Daily Living: Limited work capacity, discomfort when sitting or driving - Aberrant Drug Related Behaviors: None reported [facility] Medical History Weight loss, unintentional Anemia Abdominal pain Change in stool caliber Back pain Arthritis Nicotine dependence, cigarettes, uncomplicated Right knee DJD Lumbar spinal stenosis Right lumbar radiculopathy Porphyrin disorder Tubular adenoma of colon (~2020) History of peptic ulcer (~2001) Difficult intravenous access History of chronic pain COPD (chronic obstructive pulmonary disease) Hepatitis C Surgical History History of back surgery History of hand surgery (~2020) History of colonoscopy (~2020) History of esophagogastroduodenoscopy (EGD) (~2001) Family History Mother Emphysema lung Cancer Social History Household Members Other:: room mate Are you a primary medicare interviewer to a significant other at home: No Do you presently have visiting nurse or other home services: No Alcohol intake: former Year quit: 2019 Comment: COUNTS CORRECT Patient Tobacco Use Status: Current everyday Tobacco user Tobacco use type: Cigarette Cigarettes Per Day: 10 Years Smoked: 55 Second Hand Smoke Exposure: No Substance Use Type: Amphetamines, Crack/Cocaine, Former Substance User, Hallucinogens, IV Drugs, Marijuana and Opiates Current occupational status: employed 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 Alert and oriented. Mood and affect appropriate. Follows and participates in conversation appropriately. Respiratory effort is unlabored. No cough. No nasal discharge. Able to transition from sit to stand unassisted. Ambulates with bilaterally normal heel strike and toe off. Back/Spine/Pelvis Other: Patient is able to walk and stand on heels and tip toes with no difficulties demonstrating good motor tone. Mild limping due to right hip and right knee pain. Unable to flex forward because of the severe pain in the back. Well healed midline lumbar scar. Demonstrates 5/5 left and 4/5 right strength of quadriceps bilaterally as well as 5/5 flexion/dorsiflexion of bilateral feet against resistance. 2+ pedal pulses bilaterally. Facet loading reproduces mild pain bilaterally, right>left. Cervical Spine: cervical ROM normal and No Cervical spine tenderness Thoracic/Lumbar Spine: thoracic and lumbar spine normal to inspection, Thoracic/lumbar spine scar(s), No thoraco-lumbar ROM normal, Lasegue's sign negative, straight leg raise negative bilaterally, No thoracic spinal tenderness and No lumbar spinal tenderness Pelvis: no sciatic notch tenderness Sacroiliac joints: on the right tender to palpation and on the left nontender Assessment & Plan Assessment & Plan (1) Abscess of paraspinous muscles: Code(s): M60.08 - Infective myositis, other site Category: Medical Plan CT scan is negative for paraspinal abscess or phlegmon. He is doing okay. White count is normal. 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 He does not report any pain. Next appointment is as needed. Coding Level of Care Code Est Pt Level 3 (44736) Diagnoses Abscess of paraspinous muscles M60.08
--- OUTSIDE RECORDS SUMMARY | 2025-06-20 18:51 | XMS_ITS | Encounter Summary ---
Author Organization [employer] Address [address] [facility] [address] [place] [address] Care Team Providers Care Metal Fabricating Supervisor Name Role Phone Mike Arora MD Primary Care Prov ider Reason for Visit * Reason Onset Date Comments Med Refill 03/06/2025 Encounter Details Date Type Department Care Team (Late st Contact Info) Description 03/06/2025 Refill [facility] [address] [place] [address] Mike Arora MD [address] [place], [place] [phone] Low back pain associated with a spinal [...] 50 MG tablet To be sent to: [facility]/pharmacy #[id number] - [place] [address] documented in this encounter Plan of Treatment Upcoming Encounters Date Type Department Care Team (Late st Contact Info) Description 07/18/2025 8:30 AM EST Office Visit [facility] [address] [place] [address] Mike Arora MD [address] [place] [address] documented as of this encounter Visit Diagnoses Diagnosis Low back pain associated with a spinal disorder other than radiculopathy or spinal stenosis- Primary documented in this encounter Additional Health Concerns Assessment Noted Time PHQ-9 Depression Total Score: 0 10/15/19 23 10:23 AM EDT documented as of this encounter Care Teams Metal Fabricating Supervisor Relationship Specialty Start Date End Date Mike Arora MD [address] [place] [address] PCP - General Internal Medicine 07/09/19 documented as of this encounter
--- OUTSIDE RECORDS SUMMARY | 2025-06-20 18:51 | XMS_ITS | Encounter Summary ---
Author Organization [employer] Address [address] [facility] [address] [place] [address] Care Team Providers Care Agronomy Instructor Name Role Phone Mike Arora MD Primary Care Prov ider Reason for Visit * Reason Comments Med Refill Encounter Details Date Type Department Care Team ([facility] Contact Info) Description 06/10/2024 Refill [facility] PEDS [address] [place] [address] Mike Arora MD [address] [place] [address] Low back pain associated with a spinal [...] Description 07/18/2025 8:30 AM EST Office Visit [facility] MED [facility]EDS [address] [place] [address] Mike Arora MD [address] [place] [address] documented as of this encounter Visit Diagnoses Diagnosis Low back pain associated with a spinal disorder other than radiculopathy or spinal stenosis documented in this encounter Additional Health Concerns Assessment Noted Time PHQ-9 Depression Total Score: 0 10/15/19 23 10:23 AM EDT documented as of this encounter Care Teams Agronomy Instructor Relationship Specialty Start Date End Date Mike Arora MD [address] [place] [address] PCP - General Internal Medicine 07/09/19 documented as of this encounter
--- OUTSIDE RECORDS SUMMARY | 2025-06-20 18:51 | XMS_ITS | Clinical Summary ---
Author Organization [facility] Address [address] [place] [address] Care Team Providers Care Debeader Name Role Phone Cheryl Fournier MD Primary [...] age to complete this topic Care Teams Debeader Relationship Specialty Start Date End Date Cheryl Fournier MD PCP - General Internal Medicine 09/09/16
--- OUTSIDE RECORDS SUMMARY | 2025-06-20 18:51 | XMS_ITS | Encounter Summary ---
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 Name Role Phone Mike Arora MD Primary Care Prov ider Encounter Details Date Type Department Care Team (Late Contact Info) Description 08/10/2022 Orders Only [facility] [address] [place], [place] [phone] Mike Arora MD [address] [place], [place] [phone] Prostate cancer screening (Primary Dx); Simple chronic [...] Department Care Team (Late Contact Info) Description 07/18/2025 8:30 AM EST Office Visit [facility] [address] [place], [place] [phone] Mike Arora MD [address] [place], [place] [phone] Scheduled Orders Name Type Priority Associated Diagnoses [...] PCR <15 NOT DETECTED NOT DETECTED IU/mL [facility] HCV RNA QN Real Time PCR <1.18 NOT DETECTED NOT DETECTED Log IU/mL [facility] [place] [facility] Comment: HCV RNA is not detected. There [...] a biological false positive result. (Always Message) [facility] [employer] [place] [facility] Comment: This test was performed using Real-Time Polymerase Chain Reaction. Reportable Range: 15 IU/mL to 100,000,000 IU/mL (1.18 Log IU/mL to 8.00 Log IU/mL). The analytical performance characteristics of this assay have been determined by [facility]. The modifications have not been cleared or approved by the FDA. This assay has been validated pursuant to the CLIA regulations and is used for clinical purposes. For more information on this test, go to: http://education.Sproutling/faq/MXI29g1 (This link is being provided for informational/ [...] LAB BLOOD ORDERABL ES Final Result [facility] [address] [facility], [facility], [place] [address] [facility] [place] [address] [facility], ([address]) [place] [address] * PSA,Total (08/10/2022 10:30 AM EST) PSA, Total 0.35 < OR = 4.00 ng/mL [facility] [place] [facility] Comment: The total PSA value from this assay system is standardized against the WHO standard. The test result will be approximately 20% lower when compared to the equimolar-standardized total PSA ([place]). Comparison of serial PSA results should be [...] ORDERABL ES Final Result Performing Organization Address [facility] de Phone Number [address], [place] [address] [facility] [place] [address] [place] [address], ([address]2) [place] [address] * (ABNORMAL) Hemoglobin A1c with Calculated Mean Plasma Glucose (MPG) (08/10/2022 10:30 AM EST) Hemoglobin A1c 5.8(H) <5.7 % of total Hgb [facility] [place] Comment: For someone without known diabetes, a [...] children. Mean Plasma Glucose 129 mg/dL (calc) [employer] 08/10/2022 10:3 0 AM EST 08/10/2022 10:31 AM EST Narrative [facility] - 08/13/2022 11:15 PM EST FASTING:NO FASTING: NO Mike Gaffney MD LAB BLOOD ORDERABL ES Final Result Performing Organization Address [facility] Co de Phone Number [address], [place] [address] [facility] [place] [facility] [address] [place] [address], ([address]2) [place] [address] * TSH W/Reflex to FT4 (08/10/2022 10:30 AM EST) TSH w/Reflex to FT4 2.75 0.40 - 4.50 mIU/L [facility] [place] [facility] 08/10/2022 10:3 0 AM EST 08/10/2022 10:31 AM EST Narrative [facility] - 08/13/2022 11:15 PM EST FASTING:NO FASTING: NO Mike Gaffney MD LAB BLOOD ORDERABL ES Final Result [address], [place] [address] [facility] [place] [facility] [address] [place] [address], ([address]2) [place] [address] * Lipid Panel, Standard (08/10/2022 10:30 AM EST) Cholesterol, Total 145 <200 mg/dL [facility] [place] HDL Cholesterol 58 > OR = 40 mg/dL [facility] [place] Triglycerides 50 <150 mg/dL [facility] [place] LDL Cholesterol 75 mg/dL (calc) [facility] [place] Comment: Reference range: <100 Desirable range <100 mg/dL for primary prevention; <70 mg/dL for patients with CHD or diabetic patients with > or = 2 CHD risk factors. LDL-C is now calculated using the Morales calculation, which is a validated novel method providing better accuracy than the Friedewald equation in the estimation of LDL-C. Darrel SS et al. DYLAN. 2013;310(19): 3615-2170 (http://education.Affle.[facility]/faq/RLL001) Chol/HDLC Ratio 2.5 <5.0 (calc) [facility] [place] [facility] Non-HDL Cholesterol 87 <130 mg/dL (calc) [facility] [place] Comment: For patients with diabetes plus 1 [...] ORDERABL ES Final Result Performing Organization Address [facility] Co de Phone Number [address] [place] [address] [facility] [place] [facility] [address] [facility], (Nl2) [place] [address] * HIV-1 RNA, Quantitative, Real-Time PCR with Reflex to Genotype (RTI, PI, Integrase) (08/10/2022 10:30 AM EST) Pathologist [facility] HIV 1 RNA, QN PCR NOT DETECTED copies/mL [facility], HIV 1 RNA, QN PCR NOT DETECTED Log copies/mL [facility], Comment: REFERENCE RANGE: NOT DETECTED copies/mL NOT DETECTED Log copies/mL This test was performed using Real-Time Polymerase Chain Reaction. Reportable range is 20 to 10,000,000 copies/mL (1.30-7.00 Log copies/mL). 08/10/2022 10:3 0 AM EST 08/10/2022 10:31 AM EST Narrative [facility] - 08/13/2022 11:15 PM EST FASTING:NO FASTING: NO Mike Gaffney MD LAB BLOOD ORDERABL ES Final Result Performing Organization Address [facility]/ZIP Co de Phone Number [address] [place] [address] [facility], [address] [place] [address] * (ABNORMAL) Hepatitis C Antibody with Reflex to HCV, RNA, Quantitative, Real- Time PCR (08/10/2022 10:30 AM EST) [facility] Hepatitis C Antibody REACTIVE( A) NON-REACT [facility] [employer] [facility] [place] [employer] [facility] Index >11.00(H) <1.00 [facility] [place] [facility] Comment: Based on this result, the sample will be tested for HCV RNA by a Nucleic Acid Amplification Test (NAAT) to determine if the patient has a current active infection. Blood Venous blood specimen / Unknown 08/10/2022 10:30 AM EST 08/10/2022 10:31 AM EST Narrative [facility] - 08/13/2022 11:15 PM EST FASTING:NO FASTING: NO Mike Gaffney MD LAB BLOOD ORDERABL ES Final Result [address] [place] [address] [facility] [place] [facility] [address] [facility], ([address]2) [place] [address] * Hepatic Function Panel (08/10/2022 10:30 AM EST) [facility] Protein, Total 7.1 6.1 - 8.1 g/dL [facility] [place] [facility] Albumin 4.7 3.6 - 5.1 g/dL [facility] [place] [employer] [facility] Globulin 2.4 1.9 - 3.7 g/dL (calc) [facility] [place] [facility] Albumin/Globulin Ratio 2.0 1.0 - 2.5 (calc) [facility] [place] [employer] [facility] Bilirubin, Total 0.7 0.2 - 1.2 mg/dL [facility] [place] [facility] Bilirubin, Direct 0.2 < OR = 0.2 mg/dL [facility] [place] [facility] Bilirubin, Indirect 0.5 0.2 - 1.2 mg/dL (calc) [facility] [place] [facility] Alkaline Phosphatase 35 35 - 144 U/L [facility] [place] [facility] AST 17 10 - 35 U/L [facility] [place] [facility] ALT 16 9 - 46 U/L [facility] [place] [facility] Blood Venous blood specimen / Unknown 08/10/2022 10:30 AM EST 08/10/2022 10:31 AM EST Narrative [facility] - 08/13/2022 11:15 PM EST FASTING:NO FASTING: NO Mike Gaffney MD LAB BLOOD ORDERABL ES Final Result [facility] [address] [facility], [facility], [place] [address] [facility] [place] [facility] [address] [facility], ([address]2) [place] [address] * Basic Metabolic Panel (08/10/2022 10:30 AM EST) Glucose 90 65 - 139 mg/dL [facility] [place] [facility] Comment: Non-fasting reference interval Urea Nitrogen (BUN) 25 7 - 25 mg/dL [facility] [place] [employer] [facility] Creatinine, Serum 0.71 0.70 - 1.35 mg/dL [facility] [place] [facility] eGFR 105 > OR = 60 mL/min/1 .73m2 [facility] [place] [facility] Comment: The eGFR is based on the CKD-EPI 2020 equation. To calculate the new eGFR from a previous Creatinine or Cystatin C result, go to https://www.kidney.org/professionals/ kdoqi/gfr%5Fcalculator BUN/Creatinine Ratio NOT APPLICABLE 6 - 22 (calc) [facility] [place] [facility] Sodium 136 135 - 146 mmol/L [facility] [place] [facility] Potassium 4.4 3.5 - 5.3 mmol/L [facility] [place] [facility] Chloride 101 98 - 110 mmol/L [facility] [place] [facility] Carbon Dioxide 26 20 - 32 mmol/L [facility] [place] [facility] Calcium 9.6 8.6 - 10.3 mg/dL [facility] [place] [employer] [facility] Blood Venous blood specimen / Unknown 08/10/2022 10:30 AM EST 08/10/2022 10:31 AM EST Narrative [facility] - 08/13/2022 11:15 PM EST FASTING:NO FASTING: NO us Mike Gaffney MD LAB BLOOD ORDERABL ES Final Result [facility] [address] [facility], [place] [address] [facility] [place] [facility] [address] [facility], (Nl2) [place] [address] * CBC auto differential (08/10/2022 10:30 AM EST) White Blood Cell Count 7.2 3.8 - 10.8 Thousand/ uL [facility] [place] [facility] Red Blood Cell Count 4.22 4.20 - 5.80 Million/u L [facility] [place] [facility] Hemoglobin 13.4 13.2 - 17.1 g/dL [facility] [place] [facility] Hematocrit 39.8 38.5 - 50.0 % [facility] [place] [facility] MCV 94.3 80.0 - 100.0 fL [facility] [place] [facility] MCH 31.8 27.0 - 33.0 pg [facility] [place] [facility] MCHC 33.7 32.0 - 36.0 g/dL [facility] [place] [facility] RDW 12.5 11.0 - 15.0 % [facility] [place] [facility] Platelet Count 270 140 - 400 Thousand/ uL [facility] [place] [facility] MPV 9.9 7.5 - 12.5 fL [facility] [place] [facility] Absolute Neutrophils 3,679 1,500 - 7,800 cells/uL [facility] [place] [facility] Absolute Lymphocytes 2,498 850 - 3,900 cells/uL [facility] [place] [facility] Absolute Monocytes 612 200 - 950 cells/uL [facility] [place] [facility] Absolute Eosinophils 360 15 - 500 cells/uL [facility] [place] [facility] Absolute Basophils 50 0 - 200 cells/uL [facility] [place] [facility] Neutrophils 51.1 % [facility] [place] [facility] Lymphocytes 34.7 % [facility] [place] [facility] Monocytes 8.5 % [facility] [place] [facility] Eosinophils 5.0 % [facility] Basophils 0.7 % [facility] [place] [facility] Blood Venous blood specimen / Unknown 08/10/2022 10:30 AM EST 08/10/2022 10:31 AM EST Narrative [facility] - 08/13/2022 11:15 PM EST FASTING:NO FASTING: NO Mike Gaffney MD LAB BLOOD ORDERABL ES Final Result [facility] [address] [facility], [facility], [place] [address] [facility] [place] [facility] [address] [facility], ([address]) [place] [address] documented in this encounter Visit Diagnoses Diagnosis Prostate cancer screening- Primary Special screening for malignant neoplasm of prostate Simple chronic bronchitis (CMS/HCC) (HCC) Simple chronic bronchitis documented in this encounter Care Teams Lamp Shades Supervisor Relationship Specialty Start Date End Date Mike Arora MD [address] [place] [phone] PCP - General Internal Medicine 07/09/19 documented as of this encounter
--- OUTSIDE RECORDS SUMMARY | 2025-06-20 18:51 | XMS_ITS | Clinical Summary ---
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 At this moment will refer to [facility] Derm clinic. Chronic obstructive pulmonary [...] Type Department Care Team Description 05/29/2025 Refill [facility]ED[facility] [address] [place] [phone] Mike Arora MD Low back pain associated with a spinal disorder other than radiculopathy or spinal stenosis 05/16/2025 Telephone [facility] [address] [place] [address] Mila Anderson, JASON 05/10/2025 Orders Only [facility] External Provider, [facility] 04/30/2025 Telephone [facility] [address] [place] [phone] Mila Anderson RN 04/29/2025 Refill [facility] [address] [place] [address] Cheryl Olguin MD Low back pain associated [...] Description 07/18/2025 8:30 AM EST Office Visit [facility] PEDS [address] [place] [address] Mike Arora MD [address] [place], [place] [phone] Health Maintenance Due Date Last Done Comments [...] Procedure Name Priority Date/Time Associated Diagnosis Comments CT LUMBAR SPINE W AND WO CONTRAST Routine 06/07/2025 11:48 AM EST LDCT LUNG SCREENING Routine 06/07/2025 1 1:45 AM EST FL GUIDANCE IN OR Routine 05/10/2025 10: 45 AM EST HIV 1/2 ANTIGEN/ANTIBODY, FOURTH GENERATION W/RFL Routine 02/06/2025 1:19 PM EDT HEMOGLOBIN A1C Routine 02/06/2025 1:19 PM EDT LIPID PANEL, STANDARD Routine 03/19/2024 8:16 AM EDT Primary hypertension HM COLONOSCOPY Routine 11/04/2020 from Last 3 Months or Most Recently Relevant to Health Maintenance Results * CT Lumber Spine w/ and w/o Contrast (06/07/2025 11:48 AM EST) Anatomical Region Laterality Modality Spine, L-spine Computed Tomogra phy 06/07/2025 11:4 8 AM EST Narrative 06/07/2025 2:24 PM EST [place] [address] CT Scan Report Signed Patient: Nehal Veloz MR#: [id number] 907 : 1960 Acct:[id number] Age/Sex: 65 / M ADM Date: 06/07/25 Loc: HO.CT Attending Dr: Sebastien Brown MD Ordering Physician: Sebastien Brown MD Date of Service: 06/07/25 Procedure(s): CT lumbar spine wo/w IV con Accession Number(s): [id number] cc: Mike Arora MD; Sebastien Brown MD Report Number: [id number]: Total DLP = 872.00 mGy-cm Reason for Exam: M60.08 - Infective myositis, other site EXAMINATION: CT LUMBAR SPINE WITHOUT AND WITH CONTRAST CLINICAL INFORMATION: Infective myositis, other site. 65-year-old male, prior decompression. Recent RFA L3, L4, L5, and S1. Tenderness to palpation overlying the right SI joint. Redness and tenderness to palpation of the paraspinous muscles left side of back. Rule out abscess. COMPARISON: No prior CT examination. Correlation made with MR lumbar 01/27/2025. Correlation made with pain management fluoroscopy procedure 05/10/2025. TECHNIQUE: Spiral CT imaging of the lumbar spine performed in axial plane both before and after the administration of 85 cc Omnipaque 350 iodinated contrast. Multiplanar reformatted images were constructed from the axial data set. This CT examination was performed using dose optimization techniques as appropriate, variously including the following: *Automated exposure control *Adjustment of mA and/or kV according to patient size (this includes techniques or standardized protocols for targeted exams where dose is matched to indication/reason for exam; i.e. extremities or head) *Use of iterative reconstruction technique FINDINGS: There is a mild levoconvex scoliosis, apex at L3-4. There is a normal lordosis. L2 limbus vertebra noted. No definite fracture, compression deformity, or suspicious bone lesion evident. There are numerous Schmorl's nodes in the endplates. There are sclerotic endplate changes present at L4-5, and L5-S1 with associated severe disc degeneration and disc vacuum phenomenon present. Moderate to severe disc degeneration noted at L1-L2 and lesser degeneration present at L2-3 and L3-4, as well as T12-L1. Multilevel facet degeneration noted, most significant on the right at L4-5. There has been a prior right L4 hemilaminotomy with microdiscectomy. There appears to have been a prior left L4-5 hemilaminotomy. The paraspinous and paravertebral musculature and soft tissues enhances normally without evidence of fluid collection, swelling, or changes of myositis. AXIAL DISC SPACE IMAGING: L1-L2: There is shallow diffuse disc bulging present, without significant central canal or neural foraminal narrowing. L2-3: There is a concentric disc osteophytic bulge extending into both foraminal zones. There are minor hypertrophic degenerative facet changes with mild posterior ligamentous thickening/infolding. There is mild to moderate central canal narrowing, mild to moderate bilateral subarticular recess narrowing, and mild to moderate bilateral neural foraminal narrowing left greater than right. L3-4: There is a prominent disc osteophytic ridge complex present, asymmetrically prominent to the right, and extending into the right greater than left foraminal zones. There is a superimposed right paracentral, lateral and foraminal extruded component of disc material with mild inferior migration, similar to the prior MRI. Mild hypertrophic degenerative facet changes are present. Combination of findings is resulting in moderate central canal stenosis, severe right and moderate to severe left subarticular recess narrowing, and severe right neural foraminal stenosis. There is moderate to severe left neural foraminal narrowing. This appears similar to the prior MRI. L4-5: There is a concentric disc osteophytic ridge complex present with a superimposed inferiorly extruded broad-based component, extending into the right greater than left foraminal zones. There appears to have been a prior left hemilaminotomy. Moderate hypertrophic degenerative facet changes are present. The combination of findings is resulting in moderate to severe central canal stenosis, severe right and moderate to severe left subarticular recess stenosis, and severe bilateral neural foraminal stenosis right greater than left. This appears similar to the prior MRI. L5-S1: Shallow disc osteophytic ridge complex present extending into both foraminal zones. Mild to moderate hypertrophic degenerative facet changes present bilaterally. There is epidural lipomatosis noted circumferentially. The combination of findings is resulting in mild central canal stenosis, mild bilateral subarticular recess stenosis, and moderate to severe right and severe left neural foraminal stenosis. CT/CT lumbar spine wo/w IV con IMPRESSION: 1. The paraspinous and paravertebral muscles and soft tissues appear normal without evidence of abnormal enhancement or abscess/fluid collection. 2. No acute bony abnormalities of the lumbar spine. Degenerative spondylosis as discussed, similar to the prior MRI. See above for details. 3. There appear to have been prior postoperative changes at L3-4 and L4-5. Electronically signed by: Anastacio Ayala MD 06/07/2025 02:21 PM [facility] Dictated By: Anastacio Ayala MD Signed By: <Electronically signed by Anastacio Ayala MD in OV> 06/07/25 1421 DD/ 1148 TD/TT: 06/07/25 1349 Latex Dipper: Procedure Note Donotuseinterpreter, Image - 06/07/[address] [address] [address] Scan Report Signed Patient: Catrachita Veloz#: [id number] 907 : 2Acct:[id number] Age/Sex: 65 / MADM Date: 06/07/25 Loc: HO.CT Attending Dr: Sebastien Brown MD Ordering Physician: Sebastien Brown MD Date of Service: 06/07/25 Procedure(s): CT lumbar spine wo/w IV con Accession Number(s): [id number] cc: Mike Arora MD; Sebastien Brown MD Report Number: [id number]: Total DLP = 872.00 mGy-cm Reason for Exam: M60.08 - Infective myositis, other site EXAMINATION: CT LUMBAR SPINE WITHOUT AND WITH CONTRAST CLINICAL INFORMATION: Infective myositis, other site. 65-year-old male, prior decompression. Recent RFA L3, L4, L5, and S1. Tenderness to palpation overlying the right SI joint. Redness and tenderness to palpation of the paraspinous muscles left side of back. Rule out abscess. COMPARISON: No prior CT examination. Correlation made with MR lumbar 01/27/2025. Correlation made with pain management fluoroscopy procedure 05/10/2025. TECHNIQUE: Spiral CT imaging of the lumbar spine performed in axial plane both before and after the administration of 85 cc Omnipaque 350 iodinated contrast. Multiplanar reformatted images were constructed from the axial data set. This CT examination was performed using dose optimization techniques as appropriate, variously including the following: *Automated exposure control *Adjustment of mA and/or kV according to patient size (this includes techniques or standardized protocols for targeted exams where dose is matched to indication/reason for exam; i.e. extremities or head) *Use of iterative reconstruction technique FINDINGS: There is a mild levoconvex scoliosis, apex at L3-4. There is a normal lordosis. L2 limbus vertebra noted. No definite fracture, compression deformity, or suspicious bone lesion evident. There are numerous Schmorl's nodes in the endplates. There are sclerotic endplate changes present at L4-5, and L5-S1 with associated severe disc degeneration and disc vacuum phenomenon present. Moderate to severe disc degeneration noted at L1-L2 and lesser degeneration present at L2-3 and L3-4, as well as T12-L1. Multilevel facet degeneration noted, most significant on the right at L4-5. There has been a prior right L4 hemilaminotomy with microdiscectomy. There appears to have been a prior left L4-5 hemilaminotomy. The paraspinous and paravertebral musculature and soft tissues enhances normally without evidence of fluid collection, swelling, or changes of myositis. AXIAL DISC SPACE IMAGING: L1-L2: There is shallow diffuse disc bulging present, without significant central canal or neural foraminal narrowing. L2-3: There is a concentric disc osteophytic bulge extending into both foraminal zones. There are minor hypertrophic degenerative facet changes with mild posterior ligamentous thickening/infolding. There is mild to moderate central canal narrowing, mild to moderate bilateral subarticular recess narrowing, and mild to moderate bilateral neural foraminal narrowing left greater than right. L3-4: There is a prominent disc osteophytic ridge complex present, asymmetrically prominent to the right, and extending into the right greater than left foraminal zones. There is a superimposed right paracentral, lateral and foraminal extruded component of disc material with mild inferior migration, similar to the prior MRI. Mild hypertrophic degenerative facet changes are present. Combination of findings is resulting in moderate central canal stenosis, severe right and moderate to severe left subarticular recess narrowing, and severe right neural foraminal stenosis. There is moderate to severe left neural foraminal narrowing. This appears similar to the prior MRI. L4-5: There is a concentric disc osteophytic ridge complex present with a superimposed inferiorly extruded broad-based component, extending into the right greater than left foraminal zones. There appears to have been a prior left hemilaminotomy. Moderate hypertrophic degenerative facet changes are present. The combination of findings is resulting in moderate to severe central canal stenosis, severe right and moderate to severe left subarticular recess stenosis, and severe bilateral neural foraminal stenosis right greater than left. This appears similar to the prior MRI. L5-S1: Shallow disc osteophytic ridge complex present extending into both foraminal zones. Mild to moderate hypertrophic degenerative facet changes present bilaterally. There is epidural lipomatosis noted circumferentially. The combination of findings is resulting in mild central canal stenosis, mild bilateral subarticular recess stenosis, and moderate to severe right and severe left neural foraminal stenosis. CT/CT lumbar spine wo/w IV con IMPRESSION: 1. The paraspinous and paravertebral muscles and soft tissues appear normal without evidence of abnormal enhancement or abscess/fluid collection. 2. No acute bony abnormalities of the lumbar spine. Degenerative spondylosis as discussed, similar to the prior MRI. See above for details. 3. There appear to have been prior postoperative changes at L3-4 and L4-5. Electronically signed by: Anastacio Ayala MD 06/07/2025 02:21 PM EST Dictated By: Anastacio Ayala MD Signed By: <Electronically signed by Anastacio Ayala MD in OV> 06/07/25 1421 DD/ 1148 TD/TT: 06/07/25 1349 Latex Dipper: [facility] External Provider IMG CT PROCEDURES Final Result * CT Lung Screening Low dose (06/07/2025 11:45 AM EST) Anatomical Region Laterality Modality Lung Computed Tomogra phy 06/07/2025 11:4 5 AM EST Narrative 06/10/2025 5:07 PM EST [place] [address] CT Scan Report Signed Patient: Nehal Veloz MR#: [id number] 907 : 1960 Acct:[id number] Age/Sex: 65 / M ADM Date: 06/07/25 Loc: HO.CT Attending Dr: Sebastien Brown MD Ordering Physician: Abi Faustin PA-C Date of Service: 06/07/25 Procedure(s): CT lung screening Accession Number(s): [id number] cc: Mike Arora MD; Abi Faustin PA-C Report Number: [id number]: Total DLP = 48.00 mGy-cm Reason for Exam: F17.210 - Nicotine dependence, cigarettes, uncomplicated EXAMINATION: CT LUNG SCREENING HISTORY: F17.210 - Nicotine dependence, cigarettes, uncomplicated TECHNIQUE: Low dose axial images were obtained from the sternal notch to upper abdomen without IV contrast per standard departmental protocol. Sagittal and coronal reformatted images were also obtained and reviewed. One or more of the following techniques was used for dose reduction: Automated exposure control, adjustment of the mA and/or kV according to patient size, use of iterative reconstruction technique. DLP: 38 mGy-cm COMPARISON: There are no prior studies available for comparison. FINDINGS: Lung nodules: Small calcified pulmonary nodules in the right upper, right lower, left upper and left lower lobes measuring up to 4 mm. Stable 9 x 4 mm peripheral or subpleural right middle lobe nodule along the minor fissure probably representing a peripheral or subpleural lymph node. No new or enlarging pulmonary nodules. Central airways are clear. Emphysema: mild Coronary Calcification: moderate Aortic Arch Calcification: mild Additional Chest Findings: Normal heart size. There is no pleural or pericardial effusion. There are small mediastinal lymph nodes similar to prior exams. No enlarged mediastinal lymph nodes. Bilateral gynecomastia, right greater than left, not appreciably changed. Small bilateral axillary lymph nodes not appreciably changed. Visualized upper abdomen: The visualized portions of the liver, spleen, and adrenals have an unremarkable unenhanced appearance. Degenerative changes of the spine. CT/CT lung screening IMPRESSION: Stable exam. Emphysema. Unchanged calcified bilateral pulmonary nodules probably representing calcified granulomas and 4 x 9 mm peripheral or subpleural right upper lobe nodule adjacent to the minor fissure probably representing a peripheral or subpleural lymph node. LUNG-RADS ASSESSMENT: Lung-RADS 2: Benign MANAGEMENT: Continue annual screening with LDCT in 12 months Category S: N/A Electronically signed by: Usha De Paz MD 06/10/2025 05:04 PM [facility] [place] Dictated By: Usha De Paz MD Signed By: <Electronically signed by Usha De Paz MD in OV> 06/10/25 1704 DD/ 1145 TD/TT: 06/07/25 1347 Latex Dipper: RAFIA Procedure Note Donotuseinterpreter, Image - 06/10/[address] [place] [address] CT Scan Report Signed Patient: Nehal VelozMR#: [id number] 907 : 2Acct:[id number] Age/Sex: 65 / MADM Date: 06/07/25 Loc: HO.CT Attending Dr: Sebastien Brown MD Ordering Physician: Abi Faustin PA-C Date of Service: 06/07/25 Procedure(s): CT lung screening Accession Number(s): [id number] cc: Mike Arora MD; Abi Faustin PA-C Report Number: [id number]: Total DLP = 48.00 mGy-cm Reason for Exam: F17.210 - Nicotine dependence, cigarettes, uncomplicated EXAMINATION: CT LUNG SCREENING HISTORY: F17.210 - Nicotine dependence, cigarettes, uncomplicated TECHNIQUE: Low dose axial images were obtained from the sternal notch to upper abdomen without IV contrast per standard departmental protocol. Sagittal and coronal reformatted images were also obtained and reviewed. One or more of the following techniques was used for dose reduction: Automated exposure control, adjustment of the mA and/or kV according to patient size, use of iterative reconstruction technique. DLP: 38 mGy-cm COMPARISON: There are no prior studies available for comparison. FINDINGS: Lung nodules: Small calcified pulmonary nodules in the right upper, right lower, left upper and left lower lobes measuring up to 4 mm. Stable 9 x 4 mm peripheral or subpleural right middle lobe nodule along the minor fissure probably representing a peripheral or subpleural lymph node. No new or enlarging pulmonary nodules. Central airways are clear. Emphysema: mild Coronary Calcification: moderate Aortic Arch Calcification: mild Additional Chest Findings: Normal heart size. There is no pleural or pericardial effusion. There are small mediastinal lymph nodes similar to prior exams. No enlarged mediastinal lymph nodes. Bilateral gynecomastia, right greater than left, not appreciably changed. Small bilateral axillary lymph nodes not appreciably changed. Visualized upper abdomen: The visualized portions of the liver, spleen, and adrenals have an unremarkable unenhanced appearance. Degenerative changes of the spine. CT/CT lung screening IMPRESSION: Stable exam. Emphysema. Unchanged calcified bilateral pulmonary nodules probably representing calcified granulomas and 4 x 9 mm peripheral or subpleural right upper lobe nodule adjacent to the minor fissure probably representing a peripheral or subpleural lymph node. LUNG-RADS ASSESSMENT: Lung-RADS 2: Benign MANAGEMENT: Continue annual screening with LDCT in 12 months Category S: N/A Electronically signed by: Usha De Paz MD 06/10/2025 05:04 PM EST RP Dictated By: Usha De Paz MD Signed By: <Electronically signed by Usha De Paz MD in OV> 06/10/25 1704 DD/ 1145 TD/TT: 06/07/25 1347 Latex Dipper: RAFIA [facility] External Provider IMG CT PROCEDURES Final Result * FL Guidance in OR (05/10/2025 10:45 AM EST) Anatomical Region Laterality Modality X-Ray Angiograph y 05/10/2025 10:4 5 AM EST Narrative 05/10/2025 12:43 PM EST [place] [address] Fluoroscopy Report Signed Patient: Nehal Veloz MR#: [id number] 907 : 1960 Acct:[id number] Age/Sex: 65 / M ADM Date: 05/10/25 Loc: [facility] Attending Dr: Sebastien Brown MD Ordering Physician: Sebastien Brown MD Date of Service: 05/10/25 Procedure(s): FL guidance in OR Accession Number(s): [id number] cc: Mike Arora MD; Sebastien Brown MD [...] 05/10/25 1241 DD/ 1045 TD/TT: 05/10/25 1205 Latex Dipper: RAFIA Procedure Note Donotuseinterpreter, Image - 05/10/[address] [address] Fluoroscopy Report Signed Patient: Nehal VelozMR#: [id number] 907 : 1960cct:[id number] Age/Sex: 65 / MADM Date: 05/10/25 [facility] Att[facility] Dr: Sebastien Brown MD Ordering Physician: Sebastien Brown MD Date of Service: 05/10/25 Procedure(s): FL guidance in OR Accession Number(s): [id number] cc: Mike Arora MD; Sebastien Brown MD [...] 05/10/25 1241 DD/ 1045 TD/TT: 05/10/25 1205 Latex Dipper: RAFIA us [facility] External Provider IMG IR PROCEDURES Final Result * HIV-1/2 Antigen and Antibodies, Fourth Generation, with Reflexes (02/06/2025 1:19 PM EDT) HIV AB/AG Nonreactive Nonreactive [facility] Comment:HIV-1 p24 Ag and/or HIV-1/HIV-2 Ab not detected.A test result that is nonreactive does not exclude thepossibility of exposure to or infection with HIV-1 and/orHIV-2. Nonreactive results in this assay for individualswith prior exposure to HIV-1 and/or HIV-2 may be due toantigen and antibody levels that are below the limit ofdetection of this assay.The [employer] HIV Ag/Ab Combo assay result andsupplemental assay results should be interpreted inconjunction with the patient's clinical presentation,history and other laboratory results. If the results areinconsistent with clinical evidence, additional testing issuggested to confirm the result. 02/06/2025 1:19 PM EDT 02/06/2025 1:22 PM EDT us Generic External Data Provider LAB BLOOD ORDERAB LES Final Result [facility] [address] [place] [phone] * Hemoglobin A1c (02/06/2025 1:19 PM EDT) Hemoglobin A1c 5.7 <6.0 % [facility] Comment:Hemoglobin A1C Refer ence Range Adults: 4.8 - 6.0 % Non diabetic: < 6.0 % Goal: < 7.0 %Additional Action Suggested: > 8.0 %Note: Hemoglobin A1c results are invalid for patients with abnormal amounts of HbF. Blood transfusions may impact the HbA1c concentration in the patient sample. Estimated Average Glucose 117 mg/dL [facility] Comment:eAG = Estimated ave rage glucose which is %A1C expressed asaverage glucose, using the formula of the E6F-AnnbcdbIzzcxwc Glucose study (ADAG), Diabetes Care, Vol.31,#8,2007 02/06/2025 1:19 PM EDT 02/06/2025 1:22 PM EDT us Generic External Data Provider LAB BLOOD ORDERAB LES Final Result Performing Organization Address [facility] Co de Phone Number [facility] [address] [place] [phone] * Lipid Panel, Standard (03/19/2024 8:16 AM EDT) Triglycerides 94 <150 mg/dL [facility] Comment:Desirable Triglyceri de: less than 150 mg/dLBorderline High Triglyceride 150-199 mg/dLHigh Triglyceride: 200-499 mg/dLVery High Triglyceride: greater than or equal to 5OO mg/dL Cholesterol 144 <200 mg/dL [facility] Comment:Desirable Cholestero l: less than 200 mg/dLBorderline High Cholesterol: 200-239 mg/dLHigh Cholesterol: greater than 239 mg/dL LDL Cholesterol Calculated 65 <100 mg/dL [facility] Comment:Desirable LDL: less than 100 mg/dLNear Optimal/Above Optimal LDL: 110- 129 mg/dLBorderline High LDL: 130-159 mg/dLHigh LDL: 160-189 mg/dLVery High LDL: greater than or equal to 190 mg/dL HDL Cholesterol 61 >40 mg/dL [facility] Comment:Desirable HDL: great er than 40 mg/dL Note: This HDL assay may give artificially low results in patients with liver disease. Blood Venous blood specimen / Unknown 03/19/2024 8:16 AM EDT 03/19/2024 2:23 PM EDT us Mike Gaffney MD LAB BLOOD ORDERABL ES Final Result Performing Organization Address [facility]/ZIP Co de Phone Number [facility] [address] [place] [phone] * Hm Colonoscopy (11/04/2020) Colonoscopy PERFORMED us Historical Provider HEALTH MAINTENANCE Edited Result - Final from Last 3 Months or Most Recently Relevant to Health Maintenance Insurance [facility] C3 Care Teams Transplanter Relationship Specialty Start Date End Date Mike Arora MD [address] [place] [address] KATINA Anthony [id number] PCP - General Internal Medicine 07/09/19
--- OUTSIDE RECORDS SUMMARY | 2025-06-20 18:51 | XMS_ITS | Encounter Summary ---
Author Organization [employer] Address [address] [facility] [address] [place] [address] Care Team Providers Care Water Pump Operator Name Role Phone Mike Arora MD Primary Care Prov ider Reason for Visit * Reason Onset Date Comments Med Refill 01/11/2025 Encounter Details Date Type Department Care Team ([facility] st Contact Info) Description 01/11/2025 Telephone [facility] CHC MED & PEDS [address] [place] [address] Mike Arora MD 505 [place] [address] Med Refill Social History Tobacco Use Types [...] refill : predniSONE (Deltasone) 20 MG tablet [[id number]] To be sent to: [facility]/pharmacy #[id number] documented in this encounter Plan of Treatment Upcoming Encounters Date Type Department Care Team (Late st Contact Info) Description 07/18/2025 8:30 AM EST Office Visit [facility] MED & PEDS [address] [place] [address] Mike Arora MD [address] [place] [address] documented as of this encounter Visit Diagnoses Not on filedocumented in this encounter Additional Health Concerns Assessment Noted Time PHQ-9 Depression Total Score: 0 10/15/19 23 10:23 AM EDT documented as of this encounter Care Teams Water Pump Operator Relationship Specialty Start Date End Date Mike Arora MD [address] [place] [address] PCP - General Internal Medicine 07/09/19 documented as of this encounter
--- OUTSIDE RECORDS SUMMARY | 2025-06-20 18:51 | XMS_ITS | Encounter Summary ---
Author Organization [employer] Address [address] [facility] 7t [place] [address] Care Team Providers Care Health Clinician Name Role Phone Mike Arora MD Primary Care Prov ider Reason for Visit * Reason Onset Date Comments Med Refill 05/21/2024 Encounter Details Date Type Department Care Team (Late st Contact Info) Description 05/21/2024 Telephone [facility] MEDICINE [address] [place] [address] Mike Arora MD [address] [place] [address] Med Refill Social History Tobacco Use Types [...] 50 MG tablet To be sent to: [facility]/pharmacy #[id number] - [place] - [address] [place] [address] documented in this encounter Plan of Treatment Upcoming Encounters Date Type Department Care Team (Late st Contact Info) Description 07/18/2025 8:30 AM EST Office Visit [facility] MED & PEDS [address] [place] [address] Mike Arora MD [address] [place] [address] documented as of this encounter Visit Diagnoses Not on filedocumented in this encounter Additional Health Concerns Assessment Noted Time PHQ-9 Depression Total Score: 0 10/15/19 23 10:23 AM EDT documented as of this encounter Care Teams Health Clinician Relationship Specialty Start Date End Date Mike Arora MD 505 [place] [address] PCP - General Internal Medicine 07/09/19 documented as of this encounter
--- OUTSIDE RECORDS SUMMARY | 2025-06-20 18:51 | XMS_ITS | Encounter Summary ---
Author Organization [employer] Address 75 [facility] 7t [place] [address] Care Team Providers Care Scientific Artist Name Role Phone Mike Arora MD Primary Care Prov ider Reason for Visit * Reason Comments Med Refill Encounter Details Date Type Department Care Team ([facility] Contact Info) Description 05/09/2024 Refill [facility] CHC MED & PEDS [address] [place] [address] Mike Arora MD [address] [place] [address] Low back pain associated with a spinal [...] [facility] [address] [place] [address] Mike Arora MD [address] [place] [address] documented as of this encounter Visit Diagnoses Diagnosis Low back pain associated with a spinal disorder other than radiculopathy or spinal stenosis documented in this encounter Additional Health Concerns Assessment Noted Time PHQ-9 Depression Total Score: 0 10/15/19 23 10:23 AM EDT documented as of this encounter Care Teams Scientific Artist Relationship Specialty Start Date End Date Mike Arora MD [address] [place] [address] PCP - General Internal Medicine 07/09/19 documented as of this encounter
--- OUTSIDE RECORDS SUMMARY | 2025-06-20 18:51 | XMS_ITS | Encounter Summary ---
Author Organization [employer] Address 75 [facility] 7t [place] [address] Care Team Providers Care Artillery Meteorological Man Name Role Phone Mike Arora MD Primary Care Prov ider Reason for Visit * Reason Comments Med Refill Encounter Details Date Type Department Care Team ([facility] Contact Info) Description 02/17/[address] [facility] CHC MED & PEDS [address] [place] [address] Mike Arora MD [address] [place] [address] Low back pain associated with a spinal [...] 8:30 AM EST Office Visit [facility] MED & PEDS [address] [place] [address] Mike Arora MD [address] [place] [address] documented as of this encounter Visit Diagnoses Diagnosis Low back pain associated with a spinal disorder other than radiculopathy or spinal stenosis documented in this encounter Additional Health Concerns Assessment Noted Time PHQ-9 Depression Total Score: 0 10/15/19 23 10:23 AM EDT documented as of this encounter Care Teams Artillery Meteorological Man Relationship Specialty Start Date End Date Mike Arora MD [address] [place] [address] PCP - General Internal Medicine 07/09/19 documented as of this encounter
--- OUTSIDE RECORDS SUMMARY | 2025-06-20 18:51 | XMS_ITS | Encounter Summary ---
Author Organization [employer] Address 75 [facility] 7t [place] [address] Care Team Providers Care Straightedge Worker Name Role Phone Mike Arora MD Primary Care Prov ider Reason for Visit * Reason Onset Date Comments Medication Question 07/13/2023 Encounter Details Date Type Department Care Team ([facility] Contact Info) Description 07/13/2023 Telephone [facility] CHC MED & PEDS [address] [place] [address] Mike Arora MD [address] [place] [address] Medication Question Social History Tobacco Use Types [...] results from PT. Please contact Pt @ [phone] documented in this encounter Plan of Treatment Upcoming Encounters Date Type Department Care Team (Late st Contact Info) Description 07/18/2025 8:30 AM EST Office Visit [facility] CHC MED & PEDS [address] [place] [address] Mike Arora MD [address] [place] [address] documented as of this encounter Visit Diagnoses Not on filedocumented in this encounter Additional Health Concerns Assessment Noted Time PHQ-9 Depression Total Score: 0 10/15/19 23 10:23 AM EDT documented as of this encounter Care Teams Straightedge Worker Relationship Specialty Start Date End Date Mike Arora MD [address] [place] [address] PCP - General Internal Medicine 07/09/19 documented as of this encounter
--- OUTSIDE RECORDS SUMMARY | 2025-06-20 18:51 | XMS_ITS | Encounter Summary ---
Author Organization [employer] Address [address] [facility] [address] [place] [address] Care Team Providers Care Home Companion Name Role Phone Mike Arora MD Primary Care Prov ider Reason for Visit * Reason Onset Date Comments call back 10/20/2022 Encounter Details Date Type Department Care Team ([facility] st Contact Info) Description 10/20/2022 Telephone [facility] MEDICINE [address] [place] [address] Mike Arora MD [address] [place] [address] call back Social History Tobacco Use Types [...] Per pt, he had it done at [facility]. No result found. Will f/u with [facility] diagnostic specialist to find out where pt had the CT done. * Telephone Encounter - Chantal Stuart RN - 10/20/2022 3:08 PM EDT Tc from pt requesting a call back regarding why pt has to do a US Abdomen. Please contact pt at [phone] Please clarify above message. Thanks * Telephone Encounter - Jose Howard - 10/20/2022 10:00 AM EDT Tc from pt requesting a call back regarding why pt has to do a US Abdomen. Please contact pt at [phone] documented in this encounter Plan of Treatment Upcoming Encounters Date Type Department Care Team (Late st Contact Info) Description 07/18/2025 8:30 AM EST Office Visit [facility] MED & PEDS [address] [place] [address] Mike Arora MD [address] [place] [address] documented as of this encounter Visit Diagnoses Not on filedocumented in this encounter Additional Health Concerns Assessment Noted Time PHQ-9 Depression Total Score: 0 10/15/19 23 10:23 AM EDT documented as of this encounter Care Teams Home Companion Relationship Specialty Start Date End Date Mike Arora MD [address] [place] [address] PCP - General Internal Medicine 07/09/19 documented as of this encounter
== END 2025-06-20 15:39 | disposition home or self-care (01) ==
LOC: HO.PMC 14:44
PROVIDERS: PCP Internal Medicine; Visit Provider Anesthesiology
DX: M60.08 Infective myositis, other site (principal)
CPT/HCPCS: 99213

== ENCOUNTER → 2025-06-20 14:43 | Outpatient (BNVA) | payer MEDICAID, SELFPAY | PROVIDERS: PCP Internal Medicine; Visit Provider Anesthesiology | DX: M60.08 Infective myositis, other site (principal) | CPT/HCPCS: 99212 ==

== ENCOUNTER 2025-07-03 14:38 | Outpatient (REF) | payer MEDICAID, SELFPAY ==
--- OUTSIDE RECORDS SUMMARY | 2025-07-03 15:44 | XMS_ITS | Clinical Summary ---
Author Organization [employer] Address 75 [facility] 7t [place] [address] Care Team Providers Care Lamination Technician Name Role Phone Mike Arora MD [...] EVERY DAY 30 tablet 2 5 Active Advair Diskus 250-50 MCG/ACT aerosol powderIndications :Chronic obstructive pulmonary disease, unspecified COPD type (CMS/HCC) (HCC) INHALE 1 PUFF INTO THE LUNGS IN THE MORNING 60 each 3 5 Active gabapentin (Neurontin) 600 MG tablet TAKE 1 TABLET BY MOUTH 3 TIMES DAILY. 90 tablet 5 5 Active traMADol (Ultram) 50 MG tabletIndications :Low back pain associated with a spinal disorder other than radiculopathy or spinal stenosis TAKE 1 TABLET BY MOUTH EVERY 6 HOURS IF NEEDED FOR SEVERE PAIN FOR UP TO 7 DAYS. 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, will benefit of [...] Type Department Care Team Description 05/29/2025 Refill [facility] MED & PEDS [address] [place] [address] Mike Arora MD Low back pain associated with a spinal disorder other than radiculopathy or spinal stenosis 05/16/2025 Telephone [facility] MED & PEDS [address] [place] [address] Mila Anderson, JASON 05/10/2025 Orders Only [facility] External Provider, [facility] 04/30/2025 Telephone [facility] MED & PEDS [address] [place] [address] Mila Anderson, JASON 04/29/2025 Refill [facility] MEDICINE [address] [place] [address] Cheryl Olguin MD Low back pain associated [...] 8:30 AM EST Office Visit [facility] MED & PEDS [address] [place] [address] Mike Arora MD [address] [place] [address] Health Maintenance Due Date Last Done Comments [...] AM EST Narrative 06/07/2025 2:24 PM EST [place] [address] [address] Scan Report Signed Patient: Nehal Veloz MR#: [id number] 907 : 1960 Acct:[id number] Age/Sex: 65 / M ADM Date: 06/07/25 Loc: HO.CT Attending Dr: Sebastien Brown MD Ordering Physician: Sebastien Brown MD Date of Service: 06/07/25 Procedure(s): CT lumbar spine wo/w IV con Accession Number(s): [id number] cc: Mike Aroar MD; Sebastien Brown MD Report Number: [id number]: Total DLP = 872.00 mGy-cm Reason for [...] by: Anastacio Ayala MD 06/07/2025 02:21 PM [facility] Dictated By: Anastacio Ayala MD Signed By: <Electronically signed by Anastacio Ayala MD in OV> 06/07/25 1421 DD/ 1148 TD/TT: 06/07/25 1349 Metal Tank Erector: Procedure Note Donotuseinterpreter, Image - 06/07/[address] [address] [address] Scan Report Signed Patient: Nehal VelozMR#: [id number] 907 : 1960cct:[id number] Age/Sex: 65 / MADM Date: 06/07/25 Loc: HO.CT Attending Dr: Sebastien Brown MD Ordering Physician: Sebastien Brown MD Date of Service: 06/07/25 Procedure(s): CT lumbar spine wo/w IV con Accession Number(s): [id number] cc: Mike Arora MD; Sebastien Brown MD Report Number: [id number]: Total DLP = 872.00 mGy-cm Reason for [...] 06/07/25 1421 DD/ 1148 TD/TT: 06/07/25 1349 Metal Tank Erector: [facility] External Provider IMG CT PROCEDURES Final Result * CT Lung Screening Low dose (06/07/2025 11:45 AM EST) Anatomical Region Laterality Modality Lung Computed Tomogra phy 06/07/2025 11:4 5 AM EST Narrative 06/10/2025 5:07 PM EST [address] [address] [address] Scan Report Signed Patient: Nehal Veloz MR#: [id number] 907 : 1960 Acct:[id number] Age/Sex: 65 / M ADM Date: 06/07/25 Loc: HO.CT Attending Dr: Sebastien Brown MD Ordering Physician: Abi Faustin PA-C Date of Service: 06/07/25 Procedure(s): CT lung screening Accession Number(s): [id number] cc: Mike Arora MD; Abi Faustin PA-C Report Number: [id number]: Total DLP = 48.00 mGy-cm Reason for [...] Usha De Paz MD 06/10/2025 05:04 PM [facility] Dictated By: Usha De Paz MD Signed By: <Electronically signed by Usha De Paz MD in OV> 06/10/25 1704 DD/ 1145 TD/TT: 06/07/25 1347 Metal Tank Erector: [facility] Procedure Note Donotuseinterpreter, Image - 06/10/[address] [address] [address] Scan Report Signed Patient: Catrachita Veloz#: [id number] 907 : 2Acct:[id number] Age/Sex: 65 / MADM Date: 06/07/25 Loc: HO.CT Attending Dr: Sebastien Brown MD Ordering Physician: Abi Faustin PA-C Date of Service: 06/07/25 Procedure(s): CT lung screening Accession Number(s): [id number] cc: Mike Arora MD; Abi Faustin PA-C Report Number: [id number]: Total DLP = 48.00 mGy-cm Reason for [...] 06/10/25 1704 DD/ 1145 TD/TT: 06/07/25 1347 Metal Tank Erector: [facility] External Provider IMG CT PROCEDURES Final Result * FL Guidance in OR (05/10/2025 10:45 AM EST) Anatomical Region Laterality Modality X-Ray Angiograph y 05/10/2025 10:4 5 AM EST Narrative 05/10/2025 12:43 PM EST [address] [address] Fluoroscopy Report Signed Patient: Nehal Veloz MR#: [id number] 907 : 1960 Acct:[id number] Age/Sex: 65 / M ADM Date: 05/10/25 Loc: HO.[facility] Attending Dr: Sebastien Brown MD Ordering Physician: Sebastien Brown MD Date of Service: 05/10/25 Procedure(s): FL guidance in OR Accession Number(s): [id number] cc: Mike Arora MD; Sebastien Brown MD [...] Paz MD in OV> 05/10/25 1241 DD/ TD/TT: 05/10/25 120 Metal Tank Erector: [facility] Procedure Note Donotmadelaineinterpreter, Image - 05/10/[address] [address] Fluoroscopy Report Signed Patient: Nehal VelozMR#: [id number] 907 : 1960cct:[id number] Age/Sex: 65 / MADM Date: 05/10/25 Loc: HO.[facility] Attending Dr: Sebastien Brown MD Ordering Physician: Sebastien Brown MD Date of Service: 05/10/25 Procedure(s): FL guidance in OR Accession Number(s): [id number] cc: Mike Arora MD; Sebastien Brown MD [...] Usha De Paz MD 05/10/2025 12:41 PM [facility] Dictated By: Usha De Paz MD Signed By: <Electronically signed by Usha De Paz MD in OV> 05/10/25 1241 DD/ 1045 TD/TT: 05/10/25 120 Metal Tank Erector: [facility] External Provider IMG IR PROCEDURES Final Result * HIV-1/2 Antigen and Antibodies, Fourth Generation, with Reflexes (02/06/2025 1:19 PM EDT) HIV AB/AG Nonreactive Nonreactive [facility] Comment:HIV-1 p24 Ag and/or HIV-1/HIV-2 Ab not detected.A test result that is nonreactive does not exclude thepossibility of exposure to or infection with HIV-1 and/orHIV-2. Nonreactive results in this assay for individualswith prior exposure to HIV-1 and/or HIV-2 may be due toantigen and antibody levels that are below the limit ofdetection of this assay.The [employer] HIV Ag/Ab Combo assay result andsupplemental assay results should be interpreted inconjunction with the patient's clinical presentation,history and other laboratory results. If the results areinconsistent with clinical evidence, additional testing issuggested to confirm the result. 02/06/2025 1:19 PM EDT 02/06/2025 1:22 PM EDT us Generic External Data Provider LAB BLOOD ORDERAB LES Final Result Performing Organization Address [facility] Co de Phone Number [facility] [address] [place] [phone] * Hemoglobin A1c (02/06/2025 1:19 PM EDT) Hemoglobin A1c 5.7 <6.0 % [facility] Comment:Hemoglobin A1C Refer ence Range Adults: 4.8 - 6.0 % Non diabetic: < 6.0 % Goal: < 7.0 %Additional Action Suggested: > 8.0 %Note: Hemoglobin A1c results are invalid for patients with abnormal amounts of HbF. Blood transfusions may impact the HbA1c concentration in the patient sample. Estimated Average Glucose 117 mg/dL [facility] Comment:eAG = Estimated ave rage glucose which is %A1C expressed asaverage glucose, using the formula of the H8X-OpolbfoCmxuwtu Glucose study (ADAG), Diabetes Care, Vol.31,#8,Feb. 2007 02/06/2025 1:19 PM EDT 02/06/2025 1:22 PM EDT us Generic External Data Provider LAB BLOOD ORDERAB LES Final Result Performing Organization Address [facility]/State/ZIP Co de Phone Number [facility] [address] [place] [address] [phone] * Lipid Panel, Standard (03/19/2024 8:16 AM EDT) Triglycerides 94 <150 mg/dL [facility] Comment:Desirable Triglyceri de: less than 150 mg/dLBorderline High Triglyceride 150-199 mg/dLHigh Triglyceride: 200-499 mg/dLVery High Triglyceride: greater than or equal to 5OO mg/dL Cholesterol 144 <200 mg/dL [facility] Comment:Desirable Cholestero l: less than 200 mg/dLBorderline High Cholesterol: 200-239 mg/dLHigh Cholesterol: greater than 239 mg/dL LDL Cholesterol Calculated 65 <100 mg/dL [facility] Comment:Desirable LDL: less than 100 mg/dLNear Optimal/Above Optimal LDL: 110- 129 mg/dLBorderline High LDL: 130-159 mg/dLHigh LDL: 160-189 mg/dLVery High LDL: greater than or equal to 190 mg/dL HDL Cholesterol 61 >40 mg/dL [facility] Comment:Desirable HDL: great er than 40 mg/dL Note: This HDL assay may give artificially low results in patients with liver disease. Blood Venous blood specimen / Unknown 03/19/2024 8:16 AM EDT 03/19/2024 2:23 PM EDT Mike Gaffney MD LAB BLOOD ORDERABL ES Final Result [facility] [address] [place] [address] [phone] * Colonoscopy (11/04/2020) Colonoscopy PERFORMED Jose Provider HEALTH MAINTENANCE Edited Result - Final from Last 3 Months or Most Recently Relevant to Health Maintenance Insurance [facility] C3 Care Teams Lamination Technician Relationship Specialty Start Date End Date Mike Arora MD [address] [place] [address] KATINA Anthony [address] PCP - General Internal Medicine 07/09/19
--- OUTSIDE RECORDS SUMMARY | 2025-07-03 15:44 | XMS_ITS | Encounter Summary ---
Author Organization [employer] Address [address] [facility] [address] [place] [address] Care Team Providers Care Waxer Tender Name Role Phone Mike Arora MD Primary Care Prov ider Reason for Visit * Reason Onset Date Comments Med Refill 01/11/2025 Encounter Details Date Type Department Care Team ([facility] st Contact Info) Description 01/11/2025 Telephone [facility] CHC MED & PEDS [address] [place] [address] Mike Arora MD [address] [place] [address] Med Refill Social History Tobacco Use Types [...] refill : predniSONE (Deltasone) 20 MG tablet [[id number]] To be sent to: [facility]/pharmacy #[id number] documented in this encounter Plan of Treatment Upcoming Encounters Date Type Department Care Team (Late st Contact Info) Description 07/18/2025 8:30 AM EST Office Visit [facility] MED & PEDS [address] [place] [address] Mike Arora MD [address] [place] [address] documented as of this encounter Visit Diagnoses Not on filedocumented in this encounter Additional Health Concerns Assessment Noted Time PHQ-9 Depression Total Score: 0 10/15/19 23 10:23 AM EDT documented as of this encounter Care Teams Waxer Tender Relationship Specialty Start Date End Date Mike Arora MD [address] [place] [address] PCP - General Internal Medicine 07/09/19 documented as of this encounter
--- OUTSIDE RECORDS SUMMARY | 2025-07-03 15:44 | XMS_ITS | Encounter Summary ---
Author Organization [employer] Address 75 [facility] 7t [place] [address] Care Team Providers Care Rigger Helper Name Role Phone Mike Arora MD Primary Care Prov ider Reason for Visit * Reason Onset Date Comments Medication Question 07/13/2023 Encounter Details Date Type Department Care Team ([facility] Contact Info) Description 07/13/2023 Telephone [facility] CHC MED & PEDS [address] [place] [address] Mike Arora MD [address] [place] [address] Medication Question Social History Tobacco Use Types [...] results from PT. Please contact Pt @ [phone] documented in this encounter Plan of Treatment Upcoming Encounters Date Type Department Care Team (Late st Contact Info) Description 07/18/2025 8:30 AM EST Office Visit [facility] CH[facility] MED & PEDS [address] [place] [address] Mike Arora MD [address] [place] [address] documented as of this encounter Visit Diagnoses Not on filedocumented in this encounter Additional Health Concerns Assessment Noted Time PHQ-9 Depression Total Score: 0 10/15/19 23 10:23 AM EDT documented as of this encounter Care Teams Rigger Helper Relationship Specialty Start Date End Date Mike Arora MD [address] [place] [address] PCP - General Internal Medicine 07/09/19 documented as of this encounter
--- OUTSIDE RECORDS SUMMARY | 2025-07-03 15:44 | XMS_ITS | Encounter Summary ---
Author Organization [employer] Address 75 [facility] 7t [place] [address] Care Team Providers Care Property Caretaker Name Role Phone Mike Arora MD Primary Care Prov ider Reason for Visit * Reason Onset Date Comments Med Refill 03/06/2025 Encounter Details Date Type Department Care Team (Late st Contact Info) Description 03/06/2025 Refill [facility] MEDICINE [address] [place] [address] Mike Arora MD [address] [place], [place] [phone] Low back pain associated with a spinal [...] MG tablet To be sent to: [facility]/pharmacy #[id number] - [place] [address] documented in this encounter Plan of Treatment Upcoming Encounters Date Type Department Care Team (Late st Contact Info) Description 07/18/2025 8:30 AM EST Office Visit [facility] MED & PEDS [address] [place] [address] Mike Arora MD [address] [place] [address] documented as of this encounter Visit Diagnoses Diagnosis Low back pain associated with a spinal disorder other than radiculopathy or spinal stenosis- Primary documented in this encounter Additional Health Concerns Assessment Noted Time PHQ-9 Depression Total Score: 0 10/15/19 23 10:23 AM EDT documented as of this encounter Care Teams Property Caretaker Relationship Specialty Start Date End Date Mike Arora MD [address] [place] [address] PCP - General Internal Medicine 07/09/19 documented as of this encounter
--- OUTSIDE RECORDS SUMMARY | 2025-07-03 15:44 | XMS_ITS | Encounter Summary ---
Author Organization [employer] Address [address] [facility] 7t [place] [address] Care Team Providers Care Water Operator Name Role Phone Mike Arora MD Primary Care Prov ider Reason for Visit * Reason Comments Med Refill Encounter Details Date Type Department Care Team ([facility] Contact Info) Description 05/09/2024 Refill [facility] MED & PEDS [address] [place] [address] Mike Arora MD [address] [place] [address] Low back pain associated with a spinal [...] Description 07/18/2025 8:30 AM EST Office Visit [facility] MED & PEDS [address] [place] [address] Mike Arora MD [address] [place] [address] documented as of this encounter Visit Diagnoses Diagnosis Low back pain associated with a spinal disorder other than radiculopathy or spinal stenosis documented in this encounter Additional Health Concerns Assessment Noted Time PHQ-9 Depression Total Score: 0 10/15/19 23 10:23 AM EDT documented as of this encounter Care Teams Water Operator Relationship Specialty Start Date End Date Mike Arora MD [address] [place] [address] PCP - General Internal Medicine 07/09/19 documented as of this encounter
--- OUTSIDE RECORDS SUMMARY | 2025-07-03 15:44 | XMS_ITS | Encounter Summary ---
Author Organization [employer] Address [address] [facility] 7t [place] [address] Care Team Providers Care Printed Circuit Board Assembly Repairer Name Role Phone Mike Arora MD Primary Care Prov ider Reason for Visit * Reason Comments Med Refill Encounter Details Date Type Department Care Team ([facility] Contact Info) Description 06/10/2024 Refill [facility] CHC MED & PEDS [address] [place] [address] Mike Arora MD [address] [place] [address] Low back pain associated with a spinal [...] 07/18/2025 8:30 AM EST Office Visit [facility] MED & PEDS [address] [place] [address] Mike Arora MD [address] [place] [address] documented as of this encounter Visit Diagnoses Diagnosis Low back pain associated with a spinal disorder other than radiculopathy or spinal stenosis documented in this encounter Additional Health Concerns Assessment Noted Time PHQ-9 Depression Total Score: 0 10/15/19 23 10:23 AM EDT documented as of this encounter Care Teams Printed Circuit Board Assembly Repairer Relationship Specialty Start Date End Date Mike Arora MD [address] [place] [address] PCP - General Internal Medicine 07/09/19 documented as of this encounter
--- OUTSIDE RECORDS SUMMARY | 2025-07-03 15:44 | XMS_ITS | Encounter Summary ---
Author Organization [employer] Address [address] [facility] 7t [place] [address] Care Team Providers Care Commercial Loan Officer Name Role Phone Mike Arora MD Primary Care Prov ider Reason for Visit * Reason Onset Date Comments Med Refill 05/21/2024 Encounter Details Date Type Department Care Team (Late st Contact Info) Description 05/21/2024 Telephone [facility] MEDICINE [address] [place] [address] Mike Arora MD [address] [place] [address] Med Refill Social History Tobacco Use Types [...] 50 MG tablet To be sent to: [facility]/pharmacy #[id number] - [facility] - [address] [place] [place] [address] documented in this encounter Plan of Treatment Upcoming Encounters Date Type Department Care Team (Late st Contact Info) Description 07/18/2025 8:30 AM EST Office Visit [facility] MED & PEDS [address] [place] [address] Mike Arora MD [address] [place] [address] documented as of this encounter Visit Diagnoses Not on filedocumented in this encounter Additional Health Concerns Assessment Noted Time PHQ-9 Depression Total Score: 0 10/15/19 23 10:23 AM EDT documented as of this encounter Care Teams Commercial Loan Officer Relationship Specialty Start Date End Date Mike Arora MD [address] [place] [address] PCP - General Internal Medicine 07/09/19 documented as of this encounter
--- OUTSIDE RECORDS SUMMARY | 2025-07-03 15:44 | XMS_ITS | Encounter Summary ---
Author Organization [employer] Address [address] [facility] 7t [place] [address] Care Team Providers Care Manager Target Name Role Phone Mike Arora MD Primary Care Prov ider Reason for Visit * Reason Comments Med Refill Encounter Details Date Type Department Care Team ([facility] Contact Info) Description 02/17/2025 Refill [facility] CHC MED & PEDS [address] [place] [address] Mike Arora MD [address] [place] [address] Low back pain associated with a spinal [...] Description 07/18/2025 8:30 AM EST Office Visit [facility] MED & PEDS [address] [place] [address] Mike Arora MD [address] [place] [address] documented as of this encounter Visit Diagnoses Diagnosis Low back pain associated with a spinal disorder other than radiculopathy or spinal stenosis documented in this encounter Additional Health Concerns Assessment Noted Time PHQ-9 Depression Total Score: 0 10/15/19 23 10:23 AM EDT documented as of this encounter Care Teams Manager Target Relationship Specialty Start Date End Date Mike Arora MD [address] [place] [address] PCP - General Internal Medicine 07/09/19 documented as of this encounter
--- OUTSIDE RECORDS SUMMARY | 2025-07-03 15:44 | XMS_ITS | Encounter Summary ---
Author Organization [employer] Address [address] [facility] [address] [place] [address] Care Team Providers Care Taxi Servicer Name Role Phone Mike Arora MD Primary Care Prov ider Encounter Details Date Type Department Care Team (Late Contact Info) Description 08/10/2022 Orders Only [facility] MEDICINE [address] [place], [place] [phone] Mike Arora MD [address] [place], [place] [phone] Prostate cancer screening (Primary Dx); Simple chronic [...] Description 07/18/2025 8:30 AM EST Office Visit [facility] CHC MED & PEDS [address] [place], [place] [phone] Mike Arora MD [address] [place], [place] [phone] Scheduled Orders Name Type Priority Associated Diagnoses [...] PCR <15 NOT DETECTED NOT DETECTED IU/mL [facility] HCV RNA QN Real Time PCR <1.18 NOT DETECTED NOT DETECTED Log IU/mL [facility] [place] [employer] Comment: HCV RNA is not detected. There [...] a biological false positive result. (Always Message) [facility] [employer] [place] [employer] Comment: This test was performed using Real-Time Polymerase Chain Reaction. Reportable Range: 15 IU/mL to 100,000,000 IU/mL (1.18 Log IU/mL to 8.00 Log IU/mL). The analytical performance characteristics of this assay have been determined by [facility]. The modifications have not been cleared or approved by the FDA. This assay has been validated pursuant to the CLIA regulations and is used for clinical purposes. For more information on this test, go to: http://education.[employer]./faq/WLH64f4 (This link is being provided for informational/ educational purposes only.) This assay is intended for use as an aid in the diagnosis of HCV infection and the management of HCV infected patients undergoing anti-viral therapy. 08/10/2022 10:3 0 AM EST 08/10/2022 10:31 AM EST Narrative [facility] - 08/13/2022 11:15 PM EST FASTING:NO FASTING: NO Mike Gaffney MD LAB BLOOD ORDERABL ES Final Result [facility] [address] [facility], [facility], [place] [address] [facility] [place] [facility] [address] [facility], (N[address]2) [place] [address] * PSA,Total (08/10/2022 10:30 AM EST) PSA, Total 0.35 < OR = 4.00 ng/mL [facility] [place] [employer] Comment: The total PSA value from this assay system is standardized against the WHO standard. The test result will be approximately 20% lower when compared to the equimolar-standardized total PSA ([place]). Comparison of serial PSA results should be [...] Final Result Performing Organization Address [facility] de Phone Number [address], [place] [address] [facility] [place] [facility] [address] [place] [address], ([address]l2) [place] [address] * (ABNORMAL) Hemoglobin A1c with Calculated Mean Plasma Glucose (MPG) (08/10/2022 10:30 AM EST) Hemoglobin A1c 5.8(H) <5.7 % of total Hgb [facility] [place] [employer] Comment: For someone without known diabetes, a [...] children. Mean Plasma Glucose 129 mg/dL (calc) [employer] 08/10/2022 10:3 0 AM EST 08/10/2022 10:31 AM EST Narrative [facility] - 08/13/2022 11:15 PM EST FASTING:NO FASTING: NO Mike Gaffney MD LAB BLOOD ORDERABL ES Final Result Performing Organization Address [facility] Co de Phone Number [address], [place] [address] [facility] [place] [employer] [address] [place] [address], ([address]l2) [place] [address] * TSH W/Reflex to FT4 (08/10/2022 10:30 AM EST) TSH w/Reflex to FT4 2.75 0.40 - 4.50 mIU/L [facility] [place] [employer] 08/10/2022 10:3 0 AM EST 08/10/2022 10:31 AM EST Narrative [facility] - 08/13/2022 11:15 PM EST FASTING:NO FASTING: NO Mike Gaffney MD LAB BLOOD ORDERABL ES Final Result [address], [place] [address] [facility] [place] [employer] [address] [place] [address], ([address]l2) [place] [address] * Lipid Panel, Standard (08/10/2022 10:30 AM EST) Cholesterol, Total 145 <200 mg/dL [facility] [place] [facility] HDL Cholesterol 58 > OR = 40 mg/dL [facility] [place] [facility] Triglycerides 50 <150 mg/dL [facility] [place] [employer] LDL Cholesterol 75 mg/dL (calc) [facility] [place] [employer] Comment: Reference range: <100 Desirable range <100 mg/dL for primary prevention; <70 mg/dL for patients with CHD or diabetic patients with > or = 2 CHD risk factors. LDL-C is now calculated using the Morales calculation, which is a validated novel method providing better accuracy than the Friedewald equation in the estimation of LDL-C. Darrel SS et al. DYLAN. 2013;310(19): 8453-7455 (http://education.BOND.INDOM/faq/ATP851) Chol/HDLC Ratio 2.5 <5.0 (calc) [facility] [place] [employer] Non-HDL Cholesterol 87 <130 mg/dL (calc) [facility] [place] [employer] Comment: For patients with diabetes plus 1 [...] Final Result Performing Organization Address [facility] Co de Phone Number [address], [place] [address] [facility] [place] [facility] [address] [facility], (Nl2) [place] [address] * HIV-1 RNA, Quantitative, Real-Time PCR with Reflex to Genotype (RTI, PI, Integrase) (08/10/2022 10:30 AM EST) Pathologist [facility] HIV 1 RNA, QN PCR NOT DETECTED copies/mL [facility], HIV 1 RNA, QN PCR NOT DETECTED Log copies/mL [facility] [employer] [facility], Comment: REFERENCE RANGE: NOT DETECTED copies/mL NOT DETECTED Log copies/mL This test was performed using Real-Time Polymerase Chain Reaction. Reportable range is 20 to 10,000,000 copies/mL (1.30-7.00 Log copies/mL). 08/10/2022 10:3 0 AM EST 08/10/2022 10:31 AM EST Narrative [facility] - 08/13/2022 11:15 PM EST FASTING:NO FASTING: NO Mike Gaffney MD LAB BLOOD ORDERABL ES Final Result Performing Organization Address [facility]/ZIP Co de Phone Number [address], [place] [address] [facility], [address] [place] [address] * (ABNORMAL) Hepatitis C Antibody with Reflex to HCV, RNA, Quantitative, Real- Time PCR (08/10/2022 10:30 AM EST) [facility] Hepatitis C Antibody REACTIVE( A) NON-REACT [facility] [place] [facility] Index >11.00(H) <1.00 [facility] [place] [employer] Comment: Based on this result, the sample will be tested for HCV RNA by a Nucleic Acid Amplification Test (NAAT) to determine if the patient has a current active infection. Blood Venous blood specimen / Unknown 08/10/2022 10:30 AM EST 08/10/2022 10:31 AM EST Narrative [facility] - 08/13/2022 11:15 PM EST FASTING:NO FASTING: NO Mike Gaffney MD LAB BLOOD ORDERABL ES Final Result [address], [place] [address] [facility] [place] [employer] [address] [facility], (Nl2) [place] [address] * Hepatic Function Panel (08/10/2022 10:30 AM EST) [facility] Protein, Total 7.1 6.1 - 8.1 g/dL [facility] [place] [employer] Albumin 4.7 3.6 - 5.1 g/dL [facility] [place] [facility] Globulin 2.4 1.9 - 3.7 g/dL (calc) [facility] [place] [employer] Albumin/Globulin Ratio 2.0 1.0 - 2.5 (calc) [facility] [place] [facility] Bilirubin, Total 0.7 0.2 - 1.2 mg/dL [facility] [place] [employer] Bilirubin, Direct 0.2 < OR = 0.2 mg/dL [facility] [place] [employer] Bilirubin, Indirect 0.5 0.2 - 1.2 mg/dL (calc) [facility] [place] [employer] Alkaline Phosphatase 35 35 - 144 U/L [facility] [place] [facility] AST 17 10 - 35 U/L [facility] [place] [facility] ALT 16 9 - 46 U/L [facility] [place] [facility] Blood Venous blood specimen / Unknown 08/10/2022 10:30 AM EST 08/10/2022 10:31 AM EST Narrative [facility] - 08/13/2022 11:15 PM EST FASTING:NO FASTING: NO Mike Gaffney MD LAB BLOOD ORDERABL ES Final Result [facility] [address] [facility], [facility], [place] [address] [facility] [place] [employer] [address] [facility], (Nl2) [place] [address] * Basic Metabolic Panel (08/10/2022 10:30 AM EST) Glucose 90 65 - 139 mg/dL [facility] [place] [employer] Comment: Non-fasting reference interval Urea Nitrogen (BUN) 25 7 - 25 mg/dL [facility] [place] [facility] Creatinine, Serum 0.71 0.70 - 1.35 mg/dL [facility] [place] [employer] eGFR 105 > OR = 60 mL/min/1 .73m2 [facility] [place] [facility] Comment: The eGFR is based on the CKD-EPI 2020 equation. To calculate the new eGFR from a previous Creatinine or Cystatin C result, go to https://www.kidney.org/professionals/ kdoqi/gfr%5Fcalculator BUN/Creatinine Ratio NOT APPLICABLE 6 - 22 (calc) [facility] [place] [facility] Sodium 136 135 - 146 mmol/L [facility] [place] [employer] Potassium 4.4 3.5 - 5.3 mmol/L [facility] [place] [facility] Chloride 101 98 - 110 mmol/L [facility] [place] Carbon Dioxide 26 20 - 32 mmol/L [facility] [employer] [place] [facility] Calcium 9.6 8.6 - 10.3 mg/dL [facility] [employer] [place] [facility] Blood Venous blood specimen / Unknown 08/10/2022 10:30 AM EST 08/10/2022 10:31 AM EST Narrative [facility] - 08/13/2022 11:15 PM EST FASTING:NO FASTING: NO us Mike Gaffney MD LAB BLOOD ORDERABL ES Final Result [facility] [address] [facility] [place] [address] [facility] [place] [facility] [address] [facility], (Nl2) [place] [address] * CBC auto differential (08/10/2022 10:30 AM [...] Neutrophils 51.1 % [facility] [place] [facility] Lymphocytes 34.7 % [facility] [place] [facility] Monocytes 8.5 % [facility] [place] [facility] Eosinophils 5.0 % [facility] Basophils 0.7 % [facility] [place] [facility] Blood Venous blood specimen / Unknown 08/10/2022 10:30 AM EST 08/10/2022 10:31 AM EST Narrative [facility] - 08/13/2022 11:15 PM EST FASTING:NO FASTING: NO Mike Gaffney MD LAB BLOOD ORDERABL ES Final Result [facility] [address] [facility], [facility], [place] [address] [facility] [place] [facility] [address] [facility], (N[address]2) [place] [address] documented in this encounter Visit Diagnoses Diagnosis Prostate cancer screening- Primary Special screening for malignant neoplasm of prostate Simple chronic bronchitis (CMS/HCC) (HCC) Simple chronic bronchitis documented in this encounter Care Teams Taxi Servicer Relationship Specialty Start Date End Date Mike Arora MD [address] [place] [address] PCP - General Internal Medicine 07/09/19 documented as of this encounter
--- OUTSIDE RECORDS SUMMARY | 2025-07-03 15:44 | XMS_ITS | Encounter Summary ---
Author Organization [employer] Address [address] [facility] [address] [place] [address] Care Team Providers Care Procurement Professional Name Role Phone Mike Arora MD Primary Care Prov ider Reason for Visit * Reason Onset Date Comments call back 10/20/2022 Encounter Details Date Type Department Care Team ([facility] st Contact Info) Description 10/20/2022 Telephone [facility] MEDICINE [address] [place] [address] Mike Arora MD [address] [place] [address] call back Social History Tobacco Use Types [...] Per pt, he had it done at [facility]. No result found. Will f/u with [facility] diagnostic specialist to find out where pt had the CT done. * Telephone Encounter - Chantal Stuart RN - 10/20/2022 3:08 PM EDT Tc from pt requesting a call back regarding why pt has to do a US Abdomen. Please contact pt at [phone] Please clarify above message. Thanks * Telephone Encounter - Jose Howard - 10/20/2022 10:00 AM EDT Tc from pt requesting a call back regarding why pt has to do a US Abdomen. Please contact pt at [phone] documented in this encounter Plan of Treatment Upcoming Encounters Date Type Department Care Team (Late st Contact Info) Description 07/18/2025 8:30 AM EST Office Visit [facility] MED & PEDS [address] [place] [address] Mike Arora MD [address] [place] [address] documented as of this encounter Visit Diagnoses Not on filedocumented in this encounter Additional Health Concerns Assessment Noted Time PHQ-9 Depression Total Score: 0 10/15/19 23 10:23 AM EDT documented as of this encounter Care Teams Procurement Professional Relationship Specialty Start Date End Date Mike Arora MD [address] [place] [address] PCP - General Internal Medicine 07/09/19 documented as of this encounter
--- OUTSIDE RECORDS SUMMARY | 2025-07-03 15:44 | XMS_ITS | Clinical Summary ---
Author Organization [facility] Address [address] [place] [address] Care Team Providers Care Spray Gun Striper Name Role Phone Cheryl Fournier MD Primary [...] age to complete this topic Care Teams Spray Gun Striper Relationship Specialty Start Date End Date Cheryl Fournier MD PCP - General Internal Medicine 09/09/16
[2025-07-03 15:59] LABS: Hematocrit 40.1 % (42.0-52.0); Hemoglobin 13.7 g/dl (14.0-18.0); Imm Gran Abs Auto 0.06 X10*3/uL (0.00-0.03); Imm Gran Pct Auto 0.4 % (0.0-0.4); Lymphocytes Absolute Auto 2.4 X10*3/uL (1.2-4.9); MANUAL DIFF FLAG SCAN; Mean Corpuscular HGB Conc 34.2 g/dl (31.0-36.0); Mean Corpuscular Hemoglobin 33.0 pg (27.0-33.0); Mean Corpuscular Volume 96.6 fL (80.0-98.0); NRBC Abs Auto 0.000 X10*3/uL (0.0-0.012); NRBC Pct Auto 0.0 /100WBC (0.0-0.2); Platelet Count 297 X10*3/uL (160-400); Red Blood Count 4.15 X10*6/uL (4.60-5.80); SCAN SMEAR FLAG 1; White Blood Count 16.0 X10*3/uL (4.8-10.8)
[2025-07-03 17:50] LABS: Anion Gap 20 (12-20); Blood Urea Nitrogen 20 mg/dL (9-16); Calcium 10.0 mg/dL (8.4-10.2); Carbon Dioxide 22 mmol/L (22-29); Chloride 104 mmol/L (96-108); Estimated Glomerular Filt Rate > 60; Potassium 3.8 mmol/L (3.3-5.1); Sodium 142 mmol/L (135-145)
== END 2025-07-03 14:39 | disposition home or self-care (01) ==
LOC: HO.LAB 14:38
PROVIDERS: PCP Internal Medicine; Visit Provider Anesthesiology
DX: M60.08 Infective myositis, other site (principal)
CPT/HCPCS: 36415; 80048; 85025